=== PATIENT | female | born 1955 | race Hispanic/Latino ===

== ENCOUNTER 2023-01-11 15:47 | Emergency (ER) | payer OTHER ==
--- OUTSIDE RECORDS SUMMARY | 2023-01-11 16:01 | XMS REPORT | Continuity of Care Document ---
:1955 Author Organization [facility] t Address [address] [place] [address] Care Team Providers Name Role Phone Danae Bianchi Primary Care Physician Sammi Cartagena Attending Clinician Unavailable Miley Vincent Attending Clinician Unavailable Danae Bianchi Attending Clinician Unavailable HILDA SPRINGER Attending Clinician Unavailable Hilda Springer DPM Attending Clinician Pob, [facility] Main Attending Clinician Unavailable Only, [facility] Attending Clinician Unavailable Doctor Unassigned, [place] Attending Clinician Unavailable HILDA SPRINGER Admitting Clinician Unavailable Hilda Springer DPM Admitting Clinician Payers Payer Name Policy Type Policy Number Effective Date Expiration Date S zac AETNA MEDICARE [id number] 2020 ADV 00:00:00 AET[employer] MEDICARE 53 [id number] 2018 Common Spi rit 00:00:00 - [facility] Problems Condition Condition Condition Status Onset Resolution Last Treating Co mments Source Name Details Category Date Date Treatment Clinician Date [id number] Nonadheren Problem Co mmon ce with Spirit dietary - CHI restrictio [facility] [id number] Body mass Problem Com mon index Spirit [BMI] - [facility]I 50.0-59.9, [facility] Ulcer Ulcer Problem Common Spirit - [facility] [id number] Right Problem Common acute Spirit serous - [facility] ot[facility] Medica l not Center specified [id number] Diabetic Problem Comm on neuropathy Spirit , painful - [facility] [id number] 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 - [facility] diabetes associated St mellitus with type [facility] 2 diabetes Medica l mellitus Center Neuropathy Neuropathy Problem C ommon Spirit - [facility] [id number] Decreased Problem Com mon hearing of Spirit left ear - [facility] [id number] Anxiety Problem Common [facility] [id number] Change in Problem Com mon bowel Spirit habit - [facility] [id number] Essential Problem Comm on hypertensi Spirit on [facility] Vitamin D Vitamin D Problem Com mon deficiency deficiency tolu [facility] Chronic Chronic Problem Common fatigue fatigue Spirit syndrome - [facility] [id number] Constipati Problem Com mon on, Spirit unspecifie - CHI d constipati [facility] on [facility] [id number] Seasonal Problem Comm on allergies [facility] Allergies, Adverse Reactions, Alerts Allergy Allergy Status Severity Reaction(s) Onset Inactive Treating Comm ents Source Name Type Date Date Clinician NO KNOWN Drug [facility] Social History Social Habit Start Date Stop Date Quantity Comments Source Exposure to Not sure [facility] SARS-CoV-2 (event) Medica l Branch History of Tobacco Common Spirit - [facility] Use [facility] Sex Assigned At Common Sp tolu - [facility] Tobacco use and 2020-12-30 2020-12-30 Never used [facility] [place] exposure 00:00:00 00:00:00 Medical Branch Smoking Status Start Date Stop Date Source Former Smoker 2022-05-18 00:00:00 2022-05-18 00:00:00 Common S pirit - [facility] Never Smoker Common Spirit - [facility] Medications Ordered Filled Start Stop Current Ordering Indication Dosage Frequency Signature Comments Components Source Medication Medication Date Date Medication? Clinician (SIG) Name Name Hanna Ferreira 2021-07- No 1{table QD Ricoxiga 10mg 10mg 0-26 04-24 t} 10mg 00:00: 00:00 00 :00 Hanna Ferreira 2021-07- No 1{table QD Ricoxiga 10mg 10mg 0-26 04-24 t} 10mg 00:00: 00:00 00 :00 Neomycin-Po Neomycin-Po 2021-0 No 4{drops BID Neomycin-P lymyxin-HC lymyxin-HC 5-19 _into_a olymyxin-H 3.5-05463-4 3.5-67787-7 00:00: ffected C 00 _ear} 3.5-12085- 1 Neomycin-Po Neomycin-Po 2021-0 No 4{drops BID Neomycin-P lymyxin-HC lymyxin-HC 5-19 _into_a olymyxin-H 3.5-91166-9 3.5-54114-9 00:00: ffected C 00 _ear} 3.5-93549- 1 Neomycin-Po Neomycin-Po 2021-0 No 4{drops BID Neomycin-P lymyxin-HC lymyxin-HC 5-19 _into_a olymyxin-H 3.5-03053-0 3.5-80433-7 00:00: ffected C 00 _ear} 3.5-53833- 1 Neomycin-Po Neomycin-Po 2021-0 No 4{drops BID Neomycin-P lymyxin-HC lymyxin-HC 5-19 _into_a olymyxin-H 3.5-06619-2 3.5-80195-8 00:00: ffected C 00 _ear} 3.5-58437- 1 Neomycin-Po Neomycin-Po 2022-0 No 4{drops BID Neomycin-P lymyxin-HC lymyxin-HC 5-19 _into_a olymyxin-H 3.5-76262-1 3.5-84343-0 00:00: ffected C 00 _ear} 3.5-25133- 1 Neomycin-Po Neomycin-Po 2022-0 No 4{drops BID Neomycin-P lymyxin-HC lymyxin-HC 5-19 _into_a olymyxin-H 3.5-89024-3 3.5-80762-0 00:00: ffected C 00 _ear} 3.5-61811- 1 Neomycin-Po Neomycin-Po 2022-0 No 4{drops BID Neomycin-P lymyxin-HC lymyxin-HC 5-19 _into_a olymyxin-H 3.5-73870-9 3.5-39998-7 00:00: ffected C 00 _ear} 3.5-09857- 1 Neomycin-Po Neomycin-Po 2022-0 No 4{drops BID Neomycin-P lymyxin-HC lymyxin-HC 5-19 _into_a olymyxin-H 3.5-48036-4 3.5-75283-0 00:00: ffected C 00 _ear} 3.5-40292- 1 Neomycin-Po Neomycin-Po 2022-0 No 4{drops BID Neomycin-P lymyxin-HC lymyxin-HC 5-19 _into_a olymyxin-H 3.5-98735-9 3.5-39213-1 00:00: ffected C 00 _ear} 3.5-40770- 1 Neomycin-Po Neomycin-Po 2022-0 No 4{drops BID Neomycin-P lymyxin-HC lymyxin-HC 5-19 _into_a olymyxin-H 3.5-55364-1 3.5-72490-4 00:00: ffected C 00 _ear} 3.5-06683- 1 Neomycin-Po Neomycin-Po 2022-0 No 4{drops BID Neomycin-P lymyxin-HC lymyxin-HC 5-19 _into_a olymyxin-H 3.5-74654-8 3.5-93025-1 00:00: ffected C 00 _ear} 3.5-24280- 1 Neomycin-Po Neomycin-Po 2022-0 No 4{drops BID Neomycin-P lymyxin-HC lymyxin-HC 5-19 _into_a olymyxin-H 3.5-84631-5 3.5-29117-0 00:00: ffected C 00 _ear} 3.5-93225- 1 Fluconazole Fluconazole 2021- No 1{table Fluconazol 150 MG 150 MG 5-19 05-20 t} e 150 MG 00:00: 00:00 00 :00 Fluconazole Fluconazole 2021-0 2021- No 1{table Fluconazol 150 MG 150 MG 5-19 05-20 t} e 150 MG 00:00: 00:00 00 :00 metFORMIN 2021-0 Yes 500mg Take 500 Uni vers 500 mg 1-29 mg by ity of tablet 23:13: mouth 2 [place] 04 (two) Medical times [place] daily with meals. bacitracin- 0 Yes PRN, Univer s polymyxin B 08-26 Starting ity of (DOUBLE 15:58: on Sun [place] ANTIBIOTIC) 00 08/26/21 at Mn dical 500-10,000 0958, Branch unit/gram Until topical Discontinu ointment ed, Routine, Intra-op bacitracin- 2021-0 2021- No PRN, Unive rs polymyxin B 08-26 Starting ity of (DOUBLE 15:58: 19:14 on Sun [place] ANTIBIOTIC) 00 :02 08/26/21 at Mn dical 500-10,000 0958, Branch unit/gram Until Fri topical 08/26/21 at ointment 1314, Routine, Intra-op sodium 0 Yes PRN, Univers chloride 08-26 Starting ity of 0.9 % 15:15: on Fri [place] irrigation 00 08/26/[address] [facility] ical solution 0915, [place] Until Discontinu ed, Intra-op sodium 2021-0 2021- No PRN, Univers chloride 08-26 Starting ity of 0.9 % 15:15: 19:14 on Fri [place] irrigation 00 :02 08/26/21 at Med ical solution 0915, Branch Until 08/26/21 at 1314, Intra-op bupivacaine 2021-0 Yes PRN, Univer s (preserv 08-26 Starting ity of free) 0.5% 15:01: on Sun [place] (SENSORCAIN 00 08/26/21 at Mn dical E MPF) 0.5 0901, Branch % (5 mg/mL) Intra-op 5 mL, lidocaine 1% (PF) (XYLOCAINE) 5 mL bupivacaine 2021- No PRN, Unive rs (preserv 08-26 Starting ity of free) 0.5% 15:01: 19:14 [place] ([place]IN [place] :02 08/26/21 at [place] dicwv E [facility]) 0.5 0901, Branch % (5 mg/mL) Intra-op 5 mL, lidocaine 1% (PF) (XYLOCAINE) 5 mL lactated 2021- No 1000mL at [facility] IV 08-26- mL/hr, ity of infusion 13:45: 14:01 1,000 mL, Suleiman as 1,000 mL 00 :00 IV Medical Infusion, Branch ONCE, 1 dose, On Sun08/26/21 at 0745, Routine, DSU Pre-op lactated 0 2021- No 1000mL at 42 [facility] ringers IV 08-26-28 mL/hr, ity of infusion 13:45: 14:01 1,000 mL, Suleiman as 1,000 mL 00 :00 IV Medical Infusion, Branch ONCE, 1 dose, On Sun08/26/21 at 0745, Routine, DSU Pre-op losartan 2021-0 Yes 100mg Take 100 Univ ers 100 mg 1-28 mg by ity of tablet 11:14: mouth daily. Medical Branch atorvastati 2021-0 Yes 10mg Take 10 mg Univers n 10 mg 08-26 by mouth ity of tablet 11:14: at [place] 01 bedtime. Medical Branch glimepiride 2021-0 Yes 2mg Take 2 mg U nivers 2 mg tablet -28 by mouth 2 it y of 11:14: (two) [place] times Medical daily. Branch metFORMIN 2021-0 Yes 500mg Take 500 Uni vers 500 mg 1-28 mg by ity of tablet 11:14: mouth 2 [place] 01 (two) Medical times Branch daily with meals. losartan 2021-0 Yes 100mg Take 100 Univ ers 100 mg 1-28 mg by ity of tablet 11:14: mouth daily. Medical Branch atorvastati Yes 10mg Take 10 mg Univers n 10 mg 08-26 by mouth ity of tablet 11:14: at [place] [address] bedtime. Medical Branch glimepiride Yes 2mg Take 2 mg U nivers 2 mg tablet 08-26 by mouth 2 it y of 11:14: (two) [place] times Medical daily. Branch losartan Yes 100mg Take 100 Univ ers 100 mg 1-28 mg by ity of tablet 11:14: mouth [place] daily. Medical Branch atorvastati Yes 10mg Take 10 mg Univers n 10 mg 08-26 by mouth ity of tablet 11:14: at [place] [address] bedtime. Medical Branch glimepiride Yes 2mg Take 2 mg U nivers 2 mg tablet 08-26 by mouth 2 it y of 11:14: (two) [place] times Medical daily. Branch aspirin 325 2021- No [id number] 325mg Take 1 Univers mg tablet 08-26 tablet by ity of 00:00: 05:59 mouth 2 [place] 00 :00 (two) Medical times [place] daily with meals for 28 days. aspirin 325 2021- No [id number] 325mg Take 1 Univers mg tablet 08-26 tablet by ity of 00:00: 05:59 mouth 2 [place] 00 :00 (two) Medical times [place] daily with meals for 28 days. metFORMIN Yes 500mg Take 500 Uni vers 500 mg 1-26 mg by ity of tablet 15:30: mouth 2 [place] (two) Medical times [place] daily with meals. metFORMIN Yes 500mg Take 500 Uni vers 500 mg 1-26 mg by ity of tablet 15:30: mouth 2 [place] (two) Medical times [place] daily with meals. metFORMIN metFORMIN 2020-07 No BID metFORMIN HCl ER 500 HCl ER 500 0-19 HCl ER 500 MG MG 00:00: MG 00 metFORMIN metFORMIN 2020-07 No BID metFORMIN HCl ER 500 HCl ER 500 0-19 HCl ER 500 MG MG 00:00: MG 00 atorvastati Yes 10mg Take 10 mg Univers n 10 mg 6-04 by mouth ity of tablet 19:21: at [place] [address] bedtime. Medical Branch glimepiride Yes 2mg Take 2 mg U nivers 2 mg tablet 6-04 by mouth 2 it y of 19:21: (two) [place] 12 times Medical daily. Branch losartan 0 Yes 100mg Take 100 Univ ers 100 mg 6-04 mg by ity of tablet 19:21: mouth [place] 12 daily. Medical Branch atorvastati Yes 10mg Take 10 mg Univers n 10 mg 6-04 by mouth ity of tablet 19:21: at [place] 12 bedtime. Medical Branch glimepiride Yes 2mg Take 2 mg U nivers 2 mg tablet 6-04 by mouth 2 it y of 19:21: (two) [place] 12 times Medical daily. Branch losartan Yes 100mg Take 100 Univ ers 100 mg 6-04 mg by ity of tablet 19:21: mouth [place] 12 daily. Medical Branch FENTanyl PF Yes 25ug 25 mcg, Uni vers (SUBLIMAZE 6-04 Slow IV ity of (PF)) 18:21: Push, [place] injection 55 Q5MIN PRN, Medi dc 25 mcg 4 doses, Branch Starting 12/31/20 at 1321, Until Discontinu ed, Routine, Pain (scale 7-10), PACU ondansetron Yes 4mg 4 mg, Slow Univers (ZOFRAN 6-04 IV Push, ity of (PF)) 18:21: PRN, 1 [place] injection 4 55 dose, Medical mg Starting Branch 12/31/20 at 1321, Until Discontinu ed, Routine, Nausea and Vomiting (N/V), PACU FENTanyl PF Yes 25ug 25 mcg, Uni vers (SUBLIMAZE 6-04 Slow IV ity of (PF)) 18:21: Push, [place] injection 55 Q5MIN PRN, Medi dc 25 mcg 4 doses, Branch Starting 12/31/20 at 1321, Until Discontinu ed, Routine, Pain (scale 4-6), PACU FENTanyl PF 2020-0 202- No 25ug 25 mcg, Un cherise (SUBLIMAZE 6-04 06-04 Slow IV ity o f (PF)) 18:21: 21:26 Push, [place] injection 55 :16 Q5MIN PRN, Medi dc 25 mcg 4 doses, Branch Starting 12/31/20 at 1321, Until Sun12/31/20 at 1626, Routine, Pain (scale 7-10), PACU ondansetron 2020- No 4mg 4 mg, Slow Univers (ZOFRAN 12-31 IV Push, ity of (PF)) 18:21: 21:26 PRN, 1 [place] injection 4 55 :16 dose, Medical mg Starting Branch Sun12/31/20 at 1321, Until Sun12/31/20 at 1626, Routine, Nausea and Vomiting (N/V), PACU FENTanyl PF 2020- No 25ug 25 mcg, Un cherise (SUBLIMAZE 12-31 Slow IV ity o f (PF)) 18:21: 21:26 Push, [place] injection 55 :16 Q5MIN PRN, Medi dc 25 mcg 4 doses, Branch Starting Sun12/31/20 at 1321, Until Sun12/31/20 at 1626, Routine, Pain (scale 4-6), PACU bupivacaine Yes PRN, Univer s (preserv 6-04 Starting ity of free) 0.5% 17:45: Sun12/31/20 [place] (SENSORCAIN 00 at 1245, Medi dc E MPF) 0.5 Intra-op Branc h % (5 mg/mL) 5 mL, lidocaine 1% (PF) (XYLOCAINE) 5 mL bupivacaine 2020- No PRN, Unive rs (preserv 12-31 Starting ity of free) 0.5% 17:45: 21:26 Sun12/31/20 [place] (SENSORCAIN 00 :16 at 1245, Medi dc E MPF) 0.5 Intra-op Branc h % (5 mg/mL) 5 mL, lidocaine 1% (PF) (XYLOCAINE) 5 mL sodium Yes PRN, Univers chloride 6-04 Starting ity of 0.9 % 17:41: Sun12/31/20 [place] irrigation 00 at 1241, Medic al solution Until Branch Discontinu ed, Intra-op sodium 2020- No PRN, Univers chloride 12-31 Starting ity of 0.9 % 17:41: 21:26 12/31/20 [place] irrigation 00 :16 at 1241, Medic al solution Until Fri Branch 12/31/20 at 1626, Intra-op lactated 2020- No 1000mL at 42 Unive rs ringers IV 6-04 06-04 mL/hr, ity of infusion 15:15: 15:12 1,000 mL, Suleiman as 1,000 mL 00 :00 IV Medical Infusion, Branch ONCE, 1 dose, Sun12/31/20 at 1015, Routine, DSU Pre-op lactated 2020- No 1000mL at 42 Unive rs ringers IV 6-04 06-04 mL/hr, ity of infusion 15:15: 15:12 1,000 mL, Suleiman as 1,000 mL 00 :00 IV Medical Infusion, Branch ONCE, 1 dose, 12/31/20 at 1015, Routine, DSU Pre-op losartan Yes 100mg Take 100 Univ ers 100 mg 6-04 mg by ity of tablet 14:21: mouth [place] 12 daily. Medical Branch atorvastati Yes 10mg Take 10 mg Univers n 10 mg 6-04 by mouth ity of tablet 14:21: at [place] 12 bedtime. Medical Branch glimepiride Yes 2mg Take 2 mg U nivers 2 mg tablet 6-04 by mouth 2 it y of 14:21: (two) [place] 12 times Medical daily. Branch losartan Yes 100mg Take 100 Univ ers 100 mg 6-04 mg by ity of tablet 14:21: mouth [place] 12 daily. Medical Branch atorvastati Yes 10mg Take 10 mg Univers n 10 mg 6-04 by mouth ity of tablet 14:21: at [place] 12 bedtime. Medical Branch glimepiride Yes 2mg Take 2 mg U nivers 2 mg tablet 6-04 by mouth 2 it y of 14:21: (two) [place] 12 times Medical daily. Branch Neomycin-Po Neomycin-Po 0 No 4{drops BID Neomycin-P Common lymyxin-HC lymyxin-HC 4-05 _into_a olymyxin-H Spirit 3.-1 3. 00:00: ffected C - CHI 00 _ear} 3.5- [address] Neomycin-Po Neomycin-Po 2020-0 No 4{drops BID Neomycin-P lymyxin-HC lymyxin-HC 4-05 _into_a olymyxin-H 3.5-35890-4 3.5-89008-0 00:00: ffected C 00 _ear} 3.5-87742- 1 Neomycin-Po Neomycin-Po 2020-0 No 4{drops BID Neomycin-P lymyxin-HC lymyxin-HC 4-05 _into_a olymyxin-H 3.5-16244-6 3.5-49172-8 00:00: ffected C 00 _ear} 3.5-00011- 1 One Touch One Touch No QD One Touch Common Ultra Test Ultra Test 3-24 Ultra Test Spirit Strips 1 Strips 1 00:00: Strips 1 - CHI 00 [facility] One Touch One Touch No QD One Touch Common Delica Delica 3-24 Delica Spirit Lancets - Lancets - 00:00: Lancets - - CHI 00 [facility] One Touch One Touch No QD One Touch Delica Delica 3-24 Delica Lancets - Lancets - 00:00: Lancets - 00 One Touch One Touch 0 No QD One Touch Ultra Test Ultra Test 3-24 Ultra Test Strips 1 Strips 1 00:00: Strips 1 00 One Touch One Touch 0 No QD One Touch Delica Delica 3-24 Delica Lancets - Lancets - 00:00: Lancets - 00 One Touch One Touch 0 No QD One Touch Ultra Test Ultra Test 3-24 Ultra Test Strips 1 Strips 1 00:00: Strips 1 00 One Touch One Touch 0 No QD One Touch Delica Delica 3-24 Delica Lancets - Lancets - 00:00: Lancets - 00 One Touch One Touch 0 No QD One Touch Ultra Test Ultra Test 3-24 Ultra Test Strips 1 Strips 1 00:00: Strips 1 00 One Touch One Touch 0 No QD One Touch Ultra Test Ultra Test 3-24 Ultra Test Strips 1 Strips 1 00:00: Strips 1 00 One Touch One Touch 0 No QD One Touch Delica Delica 3-24 Delica Lancets - Lancets - 00:00: Lancets - 00 One Touch One Touch 2021-0 No QD One Touch Delica Delica 3-24 Delica Lancets - Lancets - 00:00: Lancets - 00 One Touch One Touch 2020-0 No QD One Touch Ultra Test Ultra Test 3-24 Ultra Test Strips 1 Strips 1 00:00: Strips 1 00 One Touch One Touch 2020-0 No QD Ultra Test Ultra Test 3-24 Strips 1 Strips 1 00:00: 00 One Touch One Touch 2020-0 No QD Delica Delica 3-24 Lancets - Lancets - 00:00: 00 One Touch One Touch 2020-0 No QD One Touch Ultra Test Ultra Test 3-24 Ultra Test Strips 1 Strips 1 00:00: Strips 1 00 One Touch One Touch 2020-0 No QD One Touch Delica Delica 3-24 [facility] Lancets - Lancets - 00:00: Lancets - 00 One Touch One Touch 0 No QD One Touch Ultra Test Ultra Test 3-24 Ultra Test Strips 1 Strips 1 00:00: Strips 1 00 One Touch One Touch 2020-0 No QD One Touch Delica Delica 3-24 [facility] Lancets - Lancets - 00:00: Lancets - 00 One Touch One Touch 0 No QD One Touch Ultra Test Ultra Test 3-24 Ultra Test Strips 1 Strips 1 00:00: Strips 1 00 One Touch One Touch 2020-0 No QD One Touch Delica Delica 3-24 [facility] Lancets - Lancets - 00:00: Lancets - 00 One Touch One Touch 0 No QD One Touch Ultra Test Ultra Test 3-24 Ultra Test Strips 1 Strips 1 00:00: Strips 1 00 One Touch One Touch 2020-0 No QD One Touch Delica Delica 3-24 [facility] Lancets - Lancets - 00:00: Lancets - 00 One Touch One Touch 2020-0 No QD One Touch Ultra Test Ultra Test 3-24 Ultra Test Strips 1 Strips 1 00:00: Strips 1 00 One Touch One Touch 2020-0 No QD One Touch Delica Delica 3-24 Delica Lancets - Lancets - 00:00: Lancets - 00 One Touch One Touch 2020-0 No QD One Touch Ultra Test Ultra Test 3-24 Ultra Test Strips 1 Strips 1 00:00: Strips 1 00 One Touch One Touch 2020-0 No QD One Touch Delica Delica 3-24 [facility] Lancets - Lancets - 00:00: Lancets - 00 One Touch One Touch 0 No QD One Touch Delica [facility] 3- [facility] Lancets - Lancets - 00:00: Lancets - 00 One Touch One Touch 0 No QD One Touch Ultra Test Ultra Test 10-20 Ultra Test Strips 1 Strips 1 00:00: Strips 1 00 One Touch One Touch 0 No QD One Touch Delica [facility] 3- [facility] Lancets - Lancets - 00:00: Lancets - 00 One Touch One Touch 0 No QD One Touch Ultra Test Ultra Test 10-20 Ultra Test Strips 1 Strips 1 00:00: Strips 1 00 One Touch One Touch 0 No QD One Touch Delica [facility] [address] [place] [address] Lancets - Lancets - 00:00: Lancets - 00 One Touch One Touch 0 No QD One Touch Delica [facility] [address] [place] [address] Lancets - Lancets - 00:00: Lancets - 00 One Touch One Touch 0 No QD One Touch Delica [facility] [address] [place] [address] Lancets - Lancets - 00:00: Lancets - 00 One Touch One Touch 0 No QD One Touch Delica [facility] 3-24 [facility] Lancets - Lancets - 00:00: Lancets - 00 One Touch One Touch 0 No QD One Touch Delica [facility] 3- [facility] Lancets - Lancets - 00:00: Lancets - 00 One Touch One Touch 0 No QD One Touch Delica [facility] 3- [facility] Lancets - Lancets - 00:00: Lancets - 00 One Touch One Touch 0 No QD One Touch Delica [facility] 3- [facility] Lancets - Lancets - 00:00: Lancets - 00 One Touch One Touch 0 No QD One Touch Delica [facility] 3- [facility] Lancets - Lancets - 00:00: Lancets - 00 One Touch One Touch 2021- No QD One Touch Ultra Test Ultra Test 10-20 Ultra Test Strips 1 Strips 1 00:00: 00:00 Strips 1 00 :00 One Touch One Touch 0 2021- No QD One Touch Ultra Test Ultra Test 10-20 Ultra Test Strips 1 Strips 1 00:00: 00:00 Strips 1 00 :00 One Touch One Touch 2021- No QD One Touch Ultra Test Ultra Test 10-20 Ultra Test Strips 1 Strips 1 00:00: 00:00 Strips 1 00 :00 [facility] Yes Na Bianchi 1 Common ne ne 8-26 applicatio Spirit Acetonide Acetonide 00:00: n to - C HI 00 affected [facility] No 1{appli BID Triamcinol Common ne ne 8-26 cation_ one Spirit Acetonide Acetonide 00:00: to_affe Acetonide - CHI 0.1 % 0.1 % 00 c[facility]ar 0.1 [facility]li BID Triamcinol ne ne 8-26 cation_ one Acetonide Acetonide 00:00: to_affe Acetonide 0.1 % 0.1 % 00 cted_ar 0.1 % ea} [facility] No 1{appli BID Triamcinol ne ne 8-26 cation_ one Acetonide Acetonide 00:00: to_affe Acetonide 0.1 % 0.1 % 00 cted_ar 0.1 % ea} Linzess Linzess 2020- No Na Bianchi one Com 01-27 capsule Spirit 00:00: 00:00 - CHI 00 :00 [facility] Farxiga Farga 2020- No Na Bianchi 1 Com 09-04 Spirit 00:00: 00:00 - CHI 00 :00 [facility] No known No Univers medications ity of [facility] No known No Univers medications ity of [facility] Losartan Losartan Yes Na Bianchi 1 tablet Common Potassium Potassium [facility] Gabapentin Gabapentin Yes Na Bianchi 1 capsule Common [facility] Vitamin D Vitamin D Yes Na Bianchi not Co mmon defined [facility] Atorvastati Atorvastati Yes Na Bianchi 1 tablet Common n Calcium n Calcium [facility] MetFORMIN MetFORMIN Yes Na Bianchi 1 tablet Common HCl ER HCl ER with Spirit evening - [facility] meal [facility] Flonase Flonase Yes Na Bianchi 2 sprays Co mmon in each Spirit nostril [facility] Valacyclovi Valacyclovi Yes Na Bianchi 1 tablet Common r HCl r HCl [facility] Glimepiride Glimepiride No BID Glimepirid Common 4 MG 4 MG e 4 MG [facility] Atorvastati Atorvastati No 1{table QD Atorvastat Common n Calcium n Calcium t} in Calcium Spirit 10 MG 10 MG 10 MG [facility] Farxiga Farxiga No QD Farxiga Common 10mg 10mg 10mg [facility] Atorvastati Atorvastati No 1{table QD Atorvastat Common n Calcium n Calcium t} in Calcium Spirit 10 MG 10 MG 10 MG [facility] Losartan Losartan No 1{table QD Losartan Common Potassium Potassium t} Potassium Spirit 100 MG 100 MG 100 MG [facility] Flonase 50 Flonase 50 No 2{spray QD Flonase 50 Common MCG/ACT MCG/ACT s_in_ea MCG/ACT Spi rit ch_nost - CHI ril} [facility] Linzess 145 Linzess 145 No Linzess Common mcg mcg 145 mcg [facility] valACYclovi valACYclovi No 2{table BID valACYclov Common r HCl 500 r HCl 500 ts} ir HCl 500 Spirit MG MG MG [facility] valACYclovi valACYclovi No 1{table TID valACYclov Common r HCl 1 GM r HCl 1 GM t} ir HCl 1 Spirit GM [facility] Vitamin D Vitamin D No Vitamin D Common [facility] Cetirizine Cetirizine No 1{table QD Cetirizine Common HCl 10 MG HCl 10 MG t} HCl 10 MG [facility] Gabapentin Gabapentin No 1{capsu TID Gabapentin Common 100 MG 100 MG le} 100 MG [facility] Atorvastati Atorvastati No 1{table QD Atorvastat n Calcium n Calcium t} in Calcium 10 MG 10 MG 10 MG Vitamin D Vitamin D No Vitamin D Farxiga Farxiga No QD Farxiga 10mg 10mg 10mg Glimepiride Glimepiride No BID Glimepirid 4 MG 4 MG e 4 MG Linzess 145 Linzess 145 No Linzess mcg mcg 145 mcg Losartan Losartan No 1{table QD Losartan Potassium Potassium t} Potassium 100 MG 100 MG 100 MG valACYclovi valACYclovi No 2{table BID valACYclov r HCl 500 r HCl 500 ts} ir HCl 500 MG MG MG Gabapentin Gabapentin No 1{capsu TID Gabapentin 100 MG 100 MG le} 100 MG Flonase 50 Flonase 50 No 2{spray QD Flonase 50 MCG/ACT MCG/ACT s_in_ea MCG/ACT ch_nost ril} Atorvastati Atorvastati No 1{table QD Atorvastat n Calcium n Calcium t} in Calcium 10 MG 10 MG 10 MG Cetirizine Cetirizine No 1{table QD Cetirizine HCl 10 MG HCl 10 MG t} HCl 10 MG valACYclovi valACYclovi No 1{table TID valACYclov r HCl 1 GM r HCl 1 GM t} ir HCl 1 GM Atorvastati Atorvastati No 1{table QD Atorvastat n Calcium n Calcium t} in Calcium 10 MG 10 MG 10 MG Flonase 50 Flonase 50 No 2{spray QD Flonase 50 MCG/ACT MCG/ACT s_in_ea MCG/ACT ch_nost ril} Linzess 145 Linzess 145 No Linzess mcg mcg 145 mcg Farxiga Farxiga No QD Farxiga 10mg 10mg 10mg Atorvastati Atorvastati No 1{table QD Atorvastat n Calcium n Calcium t} in Calcium 10 MG 10 MG 10 MG Gabapentin Gabapentin No 1{capsu TID Gabapentin 100 MG 100 MG le} 100 MG Losartan Losartan No 1{table QD Losartan Potassium Potassium t} Potassium 100 MG 100 MG 100 MG valACYclovi valACYclovi No 2{table BID valACYclov r HCl 500 r HCl 500 ts} ir HCl 500 MG MG MG Cetirizine Cetirizine No 1{table QD Cetirizine HCl 10 MG HCl 10 MG t} HCl 10 MG Glimepiride Glimepiride No BID Glimepirid 4 MG 4 MG e 4 MG valACYclovi valACYclovi No 1{table TID valACYclov r HCl 1 GM r HCl 1 GM t} ir HCl 1 GM Vitamin D Vitamin D No Vitamin D Glimepiride Glimepiride No BID Glimepirid 4 MG 4 MG e 4 MG Gabapentin Gabapentin No 1{capsu TID Gabapentin 100 MG 100 MG le} 100 MG Vitamin D Vitamin D No Vitamin D Losartan Losartan No 1{table QD Losartan Potassium Potassium t} Potassium 100 MG 100 MG 100 MG Atorvastati Atorvastati No 1{table QD Atorvastat n Calcium n Calcium t} in Calcium 10 MG 10 MG 10 MG Flonase 50 Flonase 50 No 2{spray QD Flonase 50 MCG/ACT MCG/ACT s_in_ea MCG/ACT ch_nost ril} Cetirizine Cetirizine No 1{table QD Cetirizine HCl 10 MG HCl 10 MG t} HCl 10 MG Linzess 145 Linzess 145 No Linzess mcg mcg 145 mcg Losartan Losartan No Losartan Potassium Potassium Potassium 100 MG 100 MG 100 MG Cetirizine Cetirizine No 1{table QD Cetirizine HCl 10 MG HCl 10 MG t} HCl 10 MG Linzess 145 Linzess 145 No Linzess mcg mcg 145 mcg Flonase 50 Flonase 50 No 2{spray QD Flonase 50 MCG/ACT MCG/ACT s_in_ea MCG/ACT ch_nost ril} Glimepiride Glimepiride No BID Glimepirid 4 MG 4 MG e 4 MG Atorvastati Atorvastati No 1{table QD Atorvastat n Calcium n Calcium t} in Calcium 10 MG 10 MG 10 MG Gabapentin Gabapentin No 1{capsu TID Gabapentin 100 MG 100 MG le} 100 MG Vitamin D Vitamin D No Vitamin D Glimepiride Glimepiride No BID Glimepirid 4 MG 4 MG e 4 MG Cetirizine Cetirizine No 1{table QD Cetirizine HCl 10 MG HCl 10 MG t} HCl 10 MG Linzess 145 Linzess 145 No Linzess mcg mcg 145 mcg Flonase 50 Flonase 50 No 2{spray QD Flonase 50 MCG/ACT MCG/ACT s_in_ea MCG/ACT ch_nost ril} Vitamin D Vitamin D No Vitamin D Gabapentin Gabapentin No 1{capsu TID Gabapentin 100 MG 100 MG le} 100 MG Losartan Losartan No Losartan Potassium Potassium Potassium 100 MG 100 MG 100 MG Atorvastati Atorvastati No Atorvastat n Calcium n Calcium in Calcium 10 MG 10 MG 10 MG metFORMIN metFORMIN No metFORMIN HCl ER 500 HCl ER 500 HCl ER 500 MG MG MG metFORMIN metFORMIN No HCl ER 500 HCl ER 500 MG MG Losartan Losartan No Potassium Potassium 100 MG 100 MG Gabapentin Gabapentin No 1{capsu TID 100 MG 100 MG le} Vitamin D Vitamin D No Flonase 50 Flonase 50 No 2{spray QD MCG/ACT MCG/ACT s_in_ea ch_nost ril} Glimepiride Glimepiride No BID 4 MG 4 MG Atorvastati Atorvastati No n Calcium n Calcium 10 MG 10 MG Linzess 145 Linzess 145 No mcg mcg Cetirizine Cetirizine No 1{table QD HCl 10 MG HCl 10 MG t} metFORMIN metFORMIN No metFORMIN HCl ER 500 HCl ER 500 HCl ER 500 MG MG MG Losartan Losartan No Losartan Potassium Potassium Potassium 100 MG 100 MG 100 MG Gabapentin Gabapentin No 1{capsu TID Gabapentin 100 MG 100 MG le} 100 MG Vitamin D Vitamin D No Vitamin D Flonase 50 Flonase 50 No 2{spray QD Flonase 50 MCG/ACT MCG/ACT s_in_ea MCG/ACT ch_nost ril} Glimepiride Glimepiride No BID Glimepirid 4 MG 4 MG e 4 MG Atorvastati Atorvastati No Atorvastat n Calcium n Calcium in Calcium 10 MG 10 MG 10 MG Linzess 145 Linzess 145 No Linzess mcg mcg 145 mcg Cetirizine Cetirizine No 1{table QD Cetirizine HCl 10 MG HCl 10 MG t} HCl 10 MG Flonase 50 Flonase 50 No 2{spray QD Flonase 50 MCG/ACT MCG/ACT s_in_ea MCG/ACT ch_nost ril} metFORMIN metFORMIN No TID metFORMIN HCl ER 500 HCl ER 500 HCl ER 500 MG MG MG Atorvastati Atorvastati No 1{table QD Atorvastat n Calcium n Calcium t} in Calcium 10 MG 10 MG 10 MG Glimepiride Glimepiride No BID Glimepirid 4 MG 4 MG e 4 MG Atorvastati Atorvastati No Atorvastat n Calcium n Calcium in Calcium 10 MG 10 MG 10 MG Cetirizine Cetirizine No 1{table QD Cetirizine HCl 10 MG HCl 10 MG t} HCl 10 MG metFORMIN metFORMIN No metFORMIN HCl ER 500 HCl ER 500 HCl ER 500 MG MG MG Vitamin D Vitamin D No Vitamin D Linzess 145 Linzess 145 No Linzess mcg mcg 145 mcg Losartan Losartan No Losartan Potassium Potassium Potassium 100 MG 100 MG 100 MG Losartan Losartan No 1{table QD Losartan Potassium Potassium t} Potassium 100 MG 100 MG 100 MG Gabapentin Gabapentin No 1{capsu TID Gabapentin 100 MG 100 MG le} 100 MG Atorvastati Atorvastati No 1{table QD Atorvastat n Calcium n Calcium t} in Calcium 10 MG 10 MG 10 MG Linzess 145 Linzess 145 No Linzess mcg mcg 145 mcg metFORMIN metFORMIN No TID metFORMIN HCl ER 500 HCl ER 500 HCl ER 500 MG MG MG Cetirizine Cetirizine No 1{table QD Cetirizine HCl 10 MG HCl 10 MG t} HCl 10 MG Flonase 50 Flonase 50 No 2{spray QD Flonase 50 MCG/ACT MCG/ACT s_in_ea MCG/ACT ch_nost ril} Atorvastati Atorvastati No Atorvastat n Calcium n Calcium in Calcium 10 MG 10 MG 10 MG Gabapentin Gabapentin No 1{capsu TID Gabapentin 100 MG 100 MG le} 100 MG Losartan Losartan No 1{table QD Losartan Potassium Potassium t} Potassium 100 MG 100 MG 100 MG Vitamin D Vitamin D No Vitamin D Glimepiride Glimepiride No BID Glimepirid 4 MG 4 MG e 4 MG metFORMIN metFORMIN No metFORMIN HCl ER 500 HCl ER 500 HCl ER 500 MG MG MG Losartan Losartan No Losartan Potassium Potassium Potassium 100 MG 100 MG 100 MG Glimepiride Glimepiride No BID Glimepirid 4 MG 4 MG e 4 MG Losartan Losartan No 1{table QD Losartan Potassium Potassium t} Potassium 100 MG 100 MG 100 MG metFORMIN metFORMIN No TID metFORMIN HCl ER 500 HCl ER 500 HCl ER 500 MG MG MG Flonase 50 Flonase 50 No 2{spray QD Flonase 50 MCG/ACT MCG/ACT s_in_ea MCG/ACT ch_nost ril} Vitamin D Vitamin D No Vitamin D Linzess 145 Linzess 145 No Linzess mcg mcg 145 mcg Atorvastati Atorvastati No 1{table QD Atorvastat n Calcium n Calcium t} in Calcium 10 MG 10 MG 10 MG OneTouch OneTouch No OneTouch Ultra - Ultra - Ultra - Cetirizine Cetirizine No 1{table QD Cetirizine HCl 10 MG HCl 10 MG t} HCl 10 MG Gabapentin Gabapentin No 1{capsu TID Gabapentin 100 MG 100 MG le} 100 MG metFORMIN metFORMIN No metFORMIN HCl ER 500 HCl ER 500 HCl ER 500 MG MG MG Atorvastati Atorvastati No Atorvastat n Calcium n Calcium in Calcium 10 MG 10 MG 10 MG Losartan Losartan No Losartan Potassium Potassium Potassium 100 MG 100 MG 100 MG Cetirizine Cetirizine No 1{table QD Cetirizine HCl 10 MG HCl 10 MG t} HCl 10 MG Losartan Losartan No Losartan Potassium Potassium Potassium 100 MG 100 MG 100 MG OneTouch OneTouch No OneTouch Ultra - Ultra - Ultra - Atorvastati Atorvastati No Atorvastat n Calcium n Calcium in Calcium 10 MG 10 MG 10 MG Losartan Losartan No 1{table QD Losartan Potassium Potassium t} Potassium 100 MG 100 MG 100 MG Linzess 145 Linzess 145 No Linzess mcg mcg 145 mcg Flonase 50 Flonase 50 No 2{spray QD Flonase 50 MCG/ACT MCG/ACT s_in_ea MCG/ACT ch_nost ril} Atorvastati Atorvastati No 1{table QD Atorvastat n Calcium n Calcium t} in Calcium 10 MG 10 MG 10 MG Vitamin D Vitamin D No Vitamin D Gabapentin Gabapentin No 1{capsu TID Gabapentin 100 MG 100 MG le} 100 MG metFORMIN metFORMIN No TID metFORMIN HCl ER 500 HCl ER 500 HCl ER 500 MG MG MG metFORMIN metFORMIN No metFORMIN HCl ER 500 HCl ER 500 HCl ER 500 MG MG MG Glimepiride Glimepiride No BID Glimepirid 4 MG 4 MG e 4 MG Cetirizine Cetirizine No 1{table QD Cetirizine HCl 10 MG HCl 10 MG t} HCl 10 MG Losartan Losartan No Losartan Potassium Potassium Potassium 100 MG 100 MG 100 MG OneTouch OneTouch No OneTouch Ultra - Ultra - Ultra - Atorvastati Atorvastati No Atorvastat n Calcium n Calcium in Calcium 10 MG 10 MG 10 MG Losartan Losartan No 1{table QD Losartan Potassium Potassium t} Potassium 100 MG 100 MG 100 MG Linzess 145 Linzess 145 No Linzess mcg mcg 145 mcg Flonase 50 Flonase 50 No 2{spray QD Flonase 50 MCG/ACT MCG/ACT s_in_ea MCG/ACT ch_nost ril} Atorvastati Atorvastati No 1{table QD Atorvastat n Calcium n Calcium t} in Calcium 10 MG 10 MG 10 MG Vitamin D Vitamin D No Vitamin D Gabapentin Gabapentin No 1{capsu TID Gabapentin 100 MG 100 MG le} 100 MG metFORMIN metFORMIN No TID metFORMIN HCl ER 500 HCl ER 500 HCl ER 500 MG MG MG metFORMIN metFORMIN No metFORMIN HCl ER 500 HCl ER 500 HCl ER 500 MG MG MG Glimepiride Glimepiride No BID Glimepirid 4 MG 4 MG e 4 MG predniSONE predniSONE No QD predniSONE 10 MG 10 MG 10 MG Atorvastati Atorvastati No Atorvastat n Calcium n Calcium in Calcium 10 MG 10 MG 10 MG Azithromyci Azithromyci No QD Azithromyc n 250 MG n 250 MG in 250 MG Atorvastati Atorvastati No 1{table QD Atorvastat n Calcium n Calcium t} in Calcium 10 MG 10 MG 10 MG Losartan Losartan No Losartan Potassium Potassium Potassium 100 MG 100 MG 100 MG Glimepiride Glimepiride No BID Glimepirid 4 MG 4 MG e 4 MG metFORMIN metFORMIN No TID metFORMIN HCl ER 500 HCl ER 500 HCl ER 500 MG MG MG Vitamin D Vitamin D No Vitamin D Losartan Losartan No 1{table QD Losartan Potassium Potassium t} Potassium 100 MG 100 MG 100 MG metFORMIN metFORMIN No metFORMIN HCl ER 500 HCl ER 500 HCl ER 500 MG MG MG Linzess 145 Linzess 145 No Linzess mcg mcg 145 mcg OneTouch OneTouch No OneTouch Ultra - Ultra - Ultra - Flonase 50 Flonase 50 No 2{spray QD Flonase 50 MCG/ACT MCG/ACT s_in_ea MCG/ACT ch_nost ril} Cetirizine Cetirizine No 1{table QD Cetirizine HCl 10 MG HCl 10 MG t} HCl 10 MG Gabapentin Gabapentin No 1{capsu TID Gabapentin 100 MG 100 MG le} 100 MG Benzonatate Benzonatate No 1{capsu TID Benzonatat 200 MG 200 MG le_as_n e 200 MG eeded} metFORMIN metFORMIN No metFORMIN HCl ER 500 HCl ER 500 HCl ER 500 MG MG MG Gabapentin Gabapentin No 1{capsu TID Gabapentin 100 MG 100 MG le} 100 MG Glimepiride Glimepiride No BID Glimepirid 4 MG 4 MG e 4 MG Losartan Losartan No Losartan Potassium Potassium Potassium 100 MG 100 MG 100 MG Atorvastati Atorvastati No Atorvastat n Calcium n Calcium in Calcium 10 MG 10 MG 10 MG OneTouch OneTouch No OneTouch Ultra - Ultra - Ultra - Flonase 50 Flonase 50 No 2{spray QD Flonase 50 MCG/ACT MCG/ACT s_in_ea MCG/ACT ch_nost ril} Linzess 145 Linzess 145 No Linzess mcg mcg 145 mcg Cetirizine Cetirizine No 1{table QD Cetirizine HCl 10 MG HCl 10 MG t} HCl 10 MG Vitamin D Vitamin D No Vitamin D Atorvastati Atorvastati No Atorvastat n Calcium n Calcium in Calcium 10 MG 10 MG 10 MG Vitamin D Vitamin D No Vitamin D Flonase 50 Flonase 50 No 2{spray QD Flonase 50 MCG/ACT MCG/ACT s_in_ea MCG/ACT ch_nost ril} Gabapentin Gabapentin No 1{capsu TID Gabapentin 100 MG 100 MG le} 100 MG Linzess 145 Linzess 145 No Linzess mcg mcg 145 mcg Losartan Losartan No Losartan Potassium Potassium Potassium 100 MG 100 MG 100 MG Glimepiride Glimepiride No BID Glimepirid 4 MG 4 MG e 4 MG OneTouch OneTouch No OneTouch Ultra - Ultra - Ultra - Cetirizine Cetirizine No 1{table QD Cetirizine HCl 10 MG HCl 10 MG t} HCl 10 MG metFORMIN metFORMIN No metFORMIN HCl ER 500 HCl ER 500 HCl ER 500 MG MG MG Atorvastati Atorvastati No Atorvastat n Calcium n Calcium in Calcium 10 MG 10 MG 10 MG Vitamin D Vitamin D No Vitamin D Flonase 50 Flonase 50 No 2{spray QD Flonase 50 MCG/ACT MCG/ACT s_in_ea MCG/ACT ch_nost ril} Gabapentin Gabapentin No 1{capsu TID Gabapentin 100 MG 100 MG le} 100 MG Linzess 145 Linzess 145 No Linzess mcg mcg 145 mcg Losartan Losartan No Losartan Potassium Potassium Potassium 100 MG 100 MG 100 MG Glimepiride Glimepiride No BID Glimepirid 4 MG 4 MG e 4 MG OneTouch OneTouch No OneTouch Ultra - Ultra - Ultra - Cetirizine Cetirizine No 1{table QD Cetirizine HCl 10 MG HCl 10 MG t} HCl 10 MG metFORMIN metFORMIN No metFORMIN HCl ER 500 HCl ER 500 HCl ER 500 MG MG MG Cetirizine Cetirizine No 1{table QD Cetirizine HCl 10 MG HCl 10 MG t} HCl 10 MG Vitamin D Vitamin D No Vitamin D metFORMIN metFORMIN No metFORMIN HCl ER 500 HCl ER 500 HCl ER 500 MG MG MG Losartan Losartan No 1{table QD Losartan Potassium Potassium t} Potassium 100 MG 100 MG 100 MG Glimepiride Glimepiride No BID Glimepirid 4 MG 4 MG e 4 MG Atorvastati Atorvastati No Atorvastat n Calcium n Calcium in Calcium 10 MG 10 MG 10 MG Flonase 50 Flonase 50 No 2{spray QD Flonase 50 MCG/ACT MCG/ACT s_in_ea MCG/ACT ch_nost ril} Gabapentin Gabapentin No 1{capsu TID Gabapentin 100 MG 100 MG le} 100 MG OneTouch OneTouch No OneTouch Ultra - Ultra - Ultra - Losartan Losartan No Losartan Potassium Potassium Potassium 100 MG 100 MG 100 MG metFORMIN metFORMIN No TID metFORMIN HCl ER 500 HCl ER 500 HCl ER 500 MG MG MG Atorvastati Atorvastati No 1{table QD Atorvastat n Calcium n Calcium t} in Calcium 10 MG 10 MG 10 MG Linzess 145 Linzess 145 No Linzess mcg mcg 145 mcg Cetirizine Cetirizine No 1{table QD Cetirizine HCl 10 MG HCl 10 MG t} HCl 10 MG Vitamin D Vitamin D No Vitamin D metFORMIN metFORMIN No metFORMIN HCl ER 500 HCl ER 500 HCl ER 500 MG MG MG Losartan Losartan No 1{table QD Losartan Potassium Potassium t} Potassium 100 MG 100 MG 100 MG Glimepiride Glimepiride No Glimepirid 4 MG 4 MG e 4 MG Atorvastati Atorvastati No Atorvastat n Calcium n Calcium in Calcium 10 MG 10 MG 10 MG Flonase 50 Flonase 50 No 2{spray QD Flonase 50 MCG/ACT MCG/ACT s_in_ea MCG/ACT ch_nost ril} Gabapentin Gabapentin No 1{capsu TID Gabapentin 100 MG 100 MG le} 100 MG OneTouch OneTouch No OneTouch Ultra - Ultra - Ultra - Losartan Losartan No Losartan Potassium Potassium Potassium 100 MG 100 MG 100 MG metFORMIN metFORMIN No TID metFORMIN HCl ER 500 HCl ER 500 HCl ER 500 MG MG MG Atorvastati Atorvastati No 1{table QD Atorvastat n Calcium n Calcium t} in Calcium 10 MG 10 MG 10 MG Linzess 145 Linzess 145 No Linzess mcg mcg 145 mcg Glimepiride Glimepiride No Glimepirid 4 MG 4 MG e 4 MG Linzess 145 Linzess 145 No Linzess mcg mcg 145 mcg Losartan Losartan No 1{table QD Losartan Potassium Potassium t} Potassium 100 MG 100 MG 100 MG Atorvastati Atorvastati No 1{table QD Atorvastat n Calcium n Calcium t} in Calcium 10 MG 10 MG 10 MG metFORMIN metFORMIN No TID metFORMIN HCl ER 500 HCl ER 500 HCl ER 500 MG MG MG Flonase 50 Flonase 50 No 2{spray QD Flonase 50 MCG/ACT MCG/ACT s_in_ea MCG/ACT ch_nost ril} metFORMIN metFORMIN No metFORMIN HCl ER 500 HCl ER 500 HCl ER 500 MG MG MG Vitamin D Vitamin D No Vitamin D Losartan Losartan No Losartan Potassium Potassium Potassium 100 MG 100 MG 100 MG Atorvastati Atorvastati No Atorvastat n Calcium n Calcium in Calcium 10 MG 10 MG 10 MG Gabapentin Gabapentin No 1{capsu TID Gabapentin 100 MG 100 MG le} 100 MG OneTouch OneTouch No OneTouch Ultra - Ultra - Ultra - Cetirizine Cetirizine No 1{table QD Cetirizine HCl 10 MG HCl 10 MG t} HCl 10 MG Glimepiride Glimepiride No Glimepirid 4 MG 4 MG e 4 MG Linzess 145 Linzess 145 No Linzess mcg mcg 145 mcg Losartan Losartan No 1{table QD Losartan Potassium Potassium t} Potassium 100 MG 100 MG 100 MG metFORMIN metFORMIN No TID metFORMIN HCl ER 500 HCl ER 500 HCl ER 500 MG MG MG OneTouch OneTouch No OneTouch Ultra - Ultra - Ultra - Gabapentin Gabapentin No 1{capsu TID Gabapentin 100 MG 100 MG le} 100 MG Flonase 50 Flonase 50 No 2{spray QD Flonase 50 MCG/ACT MCG/ACT s_in_ea MCG/ACT ch_nost ril} metFORMIN metFORMIN No metFORMIN HCl ER 500 HCl ER 500 HCl ER 500 MG MG MG Atorvastati Atorvastati No 1{table QD Atorvastat n Calcium n Calcium t} in Calcium 10 MG 10 MG 10 MG Losartan Losartan No Losartan Potassium Potassium Potassium 100 MG 100 MG 100 MG Atorvastati Atorvastati No Atorvastat n Calcium n Calcium in Calcium 10 MG 10 MG 10 MG Vitamin D Vitamin D No Vitamin D Cetirizine Cetirizine No 1{table QD Cetirizine HCl 10 MG HCl 10 MG t} HCl 10 MG Linzess 145 Linzess 145 No Linzess mcg mcg 145 mcg Flonase 50 Flonase 50 No 2{spray QD Flonase 50 MCG/ACT MCG/ACT s_in_ea MCG/ACT ch_nost ril} Glimepiride Glimepiride No Glimepirid 4 MG 4 MG e 4 MG OneTouch OneTouch No OneTouch Ultra - Ultra - Ultra - Atorvastati Atorvastati No 1{table QD Atorvastat n Calcium n Calcium t} in Calcium 10 MG 10 MG 10 MG Losartan Losartan No 1{table QD Losartan Potassium Potassium t} Potassium 100 MG 100 MG 100 MG metFORMIN metFORMIN No metFORMIN HCl ER 500 HCl ER 500 HCl ER 500 MG MG MG metFORMIN metFORMIN No TID metFORMIN HCl ER 500 HCl ER 500 HCl ER 500 MG MG MG Vitamin D Vitamin D No Vitamin D Atorvastati Atorvastati No Atorvastat n Calcium n Calcium in Calcium 10 MG 10 MG 10 MG Gabapentin Gabapentin No 1{capsu TID Gabapentin 100 MG 100 MG le} 100 MG Cetirizine Cetirizine No 1{table QD Cetirizine HCl 10 MG HCl 10 MG t} HCl 10 MG Losartan Losartan No Losartan Potassium Potassium Potassium 100 MG 100 MG 100 MG Linzess 145 Linzess 145 No Linzess mcg mcg 145 mcg Flonase 50 Flonase 50 No 2{spray QD Flonase 50 MCG/ACT MCG/ACT s_in_ea MCG/ACT ch_nost ril} Glimepiride Glimepiride No Glimepirid 4 MG 4 MG e 4 MG OneTouch OneTouch No OneTouch Ultra - Ultra - Ultra - Atorvastati Atorvastati No 1{table QD Atorvastat n Calcium n Calcium t} in Calcium 10 MG 10 MG 10 MG Losartan Losartan No 1{table QD Losartan Potassium Potassium t} Potassium 100 MG 100 MG 100 MG metFORMIN metFORMIN No metFORMIN HCl ER 500 HCl ER 500 HCl ER 500 MG MG MG metFORMIN metFORMIN No TID metFORMIN HCl ER 500 HCl ER 500 HCl ER 500 MG MG MG Vitamin D Vitamin D No Vitamin D Atorvastati Atorvastati No Atorvastat n Calcium n Calcium in Calcium 10 MG 10 MG 10 MG Gabapentin Gabapentin No 1{capsu TID Gabapentin 100 MG 100 MG le} 100 MG Cetirizine Cetirizine No 1{table QD Cetirizine HCl 10 MG HCl 10 MG t} HCl 10 MG Losartan Losartan No Losartan Potassium Potassium Potassium 100 MG 100 MG 100 MG Immunizations Ordered Filled Immunization Date Status Comments Sour e Immunization Name Name Pfizer COVID-19 Pfizer COVID-19 2020-10-28 [facility]pleted [facility] Vaccine 11:56:00 [facility] Pfizer COVID-19 Pfizer COVID-19 2020-10-28 Completed [facility] - Vaccine Vaccine 11:56:00 [facility] Pfizer COVID-19 Pfizer COVID-19 2020-10-28 Completed [facility] - Vaccine Vaccine 11:56:00 [facility] Pfizer COVID-19 Pfizer COVID-19 2020-10-28 Completed [facility] - Vaccine Vaccine 11:56:00 [facility] Pfizer COVID-19 Pfizer COVID-19 2020-10-28 Completed [facility] - Vaccine Vaccine 11:56:00 [facility] Pfizer COVID-19 Pfizer COVID-19 2020-10-28 Completed [facility] - Vaccine Vaccine 11:56:00 [facility] Pfizer COVID-19 Pfizer COVID-19 2020-10-28 Completed [facility] - Vaccine Vaccine 11:56:00 [facility] Pfizer COVID-19 Pfizer COVID-19 2020-10-28 Completed [facility] - Vaccine Vaccine 11:56:00 [facility] Pfizer COVID-19 Pfizer COVID-19 2020-10-28 Completed [facility] - Vaccine Vaccine 11:56:00 [facility] Pfizer COVID-19 Pfizer COVID-19 2020-10-28 Completed [facility] - Vaccine Vaccine 11:56:00 [facility] Pfizer COVID-19 Pfizer COVID-19 2020-10-28 Completed [facility] - Vaccine Vaccine 11:56:00 [facility] Pfizer COVID-19 Pfizer COVID-19 2020-10-28 Completed [facility] - Vaccine Vaccine 11:56:00 [facility] Pfizer COVID-19 Pfizer COVID-19 2020-10-28 Completed [facility] - Vaccine Vaccine 11:56:00 [facility] Pfizer COVID-19 Pfizer COVID-19 2020-10-28 Completed [facility] - Vaccine Vaccine 11:56:00 [facility] Pfizer COVID-19 Pfizer COVID-19 2020-10-28 Completed [facility] - Vaccine Vaccine 11:56:00 [facility] Pfizer COVID-19 Pfizer COVID-19 2020-10-28 Completed [facility] - Vaccine Vaccine 11:56:00 [facility] Pfizer COVID-19 Pfizer COVID-19 2020-10-28 Completed [facility] - Vaccine Vaccine 11:56:00 [facility] Pfizer COVID-19 Pfizer COVID-19 2020-10-28 Completed [facility] - Vaccine Vaccine 11:56:00 [facility] Pfizer COVID-19 Pfizer COVID-19 2020-10-28 Completed [facility] - Vaccine Vaccine 11:56:00 [facility] Pfizer COVID-19 Pfizer COVID-19 2020-10-28 Completed [facility] - Vaccine Vaccine 11:56:00 [facility] Pfizer COVID-19 Pfizer COVID-19 2020-10-28 Completed [facility] - Vaccine Vaccine 11:56:00 [facility] SARS-COV-2 COVID-19 2020-10-16 Completed [facility] PFIZER VACCINE 00:00:00 [facility] SARS-COV-2 COVID-19 2020-10-16 Completed [facility] PFIZER VACCINE 00:00:00 [facility] SARS-COV-2 COVID-19 2020-10-16 Completed [facility] PFIZER VACCINE 00:00:00 [facility] SARS-COV-2 COVID-19 2020-10-16 Completed [facility] PFIZER VACCINE 00:00:00 [facility] SARS-COV-2 COVID-19 2020-10-16 Completed [facility] PFIZER VACCINE 00:00:00 [facility] SARS-COV-2 COVID-19 2020-10-16 Completed [facility] PFIZER VACCINE 00:00:00 [facility] SARS-COV-2 COVID-19 2020-10-16 Completed [facility] PFIZER VACCINE 00:00:00 [facility] SARS-COV-2 COVID-19 2020-10-16 Completed [facility] PFIZER VACCINE 00:00:00 [facility] SARS-COV-2 COVID-19 2020-10-16 Completed [facility] PFIZER VACCINE 00:00:00 [facility] Pfizer COVID-19 Pfizer COVID-19 2020-09-27 Completed [facility] Vaccine Vaccine 11:56:00 [facility] Pfizer COVID-19 Pfizer COVID-19 2020-09-27 Completed [facility] - Vaccine Vaccine 11:56:00 [facility] Pfizer COVID-19 Pfizer COVID-19 2020-09-27 Completed [facility] - Vaccine Vaccine 11:56:00 [facility] Pfizer COVID-19 Pfizer COVID-19 2020-09-27 Completed [facility] - Vaccine Vaccine 11:56:00 [facility] Pfizer COVID-19 Pfizer COVID-19 2020-09-27 Completed [facility] - Vaccine Vaccine 11:56:00 [facility] Pfizer COVID-19 Pfizer COVID-19 2020-09-27 Completed [facility] - Vaccine Vaccine 11:56:00 [facility] Pfizer COVID-19 Pfizer COVID-19 2020-09-27 Completed [facility] - Vaccine Vaccine 11:56:00 [facility] Pfizer COVID-19 Pfizer COVID-19 2020-09-27 Completed [facility] - Vaccine Vaccine 11:56:00 [facility] Pfizer COVID-19 Pfizer COVID-19 2020-09-27 Completed [facility] - Vaccine Vaccine 11:56:00 [facility] Pfizer COVID-19 Pfizer COVID-19 2020-09-27 Completed [facility] - Vaccine Vaccine 11:56:00 [facility] Pfizer COVID-19 Pfizer COVID-19 2020-09-27 Completed [facility] - Vaccine Vaccine 11:56:00 [facility] Pfizer COVID-19 Pfizer COVID-19 2020-09-27 Completed [facility] - Vaccine Vaccine 11:56:00 [facility] Pfizer COVID-19 Pfizer COVID-19 2020-09-27 Completed [facility] - Vaccine Vaccine 11:56:00 [facility] Pfizer COVID-19 Pfizer COVID-19 2020-09-27 Completed [facility] - Vaccine Vaccine 11:56:00 [facility] Pfizer COVID-19 Pfizer COVID-19 2020-09-27 Completed [facility] - Vaccine Vaccine 11:56:00 [facility] Pfizer COVID-19 Pfizer COVID-19 2020-09-27 Completed [facility] - Vaccine Vaccine 11:56:00 [facility] Pfizer COVID-19 Pfizer COVID-19 2020-09-27 Completed [facility] - Vaccine Vaccine 11:56:00 [facility] Pfizer COVID-19 Pfizer COVID-19 2020-09-27 Completed [facility] - Vaccine Vaccine 11:56:00 [facility] Pfizer COVID-19 Pfizer COVID-19 2020-09-27 Completed [facility] - Vaccine Vaccine 11:56:00 [facility] Pfizer COVID-19 Pfizer COVID-19 2020-09-27 Completed [facility] - Vaccine Vaccine 11:56:00 [facility] Pfizer COVID-19 Pfizer COVID-19 2020-09-27 Completed [facility] - Vaccine Vaccine 11:56:00 [facility] SARS-COV-2 COVID-19 2020-09-25 Completed Unive rsity of PFIZER VACCINE 00:00:00 [facility] SARS-COV-2 COVID-19 2020-09-25 Completed Unive rsity of PFIZER VACCINE 00:00:00 [facility] SARS-COV-2 COVID-19 2020-09-25 Completed Unive rsity of PFIZER VACCINE 00:00:00 [facility] SARS-COV-2 COVID-19 2020-09-25 Completed Unive rsity of PFIZER VACCINE 00:00:00 [facility] SARS-COV-2 COVID-19 2020-09-25 Completed Unive rsity of PFIZER VACCINE 00:00:00 [facility] SARS-COV-2 COVID-19 2020-09-25 Completed Unive rsity of PFIZER VACCINE 00:00:00 [facility] SARS-COV-2 COVID-19 2020-09-25 Completed [facility]ive rs[facility] of PFIZER VACCINE 00:00:00 [facility] SARS-COV-2 COVID-19 2020-09-25 Completed Unive rs[facility] of PFIZER VACCINE 00:00:00 [facility] SARS-COV-2 COVID-19 2020-09-25 Completed Unive rsity of PFIZER VACCINE 00:00:00 [facility] Fluzone Fluzone 2020-05-20 [facility]:55:00 [facility] Fluzone Fluzone 2020-05-20 [facility]pleted [facility] - 11:55:00 [facility] Fluzone Fluzone 2020-05-20 [facility]pleted [facility] - 11:55:00 [facility] Fluzone Fluzone 2020-05-20 Completed [facility] - 11:55:00 [facility] Fluzone Fluzone 2020-05-20 Completed [facility] - 11:55:00 [facility] Fluzone Fluzone 2020-05-20 Completed [facility] - 11:55:00 [facility] Fluzone Fluzone 2020-05-20 Completed [facility] - 11:55:00 [facility] Fluzone Fluzone 2020-05-20 Completed [facility] - 11:55:00 [facility] Fluzone Fluzone 2020-05-20 Completed [facility] - 11:55:00 [facility] Fluzone Fluzone 2020-05-20 Completed [facility] - 11:55:00 [facility] Fluzone Fluzone 2020-05-20 Completed [facility] - 11:55:00 [facility] Fluzone Fluzone 2020-05-20 Completed [facility] - 11:55:00 [facility] Fluzone Fluzone 2020-05-20 Completed [facility] - 11:55:00 [facility] Fluzone Fluzone 2020-05-20 Completed [facility] - 11:55:00 [facility] Fluzone Fluzone 2020-05-20 Completed [facility] - 11:55:00 [facility] Fluzone Fluzone 2020-05-20 Completed [facility] - 11:55:00 [facility] Fluzone Fluzone 2020-05-20 Completed [facility] - 11:55:00 [facility] Fluzone Fluzone 2020-05-20 Completed [facility] - 11:55:00 [facility] Fluzone Fluzone 2020-05-20 Completed [facility] - 11:55:00 [facility] Fluzone Fluzone 2020-05-20 Completed [facility] - 11:55:00 [facility] Fluzone Fluzone 2020-05-20 Completed [facility] - 11:55:00 [facility] Pneumovax (PPSV23) Pneumovax (PPSV23) 2020-04-29 Completed [facility] - 11:55:00 [facility] Pneumovax (PPSV23) Pneumovax (PPSV23) 2020-04-29 Completed [facility] - 11:55:00 [facility] Pneumovax (PPSV23) Pneumovax (PPSV23) 2020-04-29 [facility]pleted [facility] - 11:55:00 [facility] Pneumovax (PPSV23) Pneumovax (PPSV23) 2020-04-29 [facility]pleted [facility] - 11:55:00 [facility] Pneumovax (PPSV23) Pneumovax (PPSV23) 2020-04-29 [facility]pleted [facility] - 11:55:00 [facility] Pneumovax (PPSV23) Pneumovax (PPSV23) 2020-04-29 [facility]pleted [facility] - 11:55:00 [facility] Pneumovax (PPSV23) Pneumovax (PPSV23) 2020-04-29 Completed [facility] - 11:55:00 [facility] Pneumovax (PPSV23) Pneumovax (PPSV23) 2020-04-29 Completed [facility] - 11:55:00 [facility] Pneumovax (PPSV23) Pneumovax (PPSV23) 2020-04-29 Completed [facility] - 11:55:00 [facility] Pneumovax (PPSV23) Pneumovax (PPSV23) 2020-04-29 Completed [facility] - 11:55:00 [facility] Pneumovax (PPSV23) Pneumovax (PPSV23) 2020-04-29 Completed [facility] - 11:55:00 [facility] Pneumovax (PPSV23) Pneumovax (PPSV23) 2020-04-29 Completed [facility] - 11:55:00 [facility] Pneumovax (PPSV23) Pneumovax (PPSV23) 2020-04-29 Completed [facility] - 11:55:00 [facility] Pneumovax (PPSV23) Pneumovax (PPSV23) 2020-04-29 Completed [facility] - 11:55:00 [facility] Pneumovax (PPSV23) Pneumovax (PPSV23) 2020-04-29 Completed [facility] 11:55:00 [facility] Pneumovax (PPSV23) Pneumovax (PPSV23) 2020-04-29 Completed [facility] - 11:55:00 [facility] Pneumovax (PPSV23) Pneumovax (PPSV23) 2020-04-29 Completed [facility] 11:55:00 [facility] Pneumovax (PPSV23) Pneumovax (PPSV23) 2020-04-29 Completed [facility] 11:55:00 [facility] Pneumovax (PPSV23) Pneumovax (PPSV23) 2020-04-29 Completed [facility] - 11:55:00 [facility] Pneumovax (PPSV23) Pneumovax (PPSV23) 2020-04-29 Completed [facility] - 11:55:00 [facility] Pneumovax (PPSV23) Pneumovax (PPSV23) 2020-04-29 Completed [facility] 11:55:00 [facility] Adacel (Tdap) Adacel (Tdap) 2020-04-29 Completed [facility] - 11:54:00 [facility] Adacel (Tdap) Adacel (Tdap) 2020-04-29 Completed [facility] - 11:54:00 [facility] Adacel (Tdap) Adacel (Tdap) 2020-04-29 Completed [facility] - 11:54:00 [facility] Adacel (Tdap) Adacel (Tdap) 2020-04-29 Completed [facility] - 11:54:00 [facility] Adacel (Tdap) Adacel (Tdap) 2020-04-29 Completed [facility] - 11:54:00 [facility] Adacel (Tdap) Adacel (Tdap) 2020-04-29 Completed [facility] - 11:54:00 [facility] Adacel (Tdap) Adacel (Tdap) 2020-04-29 Completed [facility] - 11:54:00 [facility] Adacel (Tdap) Adacel (Tdap) 2020-04-29 Completed [facility] - 11:54:00 [facility] Adacel (Tdap) Adacel (Tdap) 2020-04-29 Completed [facility] - 11:54:00 [facility] Adacel (Tdap) Adacel (Tdap) 2020-04-29 Completed [facility] - 11:54:00 [facility] Adacel (Tdap) Adacel (Tdap) 2020-04-29 Completed [facility] - 11:54:00 [facility] Adacel (Tdap) Adacel (Tdap) 2020-04-29 Completed [facility] - 11:54:00 [facility] Adacel (Tdap) Adacel (Tdap) 2020-04-29 Completed [facility] - 11:54:00 [facility] Adacel (Tdap) Adacel (Tdap) 2020-04-29 Completed [facility] - 11:54:00 [facility] Adacel (Tdap) Adacel (Tdap) 2020-04-29 Completed [facility] - 11:54:00 [facility] Adacel (Tdap) Adacel (Tdap) 2020-04-29 Completed [facility] - 11:54:00 [facility] Adacel (Tdap) Adacel (Tdap) 2020-04-29 Completed [facility] - 11:54:00 [facility] Adacel (Tdap) Adacel (Tdap) 2020-04-29 Completed [facility] - 11:54:00 [facility] Adacel (Tdap) Adacel (Tdap) 2020-04-29 Completed [facility] - 11:54:00 [facility] Adacel (Tdap) Adacel (Tdap) 2020-04-29 Completed [facility] - 11:54:00 [facility] Adacel (Tdap) Adacel (Tdap) 2020-04-29 Completed [facility] - 11:54:00 [facility] Vital Signs Vital Name Observation Time Observation Value Comments Source height 2022-05-18 13:00:00 60 [in_i] [facility] weight 2022-05-18 13:00:00 260 [lb_av] [facility] temperature 2022-05-18 13:00:00 98 [degF] [facility] bmi 2022-05-18 13:00:00 50.77 kg/m2 [facility] oximetry 2022-05-18 13:00:00 96 % [facility] respiratory rate 2022-05-18 13:00:00 18 /min [facility] blood pressure 2022-05-18 13:00:00 136 mm[Hg] Common [facility] - systolic [facility] blood pressure 2022-05-18 13:00:00 69 mm[Hg] [facility] - diastolic [facility] height 2022-05-18 13:00:00 60 [in_i] [facility] weight 2022-05-18 13:00:00 260 [lb_av] [facility] temperature 2022-05-18 13:00:00 98 [degF] [facility] bmi 2022-05-18 13:00:00 50.77 kg/m2 [facility] oximetry 2022-05-18 13:00:00 96 % [facility] respiratory rate 2022-05-18 13:00:00 18 /min [facility] blood pressure 2022-05-18 13:00:00 136 mm[Hg] Common [facility] - systolic [facility] blood pressure 2022-05-18 13:00:00 69 mm[Hg] Common [facility] - diastolic [facility] height 2022-02-14 13:40:00 60 [in_i] [facility] weight 2022-02-14 13:40:00 256.2 [lb_av] Common [facility] temperature 2022-02-14 13:40:00 97.7 [degF] [facility] bmi 2022-02-14 13:40:00 50.03 kg/m2 [facility] oximetry 2022-02-14 13:40:00 95 % [facility] respiratory rate 2022-02-14 13:40:00 16 /min [facility] blood pressure 2022-02-14 13:40:00 133 mm[Hg] Common [facility] - systolic [facility] blood pressure 2022-02-14 13:40:00 60 mm[Hg] Common [facility] diastolic [facility] Heart rate 2021-08-26 16:50:00 72 /min [facility] Respiratory rate 2021-08-26 16:50:00 14 /min [facility] Oxygen saturation in 2021-08-26 16:50:00 96 /min [facility] Pulse oximetry Branch Systolic blood 2021-08-26 16:48:00 115 mm[Hg] Univer sity of pressure [facility] Diastolic blood 2021-08-26 16:48:00 57 mm[Hg] Unive rsity of [facility] Body temperature 2021-08-26 16:14:00 36.22 Lizbeth [facility] Body height 2021-08-25 13:13:00 152.4 cm Universi ty of [facility] Body weight 2021-08-25 13:13:00 113.4 kg Universi [facility] of [facility] BMI 2021-08-25 13:13:00 48.83 kg/m2 Universi ty [facility] Heart rate 2021-08-26 16:41:00 73 /min Universi ty [facility] Respiratory rate 2021-08-26 16:41:00 10 /min [facility] Oxygen saturation in 2021-08-26 16:41:00 96 /min [facility] Pulse oximetry Branch Systolic blood 2021-08-26 16:39:00 115 mm[Hg] Univer sity of [facility] Diastolic blood 2021-08-26 16:39:00 57 mm[Hg] [facility] Body temperature 2021-08-26 16:14:00 36.22 Lizbeth [facility] Body height 2021-08-25 13:13:00 152.4 cm Universi ty of [facility] Body weight 2021-08-25 13:13:00 113.4 kg Universi ty of [facility] BMI 2021-08-25 13:13:00 48.83 kg/m2 Universi ty of [facility] height 2021-08-16 11:00:00 60 [in_i] [facility] weight 2021-08-16 11:00:00 258.4 [lb_av] [facility] temperature 2021-08-16 11:00:00 97.7 [degF] [facility] bmi 2021-08-16 11:00:00 50.46 kg/m2 [facility] - [facility] oximetry 2021-08-16 11:00:00 95 % [facility] - [facility] respiratory rate 2021-08-16 11:00:00 18 /min [facility] blood pressure 2021-08-16 11:00:00 138 mm[Hg] Common [facility] - systolic [facility] blood pressure 2021-08-16 11:00:00 72 mm[Hg] [facility] - diastolic [facility] height 2021-05-17 13:40:00 60 [in_i] [facility] weight 2021-05-17 13:40:00 259 [lb_av] [facility] temperature 2021-05-17 13:40:00 97.5 [degF] [facility] bmi 2021-05-17 13:40:00 50.58 kg/m2 [facility] oximetry 2021-05-17 13:40:00 95 % [facility] 2021-05-17 13:40:00 17 /min [facility] blood pressure 2021-05-17 13:40:00 130 mm[Hg] Common [facility] - systolic [facility] blood pressure 2021-05-17 13:40:00 68 mm[Hg] Common [facility] - diastolic [facility] height 2021-04-18 11:00:00 60 [in_i] [facility] weight 2021-04-18 11:00:00 259.2 [lb_av] Common [facility] temperature 2021-04-18 11:00:00 97.2 [degF] [facility] bmi 2021-04-18 11:00:00 50.62 kg/m2 [facility] oximetry 2021-04-18 11:00:00 96 % [facility] respiratory rate 2021-04-18 11:00:00 18 /min [facility] blood pressure 2021-04-18 11:00:00 120 mm[Hg] [facility] - systolic [facility] blood pressure 2021-04-18 11:00:00 70 mm[Hg] [facility] - diastolic [facility] Systolic blood 2020-12-31 18:50:00 106 mm[Hg] Univer sity of pressure [facility] Diastolic blood 2020-12-31 18:50:00 57 mm[Hg] Unive rsity of pressure [facility] Heart rate 2020-12-31 18:50:00 71 /min [facility] Respiratory rate 2020-12-31 18:50:00 24 /min Univ [facility] Oxygen saturation in 2020-12-31 18:50:00 94 /min [facility] [place] [employer] Pulse oximetry Branch Body height 2020-12-31 15:00:00 152.4 cm [facility] Body weight 2020-12-31 15:00:00 113.399 kg [facility] BMI 2020-12-31 15:00:00 48.82 kg/m2 [facility] Body temperature 2020-12-31 14:50:00 36.67 Lizbeth [facility] Systolic blood 2020-12-31 18:50:00 106 mm[Hg] Univer sity of pressure [facility] Diastolic blood 2020-12-31 18:50:00 57 mm[Hg] Unive rsity of pressure [facility] Heart rate 2020-12-31 18:50:00 71 /min [facility] Respiratory rate 2020-12-31 18:50:00 24 /min Univ [facility] Oxygen saturation in 2020-12-31 18:50:00 94 /min [facility] [place] [facility] [facility] Pulse oximetry Branch Body height 2020-12-31 15:00:00 152.4 cm [facility] Body weight 2020-12-31 15:00:00 113.399 kg [facility] BMI 2020-12-31 15:00:00 48.82 kg/m2 [facility] Body temperature 2020-12-31 14:50:00 36.67 Lizbeth [facility] Procedures Procedure Date / Time Performing Clinician Source Performed EXCISION BONE FOOT 2021-08-26 14:35:00 Hilda Springer [facility] HAMMERTOE CORRECTION 2021-08-26 14:35:00 Hilda Springer [facility] TOENAIL EXCISION 2021-08-26 14:35:00 Hilda Springer [facility] POCT GLUCOSE (AUTOMATED) 2021-08-26 13:53:00 Hilda Springer [facility] POCT GLUCOSE (AUTOMATED) 2021-08-26 13:53:00 Hilda Springer [facility] DAY SURGERY - ADC 2021-08-26 06:01:00 Doctor Luther, [facility] Name [facility] [place] CONSENT/REFUSAL FOR 2021-08-25 13:59:35 Doctor Unagarrison, [facility] DIAGNOSIS AND TREATMENT [facility] CONSENT/REFUSAL FOR 2021-08-25 13:59:35 Doctor Unassigned, [facility] DIAGNOSIS AND TREATMENT [facility] ASSIGNMENT OF BENEFITS 2021-08-25 13:58:44 Doctor Unassigned, [facility] Name [facility] [place] ASSIGNMENT OF BENEFITS 2021-08-25 13:58:44 Doctor Unassigned, [facility] EXTERNAL PROVIDER RECORDS 2021-08-24 06:01:00 Doctor Luther, [facility] Name [facility] EXTERNAL PROVIDER RECORDS 2021-08-24 06:01:00 Doctor Luther, [facility] Name [facility] POCT GLUCOSE(AGE >30DAYS) 2021-08-19 13:53:00 [facility]SE(AGE >30DAYS) 2021-08-19 13:53:00 Lee Faith Un [facility] PHYSICIAN ORDERS 2021-08-02 06:01:00 Doctor Unagarrison, [facility] HAMMERTOE CORRECTION 2020-12-31 17:00:00 Hilda Springer [facility] EXCISION BONE FOOT 2020-12-31 17:00:00 Hilda Springer [facility] POCT GLUCOSE(AGE >30DAYS) 2020-12-31 14:59:00 Addison Red [facility] POCT GLUCOSE(AGE >30DAYS) 2020-12-31 14:59:00 Addison Red [facility] POCT GLUCOSE (AUTOMATED) 2020-12-31 14:58:00 Hilda Springer [facility] POCT GLUCOSE (AUTOMATED) 2020-12-31 14:58:00 Hilda Springer [facility] DAY SURGERY - ADC 2020-12-31 05:01:00 Doctor Unassshanell, [facility] PATIENT QUESTIONNAIRE 2020-12-31 05:01:00 Doctor Unassigned, [facility] CONSENT/REFUSAL FOR 2020-12-30 20:00:02 Doctor Unagarrison, [facility] DIAGNOSIS AND TREATMENT [facility] CONSENT/REFUSAL FOR 2020-12-30 20:00:02 Doctor Unassigned, [facility] DIAGNOSIS AND TREATMENT [facility] ASSIGNMENT OF BENEFITS 2020-12-30 19:59:44 [facility], [facility] ASSIGNMENT OF BENEFITS 2020-12-30 19:59:44 Doctor Unassigned, [facility] NOTICE OF BILLING 2020-12-30 19:56:38 Doctor Unagarrison, [facility] FOR MEDICARE [place] [facility] PATIENTS NOTICE OF BILLING 2020-12-30 19:56:38 Doctor Unassigned, [facility] PRACTICES FOR MEDICARE [facility] [place] [facility] PATIENTS [facility] PATIENT FINANCIAL 2020-12-30 19:56:11 Doctor Unassigned, [facility] PATIENT FINANCIAL 2020-12-30 19:56:11 [facility], [facility] NO SHOW OR MISSED 2020-12-30 19:55:50 Doctor Luther, [facility] APPOINTMENT POLICY [facility] ACKNOWLEDGEMENT NO SHOW OR MISSED 2020-12-30 19:55:50 Doctor Unassigned, [facility] APPOINTMENT POLICY [facility] ACKNOWLEDGEMENT NOTICE OF PRIVACY 2020-12-30 19:55:23 Doctor Unassigned, [facility] PRACTICES [facility] NOTICE OF PRIVACY 2020-12-30 19:55:23 Doctor Unassigned, [facility] CONSENT/REFUSAL FOR 2020-12-30 19:55:05 Doctor Unassigned, [facility] DIAGNOSIS AND TREATMENT [facility] CONSENT/REFUSAL FOR 2020-12-30 19:55:05 Doctor Unassigned, [facility] DIAGNOSIS AND TREATMENT [facility] ASSIGNMENT OF BENEFITS 2020-12-30 19:54:46 Doctor Unassigned, Un [facility] ASSIGNMENT OF BENEFITS 2020-12-30 19:54:46 Doctor Unassigned, [facility] DSU PRE-OP 2020-12-30 05:01:00 Doctor Unassigned, [facility] DSU PRE-OP 2020-12-30 05:01:00 Doctor Unassigned, [facility] Encounters Start End Encounter Admission Attending Care Care Encounter Source Date/Time Date/Time Type Type Clinicians Facility Department ID 2023-01-03 Outpatient [place], STLMLC STLC [id number] Common 09:55:00 Sammi [id number] [facility] 2022-11-22 Outpatient [place], STLMLC STLC [id number] Common 14:35:00 Sammi [id number] [facility] 2022-09-15 Outpatient Melisa, STLMLC STLC [id number] Common 10:36:01 Miley [id number] [facility] 2022-05-16 Outpatient Bianchi, Na STLMLC STLMLC [id number] 2 Common 14:17:01 [facility] 2022-02-14 Outpatient Bianchi, Na STLMLC STLMLC [id number] Common 11:51:00 [facility] 2022-02-10 Outpatient Bianchi, Na STLMLC STLC [id number] Common 08:39:01 [facility] 2021-11-15 Outpatient Bianchi, Na STLMLC STLMLC [id number] Common 11:27:01 [facility] 2021-08-24 Outpatient Bianchi, Na STLMLC STLMLC [id number] 2 Common 14:34:42 [facility] 2021-08-24 Outpatient Bianchi, Na STLMLC STLMLC [id number] 2 Common 14:30:49 [facility] 2021-08-24 Outpatient Bianchi, Na STLMLC STLMLC [id number] 2 Common 14:01:51 [id number] [facility] 2021-08-24 Outpatient Bianchi, Na STLMLC STLMLC [id number] 2 Common 13:49:51 [id number] [facility] 2021-08-24 Outpatient Bianchi, Na STLMLC STLMLC [id number] 2 Common 13:48:19 [id number] [facility] 2021-08-24 Outpatient Bianchi, Na STLMLC STLMLC [id number] Common 13:47:24 [id number] [facility] 2021-08-24 Outpatient Bianchi, Na STLMLC STLMLC [id number] 2 Common 13:33:37 [id number] [facility] 2021-08-24 Outpatient Bianchi, Na STLMLC STLMLC [id number] 2 Common 12:58:52 [id number] [facility] 2021-08-24 Outpatient Bianchi, Na STLMLC STLMLC [id number] 2 Common 12:47:33 [id number] [facility] 2021-08-24 Outpatient Bianchi, Na STLMLC STLMLC [id number] 2 Common 12:27:17 [id number] [facility] 2021-08-24 Outpatient Bianchi, Na STLMLC STLMLC [id number] 2 Common 12:17:56 [id number] [facility] 2021-08-24 Outpatient Bianchi, Na STLMLC STLMLC [id number] 2 Common 12:17:29 [id number] [facility] 2021-08-24 Outpatient Bianchi, Na STLMLC STLMLC [id number] 2 Common 11:51:24 [id number] [facility] 2021-08-24 Outpatient Bianchi, Na STLMLC STLMLC [id number] 2 Common 11:49:01 [id number] [facility] 2021-08-24 Outpatient Bianchi, Na STLMLC STLMLC [id number] 2 Common 11:41:06 [id number] [facility] 2021-08-24 Outpatient Bianchi, Na STLMLC STLMLC [id number] Common 11:28:47 [id number] [facility] 2021-08-24 Outpatient Bianchi, Na STLMLC STLMLC [id number] Common 11:18:56 [id number] [facility] 2021-08-24 Outpatient Bianchi, Na STLMLC STLMLC [id number] Common 11:18:24 [id number] [facility] 2021-08-24 Outpatient Bianchi, Na STLMLC STLMLC [id number] Common 11:17:26 [id number] [facility] 2021-08-24 Outpatient Bianchi, Na STLMLC STLMLC [id number] Common 11:04:54 [id number] [facility] 2021-08-24 Outpatient Bianchi, Na STLMLC STLMLC [id number] Common 10:57:37 [id number] [facility] 2021-05-29 Outpatient R RACHEAL, [facility] SOR [id number] Univers 23:01:12 HILDA rollins [facility] 2022-05-24 2022-05-24 (TEL) STLMLC STLMLC [id number] Co mmon 00:00:00 00:00:00 [facility] 2022-05-23 2022-05-23 (TEL) STLMLC STLMLC [id number] Co mmon 00:00:00 00:00:00 [facility] 2022-05-18 2022-05-18 SUB ANNUAL STLMLC STLMLC [id number] Common 00:00:00 00:00:00 MCR Spirit WELLNESS - CHI VISIT [facility] 2022-05-18 2022-05-18 OFFICE STLMLC STLMLC [id number] Co mmon 00:00:00 00:00:00 VISIT EST Spir it PT LEVEL 3 - CHI [facility] 2022-05-01 2022-05-01 (TEL) STLMLC STLMLC [id number] Co mmon 00:00:00 00:00:00 Spirit [facility] 2022-02-14 2022-02-14 OFFICE STLMLC STLMLC [id number] Co mmon 00:00:00 00:00:00 VISIT Spirit ESTAB PT - CHI LEVEL 4 [facility] 2022-01-26 2022-01-26 (TEL) STLMLC STLMLC [id number] Co mmon 00:00:00 00:00:00 [facility] 2022-01-23 2022-01-23 (TEL) STLMLC STLMLC [id number] Co mmon 00:00:00 00:00:00 [facility] 2022-01-09 2022-01-09 (TEL) STLMLC STLMLC [id number] Co mmon 00:00:00 00:00:00 [facility] 2022-01-09 2022-01-09 OL DIG E/M STLMLC STLMLC [id number] Common 00:00:00 00:00:00 [facility] 06-[place] Spir it MIN - [facility]I [facility] 2021-12-15 2021-12-15 (TEL) STLMLC STLMLC [id number] Co mmon 00:00:00 00:00:00 [facility] 2021-12-15 2021-12-15 OL DIG E/M STLMLC STLMLC [id number] Common 00:00:00 00:00:00 [facility] 06-18 Spir it MIN - [facility]I [facility] 2021-12-05 2021-12-05 (TEL) STLMLC STLMLC [id number] Co mmon 00:00:00 00:00:00 Spirit - [facility] 2021-08-26 2021-08-26 [facility] [id number] Univers 07:33:00 11:13:00 HILDA rollins [facility] 2021-08-26 2021-08-26 Hospital [facility] [id number] Univers 07:33:00 11:13:00 Encounter Hilda PHILLIPS [id number] [id number] [id number] [facility] [address] 2021-08-26 2021-08-26 Surgery [facility] [id number] Univers 08:30:00 10:41:00 Hilda PHILLIPS [id number] i [id number] [id number] [facility] [address] 2021-08-25 2021-08-25 Lube Man Moi, Adc Lab Main [facility] 1.2.8 [id number] [id number] Univers 08:30:00 08:45:00 Visit Hilda Springer [id number] [id number] [id number] [address] 2021-08-25 2021-08-25 [facility] [id number] Univers 08:30:00 08:30:00 HILDA rollins [facility] 2021-08-25 2021-08-25 Laboratory Only, Adc Test [facility] 1.2.840. 114 [id number] Univers 08:15:00 08:30:00 Only Hilda Springer [id number] [id number] [id number] [address] 2021-08-16 2021-08-16 OFFICE STLMLC STLMLC [id number] Co mmon 00:00:00 00:00:00 VISIT Aroldo GIBBONS PT - CHI LEVEL 2 [facility] 2021-08-11 2021-08-11 (TEL) STLMLC STLMLC [id number] Co mmon 00:00:00 00:00:00 Spirit [facility] 2021-08-11 2021-08-11 OFFICE STLMLC STLMLC [id number] Co mmon 00:00:00 00:00:00 VISIT EST Spir it PT LEVEL 3 - CHI [facility] 2021-08-09 2021-08-09 (TEL) STLMLC STLMLC [id number] Co mmon 00:00:00 00:00:00 [facility] 2021-08-09 2021-08-09 (TEL) STLMLC STLMLC [id number] Co mmon 00:00:00 00:00:00 [facility] 2021-08-02 2021-08-02 Orders Doctor EVA 1.2.840.114 [id number] Univers 00:00:00 00:00:00 Only Unassigned, OTILIO [id number] [facility] [id number] [place] as [id number] [place] [address] [address] 2021-05-30 2021-05-30 (TEL) STLMLC STLMLC [id number] Co mmon 00:00:00 00:00:00 Spirit [facility] 2021-05-17 2021-05-17 OFFICE STLMLC STLMLC [id number] Co mmon 00:00:00 00:00:00 VISIT Spirit ESTAB PT - CHI LEVEL 4 [facility] 2021-04-18 2021-04-18 SUB ANNUAL STLMLC STLMLC [id number] Common 00:00:00 00:00:00 MCR Spirit WELLNESS - CHI VISIT [facility] 2021-04-11 2021-04-11 OL DIG E/M STLMLC STLMLC [id number] Common 00:00:00 00:00:00 [facility] 06-18 Spir it MIN - CHI [facility] 2021-03-02 2021-03-02 OL DIG E/M STLMLC STLMLC [id number] Common 00:00:00 00:00:00 [facility] 06-18 Spir it MIN - CHI [facility] 2021-02-09 2021-02-09 Outpatient STLMLC STLMLC [id number] Common 00:00:00 00:00:00 [facility] 2020-12-31 2020-12-31 Hospital [facility] [id number] Univers 09:35:00 14:17:00 Encounter Hilda Phillips [id number] [id number] [id number] [facility] [address] 2020-12-31 2020-12-31 Surgery [facility] [id number] Univers 12:04:00 13:50:00 Hilda Phillips [id number] [id number] [id number] [facility] [address] 2020-12-30 2020-12-30 [facility] [id number] Univers 15:15:00 15:15:00 HILDA rollins [facility] 2020-12-30 2020-12-30 Lube Man Moi, Adrienne Lab Main [facility] 1.2.8 40.114 [id number] Univers 14:58:40 15:13:40 Visit Hilda Springer [id number] [id number] [id number] [address] 2020-12-30 2020-12-30 Laboratory Only, Adc Test [facility] 1.2.840. 114 [id number] Univers 14:57:45 15:12:45 Only Hilda Springer [id number] [id number] [id number] [place] [address] [address] 2020-11-23 2020-11-23 Outpatient STLMLC STLMLC [id number] Common 00:00:00 00:00:00 [facility] 2020-11-22 2020-11-22 Outpatient STLMLC STLMLC [id number] Common 00:00:00 00:00:00 [facility] 2020-11-08 2020-11-08 Outpatient STLMLC STLMLC [id number] Common 00:00:00 00:00:00 [facility] 2020-11-01 2020-11-01 Outpatient STLMLC STLMLC [id number] Common 00:00:00 00:00:00 [facility] 2020-10-28 2020-10-28 Outpatient STLMLC STLMLC [id number] Common 00:00:00 00:00:00 [facility] 2020-10-20 2020-10-20 Outpatient STLMLC STLMLC [id number] Common 00:00:00 00:00:00 [facility] 2020-09-01 2020-09-01 Outpatient STLMLC STLMLC [id number] Common 00:00:00 00:00:00 [facility] 2020-08-09 2020-08-09 Outpatient STLMLC STLMLC [id number] Common 00:00:00 00:00:00 [facility] 2020-08-03 2020-08-03 Outpatient STLMLC STLMLC [id number] Common 00:00:00 00:00:00 [facility] 2020-07-27 2020-07-27 Outpatient STLMLC STLMLC [id number] Common 00:00:00 00:00:00 [facility] 2020-07-19 2020-07-19 Outpatient STLMLC STLMLC [id number] Common 00:00:00 00:00:00 [facility] 2020-05-25 2020-05-25 Outpatient STLMLC STLMLC [id number] Common 00:00:00 00:00:00 [facility] 2020-05-03 2020-05-03 Outpatient STLMLC STLMLC [id number] Common 00:00:00 00:00:00 [facility] 2020-03-24 2020-03-24 [facility] [id number] Common 11:40:00 11:40:00 August Spir it [facility] 2020-03-23 2020-03-23 Out[facility] [id number] Common 14:43:00 14:43:[address] [facility] 2020-01-28 2020-01-28 [facility] [id number] Common 11:00:00 11:00:[address] [facility] 2020-01-20 2020-01-20 Out[facility] [id number] Common 14:25:00 14:25:[address] [facility] 2019-11-19 2019-11-19 [facility] [id number] Common 10:15:00 10:15:00 [address] [facility] [address] Spir [address] Road [facility] 2019-11-19 2019-11-19 Out[facility] [id number] Common 09:08:00 09:08:00 t Specialty/U Sp tolu Specialty rology - CHI /Urology Clinic [facility] 2019-11-13 2019-11-13 Out[facility] [id number] Common 16:00:00 16:00:[address] [facility] 2019-11-13 2019-11-13 Out[facility] [id number] Common 11:48:00 11:48:[address] [facility] 2019-10-15 2019-10-15 Out[facility] [id number] Common 09:00:00 09:00:[address] [facility] 2019-09-04 2019-09-04 Out[facility] [id number] Common 13:40:00 13:40:[address] [facility] 2019-08-05 2019-08-05 Out[facility] [id number] Common 14:57:00 14:57:[address] [facility] 2019-08-01 2019-08-01 Out[facility] [id number] Common 15:54:00 15:54:[address] [facility] 2019-07-31 2019-07-31 Out[facility] [id number] Common 14:40:00 14:40:[address] [facility] 2019-06-24 2019-06-24 Out[facility] [id number] Common 10:51:00 10:51:[address] [facility] 2019-06-19 2019-06-19 Out[facility] [id number] Common 11:20:00 11:20:[address] [facility] 2019-06-02 2019-06-02 Out[facility] [id number] Common 15:21:00 15:21:[address] [facility] 2019-05-26 2019-05-26 Out[facility] [id number] Common 17:07:00 17:07:[address] [facility] 2019-03-18 2019-03-18 Out[facility] [id number] Common 09:50:00 09:50:[address] [facility] 2019-03-11 2019-03-11 Out[facility] [id number] Common 09:40:00 09:40:[address] [facility] 2019-02-19 2019-02-19 Out[facility] [id number] Common 15:41:00 15:41:[address] [facility] 2019-02-17 2019-02-17 Outpatient [facility] [id number] Common 16:51:00 16:51:[address] [facility] 2019-01-20 2019-01-20 Out[facility] [id number] Common 14:40:00 14:40:[address] [facility] Results Test Description Test Time Test Comments Results Result Comments Source POCT GLUCOSE (AUTOMATED) 2021-08-26 14:01:21 Test Item Value Reference Range Interpretation Comme nts POCT GLU (test code = 3509376816) 135 mg/dL 70-110 H Lab Interpretation (test code = 55891-7) Abnormal [facility] GLUCOSE (AUTOMATED)2021-08-26 14:01:21 Test Item Value Reference Range Interpretation Comments POCT GLU (test code = [id number]) 135 mg/dL 70-110 H Lab Interpretation (test code = Abnormal 04604-3) [facility] [id number] 13:53:00 Test Item Value Reference Range Interpretation Comments POCT Glu (age>30days) (test code = 135 mg/dL 70-110 A 3342) Lab Interpretation (test code = Abnormal 66906-0) [facility] [id number] 13:53:00 Test Item Value Reference Range Interpretation Comments POCT Glu (age>30days) (test code = 135 mg/dL 70-110 A 3342) Lab Interpretation (test code = Abnormal 89727-2) [facility] GLUCOSE (AUTOMATED)2020-12-31 15:02:03 Test Item Value Reference Range Interpretation Comments POCT GLU (test code = [id number]) 157 mg/dL 70-110 H Lab Interpretation (test code = Abnormal 74382-7) [facility] GLUCOSE (AUTOMATED)2020-12-31 15:02:03 Test Item Value Reference Range Interpretation Comments POCT GLU (test code = [id number]) 157 mg/dL 70-110 H Lab Interpretation (test code = Abnormal 88569-9) [facility] [id number] 14:59:00 Test Item Value Reference Range Interpretation Comments POCT Glu (age>30days) (test code = 157 mg/dL 70-110 A 3342) Lab Interpretation (test code = Abnormal 82742-7) [facility] [id number] 14:59:00 Test Item Value Reference Range Interpretation Comments POCT Glu (age>30days) (test code = 157 mg/dL 70-110 A 3342) Lab Interpretation (test code = Abnormal 33391-8) [facility], COVID 19 [facility] Flu by Cee
[2023-01-11] MEDS ORDERED: KETOROLAC 30 MG/ML INJ ONE (16:31)
[2023-01-11 16:53] LABS: Protime INR 1.16
[2023-01-11 16:54] LABS: Absolute Lymphocytes (CBC) 1.1 K/uL (0.7-4.9); Hematocrit 47.7 % (36.0-45.0); Lymphocytes % 11.9 % (15.3-44.8); MCV 79.2 fL (80-100); RBC Red Blood Cell Count 6.03 M/uL (3.86-4.86)
[2023-01-11 17:22] LABS: Albumin 2.8 g/dL (3.4-5.0); Bilirubin Direct 0.2 mg/dL (0-0.2); Bilirubin Indirect, Calculated 0.4 mg/dL (0.2-0.8); Bilirubin Total 0.6 mg/dL (0.2-1.0); Protein, Total 7.5 g/dL (6.4-8.2); Troponin High Sensitivity 4.6 pg/mL (<58.9)
[2023-01-11 17:27] LABS: Magnesium 2.4 mg/dL (1.6-2.4); Potassium 3.6 mEq/L (3.5-5.1)
--- NOTE | 2023-01-11 17:39 | RAD REPORT ---
EXAM DESCRIPTION: RAD - Chest Single View - 01/11/2023 5:17 pm CLINICAL HISTORY: electrolyte disturbance Chest pain. COMPARISON: Chest Pa And Lat (2 Views) dated 03/13/2019; Chest Pa And Lat (2 Views) dated 12/11/2018; CHEST PA AND LAT 2 VIEW dated 10/11/2015; CHEST PA AND LAT 2 VIEW dated 05/01/2013 FINDINGS: Portable technique limits examination quality. Mild interstitial pulmonary edema. The heart is moderately enlarged. No displaced fractures. IMPRESSION: Mild CHF.
[2023-01-11] MEDS ORDERED: DIPHENOX/ATROP SULF 1 TAB PO ONE (18:15)
--- NOTE | 2023-01-11 18:51 | ER ---
Nurse's Notes [facility] Name: Bee Herrera Age: 67 yrs Sex: Female : 1955 Arrival Date: 01/11/2023 Time: 15:47 Bed 16 Private MD: Diagnosis: Diarrhea, unspecified Presentation: 01/11 16:07 Chief complaint: Patient states: pt reports diarrhea onset Sunday. Pt reports that she cm10 has approximately 12 episodes of diarrhea today. Coronavirus screen: Vaccine status: Patient reports receiving the 2nd dose of the covid vaccine. Client denies travel out of the [place] in the last 14 days. At this time, the client does not indicate any symptoms associated with coronavirus-19. Ebola Screen: No symptoms or risks identified at this time. 16:07 Method Of Arrival: Ambulatory cm10 16:11 Initial Sepsis Screen: Does the patient meet any 2 criteria? No. Patient's initial cm10 sepsis screen is negative. Does the patient have a suspected source of infection? No. Patient's initial sepsis screen is negative. Risk Assessment: Do you want to hurt yourself or someone else? Patient reports no desire to harm self or others. Onset of symptoms was January 09, 2023. 16:11 Acuity: MARIBEL 3 cm10 Triage Assessment: 16:15 General: Appears in no apparent distress. comfortable, Behavior is calm, cooperative. cm10 Historical: - Allergies: 16:12 No Known Allergies; cm10 - Home Meds: 16:12 atorvastatin oral [Active]; losartan potassium (bulk) [Active]; Farxiga oral [Active]; cm10 Metformin Oral [Active]; - PMHx: 16:12 Diabetes mellitus; Hypertensive disorder; cm10 - Immunization history:: Adult Immunizations unknown. - Social history:: Smoking status: Patient denies any tobacco usage or history of. Screenin:49 [facility] ED Fall Risk Assessment (Adult) History of falling in the last 3 months, kc6 including since admission No falls in past 3 months (0 pts) Confusion or Disorientation No (0 pts) Intoxicated or Sedated No (0 pts) Impaired Gait No (0 pts) Mobility Assist Device Used No (0 pt) Altered Elimination No (0 pt) Score/Fall Risk Level 0 - 2 = Low Risk Oriented to surroundings, Maintained a safe environment, Educated pt \T\ family on fall prevention, incl call for assistance when getting out of bed, Assessed \T\ reinforced patient's understanding of fall precautions, Hourly rounding (assess needs \T\ fall precautionary measures) done. Abuse screen: Denies threats or abuse. Denies injuries from another. Nutritional screening: No deficits noted. Tuberculosis screening: No symptoms or risk factors identified. Assessment: 16:49 General: Appears in no apparent distress. comfortable, obese. Pain: Denies pain. Neuro: kc6 Ashley Agitation-Sedation Scale (RASS): 0 - Alert and Calm Level of Consciousness is awake, alert, obeys commands, Oriented to person, place, time, situation, Appropriate for age. Cardiovascular: Capillary refill < 3 seconds. Respiratory: Airway is patent Trachea midline Respiratory effort is even, unlabored, Respiratory pattern is regular, symmetrical. GI: Abdomen is round non-distended, Bowel sounds present X 4 quads. Abd is soft and non tender X 4 quads. Reports diarrhea, Patient currently denies abdominal pain, nausea, vomiting. : No signs and/or symptoms were reported regarding the genitourinary system. EENT: No signs and/or symptoms were reported regarding the EENT system. Derm: No signs and/or symptoms reported regarding the dermatologic system. Skin is intact, Skin is pink, warm \T\ dry. Musculoskeletal: No signs and/or symptoms reported regarding the musculoskeletal system. Circulation, motion, and sensation intact. Capillary refill < 3 seconds, Range of motion: intact in all extremities. 17:37 Reassessment: Patient appears in no apparent distress at this time. No changes from kc6 previously documented assessment. Patient and/or family updated on plan of care and expected duration. Pain level reassessed. Patient is alert, oriented x 3, equal unlabored respirations, skin warm/dry/pink. 18:31 Reassessment: Patient appears in no apparent distress at this time. No changes from kc6 previously documented assessment. Patient and/or family updated on plan of care and expected duration. Pain level reassessed. Patient is alert, oriented x 3, equal unlabored respirations, skin warm/dry/pink. 19:24 Reassessment: Patient appears in no apparent distress at this time. Patient and/or jb4 family updated on plan of care and expected duration. Pain level reassessed. Patient is alert, oriented x 3, equal unlabored respirations, skin warm/dry/pink. Vital Signs: 16:11 BP 137 / 62; Pulse 97; Resp 16; Temp 97.5; Pulse Ox 98% on R/A; Weight 106.59 kg (R); cm10 Height 5 ft. 0 in. (R); Pain 0/10; 16:50 BP 114 / 66; Pulse 87; Resp 19 S; Pulse Ox 96% on R/A; Pain 0/10; kc6 17:37 BP 103 / 62; Pulse 71; Resp 17 S; Pulse Ox 95% on R/A; kc6 18:33 Pulse 71; Resp 17 S; Pulse Ox 97% on R/A; kc6 19:24 BP 104 / 54; Pulse 67; Resp 16; Pulse Ox 96% on R/A; jb4 16:11 Body Mass Index 45.89 (106.59 kg, 152.4 cm) cm10 16:11 Pain Scale: Adult cm10 16:50 Pain Scale: Adult kc6 ED Course: 15:51 Patient arrived in ED. im 16:01 Ioana Garza FNP-C is PHCP. snw 16:01 Christopher Castellanos MD is Attending Physician. snw 16:12 Triage completed. cm10 16:15 Arm band placed on. Patient placed in an exam room, on a stretcher. EKG completed in cm10 triage. Results shown to MD. EKG completed in triage. Results shown to MD. 16:16 Yoon Reno, RN is Primary Nurse. kc6 16:49 Patient has correct armband on for positive identification. Placed in gown. Bed in low kc6 position. Call light in reach. Side rails up X 1. 16:49 Inserted saline lock: 20 gauge in right antecubital area, using aseptic technique. kc6 Blood collected. 17:18 XRAY Chest (1 view) In Process Unspecified. EDMS 19:24 No provider procedures requiring assistance completed. IV discontinued, intact, jb4 bleeding controlled, No redness/swelling at site. Pressure dressing applied. Administered Medications: 16:49 Drug: Ketorolac IVP 15 mg Route: IVP; Site: right antecubital; kc6 18:20 Follow up: Response: No adverse reaction; Pain is decreased kc6 18:20 Drug: Diphenoxylate-Atropine PO 2 tabs Route: PO; kc6 18:56 Drug: metroNIDAZOLE PO 500 mg Route: PO; kc6 Outcome: 18:50 Discharge ordered by . luis 19:24 Discharged to home ambulatory. jb4 19:24 Condition: stable 19:24 Discharge instructions given to patient, Instructed on discharge instructions, follow up and referral plans. medication usage, Demonstrated understanding of instructions, follow-up care, medications, Prescriptions given X 2. 19:25 Patient left the ED. jb4 Signatures: Dispatcher [employer] EDMS Ioana Garza, SKATING CARHOP-C SKATING CARHOP-Csnw Abelardo Sanchez, RN RN jb4 Yoon Reno RN RN kc6 Minna Hammonds Clarissa, RN RN cm10 Corrections: (The following items were deleted from the chart) 18:35 18:33 BP 100 / 45; Pulse 71bpm; Resp 17bpm; Spontaneous; Pulse Ox 97% RA; kc6 kc6
--- NOTE | 2023-01-11 18:51 | EDPHYS ---
Physician Documentation [facility] Name: Bee Herrera Age: 67 yrs Sex: Female : 1955 Arrival Date: 01/11/2023 Time: 15:47 Bed 16 Private MD: ED Physician Christopher Castellanos HPI: 01/11 16:27 This 67 yrs old Female presents to ER via Ambulatory with complaints of snw Diarrhea. 16:27 The patient presents to the emergency department with diarrhea, 15 times since last snw night. Onset: The symptoms/episode began/occurred suddenly, yesterday. The symptoms are aggravated by nothing. The symptoms are alleviated by nothing. Severity of symptoms: At their worst the symptoms were moderate. The patient has not experienced similar symptoms in the past. Historical: - Allergies: 16:12 No Known Allergies; cm10 - Home Meds: 16:12 atorvastatin oral [Active]; losartan potassium (bulk) [Active]; Farxiga oral [Active]; cm10 Metformin Oral [Active]; - PMHx: 16:12 Diabetes mellitus; Hypertensive disorder; cm10 - Immunization history:: Adult Immunizations unknown. - Social history:: Smoking status: Patient denies any tobacco usage or history of. ROS: 16:27 Constitutional: Negative for fever, chills, and weight loss, Eyes: Negative for injury, snw pain, redness, and discharge, ENT: Negative for injury, pain, and discharge, Neck: Negative for injury, pain, and swelling, Cardiovascular: Negative for chest pain, palpitations, and edema, Respiratory: Negative for shortness of breath, cough, wheezing, and pleuritic chest pain, Back: Negative for injury and pain, : Negative for injury, bleeding, discharge, and swelling, MS/Extremity: Negative for injury and deformity, Skin: Negative for injury, rash, and discoloration, Neuro: Negative for headache, weakness, numbness, tingling, and seizure, Psych: Negative for depression, anxiety, suicide ideation, homicidal ideation, and hallucinations. 16:27 Abdomen/GI: Positive for diarrhea. Exam: 16:26 Constitutional: This is a well developed, well nourished patient who is awake, alert, snw and in no acute distress. Head/Face: Normocephalic, atraumatic. Eyes: Pupils equal round and reactive to light, extra-ocular motions intact. Lids and lashes normal. Conjunctiva and sclera are non-icteric and not injected. Cornea within normal limits. Periorbital areas with no swelling, redness, or edema. ENT: Nares patent. No nasal discharge, no septal abnormalities noted. Tympanic membranes are normal and external auditory canals are clear. Oropharynx with no redness, swelling, or masses, exudates, or evidence of obstruction, uvula midline. Mucous membranes moist. Neck: Trachea midline, no thyromegaly or masses palpated, and no cervical lymphadenopathy. Supple, full range of motion without nuchal rigidity, or vertebral point tenderness. No Meningismus. Chest/axilla: Normal chest wall appearance and motion. Nontender with no deformity. No lesions are appreciated. Cardiovascular: Regular rate and rhythm with a normal S1 and S2. No gallops, murmurs, or rubs. Normal PMI, no JVD. No pulse deficits. Respiratory: Lungs have equal breath sounds bilaterally, clear to auscultation and percussion. No rales, rhonchi or wheezes noted. No increased work of breathing, no retractions or nasal flaring. Abdomen/GI: Soft, non-tender, with normal bowel sounds. No distension or tympany. No guarding or rebound. No evidence of tenderness throughout. Back: No spinal tenderness. No costovertebral tenderness. Full range of motion. Skin: Warm, dry with normal turgor. Normal color with no rashes, no lesions, and no evidence of cellulitis. MS/ Extremity: Pulses equal, no cyanosis. Neurovascular intact. Full, normal range of motion. Neuro: Awake and alert, GCS 15, oriented to person, place, time, and situation. Cranial nerves II-XII grossly intact. Motor strength 5/5 in all extremities. Sensory grossly intact. Cerebellar exam normal. Normal gait. Psych: Awake, alert, with orientation to person, place and time. Behavior, mood, and affect are within normal limits. Vital Signs: 16:11 BP 137 / 62; Pulse 97; Resp 16; Temp 97.5; Pulse Ox 98% on R/A; Weight 106.59 kg (R); cm10 Height 5 ft. 0 in. (R); Pain 0/10; 16:50 BP 114 / 66; Pulse 87; Resp 19 S; Pulse Ox 96% on R/A; Pain 0/10; kc6 17:37 BP 103 / 62; Pulse 71; Resp 17 S; Pulse Ox 95% on R/A; kc6 18:33 Pulse 71; Resp 17 S; Pulse Ox 97% on R/A; kc6 19:24 BP 104 / 54; Pulse 67; Resp 16; Pulse Ox 96% on R/A; jb4 16:11 Body Mass Index 45.89 (106.59 kg, 152.4 cm) cm10 16:11 Pain Scale: Adult cm10 16:50 Pain Scale: Adult kc6 MDM: 16:17 Patient medically screened. snw 16:26 Differential diagnosis: Nonspecific abd pain, gastritis, diverticulitis, viral snw gastroenteritis, gastroenteritis, medication reaction. Data reviewed: vital signs, nurses notes. ED course: PCP appt January [address] Arias no. 18:45 ED course: Pt had recent trip to [place]. 01/11 16:19 Order name: Basic Metabolic Panel; Complete Time: 17:31 01/11 16:19 Order name: CBC with Diff; Complete Time: 17:12 01/11 16:19 Order name: LFT's; Complete Time: 17:31 sn01/11 16:19 Order name: Magnesium; Complete Time: 17:31 01/11 16:19 Order name: NT PRO-BNP; Complete Time: 17:31 01/11 16:19 Order name: PT-INR; Complete Time: 16:55 01/11 16:19 Order name: Troponin HS; Complete Time: 17:31 01/11 16:19 Order name: Lipase; Complete Time: 17:31 01/11 16:19 Order name: XRAY Chest (1 view); Complete Time: 17:48 01/11 16:19 Order name: EKG; Complete Time: 16:19 01/11 16:19 Order name: Cardiac monitoring; Complete Time: 16:49 01/11 16:19 Order name: EKG - Nurse/Tech; Complete Time: 16:49 01/11 16:19 Order name: IV Saline Lock; Complete Time: 16:49 01/11 16:19 Order name: Labs collected and sent; Complete Time: 16:49 snw 01/11 16:19 Order name: O2 Per Protocol; Complete Time: 16:22 snw 01/11 16:19 Order name: O2 Sat Monitoring; Complete Time: 16:22 snw EC:30 Rate is 86 beats/min. Rhythm is regular. QT interval is normal. Clinical impression: snw Normal ECG. Administered Medications: 16:49 Drug: Ketorolac IVP 15 mg Route: IVP; Site: right antecubital; [facility] 18:20 Follow up: Response: No adverse reaction; Pain is decreased [facility] 18:20 Drug: Diphenoxylate-Atropine PO 2 tabs Route: PO; kc6 18:56 Drug: metroNIDAZOLE PO 500 mg Route: PO; 6 Disposition Summary: 01/11/23 18:50 Discharge Ordered Location: Home snw Condition: Stable snw Diagnosis - Diarrhea, unspecified snw Followup: snw - With: Emergency Department - When: As needed - Reason: Worsening of condition Followup: snw - With: Private Physician - When: 1 week - Reason: Recheck today's complaints, Continuance of care, Re-evaluation by your physician Discharge Instructions: - Discharge Summary Sheet snw - Food Choices to Help Relieve Diarrhea, Adult snw - Diarrhea, Adult snw Forms: - Medication Reconciliation Form snw - Thank You Letter snw - Antibiotic Education snw - Prescription Opioid Use snw Prescriptions: - Flagyl 500 mg Oral Tablet - take 1 tablet by ORAL route 3 times per day for 7 days; 21 tablet; Refills: 0, snw Product Selection Permitted - ondansetron 8 mg Oral tablet,disintegrating - take 1 tablet by ORAL route every 8 hours; 21 tablet; Refills: 0, Product snw Selection Permitted Signatures: Dispatcher [employer] Ioana Ruffin FNP-C CLAIMS ADJUSTER-Karenaw Yoon [place] RN RN kc6 Carlee Lucero RN RN cm10
[2023-01-11] MEDS ORDERED: metroNIDAZOLE 500 MG TABLET ONE (18:58)
[2023-01-11 19:51] VITALS: TEMP 97.5
[2023-01-11 19:56] VITALS: BP 104/54; O2SAT 96
--- NOTE | 2023-01-12 14:17 | EKG ---
Test Date: 2023-01-11 Test Time: 16:30:09 Email Developer: HARVEY MEASUREMENT RESULTS: Intervals: Rate: 86 AR: 160 QRSD: 94 QT: 386 QTc: 461 [place]: P: 59 AR: 160 QRS: 41 T: 43 INTERPRETIVE STATEMENTS: Normal sinus rhythm Normal ECG Compared to ECG 12/11/2018 14:34:24 No significant changes Electronically Signed On 01-12-23 14:16:03 CDT by Ramon Rice
== END 2023-01-11 19:25 | disposition home or self-care (01) ==
LOC: ER 15:47
DX: R19.7 Diarrhea, unspecified (principal); E11.9 Type 2 diabetes mellitus without complications; I10 Essential (primary) hypertension
CPT/HCPCS: 36415; 71045; 80048; 80076; 83690; 83735; 83880; 84484; 85025; 85610; 93005; 96374; 99284

== ENCOUNTER 2023-03-21 06:32 | Day surgery (SDC) | payer OTHER ==
[2023-03-21] MEDS ORDERED: NA CHLORIDE 0.9% 1,000 ML ONE (07:06)
[2023-03-21] MEDS ORDERED: propofoL 200 MG/20 ML VIAL IV ONE ×3 (08:04→08:05)
[2023-03-21] MEDS ORDERED: LIDOCAINE 1% MPF 5 ML VIAL ONE (08:04)
[2023-03-21 09:25] VITALS: TEMP 98.5; O2SAT 100
[2023-03-21 10:01] VITALS: BP 91/45
== END 2023-03-21 10:01 | disposition home or self-care (01) ==
LOC: PRE 06:32 → OR 10:01
PROVIDERS: ATTEND Internal Medicine Gastroenterology
PROC: 0DJD8ZZ Inspection of Lower Intestinal Tract, Via Natural or Artificial Opening Endoscopic (ICD-10-PCS; 2023-03-21)
PROC: 0DB28ZX Excision of Middle Esophagus, Via Natural or Artificial Opening Endoscopic, Diagnostic (ICD-10-PCS; principal; 2023-03-21 07:30)
PROC: 0DB68ZX Excision of Stomach, Via Natural or Artificial Opening Endoscopic, Diagnostic (ICD-10-PCS; 2023-03-21 07:30)
DX: K92.1 Melena (principal); Z86.010 Personal history of colon polyps; Z80.0 Family history of malignant neoplasm of digestive organs; K64.8 Other hemorrhoids; K57.30 Diverticulosis of large intestine without perforation or abscess without bleeding; K21.9 Gastro-esophageal reflux disease without esophagitis; R13.10 Dysphagia, unspecified; R10.13 Epigastric pain; K44.9 Diaphragmatic hernia without obstruction or gangrene; K29.70 Gastritis, unspecified, without bleeding
CPT/HCPCS: 88312; 82947; 88305; 43239; 45378; J2704 ×3; J2001; J7030

== ENCOUNTER 2023-06-28 10:38 | Observation (INO) | payer OTHER ==
--- OUTSIDE RECORDS SUMMARY | 2023-06-28 10:44 | XMS REPORT | Continuity of Care Document ---
:1955 Author Organization [facility] t Address [address] [place] [address] Care Team Providers Name Role Phone Danae Bianchi Primary Care Physician Sammi Cartagena Attending Clinician Unavailable Miley Vincent Attending Clinician Unavailable BianchiDanae L Attending Clinician Unavailable HILDA SPRINGER Attending Clinician Unavailable ADARSH_GCBZW_Kasonjaa_S Attending Clinician Unavailable Torsten James Attending Clinician Unavailable Hilda Springer DPM Attending Clinician Pob, [facility] Main Attending Clinician Unavailable Only, Adc Test Attending Clinician Unavailable Doctor Unassigned, [place] Attending Clinician Unavailable HILDA SPRINGER Admitting Clinician Unavailable ADARSH_GCBZW_Theodoraa_S Admitting Clinician Unavailable KNOW, DOES_NOT Admitting Clinician Unavailable Hilda Springer DPM Admitting Clinician Payers Payer Name Policy Type Policy Number Effective Date Expiration Date S zac AETNA MEDICARE [id number] 2020 ADV 00:00:00 AETNA (MEDICARE [id number] 2022 REPLACEMENT PPO) 00:00:00 [employer]ET[employer] MEDICARE 53 [id number] 2018 Common 00:00:00 [facility] Problems Condition Condition Condition Status Onset Resolution Last Treating Co mments Source Name Details Category Date Date Treatment Clinician Date [id number] Nonadheren Problem Co mmon ce with Spirit dietary - CHI restrictio [facility] [id number] Morbid Problem Common (severe) Spirit obesity - [facility]I due to 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 athy - CHI diabetes associated St mellitus with type [facility] 2 diabetes Medica l mellitus Center Neuropathy Neuropathy Problem C ommon [facility] [id number] Decreased Problem Com mon hearing of Spirit left ear - CHI [facility] [id number] Anxiety Problem Common Spirit - [facility] [id number] Change in Problem Com mon bowel Spirit habit - CHI [facility] [id number] Essential Problem Comm on hypertensi Spirit on - CHI [facility] Vitamin D Vitamin D Problem Com mon deficiency deficiency tolu [facility] Chronic Chronic Problem Common fatigue fatigue [facility] syndrome [facility] [id number] Constipati Problem Com mon on, Spirit unspecifie - CHI d constipati [facility] [id number] Seasonal Problem Comm on allergies [facility] Allergies, Adverse Reactions, Alerts Allergy Allergy Status Severity Reaction(s) Onset Inactive Treating Comm ents Source Name Type Date Date Clinician No Known DA Active U [facility] 8[facility]10 [place] nces 00:00: d 00 [facility] NO KNOWN Drug Active Univers ALLERGIE Class ity of [facility] [place] [facility] Social History Social Habit Start Date Stop Date Quantity Comments Source Exposure to Not sure [facility] SARS-CoV-2 (event) Medica Branch History of Tobacco Common Spirit - CHI Use [facility] Sex Assigned At Common Sp tolu - CHI [facility] Tobacco use and 2020-12-30 2020-12-30 Never used [facility] [place] exposure 00:00:00 00:00:00 Medical Branch Smoking Status Start Date Stop Date Source Former Smoker 2023-06-08 00:00:00 2023-06-08 00:00:00 [facility] S pirit [facility] Never Smoker [facility] Medications Ordered Filled Start Stop Current Ordering Indication Dosage Frequency Signature Comments Components Source Medication Medication Date Date Medication? Clinician (SIG) Name Name Carvedilol Carvedilol 2022-07 No 1{table BID Carvedilol 3.125 MG 3.125 MG 1-10 t_with_ 3.125 MG 00:00: food} 00 Carvedilol Carvedilol 2022-07 No 1{table BID Carvedilol 3.125 MG 3.125 MG 1-10 t_with_ 3.125 MG 00:00: food} 00 Carvedilol Carvedilol 2022-07 No 1{table BID Carvedilol 3.125 MG 3.125 MG 1-10 t_with_ 3.125 MG 00:00: food} 00 glipiZIDE glipiZIDE No QD glipiZIDE 10 MG 10 MG 8-11 10 MG 00:00: 00 Gabapentin Gabapentin 2022-0 No 1{capsu BID Gabapentin 100 MG 100 MG 8-11 le} 100 MG 00:00: 00 Farxiga 10 Farxiga 10 2021-07 No 1{table QD Farxiga 10 MG MG 0-26 t} MG 00:00: 00 Farxiga Farxiga 2021-07- No 1{table QD Farxiga 10mg 10mg 0-26 04-24 t} 10mg 00:00: 00:00 00 :00 Farxiga Farxiga 2021-07- No 1{table QD Farxiga 10mg 10mg 0-26 04-24 t} 10mg 00:00: 00:00 00 :00 Neomycin-Po Neomycin-Po 2021-0 No 4{drops BID Neomycin-P lymyxin-HC lymyxin-HC 5-19 _into_a olymyxin-H 3.5-29138-5 3.5-13521-1 00:00: ffected C 00 _ear} 3.5-59637- 1 Neomycin-Po Neomycin-Po 2021-0 No 4{drops BID Neomycin-P lymyxin-HC lymyxin-HC 5-19 _into_a olymyxin-H 3.5-44453-0 3.5-96302-7 00:00: ffected C 00 _ear} 3.5-69816- 1 Neomycin-Po Neomycin-Po 2021-0 No 4{drops BID Neomycin-P lymyxin-HC lymyxin-HC 5-19 _into_a olymyxin-H 3.5-72227-3 3.5-32477-4 00:00: ffected C 00 _ear} 3.5-64664- 1 Neomycin-Po Neomycin-Po 2-0 No 4{drops BID Neomycin-P lymyxin-HC lymyxin-HC 5-19 _into_a olymyxin-H 3.5-67130-8 3.5-84620-6 00:00: ffected C 00 _ear} 3.5-51614- 1 Neomycin-Po Neomycin-Po 2-0 No 4{drops BID Neomycin-P lymyxin-HC lymyxin-HC 5-19 _into_a olymyxin-H 3.5-45059-2 3.5-43331-9 00:00: ffected C 00 _ear} 3.5-25385- 1 Neomycin-Po Neomycin-Po 2022-0 No 4{drops BID Neomycin-P lymyxin-HC lymyxin-HC 5-19 _into_a olymyxin-H 3.5-81162-4 3.5-26077-9 00:00: ffected C 00 _ear} 3.5-84106- 1 Neomycin-Po Neomycin-Po 2022-0 No 4{drops BID Neomycin-P lymyxin-HC lymyxin-HC 5-19 _into_a olymyxin-H 3.5-87945-6 3.5-64116-8 00:00: ffected C 00 _ear} 3.5-73366- 1 Neomycin-Po Neomycin-Po 2022-0 No 4{drops BID Neomycin-P lymyxin-HC lymyxin-HC 5-19 _into_a olymyxin-H 3.5-29306-8 3.5-05229-3 00:00: ffected C 00 _ear} 3.5-62680- 1 Neomycin-Po Neomycin-Po 2022-0 No 4{drops BID Neomycin-P lymyxin-HC lymyxin-HC 5-19 _into_a olymyxin-H 3.5-42931-9 3.5-52065-4 00:00: ffected C 00 _ear} 3.5-24187- 1 Neomycin-Po Neomycin-Po 2022-0 No 4{drops BID Neomycin-P lymyxin-HC lymyxin-HC 5-19 _into_a olymyxin-H 3.5-22139-5 3.5-44194-1 00:00: ffected C 00 _ear} 3.5-34394- 1 Neomycin-Po Neomycin-Po 2022-0 No 4{drops BID Neomycin-P lymyxin-HC lymyxin-HC 5-19 _into_a olymyxin-H 3.5-23763-5 3.5-40303-8 00:00: ffected C 00 _ear} 3.5-91371- 1 Neomycin-Po Neomycin-Po 2022-0 No 4{drops BID Neomycin-P lymyxin-HC lymyxin-HC 5-19 _into_a olymyxin-H 3.5-92555-3 3.5-67565-0 00:00: ffected C 00 _ear} 3.5-81942- 1 Neomycin-Po Neomycin-Po 2022-0 No 4{drops BID Neomycin-P lymyxin-HC lymyxin-HC 5-19 _into_a olymyxin-H 3.5-17080-1 3.5-15310-0 00:00: ffected C 00 _ear} 3.5-62510- 1 Neomycin-Po Neomycin-Po 2021-0 No 4{drops BID Neomycin-P lymyxin-HC lymyxin-HC 5-19 _into_a olymyxin-H 3.5-24831-1 3.575086-7 00:00: ffected C 00 _ear} 3.524069- 1 Fluconazole Fluconazole 2021- No 1{table Fluconazol 150 MG 150 MG 5-19 05-20 t} e 150 MG 00:00: 00:00 00 :00 Fluconazole Fluconazole 2021- No 1{table Fluconazol 150 MG 150 MG 5-19 05-20 t} e 150 MG 00:00: 00:00 00 :00 metFORMIN 2021-0 Yes 500mg Take 500 Uni vers 500 mg 1-29 mg by ity of tablet 23:13: mouth 2 [place] [address] (two) Medical times [place] daily with meals. bacitracin- Yes PRN, Univer s polymyxin B 08-26 Starting ity of (DOUBLE 15:58: on Sun [place] ANTIBIOTIC) 08/26/21 at [place] dical 500-10,000 0958, Branch unit/gram Until topical Discontinu ointment ed, Routine, Intra-op bacitracin- 2021-0 2021- No PRN, Unive rs polymyxin B 08-26 Starting ity of (DOUBLE 15:58: 19:14 on Fri [place] ANTIBIOTIC) 00 :02 08/26/21 at [place] dical 500-10,000 0958, Branch unit/gram Until Fri topical 08/26/21 at ointment 1314, Routine, Intra-op sodium Yes PRN, Univers chloride 08-26 Starting ity of 0.9 % 15:15: on Fri [place] irrigation 00 08/26/21 at [facility] ical solution 0915, Branch Until Discontinu ed, Intra-op sodium 2021-0 2021- No PRN, Univers chloride 08-26 Starting ity of 0.9 % 15:15: 19:14 on Sun [place] irrigation 00 :02 08/26/21 at Med ical solution 0915, Branch Until Sun08/26/21 at 1314, Intra-op bupivacaine 2021-0 Yes PRN, Univer s (preserv 08-26 Starting ity of free) 0.5% 15:01: on Sun [place] (SENSORCAIN 00 08/26/21 at [facility]) 0.5 0901, Branch % (5 mg/mL) Intra-op 5 mL, lidocaine 1% (PF) (XYLOCAINE) 5 mL bupivacaine 2021-2021- No PRN, Unive rs (preserv 08-26 Starting ity of free) 0.5% 15:01: 19:14 [place] Sun [place] ([place]IN 00 :02 08/26/21 at [facility]) 0.5 0901, Branch % (5 mg/mL) Intra-op 5 mL, lidocaine 1% (PF) (XYLOCAINE) 5 mL lactated 0 2021- No 1000mL at 42 [place] [facility] rs ringers IV 08-26 01-28 mL/hr, ity of infusion 13:45: 14:01 1,000 mL, [place] as 1,000 mL 00 :00 IV Medical Infusion, Branch ONCE, 1 dose, On Sun08/26/21 at 0745, Routine, DSU Pre-op lactated 2021-0 2021- No 1000mL at 42 [place] [facility] rs ringers IV 08-26 01-28 mL/hr, ity of infusion 13:45: 14:01 1,000 mL, [place] as 1,000 mL 00 :00 IV Medical Infusion, Branch ONCE, 1 dose, On Sun08/26/21 at 0745, Routine, DSU Pre-op losartan 2021-0 Yes 100mg Take 100 Univ ers 100 mg - mg by ity of tablet 11:14: mouth daily. Medical Branch atorvastati Yes 10mg Take 10 mg Univers n 10 mg 08-26 by mouth ity of tablet 11:14: at [place] bedtime. Medical Branch glimepiride Yes 2mg Take 2 mg U nivers 2 mg tablet 08-26 by mouth 2 it y of 11:14: (two) times Medical daily. Branch metFORMIN Yes 500mg Take 500 Uni vers 500 mg 1-28 mg by ity of tablet 11:14: mouth 2 [place] (two) Medical times Branch daily with meals. losartan Yes 100mg Take 100 Univ ers 100 mg 1-28 mg by ity of tablet 11:14: mouth [place] daily. Medical Branch atorvastati Yes 10mg Take 10 mg Univers n 10 mg 28 by mouth ity of tablet 11:14: at [place] bedtime. Medical Branch glimepiride Yes 2mg Take 2 mg U nivers 2 mg tablet 08-26 by mouth 2 it y of 11:14: (two) [place] times Medical daily. Branch losartan Yes 100mg Take 100 Univ ers 100 mg 1-28 mg by ity of tablet 11:14: mouth daily. Medical Branch atorvastati Yes 10mg Take 10 mg Univers n 10 mg 08-26 by mouth ity of tablet 11:14: at [place] bedtime. Medical Branch glimepiride Yes 2mg Take 2 mg U nivers 2 mg tablet 08-26 by mouth 2 it y of 11:14: (two) [place] times Medical daily. Branch aspirin 325 2021- No [id number] 325mg Take 1 Univers mg tablet 08-26 tablet by ity of 00:00: 05:59 mouth 2 [place] 00 :00 (two) Medical times Branch daily with meals for 28 days. aspirin 325 0 2021- No [id number] 325mg Take 1 Univers mg tablet 08-26- tablet by ity of 00:00: 05:59 mouth 2 [place] 00 :00 (two) Medical times Branch daily with meals for 28 days. metFORMIN Yes 500mg Take 500 Uni vers 500 mg 1-26 mg by ity of tablet 15:30: mouth 2 [place] (two) Medical times Branch daily with meals. metFORMIN 0 Yes 500mg Take 500 Uni vers 500 mg 1-26 mg by ity of tablet 15:30: mouth 2 [place] (two) Medical times Branch daily with meals. metFORMIN metFORMIN 2020-07 No BID metFORMIN HCl ER 500 HCl ER 500 0-19 HCl ER 500 MG MG 00:00: MG 00 metFORMIN metFORMIN 2020-07 No BID metFORMIN HCl ER 500 HCl ER 500 0-19 HCl ER 500 MG MG 00:00: MG 00 losartan Yes 100mg Take 100 Univ ers [...] (two) [place] 12 times Medical daily. Branch FENTanyl PF Yes 25ug 25 mcg, Uni vers (SUBLIMAZE 6-04 Slow IV ity of (PF)) 18:21: Push, [place] injection 55 Q5MIN PRN, Medi dc 25 mcg 4 doses, Branch Starting Sun12/31/20 at 1321, Until Discontinu ed, Routine, Pain (scale 7-10), PACU ondansetron Yes 4mg 4 mg, Slow Univers (ZOFRAN 6-04 IV Push, ity of (PF)) 18:21: PRN, 1 [place] injection 4 55 dose, Medical mg Starting Branch Sun12/31/20 at 1321, Until Discontinu ed, Routine, Nausea and Vomiting (N/V), PACU FENTanyl PF Yes 25ug 25 mcg, Uni vers (SUBLIMAZE 6-04 Slow IV ity of (PF)) 18:21: Push, [place] injection 55 Q5MIN PRN, Medi dc 25 mcg 4 doses, Branch Starting Sun12/31/20 at 1321, Until Discontinu ed, Routine, Pain (scale 4-6), PACU FENTanyl PF 2020-2020- No 25ug 25 mcg, Un cherise (SUBLIMAZE 6- 06-04 Slow IV ity o f (PF)) 18:21: 21:26 Push, [place] injection 55 :16 Q5MIN PRN, Medi dc 25 mcg 4 doses, Branch Starting Sun12/31/20 at 1321, Until Sun12/31/20 at 1626, Routine, Pain (scale 7-10), PACU ondansetron 2020- No 4mg 4 mg, Slow Univers (ZOFRAN 12-31- IV Push, ity of (PF)) 18:21: 21: PRN, 1 [place] injection 4 55 :16 dose, Medical mg Starting Branch Sun12/31/20 at 1321, Until Sun12/31/20 at 1626, Routine, Nausea and Vomiting (N/V), PACU FENTanyl PF 2020- No 25ug 25 mcg, Un cherise (SUBLIMAZE 12-31- Slow IV ity o f (PF)) 18:21: 21: Push, [place] injection 55 :16 Q5MIN PRN, Medi dc 25 mcg 4 doses, Branch Starting Sun12/31/20 at 1321, Until Sun12/31/20 at 1626, Routine, Pain (scale 4-6), PACU bupivacaine 2020-0 Yes PRN, Univer s (preserv 6-04 Starting ity of free) 0.5% 17:45: Sun12/31/20 [place] (SENSORCAIN 00 at 1245, Medi dc E MPF) 0.5 Intra-op Branc h % (5 mg/mL) 5 mL, lidocaine 1% (PF) (XYLOCAINE) 5 mL bupivacaine 2020- No PRN, Unive rs (preserv 6- 06-04 Starting ity of free) 0.5% 17:45: 21:26 12/31/20 [place] (SENSORCAIN 00 :16 at 1245, Medi dc E MPF) 0.5 Intra-op Branc h % (5 mg/mL) 5 mL, lidocaine 1% (PF) (XYLOCAINE) 5 mL sodium 2020-0 Yes PRN, Univers chloride 6-04 Starting ity of 0.9 % 17:41: 12/31/20 [place] irrigation 00 at 1241, Medic al solution Until Branch Discontinu ed, Intra-op sodium 2020- No PRN, Univers chloride 6-04 06-04 Starting ity of 0.9 % 17:41: 21:26 [...] dose, Sun12/31/20 at 1015, Routine, DSU Pre-op losartan Yes 100mg Take 100 Univ ers 100 mg 6-04 mg by ity of tablet 14:21: mouth [place] 12 daily. Medical Branch atorvastati Yes 10mg Take 10 mg Univers n 10 mg 6-04 by mouth ity of tablet 14:21: at [place] 12 bedtime. Medical Branch glimepiride Yes 2mg [...] by mouth ity of tablet 14:21: at [place] 12 bedtime. Medical Branch glimepiride Yes 2mg Take 2 mg U nivers 2 mg tablet 6-04 by mouth 2 it y of 14:21: (two) [place] 12 times Medical daily. Branch Neomycin-Po Neomycin-Po 2020-0 No 4{drops BID Neomycin-P Common lymyxin-HC lymyxin-HC 4-05 _into_a olymyxin-H Spirit 3.5-63393-0 3.5-02085-2 00:00: ffected C - CHI 00 _ear} 3.5-58428- [facility] Neomycin-Po Neomycin-Po 2020-0 No 4{drops BID Neomycin-P lymyxin-HC lymyxin-HC 4-05 _into_a olymyxin-H 3.5-23859-4 3.5-95129-5 00:00: ffected C 00 _ear} 3.5-47846- 1 Neomycin-Po Neomycin-Po 2020-0 No 4{drops BID Neomycin-P lymyxin-HC lymyxin-HC 4-05 _into_a olymyxin-H 3.5-25526-7 3.5-46421-0 00:00: ffected C 00 _ear} 3.5-86194- 1 One Touch One Touch No QD One Touch Common Ultra Test Ultra Test 3-24 Ultra Test Spirit Strips 1 Strips 1 00:00: Strips 1 - CHI 00 [facility] One Touch One Touch 0 No QD One Touch Common Delica Delica 3-24 Delica Spirit Lancets - Lancets - 00:00: Lancets - - CHI 00 [facility] One Touch One Touch 0 No QD [...] No QD One Touch Delica Delica 3-24 [facility] Lancets - Lancets - 00:00: Lancets - 00 One Touch One Touch 2020-0 No QD One Touch Ultra Test Ultra Test 3-24 Ultra Test Strips 1 Strips 1 00:00: Strips 1 00 One Touch One Touch 2020-0 No QD One Touch Delica Delica 3-24 [facility] Lancets - Lancets - 00:00: Lancets - 00 One Touch One Touch 2020-0 No QD One Touch Ultra Test Ultra Test 3-24 Ultra Test Strips 1 Strips 1 00:00: Strips 1 00 One Touch One Touch 2020-0 No QD One Touch Delica Delica 3-24 [facility] Lancets - Lancets - 00:00: Lancets [...] No QD One Touch Delica Delica 3-24 [facility] Lancets - Lancets - 00:00: Lancets - 00 One Touch One Touch 0 No QD One Touch Ultra Test Ultra Test 3-24 Ultra Test Strips 1 Strips 1 00:00: Strips 1 00 One Touch One Touch 2020-0 No QD One Touch Delica Delica 3-24 [facility] Lancets - Lancets - 00:00: Lancets - 00 One Touch One Touch 0 No QD One Touch Delica Delica 3-24 [facility] Lancets - Lancets - 00:00: Lancets - 00 One Touch One Touch 0 No QD One Touch Ultra Test Ultra Test 3-24 Ultra Test Strips 1 Strips 1 00:00: Strips 1 00 One Touch One Touch 0 No QD One Touch Delica Delica 3-24 [facility] Lancets - Lancets - 00:00: Lancets - 00 One Touch One Touch 0 No QD One Touch Ultra Test Ultra Test 3-24 Ultra Test Strips 1 Strips 1 00:00: Strips 1 00 One Touch One Touch 0 No QD One Touch Delica Delica 3-24 [facility] Lancets - Lancets - 00:00: Lancets - 00 One Touch One Touch 0 No QD One Touch Delica Delica 3-24 [facility] Lancets - Lancets - 00:00: Lancets - 00 One Touch One Touch 0 No QD One Touch Delica Delica 3-24 [facility] Lancets - Lancets - 00:00: Lancets - 00 One Touch One Touch 2020-0 No QD One Touch Delica Delica 3-24 [facility] Lancets - Lancets - 00:00: Lancets - 00 One Touch One Touch 2020-0 No QD One Touch Delica Delica 3-24 [facility] Lancets - Lancets - 00:00: Lancets - 00 One Touch One Touch 2020-0 No QD One Touch Delica Delica 3-24 [facility] Lancets - Lancets - 00:00: Lancets - 00 One Touch One Touch 2020-0 No QD One Touch Delica Delica 3-24 [facility] Lancets - Lancets - 00:00: Lancets - 00 One Touch One Touch 2020-0 No QD One Touch Delica Delica 3-24 Delica Lancets - Lancets - 00:00: Lancets - 00 One Touch One Touch No QD One [...] 1 00:00: 00:00 Strips 1 00 :00 Triamcinolo Triamcinolo 2019-0 Yes Na Arias 1 Common ne ne 8-26 applicatio Spirit Acetonide Acetonide 00:00: n to - C HI [address] [facility] Triamcinolo 0 No 1{appli BID Triamcinol Common ne ne 8-26 cation_ one Spirit Acetonide Acetonide 00:00: to_affe Acetonide - CHI 0.1 % 0.1 % 00 [facility] Triamcinolo 0 No 1{appli BID Triamcinol ne ne 8-26 cation_ one Acetonide Acetonide 00:00: to_affe Acetonide 0.1 % 0.1 % 00 cted_ar 0.1 % ea} Triamcinolo Triamcinolo 2019-0 No 1{appli BID Triamcinol ne ne 8-26 cation_ one Acetonide Acetonide 00:00: to_affe Acetonide 0.1 % 0.1 % 00 cted_ar 0.1 % ea} Martell Delarosazess 0 2020- No Na Arias one Com mon 01-27 12-27 capsule Spirit 00:00: 00:00 - CHI 00 :00 [facility] 2020-0 2020- No Na Bianchi 1 Com 09-04 Spirit 00:00: 00:00 - CHI 00 :00 [facility] No known No Univers medications ity of [facility] No known No Univers medications [facility] Losartan Losartan Yes Na Biancih 1 tablet Common Potassium Potassium [facility] Gabapentin Gabapentin Yes Na Bianchi 1 capsule Common [facility] Vitamin D Vitamin D Yes Na Bianchi not Co mmon defined [facility] Atorvastati Atorvastati Yes Na Bianchi 1 tablet Common n Calcium n Calcium [facility] MetFORMIN MetFORMIN Yes Na Bianchi 1 tablet Common HCl ER HCl ER with [facility] meal [facility] Flonase Flonase Yes Na Bianchi 2 sprays Co mmon in each Spirit nostril [facility] Valacyclovi Valacyclovi Yes Na Bianchi 1 tablet Common r HCl r HCl [facility] Glimepiride Glimepiride No BID Glimepirid Common 4 MG 4 MG e 4 MG [facility] Atorvastati Atorvastati No 1{table QD Atorvastat Common n Calcium n Calcium t} in Calcium Spirit 10 MG [address] [facility] No QD [facility] Common 10mg 10mg 10mg [facility] Atorvastati Atorvastati No 1{table QD Atorvastat Common n Calcium n Calcium t} in Calcium Spirit 10 MG 10 MG 10 MG [facility] Losartan Losartan No 1{table QD Losartan Common Potassium Potassium t} Potassium Spirit 100 MG 100 MG 100 MG [facility] Flonase 50 Flonase 50 No 2{spray QD Flonase 50 Common MCG/ACT MCG/ACT s_in_ea MCG/ACT Spi rit [facility]} [facility] Linzess 145 Linzess 145 No Linzess Common mcg mcg 145 mcg [facility] valACYclovi valACYclovi No 2{table BID valACYclov Common r HCl 500 r HCl 500 ts} ir HCl 500 Spirit MG MG MG [facility] valACYclovi valACYclovi No 1{table TID valACYclov Common r HCl 1 GM r HCl 1 GM t} ir HCl 1 Spirit [facility] Vitamin D Vitamin D No Vitamin D Common [facility] Cetirizine Cetirizine No 1{table QD Cetirizine Common HCl 10 MG HCl 10 MG t} HCl 10 MG [facility] Gabapentin Gabapentin No 1{capsu TID Gabapentin Common 100 MG 100 MG le} 100 MG [facility] Atorvastati Atorvastati No 1{table QD Atorvastat n [...] 100 MG 100 MG metFORMIN metFORMIN No BID metFORMIN HCl ER 500 HCl [...] 500 MG MG MG OneTouch OneTouch No QD OneTouch Ultra - Ultra - Ultra - Losartan Losartan No 1{table QD Losartan Potassium Potassium t} Potassium 100 MG 100 MG 100 MG Atorvastati Atorvastati No Atorvastat n Calcium n Calcium in Calcium 10 MG 10 MG 10 MG Atorvastati Atorvastati No Atorvastat n Calcium n Calcium in Calcium 10 MG 10 MG 10 MG Vitamin D Vitamin D No Vitamin D Cetirizine Cetirizine No 1{table QD Cetirizine HCl 10 MG HCl 10 MG t} HCl 10 MG OneTouch OneTouch No QD OneTouch Ultra - Ultra - Ultra - Losartan Losartan No Losartan Potassium Potassium Potassium 100 MG 100 MG 100 MG Atorvastati Atorvastati No 1{table QD Atorvastat n Calcium n Calcium t} in Calcium 10 MG 10 MG 10 MG Flonase 50 Flonase 50 No 2{spray QD Flonase 50 MCG/ACT MCG/ACT s_in_ea MCG/ACT ch_nost ril} Losartan Losartan No 1{table QD Losartan Potassium Potassium t} Potassium 100 MG 100 MG 100 MG metFORMIN metFORMIN No metFORMIN HCl ER 500 HCl ER 500 HCl ER 500 MG MG MG Linzess 145 Linzess 145 No Linzess mcg mcg 145 mcg Farxiga 10 Farxiga 10 No 1{table QD Farxiga 10 MG MG t} MG Atorvastati Atorvastati No 1{table QD Atorvastat n Calcium n Calcium t} in Calcium 10 MG 10 MG 10 MG Gabapentin Gabapentin No 1{capsu BID Gabapentin 100 MG 100 MG le} 100 MG glipiZIDE glipiZIDE No BID glipiZIDE 10 MG 10 MG 10 MG Losartan [...] MG MG MG Gabapentin Gabapentin No 1{capsu BID Gabapentin 100 MG 100 MG le} 100 MG Atorvastati Atorvastati No 1{table QD Atorvastat n Calcium n Calcium t} in Calcium 10 MG 10 MG 10 MG glipiZIDE glipiZIDE No BID glipiZIDE 10 MG 10 MG 10 MG Atorvastati Atorvastati No 1{table QD Atorvastat n Calcium n Calcium t} in Calcium 10 MG 10 MG 10 MG metFORMIN metFORMIN No metFORMIN HCl ER 500 HCl ER 500 HCl ER 500 MG MG MG Gabapentin Gabapentin No 1{capsu BID Gabapentin 100 MG 100 MG le} 100 MG Losartan Losartan No 1{table QD Losartan Potassium Potassium t} Potassium 100 MG 100 MG 100 MG glipiZIDE glipiZIDE No BID glipiZIDE 10 MG 10 MG 10 MG Immunizations Ordered Filled Date Status Comments Source Immunization Name Immunization Name Pfizer COVID-19 Pfizer COVID-19 2020-10-28 Completed Comm on Spirit - Vaccine Vaccine 11:56:00 [facility] Pfizer COVID-19 Pfizer COVID-19 2020-10-28 Completed Comm [facility] - Vaccine Vaccine 11:56:00 [facility] Pfizer COVID-19 Pfizer COVID-19 2020-10-28 Completed [facility] Vaccine Vaccine 11:56:00 [facility] Pfizer COVID-19 Pfizer COVID-19 2020-10-28 Completed [facility] Vaccine Vaccine 11:56:00 [facility] Pfizer COVID-19 Pfizer COVID-19 2020-10-28 Completed [facility] Vaccine Vaccine 11:56:00 [facility] Pfizer COVID-19 Pfizer COVID-19 2020-10-28 Completed [facility] Vaccine Vaccine 11:56:00 [facility] Pfizer COVID-19 Pfizer COVID-19 2020-10-28 Completed [facility] Vaccine Vaccine 11:56:00 [facility] Pfizer COVID-19 Pfizer COVID-19 2020-10-28 Completed [facility] Vaccine Vaccine 11:56:00 [facility] Pfizer COVID-19 Pfizer COVID-19 2020-10-28 Completed [facility] Vaccine Vaccine 11:56:00 [facility] Pfizer COVID-19 Pfizer COVID-19 2020-10-28 Completed [facility] Vaccine Vaccine 11:56:00 [facility] Pfizer COVID-19 Pfizer COVID-19 2020-10-28 Completed [facility] Vaccine Vaccine 11:56:00 [facility] Pfizer COVID-19 Pfizer COVID-19 2020-10-28 Completed [facility] Vaccine Vaccine 11:56:00 [facility] Pfizer COVID-19 Pfizer COVID-19 2020-10-28 Completed [facility] Vaccine Vaccine 11:56:00 [facility] Pfizer COVID-19 Pfizer COVID-19 2020-10-28 Completed [facility] Vaccine Vaccine 11:56:00 [facility] Pfizer COVID-19 Pfizer COVID-19 2020-10-28 Completed [facility] Vaccine Vaccine 11:56:00 [facility] Pfizer COVID-19 Pfizer COVID-19 2020-10-28 Completed [facility] Vaccine Vaccine 11:56:00 [facility] Pfizer COVID-19 Pfizer COVID-19 2020-10-28 Completed [facility] Vaccine Vaccine 11:56:00 [facility] Pfizer COVID-19 Pfizer COVID-19 2020-10-28 Completed [facility] Vaccine Vaccine 11:56:00 [facility] Pfizer COVID-19 Pfizer COVID-19 2020-10-28 Completed [facility] Vaccine Vaccine 11:56:00 [facility] Pfizer COVID-19 Pfizer COVID-19 2020-10-28 Completed [facility] Vaccine Vaccine 11:56:00 [facility] Pfizer COVID-19 Pfizer COVID-19 2020-10-28 Completed [facility] Vaccine Vaccine 11:56:00 [facility] Pfizer COVID-19 Pfizer COVID-19 2020-10-28 Completed [facility] Vaccine Vaccine 11:56:00 [facility] SARS-COV-2 COVID-19 2020-10-16 Completed [facility] PFIZER VACCINE 00:00:00 [facility] SARS-COV-2 COVID-19 2020-10-16 Completed [facility] of PFIZER VACCINE 00:00:00 [facility] SARS-COV-2 COVID-19 2020-10-16 Completed [facility] of PFIZER VACCINE 00:00:00 [facility] SARS-COV-2 COVID-19 2020-10-16 Completed [facility] of PFIZER VACCINE 00:00:00 [facility] SARS-COV-2 COVID-19 2020-10-16 Completed [facility] of PFIZER VACCINE 00:00:00 [facility] SARS-COV-2 COVID-19 2020-10-16 Completed [facility] of PFIZER VACCINE 00:00:00 [facility] SARS-COV-2 COVID-19 2020-10-16 Completed [facility] of PFIZER VACCINE 00:00:00 [facility] SARS-COV-2 COVID-19 2020-10-16 Completed [facility] of PFIZER VACCINE 00:00:00 [facility] SARS-COV-2 COVID-19 2020-10-16 Completed [facility] PFIZER VACCINE 00:00:00 [facility] Pfizer COVID-19 Pfizer COVID-19 2020-09-27 Completed [facility] Vaccine 11:56:00 [facility] Pfizer COVID-19 Pfizer COVID-19 2020-09-27 Completed [facility] Vaccine Vaccine 11:56:00 [facility] Pfizer COVID-19 Pfizer COVID-19 2020-09-27 Completed [facility] Vaccine Vaccine 11:56:00 [facility] Pfizer COVID-19 Pfizer COVID-19 2020-09-27 Completed [facility] Vaccine Vaccine 11:56:00 [facility] Pfizer COVID-19 Pfizer COVID-19 2020-09-27 Completed [facility] Vaccine Vaccine 11:56:00 [facility] Pfizer COVID-19 Pfizer COVID-19 2020-09-27 Completed [facility] Vaccine Vaccine 11:56:00 [facility] Pfizer COVID-19 Pfizer COVID-19 2020-09-27 Completed [facility] Vaccine Vaccine 11:56:00 [facility] Pfizer COVID-19 Pfizer COVID-19 2020-09-27 Completed [facility] Vaccine Vaccine 11:56:00 [facility] Pfizer COVID-19 Pfizer COVID-19 2020-09-27 Completed [facility] Vaccine Vaccine 11:56:00 [facility] Pfizer COVID-19 Pfizer COVID-19 2020-09-27 Completed [facility] Vaccine Vaccine 11:56:00 [facility] Pfizer COVID-19 Pfizer COVID-19 2020-09-27 Completed [facility] Vaccine Vaccine 11:56:00 [facility] Pfizer COVID-19 Pfizer COVID-19 2020-09-27 Completed [facility] Vaccine Vaccine 11:56:00 [facility] Pfizer COVID-19 Pfizer COVID-19 2020-09-27 Completed [facility] Vaccine Vaccine 11:56:00 [facility] Pfizer COVID-19 Pfizer COVID-19 2020-09-27 Completed [facility] Vaccine Vaccine 11:56:00 [facility] Pfizer COVID-19 Pfizer COVID-19 2020-09-27 Completed [facility] Vaccine Vaccine 11:56:00 [facility] Pfizer COVID-19 Pfizer COVID-19 2020-09-27 Completed [facility] Vaccine Vaccine 11:56:00 [facility] Pfizer COVID-19 Pfizer COVID-19 2020-09-27 Completed [facility] Vaccine Vaccine 11:56:00 [facility] Pfizer COVID-19 Pfizer COVID-19 2020-09-27 Completed [facility] Vaccine Vaccine 11:56:00 [facility] Pfizer COVID-19 Pfizer COVID-19 2020-09-27 Completed [facility] Vaccine Vaccine 11:56:00 [facility] Pfizer COVID-19 Pfizer COVID-19 2020-09-27 Completed [facility] Vaccine Vaccine 11:56:00 [facility] Pfizer COVID-19 Pfizer COVID-19 2020-09-27 Completed [facility] Vaccine Vaccine 11:56:00 [facility] Pfizer COVID-19 Pfizer COVID-19 2020-09-27 Completed [facility] Vaccine Vaccine 11:56:00 [facility] SARS-COV-2 COVID-19 2020-09-25 Completed [facility] PFIZER VACCINE 00:00:00 [facility] SARS-COV-2 COVID-19 2020-09-25 Completed [facility] of PFIZER VACCINE 00:00:00 [facility] SARS-COV-2 COVID-19 2020-09-25 Completed [facility] PFIZER VACCINE 00:00:00 [facility] SARS-COV-2 COVID-19 2020-09-25 Completed [facility] PFIZER VACCINE 00:00:00 [facility] SARS-COV-2 COVID-19 2020-09-25 Completed [facility] PFIZER VACCINE 00:00:00 [facility] SARS-COV-2 COVID-19 2020-09-25 Completed [facility] PFIZER VACCINE 00:00:00 [facility] SARS-COV-2 COVID-19 2020-09-25 Completed [facility] PFIZER VACCINE 00:00:00 [facility] SARS-COV-2 COVID-19 2020-09-25 Completed [facility] PFIZER VACCINE 00:00:00 [facility] SARS-COV-2 COVID-19 2020-09-25 Completed [facility] PFIZER VACCINE 00:00:00 [facility] Fluzone Fluzone 2020-05-20 [facility]pleted [facility]00 [facility] Fluzone Fluzone 2020-05-20 Completed [facility] 11:[facility]:00 [facility] Fluzone Fluzone 2020-05-20 Completed [facility] 11:55:00 [facility] Fluzone Fluzone 2020-05-20 Completed [facility] 11:55:00 [facility] Fluzone Fluzone 2020-05-20 Completed [facility] 11:55:00 [facility] Fluzone Fluzone 2020-05-20 Completed [facility] 11:55:00 [facility] Fluzone Fluzone 2020-05-20 Completed [facility] 11:55:00 [facility] Fluzone Fluzone 2020-05-20 Completed [facility] 11:55:00 [facility] Fluzone Fluzone 2020-05-20 Completed [facility] 11:55:00 [facility] Fluzone Fluzone 2020-05-20 Completed [facility] 11:55:00 [facility] Fluzone Fluzone 2020-05-20 Completed [facility] 11:55:00 [facility] Fluzone Fluzone 2020-05-20 Completed [facility] 11:55:00 [facility] Fluzone Fluzone 2020-05-20 Completed [facility] 11:55:00 [facility] Fluzone Fluzone 2020-05-20 Completed [facility] 11:55:00 [facility] Fluzone Fluzone 2020-05-20 Completed [facility] 11:55:00 [facility] Fluzone Fluzone 2020-05-20 Completed [facility] 11:55:00 [facility] Fluzone Fluzone 2020-05-20 Completed [facility] 11:55:00 [facility] Fluzone Fluzone 2020-05-20 Completed [facility] 11:55:00 [facility] Fluzone Fluzone 2020-05-20 Completed [facility] 11:55:00 [facility] Fluzone Fluzone 2020-05-20 Completed [facility] 11:55:00 [facility] Fluzone Fluzone 2020-05-20 Completed [facility] 11:55:00 [facility] Fluzone Fluzone 2020-05-20 Completed [facility] 11:[facility]:00 [facility] Pneumovax (PPSV23) Pneumovax (PPSV23) 2020-04-29 Completed [facility] 11:[facility]:00 [facility] Pneumovax (PPSV23) Pneumovax (PPSV23) 2020-04-29 Completed [facility] 11:55:00 [facility] Pneumovax (PPSV23) Pneumovax (PPSV23) 2020-04-29 Completed [facility] 11:55:00 [facility] Pneumovax (PPSV23) Pneumovax (PPSV23) 2020-04-29 Completed [facility] 11:55:00 [facility] Pneumovax (PPSV23) Pneumovax (PPSV23) 2020-04-29 Completed [facility] 11:55:00 [facility] Pneumovax (PPSV23) Pneumovax (PPSV23) 2020-04-29 Completed [facility] 11:55:00 [facility] Pneumovax (PPSV23) Pneumovax (PPSV23) 2020-04-29 Completed [facility] 11:55:00 [facility] Pneumovax (PPSV23) Pneumovax (PPSV23) 2020-04-29 Completed [facility] 11:55:00 [facility] Pneumovax (PPSV23) Pneumovax (PPSV23) 2020-04-29 Completed [facility] 11:55:00 [facility] Pneumovax (PPSV23) Pneumovax (PPSV23) 2020-04-29 Completed [facility] 11:55:00 [facility] Pneumovax (PPSV23) Pneumovax (PPSV23) 2020-04-29 Completed [facility] 11:55:00 [facility] Pneumovax (PPSV23) Pneumovax (PPSV23) 2020-04-29 Completed [facility] 11:55:00 [facility] Pneumovax (PPSV23) Pneumovax (PPSV23) 2020-04-29 Completed [facility] 11:55:00 [facility] Pneumovax (PPSV23) Pneumovax (PPSV23) 2020-04-29 Completed [facility] 11:55:00 [facility] Pneumovax (PPSV23) Pneumovax (PPSV23) 2020-04-29 Completed [facility] 11:55:00 [facility] Pneumovax (PPSV23) Pneumovax (PPSV23) 2020-04-29 Completed [facility] 11:55:00 [facility] Pneumovax (PPSV23) Pneumovax (PPSV23) 2020-04-29 Completed [facility] 11:55:00 [facility] Pneumovax (PPSV23) Pneumovax (PPSV23) 2020-04-29 Completed [facility] 11:55:00 [facility] Pneumovax (PPSV23) Pneumovax (PPSV23) 2020-04-29 Completed [facility] 11:55:00 [facility] Pneumovax (PPSV23) Pneumovax (PPSV23) 2020-04-29 Completed [facility] 11:55:00 [facility] Pneumovax (PPSV23) Pneumovax (PPSV23) 2020-04-29 Completed [facility] 11:55:00 [facility] Pneumovax (PPSV23) Pneumovax (PPSV23) 2020-04-29 Completed [facility] 11:55:00 [facility] Adacel (Tdap) Adacel (Tdap) 2020-04-29 Completed [facility] - 11:54:00 [facility] Adacel (Tdap) Adacel (Tdap) 2020-04-29 Completed [facility] - 11:54:00 [facility] Adacel (Tdap) Adacel (Tdap) 2020-04-29 Completed [facility] - 11:54:00 [facility] Adacel (Tdap) Adacel (Tdap) 2020-04-29 Completed [facility] - 11:54:00 [facility] Adacel (Tdap) Adacel (Tdap) 2020-04-29 Completed [facility] - 11:54:00 [facility] Adacel (Tdap) Adacel (Tdap) 2020-04-29 Completed [facility] - 11:54:00 [facility] Adacel (Tdap) Adacel (Tdap) 2020-04-29 Completed [facility] - 11:54:00 [facility] Adacel (Tdap) Adacel (Tdap) 2020-04-29 Completed [facility] - 11:54:00 [facility] Adacel (Tdap) Adacel (Tdap) 2020-04-29 Completed [facility] - 11:54:00 [facility] Adacel (Tdap) Adacel (Tdap) 2020-04-29 Completed [facility] - 11:54:00 [facility] Adacel (Tdap) Adacel (Tdap) 2020-04-29 Completed [facility] - 11:54:00 [facility] Adacel (Tdap) Adacel (Tdap) 2020-04-29 Completed [facility] - 11:54:00 [facility] Adacel (Tdap) Adacel (Tdap) 2020-04-29 Completed [facility] - 11:54:00 [facility] Adacel (Tdap) Adacel (Tdap) 2020-04-29 Completed [facility] - 11:54:00 [facility] Adacel (Tdap) Adacel (Tdap) 2020-04-29 Completed [facility] - 11:54:00 [facility] Adacel (Tdap) Adacel (Tdap) 2020-04-29 Completed [facility] - 11:54:00 [facility] Adacel (Tdap) Adacel (Tdap) 2020-04-29 Completed [facility] - 11:54:00 [facility] Adacel (Tdap) Adacel (Tdap) 2020-04-29 Completed [facility] - 11:54:00 [facility] Adacel (Tdap) Adacel (Tdap) 2020-04-29 Completed [facility] - 11:54:00 [facility] Adacel (Tdap) Adacel (Tdap) 2020-04-29 Completed [facility] - 11:54:00 [facility] Adacel (Tdap) Adacel (Tdap) 2020-04-29 Completed [facility] - 11:54:00 [facility] Adacel (Tdap) Adacel (Tdap) 2020-04-29 Completed [facility] - 11:54:00 [facility] Pfizer COVID-19 Pfizer COVID-19 Unknown Completed [facility] Vaccine Vaccine [facility] Pfizer COVID-19 Pfizer COVID-19 Unknown Completed [facility] Vaccine Vaccine [facility] Fluzone Fluzone Unknown Completed [facility] Pneumovax (PPSV23) Pneumovax (PPSV23) Unknown Completed [facility] Adacel (Tdap) Adacel (Tdap) Unknown Completed [facility] - [facility] Pfizer COVID-19 Pfizer COVID-19 Unknown Completed [facility] Vaccine Vaccine [facility] Pfizer COVID-19 Pfizer COVID-19 Unknown Completed [facility] Vaccine Vaccine [facility] Fluzone Fluzone Unknown Completed [facility] Pneumovax (PPSV23) Pneumovax (PPSV23) Unknown Completed [facility] Adacel (Tdap) Adacel (Tdap) Unknown Completed [facility] Pfizer COVID-19 Pfizer COVID-19 Unknown Completed Comm on [facility] Vaccine Vaccine [facility] Pfizer COVID-19 Pfizer COVID-19 Unknown Completed Comm [facility] Vaccine Vaccine [facility] Fluzone Fluzone Unknown Completed [facility] Pneumovax (PPSV23) Pneumovax (PPSV23) Unknown Completed [facility] Adacel (Tdap) Adacel (Tdap) Unknown Completed [facility] Pfizer COVID-19 Pfizer COVID-19 Unknown Completed [facility] Vaccine Vaccine [facility] Pfizer COVID-19 Pfizer COVID-19 Unknown Completed Comm on [facility] Vaccine Vaccine [facility] Fluzone Fluzone Unknown Completed [facility] Pneumovax (PPSV23) Pneumovax (PPSV23) Unknown Completed [facility] Adacel (Tdap) Adacel (Tdap) Unknown Completed [facility] Vital Signs Vital Name Observation Time Observation Value Comments Source height 2022-05-18 13:00:00 60 [in_i] [facility] weight 2022-05-18 13:00:00 260 [lb_av] [facility] temperature 2022-05-18 13:00:00 98 [degF] [facility] bmi 2022-05-18 13:00:00 50.77 kg/m2 [facility] oximetry 2022-05-18 13:00:00 96 % [facility] respiratory rate 2022-05-18 13:00:00 18 /min [facility] blood pressure 2022-05-18 13:00:00 136 mm[Hg] [facility] systolic [facility] blood pressure 2022-05-18 13:00:00 69 mm[Hg] [facility] - diastolic [facility] height 2022-05-18 13:00:00 60 [in_i] [facility] weight 2022-05-18 13:00:00 260 [lb_av] [facility] temperature 2022-05-18 13:00:00 98 [degF] [facility] bmi 2022-05-18 13:00:00 50.77 kg/m2 [facility]18 13:00:00 96 % [facility] rate 2022-05-18 13:00:00 18 /min [facility] blood pressure 2022-05-18 13:00:00 136 mm[Hg] Common [facility] - systolic [facility] blood pressure 2022-05-18 13:00:00 69 mm[Hg] [facility] - diastolic [facility] height 2022-02-14 13:40:00 60 [in_i] Common [facility] weight 2022-02-14 13:40:00 256.2 [lb_av] [facility] temperature 2022-02-14 13:40:00 97.7 [degF] [facility] bmi 2022-02-14 13:40:00 50.03 kg/m2 [facility] oximetry 2022-02-14 13:40:00 95 % [facility] 2022-02-14 13:40:00 16 /min [facility] blood pressure 2022-02-14 13:40:00 133 mm[Hg] [facility] - systolic [facility] blood pressure 2022-02-14 13:40:00 60 mm[Hg] [facility] - diastolic [facility] height 2021-11-15 10:00:00 60 [in_i] [facility] weight 2021-11-15 10:00:00 256 [lb_av] [facility] temperature 2021-11-15 10:00:00 97.7 [degF] [facility] bmi 2021-11-15 10:00:00 49.99 kg/m2 [facility] oximetry 2021-11-15 10:00:00 95 % [facility] respiratory rate 2021-11-15 10:00:00 18 /min [facility] blood pressure 2021-11-15 10:00:00 128 mm[Hg] [facility] - systolic [facility] blood pressure 2021-11-15 10:00:00 72 mm[Hg] [facility] - diastolic [facility] Heart rate 2021-08-26 16:50:00 72 /[facility] Respiratory rate 2021-08-26 16:50:00 14 /min [facility] Oxygen saturation in 2021-08-26 16:50:00 96 /min [facility] blood by [facility] Pulse oximetry Branch Systolic blood 2021-08-26 16:48:00 115 mm[Hg] [facility] Diastolic blood 2021-08-26 16:48:00 57 mm[Hg] [facility] Body temperature 2021-08-26 16:14:00 36.22 Lizbeth [facility] height 2021-08-25 13:13:00 152.4 cm [facility] Body weight 2021-08-25 13:13:00 113.4 kg [facility] BMI 2021-08-25 13:13:00 48.83 kg/m2 [facility] Heart rate 2021-08-26 16:41:00 73 /min [facility] Respiratory rate 2021-08-26 16:41:00 10 /min [facility] saturation in 2021-08-26 16:41:00 96 /min [facility] Arterial blood by [facility] Pulse oximetry Branch Systolic blood 2021-08-26 16:39:00 115 mm[Hg] Univer sity of pressure [facility] Diastolic blood 2021-08-26 16:39:00 57 mm[Hg] Unive rsity of pressure [facility] Body temperature 2021-08-26 16:14:00 36.22 Lizbeth [facility] Body height 2021-08-25 13:13:00 152.4 cm [facility] Body weight 2021-08-25 13:13:[address] [facility] [facility] BMI 2021-08-25 13:13:00 48.83 kg/m2 [facility] height 2021-08-16 11:00:00 60 [in_i] [facility] weight 2021-08-16 11:00:00 258.4 [lb_av] [facility] temperature 2021-08-16 11:00:00 97.7 [degF] [facility] bmi 2021-08-16 11:00:00 50.46 kg/m2 [facility] oximetry 2021-08-16 11:00:00 95 % [facility] respiratory rate 2021-08-16 11:00:00 18 /min [facility] blood pressure 2021-08-16 11:00:00 138 mm[Hg] [facility] - systolic [facility] blood pressure 2021-08-16 11:00:00 72 mm[Hg] Common [facility] diastolic [facility] height 2021-05-17 13:40:00 60 [in_i] Common [facility] weight 2021-05-17 13:40:00 259 [lb_av] [facility] temperature 2021-05-17 13:40:00 97.5 [degF] [facility] bmi 2021-05-17 13:40:00 50.58 kg/m2 [facility] oximetry 2021-05-17 13:40:00 95 % [facility] respiratory rate 2021-05-17 13:40:00 17 /min [facility] blood pressure 2021-05-17 13:40:00 130 mm[Hg] [facility] - systolic [facility] blood pressure 2021-05-17 13:40:00 68 mm[Hg] [facility] - diastolic [facility] height 2021-04-18 11:00:00 60 [in_i] [facility] weight 2021-04-18 11:00:00 259.2 [lb_av] [facility] temperature 2021-04-18 11:00:00 97.2 [degF] [facility] bmi 2021-04-18 11:00:00 50.62 kg/m2 [facility] oximetry 2021-04-18 11:00:00 96 % Common [facility] respiratory rate 2021-04-18 11:00:00 18 /min [facility] blood pressure 2021-04-18 11:00:00 120 mm[Hg] [facility] - systolic [facility] blood pressure 2021-04-18 11:00:00 70 mm[Hg] Common [facility] diastolic [facility] Systolic blood 2020-12-31 18:50:00 106 mm[Hg] Univer sity of pressure [facility] Diastolic blood 2020-12-31 18:50:00 57 mm[Hg] Unive rsity of pressure [facility] Heart rate 2020-12-31 18:50:00 71 /min [facility] Respiratory rate 2020-12-31 18:50:00 24 /min Univ [facility] Oxygen saturation in 2020-12-31 18:50:00 94 /min [facility] Arterial blood by [facility] Pulse oximetry Branch Body height 2020-12-31 15:00:00 152.4 cm [facility] Body weight 2020-12-31 15:00:00 113.399 kg [facility] BMI 2020-12-31 15:00:00 48.82 kg/m2 [facility] Body temperature 2020-12-31 14:50:00 36.67 Lizbeth [facility] Systolic blood 2020-12-31 18:50:00 106 mm[Hg] Univer sity of pressure [facility] Diastolic blood 2020-12-31 18:50:00 57 mm[facility]Hg] [facility] 2020-12-31 18:50:00 71 /min [facility] Respiratory rate 2020-12-31 18:50:00 24 /min [facility] Oxygen saturation in 2020-12-31 18:50:00 94 /min [facility] Arterial blood by [facility] Pulse oximetry Branch Body height 2020-12-31 15:00:00 152.4 cm [facility] Body weight 2020-12-31 15:00:00 113.399 kg [facility] BMI 2020-12-31 15:00:00 48.82 kg/m2 [facility] Body temperature 2020-12-31 14:50:00 36.67 Lizbeth [facility] Procedures Procedure Date / Time Performing Clinician Source Performed EXCISION BONE FOOT 2021-08-26 14:35:00 Hilda Springer [facility] HAMMERTOE CORRECTION 2021-08-26 14:35:00 Hilda Springer [facility] TOENAIL EXCISION 2021-08-26 14:35:00 Hilda Springer [facility] POCT GLUCOSE (AUTOMATED) 2021-08-26 13:53:00 Hilda Springer [facility] POCT GLUCOSE (AUTOMATED) 2021-08-26 13:53:00 Hilda Springer [facility] DAY SURGERY - ADC 2021-08-26 06:01:00 Doctor Luther, [facility] [place] [facility] CONSENT/REFUSAL FOR 2021-08-25 13:59:35 Doctor Luther, [facility] DIAGNOSIS AND TREATMENT [facility] CONSENT/REFUSAL FOR 2021-08-25 13:59:35 Doctor Arcenio [facility] DIAGNOSIS AND TREATMENT [facility] ASSIGNMENT OF BENEFITS 2021-08-25 13:58:44 Doctor Unassigned, [facility] [facility] ASSIGNMENT OF BENEFITS 2021-08-25 13:58:44 Doctor Unassshanell, [facility] Name [facility] EXTERNAL PROVIDER RECORDS 2021-08-24 06:01:00 Doctor Manassshanell, [facility] EXTERNAL PROVIDER RECORDS 2021-08-24 06:01:00 Doctor Luther [facility] Name [facility] POCT GLUCOSE(AGE >30DAYS) 2021-08-19 13:53:00 Lee [facility] PO[facility] GLUCOSE(AGE >30DAYS) 2021-08-19 13:53:00 [facility] 2021-08-02 06:01:00 Doctor Luther [facility] Name [facility] HAMMERTOE CORRECTION 2020-12-31 17:00:00 Hilda Springer [facility] EXCISION BONE FOOT 2020-12-31 17:00:00 Hilda Springer [facility] POCT GLUCOSE(AGE >30DAYS) 2020-12-31 14:59:00 Addison Red [facility] POCT GLUCOSE(AGE >30DAYS) 2020-12-31 14:59:00 Addison Red [facility] POCT GLUCOSE (AUTOMATED) 2020-12-31 14:58:00 Hilda Springer [facility] PO[facility] GLUCOSE (AUTOMATED) 2020-12-31 14:58:00 Hilda Springer [facility] DAY SURGERY - ADC 2020-12-31 05:01:00 Doctor Sloan [facility] PATIENT QUESTIONNAIRE 2020-12-31 05:01:00 Lynn Oseguera [facility] Name [facility] CONSENT/REFUSAL FOR 2020-12-30 20:00:02 Arcenio Oseguera [facility] DIAGNOSIS AND TREATMENT [facility] CONSENT/REFUSAL FOR 2020-12-30 20:00:02 Doctor Unassigned, Unive rsity [facility] DIAGNOSIS AND TREATMENT [facility] ASSIGNMENT OF BENEFITS 2020-12-30 19:59:44 Doctor Unassigned, [facility] [place] [facility] [facility] ASSIGNMENT OF BENEFITS 2020-12-30 19:59:44 Doctor Unassigned, [facility] [place] [facility] NOTICE OF BILLING 2020-12-30 19:56:38 Doctor Unassigned, [facility] FOR MEDICARE [place] [facility] PATIENTS NOTICE OF BILLING 2020-12-30 19:56:38 Doctor Unassigned, [facility] FOR [facility]IC[facility] [place] [facility] PATIENTS [facility] PATIENT FINANCIAL 2020-12-30 19:56:11 Doctor [facility], [facility] [facility] PATIENT FINANCIAL 2020-12-30 19:56:11 Doctor [facility]assigned, [facility] NO SHOW OR MISSED 2020-12-30 19:55:50 Doctor Unassigned, [facility] APPOINTMENT POLICY [place] [facility] ACKNOWLEDGEMENT NO SHOW OR MISSED 2020-12-30 19:55:50 Doctor Unassigned, [facility] APPOINTMENT POLICY [facility] [facility] ACKNOWLEDGEMENT NOTICE OF PRIVACY 2020-12-30 19:55:23 Doctor Unassigned, [facility] NOTICE OF PRIVACY 2020-12-30 19:55:23 Doctor Unassigned, [facility] CONSENT/REFUSAL FOR 2020-12-30 19:55:05 Doctor [facility]igned[facility] [place] [facility]REAT[facility] CONSENT/REFUSAL FOR 2020-12-30 19:55:05 Doctor Unassigned, [facility] DIAGNOSIS AND TREATMENT [facility] ASSIGNMENT OF BENEFITS 2020-12-30 19:54:46 Doctor Unassigned, [facility] [place] [facility] ASSIGNMENT OF BENEFITS 2020-12-30 19:54:46 Doctor Unassigned, [facility] [place] [facility] DSU PRE-OP 2020-12-30 05:01:00 Doctor Unassigned, [facility] DSU PRE-OP 2020-12-30 05:01:00 Doctor Unassigned, [facility] Encounters Start End Encounter Admission Attending Care Care Encounter Source Date/Time Date/Time Type Type Clinicians Facility Department ID 2023-01-03 Outpatient [place], STLMLC STLMLC [id number] Common 09:55:00 Sammi [id number] [facility] 2022-11-22 Outpatient [place], STLMLC STLMLC [id number] Common 14:35:00 Sammi 20531 [facility] 2022-09-15 Outpatient Melisa, STLMLC STLMLC [id number] Common 10:36:01 Miley 49160 [facility] 2022-05-16 Outpatient Bianchi, Na STLMLC STLMLC [id number] 2 Common 14:17:01 [facility] 2022-02-14 Outpatient Bianchi, Na STLMLC STLMLC [id number] 2 Common 11:51:00 [facility] 2022-02-10 Outpatient Bianchi, Na STLMLC STLMLC [id number] 2 Common 08:39:01 [facility] 2021-11-15 Outpatient Bianchi, Na STLMLC STLMLC [id number] 2 Common 11:27:01 [facility] 2021-08-24 Outpatient Bianchi, Na STLMLC STLMLC [id number] 2 Common 14:34:42 [facility] 2021-08-24 Outpatient Bianchi, Na STLMLC STLMLC [id number] 2 Common 14:30:49 [facility] 2021-08-24 Outpatient Bianchi, Na STLMLC STLMLC [id number] 2 Common 14:01:51 [id number] [facility] 2021-08-24 Outpatient Bianchi, Na STLMLC STLMLC [id number] 2 Common 13:49:51 [id number] [facility] 2021-08-24 Outpatient Bianchi, Na STLMLC STLMLC [id number] 2 Common 13:48:19 [id number] [facility] 2021-08-24 Outpatient Bianchi, Na STLMLC STLMLC [id number] 2 Common 13:47:24 [id number] [facility] 2021-08-24 Outpatient Bianchi, Na STLMLC STLMLC [id number] 2 Common 13:33:37 71770 [facility] 2021-08-24 Outpatient Bianchi, Na STLMLC STLMLC [id number] 2 Common 12:58:52 72391 [facility] 2021-08-24 Outpatient Bianchi, Na STLMLC STLMLC [id number] 2 Common 12:47:33 [id number] [facility] 2021-08-24 Outpatient Bianchi, Na STLMLC STLMLC [id number] 2 Common 12:27:17 [id number] [facility] 2021-08-24 Outpatient Bianchi, Na STLMLC STLMLC [id number] 2 Common 12:17:56 [id number] [facility] 2021-08-24 Outpatient Bianchi, Na STLMLC STLMLC [id number] 2 Common 12:17:29 [id number] [facility] 2021-08-24 Outpatient Bianchi, Na STLMLC STLMLC [id number] 2 Common 11:51:24 [id number] [facility] 2021-08-24 Outpatient Bianchi, Na STLMLC STLMLC [id number] 2 Common 11:49:01 [id number] [facility] 2021-08-24 Outpatient Bianchi, Na STLMLC STLMLC [id number] 2 Common 11:41:06 [id number] [facility] 2021-08-24 Outpatient Bianchi, Na STLMLC STLMLC [id number] 2 Common 11:28:47 95864 [facility] 2021-08-24 Outpatient Bianchi, Na STLMLC STLMLC [id number] 2 Common 11:18:56 [id number] [facility] 2021-08-24 Outpatient Bianchi, Na STLMLC STLMLC [id number] 2 Common 11:18:24 [id number] [facility] 2021-08-24 Outpatient Danae Bianchi STLMLC STLMLC [id number] 2 Common 11:17:26 [id number] [facility] 2021-08-24 Outpatient Arias Na STLMLC STLMLC [id number] 2 Common 11:04:54 [id number] [facility] 2021-08-24 Outpatient Danae Bianchi STLMLC STLMLC [id number] 2 Common 10:57:37 [id number] [facility] 2021-05-29 Outpatient Julianne [facility] [id number] Univers 23:01:12 HILDA rollins [facility] 2023-06-12 2023-06-12 Outpatient GC_GCBZW_Ka PRIV PRIV [id number] [facility] 00:00:00 00:00:00 diyala_S [id number] Medic al 2023-06-08 2023-06-08 Outpatient GC_GCBZW_Ka PRIV PRIV [id number] [facility] 00:00:00 00:00:00 diyala_S [id number] Medic al 2023-05-22 2023-05-22 Outpatient GC_GCBZW_Ka PRIV PRIV [id number] [facility] 00:00:00 00:00:00 diyala_S [id number] Medic al 2023-05-10 2023-05-10 Outpatient Torsten Bartlett [facility] RADI LA0 [id number] [facility] 10:08:00 10:08:[address] [place] [address] 2023-04-05 2023-04-05 Outpatient GC_GCBZW_Ka PRIV PRIV [id number] [facility] 00:00:00 00:00:00 diyala_S [id number] Medic al 2023-04-05 2023-04-05 Outpatient GC_GCBZW_Ka PRIV PRIV [id number] [facility] 00:00:00 00:00:00 diyala_S [id number] Medic al 2023-03-23 2023-03-23 Outpatient GC_GCBZW_Ka PRIV PRIV [id number] [facility] 00:00:00 00:00:00 diyala_S [id number] Medic al 2023-02-27 2023-02-27 Outpatient GC_GCBZW_Ka PRIV PRIV [id number] [facility] 00:00:00 00:00:00 diyala_S [id number] Medic al 2023-02-23 2023-02-23 Outpatient GC_GCBZW_Ka PRIV PRIV [id number] [facility] 00:00:00 00:00:00 diyala_S [id number] Medic al 2023-01-11 2023-01-11 (TEL) STLMLC STLMLC [id number] Co mmon 00:00:00 00:00:00 [facility] 2023-01-03 2023-01-03 (TEL) STLMLC STLMLC [id number] Co mmon 00:00:00 00:00:00 [facility] 2022-11-22 2022-11-22 (TEL) STLMLC STLMLC [id number] Co mmon 00:00:00 00:00:00 [facility] 2022-09-11 2022-09-11 (TEL) STLMLC STLMLC [id number] Co mmon 00:00:00 00:00:00 [facility] 2022-05-24 2022-05-24 (TEL) STLMLC STLMLC [id number] Co mmon 00:00:00 00:00:00 [facility] 2022-05-23 2022-05-23 (TEL) STLMLC STLMLC [id number] Co mmon 00:00:00 00:00:00 [facility] 2022-05-18 2022-05-18 SUB ANNUAL STLMLC STLMLC [id number] Common 00:00:00 00:00:00 [facility] VISIT [facility] 2022-05-18 2022-05-18 OFFICE STLMLC STLMLC [id number] Co mmon 00:00:00 00:00:00 VISIT EST Spir it PT LEVEL 3 - [facility] 2022-05-01 2022-05-01 (TEL) STLMLC STLMLC [id number] Co mmon 00:00:00 00:00:00 [facility] 2022-02-14 2022-02-14 OFFICE STLMLC STLMLC [id number] Co mmon 00:00:00 00:00:00 VISIT [facility] PT - CHI LEVEL 4 [facility] 2022-01-26 2022-01-26 (TEL) STLMLC STLMLC [id number] Co mmon 00:00:00 00:00:00 [facility] 2022-01-23 2022-01-23 (TEL) STLMLC STLMLC [id number] Co mmon 00:00:00 00:00:00 [facility] 2022-01-09 2022-01-09 (TEL) STLMLC STLMLC [id number] Co mmon 00:00:00 00:00:00 [facility] 2022-01-09 2022-01-09 OL DIG E/M STLMLC STLMLC [id number] Common 00:00:00 00:00:00 [facility] 11-20 Spir it MIN CHI [facility] 2021-12-15 2021-12-15 (TEL) STLMLC STLMLC [id number] Co mmon 00:00:00 00:00:00 [facility] 2021-12-15 2021-12-15 OL DIG E/M STLMLC STLMLC [id number] Common 00:00:00 00:00:00 [facility] 11-20 Spir it MIN CHI [facility] 2021-12-05 2021-12-05 (TEL) STLMLC STLMLC [id number] Co mmon 00:00:00 00:00:00 [facility] 2021-11-15 2021-11-15 OFFICE STLMLC STLMLC [id number] Co mmon 00:00:00 00:00:00 VISIT [facility] PT - CHI LEVEL 4 [facility] 2021-08-26 2021-08-26 Outpatient Julianne SPRINGER [facility] SOR [id number] Univers 07:33:00 11:13:00 HILDA rollins [facility] 2021-08-26 2021-08-26 Hospital [facility] [id number] Univers 07:33:00 11:13:00 Encounter Hilda PHILLIPS [id number] it[place] of [facility] [id number] [id number] [facility] 071 Branch 2021-08-26 2021-08-26 Surgery [facility] [id number] Univers 08:30:00 10:41:00 Hilda PHILLIPS [id number] i ty of [facility] [id number] [id number] [facility] 020 Branch 2021-08-25 2021-08-25 [employer] Moi, Adc Lab Main [facility] 1.2.8 40.114 [id number] Univers 08:30:00 08:45:00 Visit Hilda Springer [id number] [place] of [facility] [id number] [id number] [place] dical [facility] 353 Branch [facility] 2021-08-25 2021-08-25 [facility]patient [facility] [id number] Univers 08:30:00 08:30:00 HILDA rollins [facility] 2021-08-25 2021-08-25 Laboratory Only, Adc Test [facility] 1.2.840. 114 [id number] Univers 08:15:00 08:30:00 Only Hilda Springer [id number] [place] of [facility] [id number] [id number] [facility] dc 353 Branch 2021-08-16 2021-08-16 OFFICE STLMLC STLMLC [id number] Co mmon 00:00:00 00:00:00 VISIT Spirit [facility]AB PT - CHI LEVEL 2 [facility] 2021-08-11 2021-08-11 (TEL) STLMLC STLMLC [id number] Co mmon 00:00:00 00:00:00 Spirit - CHI [facility] 2021-08-11 2021-08-11 OFFICE STLMLC STLMLC [id number] Co mmon 00:00:00 00:00:00 VISIT EST Spir it PT LEVEL 3 - CHI [facility] 2021-08-09 2021-08-09 (TEL) STLMLC STLMLC [id number] Co mmon 00:00:00 00:00:00 [facility] 2021-08-09 2021-08-09 (TEL) STLMLC STLMLC [id number] Co mmon 00:00:00 00:00:00 [facility] 2021-08-02 2021-08-02 Orders Doctor EVA 1.2.840.114 [id number] Univers 00:00:00 00:00:00 Only Unassigned, OTILIO [id number] ity of [facility] [id number] [place] as [id number] [place] [address] Branch 2021-05-30 2021-05-30 (TEL) STLMLC STLMLC [id number] Co mmon 00:00:00 00:00:00 [facility] 2021-05-17 2021-05-17 OFFICE STLMLC STLMLC [id number] Co mmon 00:00:00 00:00:00 VISIT Spirit ESTAB PT - CHI LEVEL 4 [facility] 2021-04-18 2021-04-18 SUB ANNUAL STLMLC STLMLC [id number] Common 00:00:00 00:00:00 MCR [facility] WELLNESS - CHI VISIT [facility] 2021-04-11 2021-04-11 OL DIG E/M STLMLC STLMLC [id number] Common 00:00:00 00:00:00 [facility] 06-18 Spir it MIN - CHI [facility] 2021-03-02 2021-03-02 OL DIG E/M STLMLC STLMLC [id number] Common 00:00:00 00:00:00 [facility] 06-18 Spir it MIN - CHI [facility] 2021-02-09 2021-02-09 Outpatient STLMLC STLMLC [id number] Common 00:00:00 00:00:00 [facility] 2020-12-31 2020-12-31 [facility] 1.2.840.114 [id number] Univers 09:35:00 14:17:00 Encounter Hilda Phillips [id number] [id number] [id number] [facility] 071 Branch 2020-12-31 2020-12-31 Surgery [facility] 1.2.840.114 [id number] Univers 12:04:00 13:50:00 Hilda Phillips [id number] [id number] [id number] [facility] 020 Branch 2020-12-30 2020-12-30 Outpatient [facility] [id number] Univers 15:15:00 15:15:00 HILDA rollins [facility] 2020-12-30 2020-12-30 [employer] Moi, Adc Lab Main [facility] 1.2.8 40.114 [id number] Univers 14:58:40 15:13:40 Visit Hilda Springer [id number] [id number] [id number] [facility] 353 [facility] 2020-12-30 2020-12-30 Laboratory Only, Adc Test [facility] 1.2.840. 114 [id number] Univers 14:57:45 15:12:45 Only Hilda Springer [id number] [id number] [id number] [facility] 353 Branch 2020-11-23 2020-11-23 Outpatient STLMLC STLMLC [id number] Common 00:00:00 00:00:00 [facility] 2020-11-22 2020-11-22 Outpatient STLMLC STLMLC [id number] Common 00:00:00 00:00:00 [facility] 2020-11-08 2020-11-08 Outpatient STLMLC STLMLC [id number] Common 00:00:00 00:00:00 [facility] 2020-11-01 2020-11-01 Outpatient STLMLC STLMLC [id number] Common 00:00:00 00:00:00 [facility] 2020-10-28 2020-10-28 Outpatient STLMLC STLMLC [id number] Common 00:00:00 00:00:00 [facility] 2020-10-20 2020-10-20 Outpatient STLMLC STLMLC [id number] Common 00:00:00 00:00:00 [facility] 2020-09-01 2020-09-01 Outpatient STLMLC STLMLC [id number] Common 00:00:00 00:00:00 [facility] 2020-08-09 2020-08-09 Outpatient STLMLC STLMLC [id number] Common 00:00:00 00:00:00 [facility] 2020-08-03 2020-08-03 Outpatient STLMLC STLMLC [id number] Common 00:00:00 00:00:00 [facility] 2020-07-27 2020-07-27 Outpatient STLMLC STLMLC [id number] Common 00:00:00 00:00:00 [facility] 2020-07-19 2020-07-19 Outpatient STLMLC STLMLC [id number] Common 00:00:00 00:00:00 [facility] 2020-05-25 2020-05-25 Outpatient STLMLC STLMLC [id number] Common 00:00:00 00:00:00 [facility] 2020-05-03 2020-05-03 Outpatient STLMLC STLMLC [id number] Common 00:00:00 00:00:00 [facility] 2020-03-24 2020-03-24 [facility] [id number] Common 11:40:00 11:40:[address] [facility] 2020-03-23 2020-03-23 [facility] [id number] Common 14:43:00 14:43:[address] Sp[address] [facility] 2020-01-28 2020-01-28 [facility] [id number] Common 11:00:00 11:00:00 [address] [facility] 2020-01-20 2020-01-20 [facility] [id number] Common 14:25:00 14:25:[address] [facility] 2019-11-19 2019-11-19 [facility] [id number] Common 10:15:00 10:15:[address] [facility] 2019-11-19 2019-11-19 [facility] [id number] Common 09:08:00 09:08:00 t Specialty/U Sp tolu Specialty rology - [facility] /Urology Clinic [facility] 2019-11-13 2019-11-13 [facility] [id number] Common 16:00:00 16:00:[address] [facility] 2019-11-13 2019-11-13 [facility] [id number] Common 11:48:00 11:48:[address] [facility] 2019-10-15 2019-10-15 [facility] [id number] Common 09:00:00 09:00:00 [address] [place] [address] [facility] 2019-09-04 2019-09-04 [facility] [id number] Common 13:40:00 13:40:[address] [place] [address] [facility] 2019-08-05 2019-08-05 [facility] [id number] Common 14:57:00 14:57:[address] [place] [address] [facility] 2019-08-01 2019-08-01 [facility] [id number] Common 15:54:00 15:54:[address] [place] [facility] 2019-07-31 2019-07-31 [facility] [id number] Common 14:40:00 14:40:[address] [place] [facility] 2019-06-24 2019-06-24 [facility] [id number] Common 10:51:00 10:51:[address] [facility] 2019-06-19 2019-06-19 [facility] [id number] Common 11:20:00 11:20:[address] [place] [address] [facility] 2019-06-02 2019-06-02 [facility] [id number] Common 15:21:00 15:21:[address] [place] [facility] 2019-05-26 2019-05-26 [facility] [id number] Common 17:07:00 17:07:00 [address] [place] [facility] 2019-03-18 2019-03-18 [facility] [id number] Common 09:50:00 09:50:[address] [place] [facility] 2019-03-11 2019-03-11 [facility] [id number] Common 09:40:00 09:40:[address] [place] [facility] 2019-02-19 2019-02-19 [facility] [id number] Common 15:41:00 15:41:[address] [place] [facility] 2019-02-17 2019-02-17 [facility] [id number] Common 16:51:00 16:51:[address] [facility] 2019-01-20 2019-01-20 [facility] [id number] Common 14:40:00 14:40:[address] [facility] Results Test Description Test Time Test Comments Results Result [facility] e Comments - RETROPERITONEAL 2023-05-10 [facility] 10:55:00 [facility]IR[facility]: PETER HERRERA : 1955 Sex: F * Name: PETER HERRERA [facility] : 1955 Age/S: 67 / F [id number] Unit #: [id number] Loc: [place] [address] Phys: Torsten James MD Acct: [id number] Dis Date: Status: REG CLI PHONE #: [phone] Exam Date: 05/10/2023 1047 FAX #: Reason: MICROSCOPIC HEMATURIA EXAMS: CPT: [id number] US RETROPERITONEAL COM [id number] LOCATION: [facility] EXAM: - US RETROPERITONEAL COM HISTORY: Microscopic hematuria. TECHNIQUE: Sonographic imaging of the bilateral kidney and urinary bladder in the transverse and sagittal planes utilizing ramirez scale and color imaging. COMPARISON: None FINDINGS: The kidneys are symmetric and within normal limits of size. The right kidney measures 10.5 cm in length, and the left measures 11.5 cm in length. The renal parenchymal echogenicity appears within normal limits. No contour deforming masses are identified on the submitted still images. There is no evidence of nephrolithiasis or hydronephrosis. Limited evaluation of the urinary bladder. The urinary bladder is subjectively underdistended limiting its assessment but appears unremarkable. IMPRESSION: Unremarkable sonographic appearance of the kidneys. at 1055 Reported and signed by: Stephanie Claire M.D. CC: Torsten James MD Technologist: Ana Paula Park Trnscb Date/Time: 05/10/2023 (0058) [id number] PAGE 1 Signed Report Name: PETER HERRERA [facility] : 1955 Age/S: 67 / F [id number] Unit #: [id number] Loc: [place] [address] Phys: Torsten James MD Acct: [id number] Dis Date: Status: REG CLI PHONE #: [phone] Exam Date: 05/10/2023 1047 FAX #: Reason: MICROSCOPIC HEMATURIA EXAMS: CPT: [id number] [facility] [id number] (Continued) Orig Print D/T: S: 05/10/2023 (1058) Probe: PAGE 2 Signed Report POCT GLUCOSE (AUTOMATED) 2021-08-26 14:01:21 Test Item Value Reference Range Interpretation Comme nts POCT GLU (test code = 0830477431) 135 mg/dL 70-110 H Lab Interpretation (test code = 93984-8) Abnormal [facility] GLUCOSE (AUTOMATED)2021-08-26 14:01:21 Test Item Value Reference Range Interpretation Comments POCT GLU (test code = 1875444213) 135 mg/dL 70-110 H Lab Interpretation (test code = Abnormal 36242-0) [facility] [id number] 13:53:00 Test Item Value Reference Range Interpretation Comments POCT Glu (age>30days) (test code = 135 mg/dL 70-110 A 3342) Lab Interpretation (test code = Abnormal 74135-4) [facility] [id number] 13:53:00 Test Item Value Reference Range Interpretation Comments POCT Glu (age>30days) (test code = 135 mg/dL 70-110 A 3342) Lab Interpretation (test code = Abnormal 35284-3) [facility] GLUCOSE (AUTOMATED)2020-12-31 15:02:03 Test Item Value Reference Range Interpretation Comments POCT GLU (test code = 8400380312) 157 mg/dL 70-110 H Lab Interpretation (test code = Abnormal 59259-3) [facility] GLUCOSE (AUTOMATED)2020-12-31 15:02:03 Test Item Value Reference Range Interpretation Comments POCT GLU (test code = 1303161439) 157 mg/dL 70-110 H Lab Interpretation (test code = Abnormal 04499-7) [facility] [id number] 14:59:00 Test Item Value Reference Range Interpretation Comments POCT Glu (age>30days) (test code = 157 mg/dL 70-110 A 3342) Lab Interpretation (test code = Abnormal 48151-7) [facility] [id number] 14:59:00 Test Item Value Reference Range Interpretation Comments POCT Glu (age>30days) (test code = 157 mg/dL 70-110 A 3342) Lab Interpretation (test code = Abnormal 53729-2) [facility], COVID 19 Antigen + Flu by [facility], COVID 19 Antigen + Flu by C[facility]
[2023-06-28] MEDS ORDERED: ASPIRIN 81 MG CHEWABLE TABLET ONE (11:12)
[2023-06-28 11:14] LABS: Absolute Lymphocytes (CBC) 2.1 K/uL (0.7-4.9); Hematocrit 44.1 % (36.0-45.0); Lymphocytes % 20.3 % (15.3-44.8); MCV 78.2 fL (80-100); Platelets 227 thou/uL (152-406); RBC Red Blood Cell Count 5.64 M/uL (3.86-4.86)
[2023-06-28 11:17] LABS: Specific Gravity 1.027 (1.005-1.030); Urine Bacteria <20 /HPF (<20); Urine Bilirubin NEGATIVE (Negative); Urine Blood Negative (Negative); Urine Clarity Extremely Turbid (Clear); Urine Color Yellow (Yellow); Urine Glucose NEGATIVE (Negative); Urine Mucus 2+ /HPF (None Seen); Urine Protein TRACE (Negative); Urine Urobilinogen Normal (Normal); Urine pH 5.5 (5.0-7.0)
[2023-06-28 11:35] LABS: Protime INR 1.06
[2023-06-28 11:51] LABS: Albumin 3.1 g/dL (3.4-5.0); Bilirubin Direct 0.3 mg/dL (0-0.2); Bilirubin Indirect, Calculated 0.6 mg/dL (0.2-0.8); Bilirubin Total 0.9 mg/dL (0.2-1.0); Potassium 3.9 mEq/L (3.5-5.1); Protein, Total 7.1 g/dL (6.4-8.2)
[2023-06-28 11:52] LABS: Magnesium 2.2 mg/dL (1.6-2.4); Troponin High Sensitivity 5.4 pg/mL (<58.9)
--- NOTE | 2023-06-28 11:52 | RAD REPORT ---
EXAM DESCRIPTION: BRIANChest Single View06/28/2023 11:39 am CLINICAL HISTORY: CHEST PAIN COMPARISON: Chest Single View dated 01/11/2023; Chest Pa And Lat (2 Views) dated 03/13/2019; Chest Pa And Lat (2 Views) dated 12/11/2018; CHEST PA AND LAT 2 VIEW dated 10/11/2015 TECHNIQUE: Portable AP view of the chest. FINDINGS: The lungs are clear. Decreased inspiratory effort somewhat limits evaluation. Background h yperlucency may relate to COPD. No pneumothorax or effusion. The cardiomediastinal contours are unre markable. IMPRESSION: No acute cardiopulmonary process.
--- NOTE | 2023-06-28 13:10 | P.HP ---
Certification for Inpatient Patient admitted to: Observation With expected LOS: <2 Midnights Patient will require the following post-hospital care: None Practitioner: I am a practitioner with admitting privileges, knowledge of patient current condition, hospital course, and medical plan of care. Services: Services provided to patient in accordance with Admission requirements found in Title 42 Section 412.3 of the Code of Federal Regulations Patient History Date of Service: 06/28/23 Reason for admission: Chest pain History of Present Illness: 67-year-old female with a past medical history obesity, hypertension, diabetes, hyperlipidemia, presents to the emergency room with substernal chest pain 8 out of 10. Reports his symptoms are constant, does not radiate. Described as chest pressure, reported associated dizziness with ambulation, no reported shortness of breath. Diaphoresis, edema, palpitations. No reported history of CA or cardiac intervention. She reported symptoms started at rest last night are constant currently rated at 3 out of 10 nonradiating. Vital signs 6 BP 147 / 76; Pulse 68; Resp 18; Temp 97.8; Pulse Ox 96% on R/A; Weight 108.86 kg; Height 5 ft. 0 in. EKG normal sinus rhythm 3 Rate is 68 beats/min. Rhythm is regular. QRS [place] is Normal. [place] interval is normal. QRS interval is normal. QT interval is normal. No Q waves. T waves are Normal. No ST changes noted. Clinical impression: NSR w/ Non-specific ST/T Changes and No evidence of ischemia. Dr. Rice consulted for chest pain Laboratory evaluation troponin normal at 5.4, BNP 49, CBC, CMP unremarkable UA leukoesterase 25, 5-10 red blood cells, chest x-ray no acute cardiopulmonary process. ARACELI Risk Score: 1 - patient's age is greater or equal to 65 years, 1 - Three or more CAD risk factors, 1- Known CAD, 1 - ASA use in past 7 days, 1 - Recent [<24hrs] Severe Angina, TOTAL SCORE = 5. Data reviewed: vital signs, nurses notes, lab test result(s), plan to admit for chest pain, angina unspecified, diabetes type 2 with hyperglycemia, essential hypertension, obesity. Allergies No Known Allergies Allergy (Verified 03/16/23 12:36) Home Medications: Atorvastatin Calcium [Lipitor] 10 mg PO DAILY 03/16/23 Dapagliflozin Propanediol [Farxiga] 10 mg PO DAILY 03/16/23 Losartan Potassium 100 mg PO DAILY 03/16/23 Magnesium/Zinc 1 cap PO DAILY 03/16/23 glipiZIDE [Glipizide ER] 10 mg PO DAILY 03/16/23 - Past Medical/Surgical History -: Hypertension -: Hyperlipidemia -: Obesity -: Ureteral stones -: Hernia -: Hysterectomy Psychosocial/ Personal History: , lives with spouse, no use of tobacco or EtOH - Social History Smoking Status: Never smoker Alcohol use: No CD- Drugs: No Caffeine use: Yes Place of Residence: Home Review of Systems ROS [facility] Physical Examination - Physical Exam General: Alert, In no apparent distress, Oriented x3, Obese HEENT: Atraumatic, Normocephalic Neck: Supple, 2+ carotid pulse no bruit Respiratory: Clear to auscultation bilaterally, Normal air movement Cardiovascular: No edema, Normal pulses, Regular rate/rhythm Capillary refill: <2 Seconds Gastrointestinal: Normal bowel sounds, Soft and benign Musculoskeletal: No clubbing, No swelling Neurological: Normal speech, Normal strength at 5/5 x4 extr - Studies Laboratory Data (last 24 hrs) 06/28/23 06/28/23 06/28/23 11:18 11:18 10:54 WBC 10.20 Hgb 14.5 Hct 44.1 Plt Count 227 PT 11.7 INR 1.06 Sodium 141 Potassium 3.9 BUN 11 Creatinine 0.56 Glucose 151 H Magnesium 2.2 Total Bilirubin 0.9 AST 12 L ALT 24 Alkaline Phosphatase 105 Lipase 38 Assessment and Plan - Plan Assessment and plan Angina unspecified Cardiac consult, telemetry, trend troponins As needed antiemetics, as needed analgesics, aspirin, antilipid, nitro as needed substernal chest pain 8 out of 10. Reports his symptoms are constant, does not radiate. Described as chest pressure, reported associated dizziness with ambulation, no reported shortness of breath. Diaphoresis, edema, palpitations, No reported history of CA or cardiac intervention. She reported symptoms started at rest last night are constant currently rated at 3 out of 10 nonradiating. EKG normal sinus rhythm 3 Rate is 68 beats/min. Rhythm is regular. QRS [place] is Normal. GA interval is normal. QRS interval is normal. QT interval is normal. No Q waves. T waves are Normal. No ST changes noted. Clinical impression: NSR w/ Non-specific ST/T Changes and No evidence of ischemia. Laboratory evaluation troponin normal at 5.4, BNP 49, HEART Score: History: Moderately Suspicious (1), ECG: Normal (0), Age: > or = 65 years (2), Risk Factors: > or = 3 Risk factors for atherosclerotic disease (2), [Hypercholesterolemia] [Hypertension] [DM] [+ Family HX] [Obesity] Troponin: < or = 1 x Normal Limit (0). The patient was given aspirin in the Emergency Department. ARACELI Risk Score: 1 - patient's age is greater or equal to 65 years, 1 - Three or more CAD risk factors, 1- Known CAD, 1 - ASA use in past 7 days, 1 - Recent [<24hrs] Severe Angina, TOTAL SCORE = 5. CBC, CMP unremarkable UA leukoesterase 25, 5-10 red blood cells, chest x-ray no acute cardiopulmonary process hypertension 147 / 76; Pulse 68; Resp 18; Temp 97.8; Pulse Ox 96% on R/A; Weight 108.86 kg; Height 5 ft. 0 in. ; Resume appropriate home medications Coreg, antilipid, Type II diabetes with hyperglycemia hyperlipidemia Full code Cardiac diet, N.p.o. after midnight DVT Lovenox Discharge Plan: Home Plan to discharge in: 24 Hours - Advance Directives Does patient have a Living Will: No Does patient have a Durable POA for Healthcare: No - Code Status/Comfort Care Code Status: Full Code Critical Care: No Time Spent Managing Pts Care (In Minutes): 55
--- NOTE | 2023-06-28 13:11 | EDPHYS ---
Physician Documentation [facility] Name: Bee Herrera Age: 67 yrs Sex: Female : 1955 Arrival Date: 06/28/2023 Time: 10:38 Bed 17 Private MD: ED Physician Bhupinder Cedeno HPI: 06/28 13:03 This 67 yrs old Female presents to ER via Ambulatory with complaints of Chest leandro Pressure, Dizziness. 13:03 The patient or guardian reports chest pain that is located primarily in the substernal leandro area, anterior chest wall, bilaterally. Onset: last night. The pain does not radiate. Associated signs and symptoms: The patient has no apparent associated signs or symptoms. The chest pain is described as a pressure. Duration: The patient or guardian reports multiple episodes, with no pattern. Modifying factors: The symptoms are alleviated by nothing. the symptoms are aggravated by nothing. Severity of pain: At its worst the pain was moderate in the emergency department the pain has improved mildly. The patient has not experienced similar symptoms in the past. Historical: - Allergies: 10:49 No Known Allergies; ko1 - PMHx: 10:49 diabetes mellitus; Hypertensive disorder; ko1 - Immunization history:: Adult Immunizations up to date. - Social history:: Smoking status: Patient denies any tobacco usage or history of. - Family history:: not pertinent. ROS: 13:03 Constitutional: Negative for fever, chills, and weight loss, Eyes: Negative for injury, leandro pain, redness, and discharge, ENT: Negative for injury, pain, and discharge, Neck: Negative for injury, pain, and swelling, Respiratory: Negative for shortness of breath, cough, wheezing, and pleuritic chest pain, Abdomen/GI: Negative for abdominal pain, nausea, vomiting, diarrhea, and constipation, Back: Negative for injury and pain, : Negative for injury, bleeding, discharge, and swelling, MS/Extremity: Negative for injury and deformity, Skin: Negative for injury, rash, and discoloration, Neuro: Negative for headache, weakness, numbness, tingling, and seizure, Psych: Negative for depression, anxiety, suicide ideation, homicidal ideation, and hallucinations, Allergy/Immunology: Negative for hives, rash, and allergies, Endocrine: Negative for neck swelling, polydipsia, polyuria, polyphagia, and marked weight changes, 13:03 Cardiovascular: Positive for chest pain, Exam: 13:03 Constitutional: This is a well developed, well nourished patient who is awake, alert, leandro and in no acute distress. Head/Face: Normocephalic, atraumatic. Eyes: Pupils equal round and reactive to light, extra-ocular motions intact. Lids and lashes normal. Conjunctiva and sclera are non-icteric and not injected. Cornea within normal limits. Periorbital areas with no swelling, redness, or edema. ENT: Nares patent. No nasal discharge, no septal abnormalities noted. Tympanic membranes are normal and external auditory canals are clear. Oropharynx with no redness, swelling, or masses, exudates, or evidence of obstruction, uvula midline. Mucous membranes moist. Neck: Trachea midline, no thyromegaly or masses palpated, and no cervical lymphadenopathy. Supple, full range of motion without nuchal rigidity, or vertebral point tenderness. No Meningismus. Chest/axilla: Normal chest wall appearance and motion. Nontender with no deformity. No lesions are appreciated. Cardiovascular: Regular rate and rhythm with a normal S1 and S2. No gallops, murmurs, or rubs. Normal PMI, no JVD. No pulse deficits. Respiratory: Lungs have equal breath sounds bilaterally, clear to auscultation and percussion. No rales, rhonchi or wheezes noted. No increased work of breathing, no retractions or nasal flaring. Back: No spinal tenderness. No costovertebral tenderness. Full range of motion. Female : Normal external genitalia. Skin: Warm, dry with normal turgor. Normal color with no rashes, no lesions, and no evidence of cellulitis. MS/ Extremity: Pulses equal, no cyanosis. Neurovascular intact. Full, normal range of motion. Neuro: Awake and alert, GCS 15, oriented to person, place, time, and situation. Cranial nerves II-XII grossly intact. Motor strength 5/5 in all extremities. Sensory grossly intact. Cerebellar exam normal. Normal gait. Psych: Awake, alert, with orientation to person, place and time. Behavior, mood, and affect are within normal limits. 13:03 ECG was reviewed by the Attending Physician. 13:03 Abdomen/GI: Inspection: distension, Bowel sounds: active, Palpation: nontender, Liver: no appreciated palpable abnormalities, Hernia: not appreciated, 13:03 Musculoskeletal/extremity: DVT Exam: No signs of deep vein thrombosis. no pain, no swelling, no tenderness, negative Homans' sign noted on exam, no appreciated bluish discoloration, no erythema, no increased warmth, 13:28 ECG was reviewed by the Attending Physician. [facility] Vital Signs: 10:46 BP 147 / 76; Pulse 68; Resp 18; Temp 97.8; Pulse Ox 96% on R/A; Weight 108.86 kg; ko1 Height 5 ft. 0 in. ; 15:43 BP 110 / 53; Pulse 59; Resp 18; Pulse Ox 97% on R/A; tm6 21:15 BP 155 / 64; Pulse 77; Resp 16; Pulse Ox 98% ; rv1 10:46 Body Mass Index 46.87 (108.86 kg, 152.4 cm) ko1 MDM: 10:40 Patient medically screened. leandro 13:06 Differential diagnosis: abnormal EKG, acute myocardial infarction, acute pericarditis, leandro anxiety, coronary artery disease chest wall pain, costochondritis, esophagitis, gastroesophageal reflux disease (GERD), hiatal hernia, peptic ulcer disease, pulmonary embolus, unstable angina. HEART Score: History: Moderately Suspicious (1), ECG: Normal (0), Age: > or = 65 years (2), Risk Factors: > or = 3 Risk factors for atherosclerotic disease (2), [Hypercholesterolemia] [Hypertension] [DM] [+ Family HX] [Obesity] Troponin: < or = 1 x Normal Limit (0). The patient was given aspirin in the Emergency Department. ARACELI Risk Score: 1 - patient's age is greater or equal to 65 years, 1 - Three or more CAD risk factors, 1- Known CAD, 1 - ASA use in past 7 days, 1 - Recent [<24hrs] Severe Angina, TOTAL SCORE = 5. Data reviewed: vital signs, nurses notes, lab test result(s), EKG, radiologic studies, plain films. Consideration of Admission/Observation Patient was admitted/placed on observation. Escalation of care including admission/observation considered. I considered the following discharge prescriptions or medication management in the emergency department Medications were administered in the Emergency Department. See MAR. Independent interpretation of the following test(s) in the Emergency Department EKG: See my EKG interpretation above. Test considered but Not performed: CT: no ct chest ro pe. Historians other than the Patient: pt well informed. Care significantly affected by the following chronic conditions: Diabetes, Hypertension, Obesity. Counseling: I had a detailed discussion with the patient and/or guardian regarding the historical points, exam findings, and any diagnostic results supporting the discharge/admit diagnosis, the presence of at least one elevated blood pressure reading (>120/80) during this emergency department visit, lab results, radiology results, the need for further work-up and treatment in the hospital. 06/28 10:41 Order name: Basic Metabolic Panel; Complete Time: 12:44 [facility] 06/28 10:41 Order name: CBC with Diff; Complete Time: 12:44 [facility] 06/28 10:41 Order name: LFT's; Complete Time: 12:44 [facility] 06/28 10:41 Order name: Magnesium; Complete Time: 12:44 [facility] 06/28 10:41 Order name: NT PRO-BNP; Complete Time: 12:44 [facility] 06/28 10:41 Order name: PT-INR; Complete Time: 12:44 [facility] 06/28 10:41 Order name: Troponin HS; Complete Time: 12:44 [facility] 06/28 10:41 Order name: Lipase; Complete Time: 12:44 [facility] 06/28 10:41 Order name: Urinalysis w/ reflexes; Complete Time: 12:44 [facility] 06/28 12:45 Order name: Troponin HS; Complete Time: 16:55 06/28 17:33 Order name: Glucose, Ancillary Testing ED[facility] 06/28 10:41 Order name: XRAY Chest (1 view); Complete Time: 12:44 leandro 06/28 10:41 Order name: EKG; Complete Time: 10:41 [facility] 06/28 12:45 Order name: EKG; Complete Time: 12:46 [facility] 06/28 10:41 Order name: Cardiac monitoring; Complete Time: 14:41 [facility] 06/28 10:41 Order name: EKG - Nurse/Tech; Complete Time: 10:51 [facility] 06/28 10:41 Order name: IV Saline Lock; Complete Time: 10:51 leandro 06/28 10:41 Order name: Labs collected and sent; Complete Time: 10:51 06/28 10:41 Order name: O2 Per Protocol; Complete Time: 14:27 [facility] 06/28 10:41 Order name: O2 Sat Monitoring; Complete Time: 14:27 leandro 06/28 11:05 Order name: Labs - recollect needed: recollect green and blue top please; Complete em1 Time: 11:17 06/28 12:45 Order name: EKG - Nurse/Tech: 1 pm please; Complete Time: 13:16 leandro EC:03 Rate is 68 beats/min. Rhythm is regular. QRS [place] is Normal. [place] interval is normal. QRS leandro interval is normal. QT interval is normal. No Q waves. T waves are Normal. No ST changes noted. Clinical impression: NSR w/ Non-specific ST/T Changes and No evidence of ischemia. Interpreted by me. Reviewed by me. 13:28 Rate is 69 beats/min. Rhythm is regular. QRS [place] is Normal. [place] interval is normal. QRS leandro interval is normal. QT interval is normal. No Q waves. T waves are Normal. No ST changes noted. Clinical impression: Normal ECG and No evidence of ischemia. Interpreted by me. Reviewed by me. Administered Medications: 11:16 Drug: Aspirin PO Chewable Tablet 162 mg PO once Route: PO; ko1 14:41 Drug: Enoxaparin Sub-Q 100 mg Sub-Q once Route: Sub-Q; Site: abdomen; tm6 14:41 Drug: Famotidine IVP 20 mg IVP once; dilute with 10 mL 0.9% NaCl; give over 2 minutes tm6 Route: IVP; Site: right antecubital; Disposition Summary: 06/28/23 13:10 Hospitalization Ordered Notes: Hospitalization Status: Observation leandro Provider: Chery Ny leandro Condition: Stable leandro Problem: new leandro Symptoms: have improved leandro Bed/Room Type: Standard leandro Location: Telemetry/MedSurg (observation)(06/28/23 19:37) Room Assignment: 228(06/28/23 19:37) Diagnosis - Chest pain, unspecified leandro - Angina pectoris, unspecified leandro - Type 2 diabetes mellitus with hyperglycemia leandro - Essential (primary) hypertension leandro - Obesity, unspecified leandro Forms: - Medication Reconciliation Form leandro - SBAR form leandro - Leadership Thank You Letter leandro Signatures: Dispatcher [employer] Nicol Suh RN RN kl Anderson, Corey, MD MD cha Martinez, Eric em1 Ghada Singer RN RN ko1 Irma Le RN RN tm6 Corrections: (The following items were deleted from the chart) 13:13 13:10 Telemetry/MedSurg (observation) leandro em1 13:13 13:10 [facility] em1 19:37 13:13 [facility] ER HOLD em1 kl 19:37 13:13 ERHOLD- em1 kl
--- NOTE | 2023-06-28 13:11 | ER ---
Nurse's Notes [facility] Name: Bee Herrera Age: 67 yrs Sex: Female : 1955 Arrival Date: 06/28/2023 Time: 10:38 Bed 17 Private MD: Diagnosis: Chest pain, unspecified;Angina pectoris, unspecified;Type 2 diabetes mellitus with hyperglycemia;Essential (primary) hypertension;Obesity, unspecified Presentation: 06/28 10:46 Chief complaint: Patient states: chest pressure off and on x 1 week after they changed ko1 her diabetes medication, "it was changed to glypizide and it says that the side effects are chest pressure" the med was changed 3 weeks ago. Coronavirus screen: At this time, the client does not indicate any symptoms associated with coronavirus-19. Ebola Screen: No symptoms or risks identified at this time. Initial Sepsis Screen: Does the patient meet any 2 criteria? No. Patient's initial sepsis screen is negative. Does the patient have a suspected source of infection? No. Patient's initial sepsis screen is negative. Risk Assessment: Do you want to hurt yourself or someone else? Patient reports no desire to harm self or others. Onset of symptoms is unknown. 10:46 Method Of Arrival: Ambulatory ko1 10:46 Acuity: MARIBEL 3 ko1 Triage Assessment: 10:49 General: Appears in no apparent distress. Behavior is calm, cooperative, appropriate ko1 for age. Pain: Complains of pain in chest and right side. Cardiovascular: Chest pain radiates to right side is alleviated by rest. Historical: - Allergies: 10:49 No Known Allergies; ko1 - PMHx: 10:49 diabetes mellitus; Hypertensive disorder; ko1 - Immunization history:: Adult Immunizations up to date. - Social history:: Smoking status: Patient denies any tobacco usage or history of. - Family history:: not pertinent. Vital Signs: 10:46 BP 147 / 76; Pulse 68; Resp 18; Temp 97.8; Pulse Ox 96% on R/A; Weight 108.86 kg; ko1 Height 5 ft. 0 in. ; 15:43 BP 110 / 53; Pulse 59; Resp 18; Pulse Ox 97% on R/A; tm6 21:15 BP 155 / 64; Pulse 77; Resp 16; Pulse Ox 98% ; rv1 10:46 Body Mass Index 46.87 (108.86 kg, 152.4 cm) ko1 ED Course: 10:40 Patient arrived in ED. im 10:40 Bhupinder Cedeno MD is Attending Physician. leandro 10:49 Triage completed. ko1 10:49 Arm band placed on right wrist. Patient placed Patient notified of wait time. ko1 10:51 Lipase Sent. ko1 10:51 Basic Metabolic Panel Sent. ko1 10:51 CBC with Diff Sent. ko1 10:51 LFT's Sent. ko1 10:51 Magnesium Sent. ko1 10:51 NT PRO-BNP Sent. ko1 10:51 PT-INR Sent. ko1 10:51 Troponin HS Sent. ko1 10:55 Ghada Singer, RN is Primary Nurse. ko1 11:10 Urinalysis w/ reflexes Sent. bc6 11:16 Urinalysis w/ reflexes Sent. ko1 11:36 XRAY Chest (1 view) In Process Unspecified. EDMS 13:10 Chery Ny MD is Hospitalizing Provider. leandro 21:17 Patient admitted, IV remains in place. kl Administered Medications: 11:16 Drug: Aspirin PO Chewable Tablet 162 mg PO once Route: PO; ko1 14:41 Drug: Enoxaparin Sub-Q 100 mg Sub-Q once Route: Sub-Q; Site: abdomen; tm6 14:41 Drug: Famotidine IVP 20 mg IVP once; dilute with 10 mL 0.9% NaCl; give over 2 minutes tm6 Route: IVP; Site: right antecubital; Outcome: 13:10 Decision to Hospitalize by Provider. leandro 21:16 Admitted to Med/surg accompanied by [facility], via wheelchair, room 228, 21:16 Admitted to Med/surg Report called to bharat soria 21:16 Condition: stable 22:27 Patient left the ED. Signatures: Dispatcher [employer] EDMS Nicol Todd, RN Bhupinder Denson MD MD cha Oliver, Kathy, RN RN ko1 Mariia Abel rv1 Fatou Winters bc6 Minna Hammonds Tawney, RN RN tm6
[2023-06-28] MEDS ORDERED: ENOXAPARIN 100 MG/ML SYR SQ ONE (14:42)
[2023-06-28] MEDS ORDERED: FAMOTIDINE 20 MG/2 ML VIAL IV ONE (14:42)
--- NOTE | 2023-06-28 15:10 | EKG ---
Test Date: 2023-06-28 Test Time: 10:46:22 Control Specialist: GISELL MEASUREMENT RESULTS: Intervals: Rate: 68 [place]: 172 QRSD: 84 QT: 410 QTc: 435 [place]: P: 63 [place]: 172 QRS: 49 T: 52 INTERPRETIVE STATEMENTS: Normal sinus rhythm Normal ECG Compared to ECG 01/11/2023 16:30:09 No significant changes Electronically Signed On 06-28-23 15:09:50 PUBLIC ADMINISTRATION TEACHER by Ramon Rice
[2023-06-28 15:50] VITALS: BMI 46.8
[2023-06-28] MEDS ORDERED: MORPHINE 2 MG/ML SYR IV PRN (16:23)
[2023-06-28] MEDS ORDERED: ONDANSETRON 4 MG/2 ML VIAL IV PRN (16:23)
[2023-06-28] MEDS ORDERED: ACETAMINOPHEN 500 MG TAB PO PRN (16:23)
[2023-06-28] MEDS ORDERED: NITROGLYCERIN 0.4 MG/TAB SL PRN (16:23)
[2023-06-28] MEDS: INSULIN REGULAR (HUMAN) 100 UNIT/ML SQ SCH ×2 (16:30→21:00)
[2023-06-28] MEDS: carvediloL 3.125 MG TAB PO SCH (21:00)
[2023-06-28] MEDS ORDERED: ATORVASTATIN 10 MG TAB PO SCH (21:00)
[2023-06-28] MEDS ORDERED: carvediloL 6.25 MG TAB ONE (21:10)
[2023-06-28 22:50] VITALS: O2SAT 98
[2023-06-28 23:32] LABS: Troponin High Sensitivity 6.7 pg/mL (<58.9)
[2023-06-29] MEDS: carvediloL 3.125 MG TAB PO SCH (06:00)
[2023-06-29 06:18] LABS: Absolute Lymphocytes (CBC) 1.8 K/uL (0.7-4.9); Hematocrit 40.8 % (36.0-45.0); Lymphocytes % 22.8 % (15.3-44.8); MCV 79.1 fL (80-100); MPV 8.6 fL (7.6-11.3); Platelets 215 thou/uL (152-406); RBC Red Blood Cell Count 5.15 M/uL (3.86-4.86)
[2023-06-29 06:53] LABS: Magnesium 2.4 mg/dL (1.6-2.4); Potassium 3.8 mEq/L (3.5-5.1)
[2023-06-29] MEDS: INSULIN REGULAR (HUMAN) 100 UNIT/ML SQ SCH ×2 (07:30→11:30)
[2023-06-29] MEDS ORDERED: REGADENOSON 0.4 MG/5 ML SYR IV ONE (08:16)
[2023-06-29] MEDS ORDERED: ASPIRIN 325 MG TAB PO SCH (09:00)
[2023-06-29] MEDS ORDERED: LOSARTAN POTASSIUM 50 MG TABLET PO SCH (09:00)
[2023-06-29] MEDS ORDERED: POTASSIUM CL SA 10 MEQ TAB PO ONE (09:45)
[2023-06-29 12:25] VITALS: BP 134/70; TEMP 97
--- NOTE | 2023-06-29 14:14 | RAD REPORT ---
EXAM DESCRIPTION: NM - Rest Stress Cardiac Imaging - 06/29/2023 10:15 am CLINICAL HISTORY: CP COMPARISON: No comparisons TECHNIQUE: The patient was administered approximately 10.6 mCi of Tc 99m Sestamibi prior to resting SPECT imaging of the heart. The patient was then administered approximately 30.8 mCi of Tc 99m Sestam ibi following exercise or pharmacologic stress. Multiplanar SPECT images were reviewed. FINDINGS: No stress induced ischemic defect is seen to suggest stress induced ischemia. No fixed def ect is seen to suggest hibernating myocardium or scarred myocardium. Multiple fixed defects on the re st images involving the the anteroseptal wall and lateral wall, with no correlate on the stress image s, likely artifactual in nature. The end diastolic volume is 75 ml, the end systolic volume is 20 ml, and the ejection fraction is 74 %. IMPRESSION: No evidence of stress induced ischemia. No evidence of an infarct. Reduced end systolic volume, may be related to long-standing hypertension, please correlate clinicall y. Normal left ventricular ejection fraction, 74%.
--- NOTE | 2023-06-29 14:29 | P.DS ---
Admission Date: 06/28/23 Discharge Date: 06/29/23 Disposition: ROUTINE DISCHARGE Reason for Admission: Chest pain Brief History of Present Illness: 67-year-old female with a past medical history obesity, hypertension, diabetes, hyperlipidemia, presents to the emergency room with substernal chest pain 8 out of 10. Reports his symptoms are constant, does not radiate. Described as chest pressure, reported associated dizziness with ambulation, no reported shortness of breath. Diaphoresis, edema, palpitations. No reported history of PA or cardiac intervention. She reported symptoms started at rest last night are constant currently rated at 3 out of 10 nonradiating. Vital signs 6 BP 147 / 76; Pulse 68; Resp 18; Temp 97.8; Pulse Ox 96% on R/A; Weight 108.86 kg; Height 5 ft. 0 in. EKG normal sinus rhythm 3 Rate is 68 beats/min. Rhythm is regular. QRS [place] is Normal. [place] interval is normal. QRS interval is normal. QT interval is normal. No Q waves. T waves are Normal. No ST changes noted. Clinical impression: NSR w/ Non-specific ST/T Changes and No evidence of ischemia. Dr. Rice consulted for chest pain Laboratory evaluation troponin normal at 5.4, BNP 49, CBC, CMP unremarkable UA leukoesterase 25, 5-10 red blood cells, chest x-ray no acute cardiopulmonary process. ARACELI Risk Score: 1 - patient's age is greater or equal to 65 years, 1 - Three or more CAD risk factors, 1- Known CAD, 1 - ASA use in past 7 days, 1 - Recent [<24hrs] Severe Angina, TOTAL SCORE = 5. Data reviewed: vital signs, nurses notes, lab test result(s), plan to admit for chest pain, angina unspecified, diabetes type 2 with hyperglycemia, essential hypertension, obesity. - Physical Exam General: Alert, In no apparent distress, Oriented x3, Obese HEENT: Atraumatic, Normocephalic Neck: Supple, 2+ carotid pulse no bruit Respiratory: Clear to auscultation bilaterally, Normal air movement Cardiovascular: No edema, Normal pulses, Regular rate/rhythm Capillary refill: <2 Seconds Gastrointestinal: Normal bowel sounds, Soft and benign Musculoskeletal: No clubbing, No swelling Neurological: Normal speech, Normal strength at 5/5 x4 extr Hospital Course: Assessment and plan Angina unspecified Cardiac consult, telemetry, trend troponins As needed antiemetics, as needed analgesics, aspirin, antilipid, nitro as needed cardiac stress, no acute ischemia substernal chest pain 8 out of 10. Reports his symptoms are constant, does not radiate. Described as chest pressure, reported associated dizziness with ambulation, no reported shortness of breath. Diaphoresis, edema, palpitations, No reported history of PA or cardiac intervention. She reported symptoms started at rest last night are constant currently rated at 3 out of 10 nonradiating. EKG normal sinus rhythm 3 Rate is 68 beats/min. Rhythm is regular. QRS [place] is Normal. [place] interval is normal. QRS interval is normal. QT interval is normal. No Q waves. T waves are Normal. No ST changes noted. Clinical impression: NSR w/ Non-specific ST/T Changes and No evidence of ischemia. Laboratory evaluation troponin normal at 5.4, BNP 49, HEART Score: History: Moderately Suspicious (1), ECG: Normal (0), Age: > or = 65 years (2), Risk Factors: > or = 3 Risk factors for atherosclerotic disease (2), [Hypercholesterolemia] [Hypertension] [DM] [+ Family HX] [Obesity] Troponin: < or = 1 x Normal Limit (0). The patient was given aspirin in the Emergency Department. ARACELI Risk Score: 1 - patient's age is greater or equal to 65 years, 1 - Three or more CAD risk factors, 1- Known CAD, 1 - ASA use in past 7 days, 1 - Recent [<24hrs] Severe Angina, TOTAL SCORE = 5. CBC, CMP unremarkable UA leukoesterase 25, 5-10 red blood cells, chest x-ray no acute cardiopulmonary process hypertension 147 / 76; Pulse 68; Resp 18; Temp 97.8; Pulse Ox 96% on R/A; Weight 108.86 kg; Height 5 ft. 0 in. ; Resume appropriate home medications Coreg, antilipid, Type II diabetes with hyperglycemia hyperlipidemia Vital Signs/Physical Exam: Temp Pulse Resp BP Pulse Ox 97.0 F 73 16 134/70 96 06/29/23 12:00 06/29/23 12:00 06/29/23 12:00 06/29/23 12:00 06/29/23 12:00 Laboratory Data at Discharge: WBC 7.80 thou/uL (4.3-10.9) 06/29/23 05:27 Hgb 13.5 g/dL (12.0-15.0) 06/29/23 05:27 Hct 40.8 % (36.0-45.0) 06/29/23 05:27 Plt Count 215 thou/uL (152-406) 06/29/23 05:27 PT 11.7 SECONDS (9.5-12.5) 06/28/23 11:18 INR 1.06 06/28/23 11:18 Sodium 142 mEq/L (136-145) 06/29/23 05:27 Potassium 3.8 mEq/L (3.5-5.1) 06/29/23 05:27 BUN 12 mg/dL (7-18) 06/29/23 05:27 Creatinine 0.52 mg/dL (0.55-1.02) L 06/29/23 05:27 Glucose 143 mg/dL (74-106) H 06/29/23 05:27 Magnesium 2.4 mg/dL (1.6-2.4) 06/29/23 05:27 Total Bilirubin 0.9 mg/dL (0.2-1.0) 06/28/23 11:18 AST 12 U/L (15-37) L 06/28/23 11:18 ALT 24 U/L (13-56) 06/28/23 11:18 Alkaline Phosphatase 105 U/L (45-117) 06/28/23 11:18 Triglycerides 120 mg/dL (<150) 06/29/23 05:27 Cholesterol 105 mg/dL (<200) 06/29/23 05:27 HDL Cholesterol 43 mg/dL (40-60) 06/29/23 05:27 Cholesterol/HDL Ratio 2.44 06/29/23 05:27 Lipase 38 U/L (13-75) 06/28/23 11:18 Home Medications: Atorvastatin Calcium [Lipitor] 10 mg PO DAILY 03/16/23 Dapagliflozin Propanediol [Farxiga] 10 mg PO DAILY 03/16/23 Losartan Potassium 100 mg PO DAILY 03/16/23 Magnesium/Zinc 1 cap PO DAILY 03/16/23 glipiZIDE [Glipizide ER] 10 mg PO DAILY 03/16/23 Followup: Sammi Cartagena MD [Primary Care Provider] -
--- NOTE | 2023-06-29 14:50 | EKG ---
Test Date: 2023-06-28 Test Time: 13:24:47 Director Of Social Work: OLU MEASUREMENT RESULTS: Intervals: Rate: 69 ME: 178 QRSD: 92 QT: 426 QTc: 456 [place]: P: 70 ME: 178 QRS: 64 T: 51 INTERPRETIVE STATEMENTS: Normal sinus rhythm Normal ECG Compared to ECG 06/28/2023 10:46:22 No significant changes Electronically Signed On 06-29-23 14:45:59 YOUTH COUNSELOR by Ramon Rice
--- NOTE | 2023-07-02 06:56 | ECHO ---
HEIGHT: 5 ft 0 in WEIGHT: 240 lb 0 oz DATE OF STUDY: 06/29/[address]: Chery Ny MD 2-DIMENSIONAL: YES M.MODE: YES DOPPLER: YES COLOR FLOW: YES TDS: YES PORTABLE: YES DEFINITY: BUBBLE STUDY: DIAGNOSIS: CHEST PAIN, RULE OUT ACUTE CORONARY SYNDROME CARDIAC HISTORY: CATHERIZATION: NO SURGERY: NO PROSTHETIC VALVE: NO PACEMAKER: NO MEASUREMENTS (cm) DIASTOLIC (NORMALS) SYSTOLIC (NORMALS) IVSd 1.3 (0.6-1.2) LA Diam 3.3 (1.9-4.0) LVEF 69% LVIDd 4.5 (3.5-5.7) LVIDs 2.7 (2.0-3.5) %FS 38% LVPWd 1.3 (0.6-1.2) Ao Diam 2.7 (2.0-3.7) 2 DIMENSIONAL ASSESSMENT: RIGHT ATRIUM: NORMAL LEFT ATRIUM: NORMAL RIGHT VENTRICLE: NORMAL LEFT VENTRICLE: NORMAL TRICUSPID VALVE: MILD TRICUSPID REGURGITATION MITRAL VALVE: MITRAL ANNULAR CALCIFICATION PULMONIC VALVE: NORMAL AORTIC VALVE: NORMAL PERICARDIAL EFFUSION: NONE AORTIC ROOT: NORMAL LEFT VENTRICULAR WALL MOTION: NORMAL DOPPLER/COLOR FLOW: SEE BELOW COMMENTS: 1. NORMAL LEFT VENTRICULAR EJECTION FRACTION 60-65% 2. NORMAL WALL MOTION 3. GRADE I DIASTOLIC DYSFUNCTION 4. POOR WINDOWS TECHNOLOGIST: RUT STEINBERG
--- NOTE | 2023-07-02 07:48 | TREADPHA ---
DX: CHEST PAIN Date of Study: 06/29/2023 Ht: 5' 0 " Wt: 240 lb 0 oz Consulting Physician: JOVANA MEDICATIONS: TYLENOL, ROXANN ASPIRIN, LIPITOR, COREG, NOVOLIN-R, COAZZR, MORPHINE, NITROSTAT, ZOFRAN HISTORY: 67 YEAR OLD FEMALE WITH COMPLAINTS OF CHEST PAIN. HISTORY OF HYPERTENSION, HYPERLIPIDEMIA, DIABETES MELLITUS, NON SMOKER, NON DRINKER. PHYSICIAL EXAMINATION: RESTING B.P.: 141/67 RESTING H.R.: 76 RESTING EKG: NORMAL SINUS RHYTHM PROTOCOL: PHARMACOLOGIC EXERCISE TIME: 3:30 B.P. AT PEAK STRESS: 150/74 IMPRESSION: LEXISCAN INJECTED FOLLOWED BY CARDIOLITE PER PROTOCOL. SEE NUCLEAR MEDICINE REPORT. NO SUPRAVENTRICULAR TACHYCARDIA, VENTRICULAR TACHYCARDIA, PREMATURE ATRIAL COMPLEXES, PREMATURE VENTRICULAR COMPLEXES. PATIENT REPORTS NO CHEST PAIN. NO CHANGES WITH LEXISCAN ON ELECTROCARDIOGRAM.
== END 2023-06-29 15:53 | disposition home or self-care (01) ==
LOC: ER 10:38 → ERHOLD 15:32 → 2ND 19:51
PROVIDERS: ADMIT Hospitalist; ATTEND Hospitalist
DX: I20.9 Angina pectoris, unspecified (principal); E11.65 Type 2 diabetes mellitus with hyperglycemia; E78.5 Hyperlipidemia, unspecified; I10 Essential (primary) hypertension; E66.9 Obesity, unspecified; Z68.42 Body mass index [BMI] 45.0-49.9, adult
CPT/HCPCS: 93005 ×2; 93017; 93306; 85025 ×2; 81001; 80048 ×2; 36415; 83735 ×2; 82550; 85610; 80061; 82947 ×3; 80076; 84484 ×3; 83690; 83880; 71045; 78452; 96372; 96374; 99285; J1650; J2785; A9500; G0378 ×4

== ENCOUNTER 2023-11-22 09:22 | Observation (INO) | payer OTHER ==
[2023-11-19 16:22] LABS: Specific Gravity > 1.030 (1.005-1.030); Sqamous Epithelial <5 /HPF (None Seen); Urine Bacteria <20 /HPF (<20); Urine Bilirubin NEGATIVE (Negative); Urine Blood Trace (Negative); Urine Clarity Clear (Clear); Urine Color Light-Yellow (Yellow); Urine Culture Reflex Order NOT NEEDED; Urine Glucose 4+ (Over) (Negative); Urine Ketones NEGATIVE (Negative); Urine Microscopic Reflex YN ORDER UMIC; Urine Mucus Slight /HPF (None Seen); Urine Nitrite NEGATIVE (Negative); Urine Protein NEGATIVE (Negative); Urine Urobilinogen Normal (Normal); Urine WBC <5 /HPF (<5)
[2023-11-19 16:36] LABS: Anion Gap 7.9 mEq/L (5.0-15.0); PT Prothrombin Time 11.5 SECONDS (9.5-12.5); PTT, Activated Partial Thromb 37.5 SECONDS (24.3-36.9); Potassium 3.9 mEq/L (3.5-5.1); Protime INR 1.05
[2023-11-19 16:40] LABS: Absolute Basophils 0.1 K/uL (0-0.5); Absolute Eosinophils 0.1 K/uL (0-0.5); Absolute Monocytes 0.5 K/uL (0.1-1.3); Absolute Neutrophil 8.8 K/uL (1.8-8.0); Basophils % 1.3 % (0-1.3); Eosinophils % 1.1 % (0-4.4); Hematocrit 44.7 % (36.0-45.0); Lymphocytes % 17.7 % (15.3-44.8); MCH 24.9 pg (27.0-35.0); MCHC 31.4 g/dL (32.0-36.0); MCV 79.3 fL (80-100); MPV 8.3 fL (7.6-11.3); Neutrophils % 75.9 % (41.7-73.7); Platelets 266 thou/uL (152-406); RBC Red Blood Cell Count 5.64 M/uL (3.86-4.86)
[2023-11-22] MEDS: CEFAZOLIN SODIUM 1 GM/VIAL ONE ×2 (09:40→10:30)
[2023-11-22] MEDS: NA CHLORIDE 0.9% 1,000 ML ONE ×2 (09:50→15:50)
[2023-11-22] MEDS: SCOPOLAMINE HYDROBROMIDE PATCH TD ONE (09:52)
[2023-11-22] MEDS: LIDOCAINE HCL/EPINEPHRINE 20 ML MDV ONE (10:31)
[2023-11-22] MEDS: NA CHLORIDE 0.9% 100 ML ONE (10:31)
[2023-11-22] MEDS ORDERED: FENTANYL CITR 100 MCG/2 ML ONE (10:56)
[2023-11-22] MEDS ORDERED: LIDOCAINE 2% MPF 5 ML VIAL ONE (10:56)
[2023-11-22] MEDS ORDERED: ONDANSETRON 4 MG/2 ML VIAL ONE (10:56)
[2023-11-22] MEDS ORDERED: ROCURONIUM 50 MG/5 ML VIAL IV ONE (10:56)
[2023-11-22] MEDS ORDERED: propofoL 200 MG/20 ML VIAL IV ONE (10:56)
[2023-11-22] MEDS: CEFAZOLIN SODIUM 2 GM/VIAL ONE (11:18)
[2023-11-22] MEDS: VASOPRESSIN 20 UNIT/ML VIAL ONE (11:19)
[2023-11-22] MEDS ORDERED: EPHEDRINE SULF 50 MG/ML VIAL ONE (11:59)
[2023-11-22] MEDS ORDERED: dexAMETHasone 10 MG/ML VIAL ONE (11:59)
[2023-11-22] MEDS ORDERED: GLYCOPYRROLATE 0.2 MG/ML SYR ONE (14:17)
[2023-11-22] MEDS ORDERED: NEOSTIGMINE 1 MG/ML -10 ML VIAL ONE (14:17)
[2023-11-22] MEDS ORDERED: MORPHINE 2 MG/ML SYR IV PRN (14:28)
[2023-11-22] MEDS ORDERED: PROMETHAZINE INJ 25 MG/ML AMP IV PRN (14:28)
[2023-11-22] MEDS ORDERED: ACETAMINOPHEN 500 MG TAB PO PRN (14:28)
[2023-11-22] MEDS ORDERED: PROMETHAZINE 25 MG TABLET PO PRN (14:28)
[2023-11-22] MEDS ORDERED: GLUCAGON 1 MG/VIAL IM PRN (14:31)
[2023-11-22] MEDS ORDERED: D10W 250 ML BAG IV PRN (14:31)
--- NOTE | 2023-11-22 14:38 | P.BOP ---
Preoperative diagnosis: stage 2 post wall defect,outlet defecatory dysfunction,vault prolapse Postoperative diagnosis: same posterior enterocele, perineocele Primary procedure: Biologic graft aug post wall defect repair,manuel SSLF colpopexy Secondary procedure: post enterocele and perineocele repairs, cystoscopy Elevator Runner: Julianna Cramer Estimated blood loss: 100 Specimen: none Findings: -3/-3/-6/7.5/thin/8/0/0/na, wide GH, prox and distal defect Anesthesia: General Complications: None Drain(s): Urinary catheter Implants: coloplast 8x6 graft Transferred to: Recovery Room Condition: Good
[2023-11-22] MEDS: Ringers Lactate 1,000 ML IV SCH (15:00)
--- OUTSIDE RECORDS SUMMARY | 2023-11-22 15:03 | XMS REPORT | Continuity of Care Document ---
Author Name Unknown Address [address] [place] [address] [facility] Address [address] [place] [address] Care Team Providers Care Manager Animation Name Role Phone Danae Bianchi Primary Care Physician [phone] Sammi Cartagena Attending Clinician Unavailable Miley Vincent Attending Clinician Unavailable Danae Bianchi Attending Clinician Unavailable HILDA SPRINGER Attending Clinician Unavailable ADARSH_GCBZW_Pancho_S Attending Clinician Unavaila Amber Garvin Cardiology Attending Clinician Unavailable Torsten James Attending Clinician Unavailable Hilda Springer DPM Attending Clinician [phone] Pob, [facility] Main Attending Clinician Unavailabl e Only, Adc Test Attending Clinician Unavailable Doctor Unassigned, [place] Attending Clinician U navailable HILDA SPRINGER Admitting Clinician Unavailable ADARSH_GCBZW_Pancho_S Admitting Clinician UnavailTorsten Soto Admitting Clinician Unavailable KNOW, DOES_NOT Admitting Clinician Unavailable Hilda Springer DPM Admitting Clinician [phone] Payers Payer Name Policy Type Policy Number Effective Date Expirati on Date Source [employer] MEDICARE ADV [id number] 2020 00:00:00 [employer] (MEDICARE REPLACEMENT PPO) [id number] 2022 00:00:00 [employer] MEDICARE 53 [id number] 2018 00:00:00 [facility] Problems Condition Name Condition Details Condition Category Status Onset Date Resolution Date Last Treatment Date Treating Clinician Comments Source Incontinen ce of feces Incontinen ce of Feces Problem Active 3-07 00:00: 00 [facility] Type 2 diabetes mellitus Type 2 Diabetes Mellitus Problem Active 2-21 00:00: 00 [facility] Female stress incontinen ce Female Stress Incontinen ce Problem Active 2022-07 0-24 00:00: 00 [facility] Constipati on Constipati on Problem Active 8- 00:00: 00 [facility] Hematochez ia Hematochez ia Problem Active 8- 00:00: 00 [facility] Posterior vaginal wall prolapse Posterior Vaginal Wall Prolapse Problem Active 8- 00:00: 00 [facility] Atrophy of vagina Atrophy of Vagina Problem Active 8- 00:00: 00 [facility] Urge incontinen ce of urine Urge Incontinen ce of Urine Problem Active 8- 00:00: 00 [facility] Diabetes mellitus Diabetes Mellitus Problem Active 7- 00:00: 00 [facility] Hyperchole sterolemia Hyperchole sterolemia Problem Active 7- 00:00: 00 [facility] Hypertensi ve disorder Hypertensi ve Disorder Problem Active 7- 00:00: 00 [facility] Atrophic vaginitis Atrophic Vaginitis Problem Active 3-13 00:00: 00 [facility] Overactive bladder Overactive Bladder Problem Active 8- 00:00: 00 [facility] Type 2 diabetes mellitus without complicati on Type 2 Diabetes Mellitus without Complicati on Problem Active 7- 00:00: 00 [facility] 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 [id number] Nonadheren ce with dietary restrictio n Problem [facility] Mononeurop athy associated with type II diabetes mellitus Controlled type 2 diabetes mellitus with diabetic mononeurop athy, without long-term current use of insulin Problem [facility] Ulcer Ulcer Problem [facility] [id number] Right acute serous otitis media, recurrence not specified Problem [facility] [id number] Diabetic neuropathy , painful Problem [facility] Obstructiv e sleep apnea Obstructiv e sleep apnea (adult) (pediatric ) Problem [facility] [id number] Mixed hyperlipid emia Problem [facility] Diabetes mellitus without complicati on Diabetes DMII without complicati ons Problem [facility] [id number] Obesity, morbid, BMI 40.0-49.9 Problem [facility] [id number] Atheroscle rosis of artery of extremity with intermitte nt claudicati on Problem [facility] Gastroesop hageal reflux disease GERD without esophagiti s Problem [facility] [id number] Urinary incontinen ce in female Problem [facility] Polyneurop athy due to type 2 diabetes mellitus Diabetic polyneurop athy associated with type 2 diabetes mellitus Problem [facility] Neuropathy Neuropathy Problem [facility] [id number] Decreased hearing of left ear Problem [facility] [id number] Anxiety Problem [facility] [id number] Change in bowel habit Problem [facility] [id number] Essential hypertensi on Problem [facility] Vitamin D deficiency Vitamin D deficiency Problem [facility] Chronic fatigue syndrome Chronic fatigue Problem [facility] [id number] Seasonal allergies Problem [facility] Allergies, Adverse Reactions, Alerts Allergy Name Allergy Type Status Severity Reaction(s) Onset Date Inactive Date Treating Clinician Comments Source No Known Intolera nces DA Active U 03-08 00:00: 00 [facility] NO KNOWN ALLERGIE S Drug Class Active [facility] Social History Social Habit Start Date Stop Date Quantity Comments Source History of Tobacco Use [facility] Sex Assigned At [facility] Exposure to SARS-CoV-2 (event) Not sure [facility] Tobacco use and exposure 2020-12-30 00:00:00 2020-12-30 00:00:00 Never used [facility] Smoking Status Start Date Stop Date Source Never Smoker [facility] Former Smoker 2023-09-12 00:00:00 2023-09-12 00:00:00 [facility] Medications Ordered Medication Name Filled Medication Name Start Date Stop Date Current Medication? Ordering Clinician Indication Dosage Frequency Signature (SIG) Comments Components Source Farxiga 10 MG Farxiga 10 MG 08-01 00:00: 00 No 1{table t} QD Farxiga 10 MG Farxiga 10 MG Farxiga 10 MG 08-01 00:00: 00 No 1{table t} QD Farxiga 10 MG Carvedilol 3.125 MG Carvedilol 3.125 MG 2022-07 00:00: 00 No 1{table t_with_ food} BID Carvedilol 3.125 MG Carvedilol 3.125 MG Carvedilol 3.125 MG 2022-07 00:00: 00 No 1{table t_with_ food} BID Carvedilol 3.125 MG Carvedilol 3.125 MG Carvedilol 3.125 MG 2022-07 00:00: 00 No 1{table t_with_ food} BID Carvedilol 3.125 MG Carvedilol 3.125 MG Carvedilol 3.125 MG 2022-07 00:00: 00 No 1{table t_with_ food} BID Carvedilol 3.125 MG Carvedilol 3.125 MG Carvedilol 3.125 MG 2022-07 00:00: 00 No 1{table t_with_ food} BID Carvedilol 3.125 MG glipiZIDE 10 MG glipiZIDE 10 MG 8- 00:00: 00 No QD glipiZIDE 10 MG Gabapentin 100 MG Gabapentin 100 MG 8- 00:00: 00 No 1{capsu le} BID Gabapentin 100 MG Farxiga 10 MG Farxiga 10 MG 2021-07 0- 00:00: 00 No 1{table t} QD Farxiga 10 MG Farxiga 10mg Farxiga 10mg 2021-07 0- 00:00: 00 11-20 00:00 :00 No 1{table t} QD Farxiga 10mg Farxiga 10mg Farxiga 10mg 2021-07 0- 00:00: 00 11-20 00:00 :00 No 1{table t} QD Farxiga 10mg Neomycin-Po lymyxin-HC 3.5-49513-0 Neomycin-Po lymyxin-HC 3.5-64304-7 12-15 00:00: 00 No 4{drops _into_a ffected _ear} BID Neomycin-P olymyxin-H C 3.5-00299- 1 Neomycin-Po lymyxin-HC 3.5-45346-6 Neomycin-Po lymyxin-HC 3.5-63640-6 - 00:00: 00 No 4{drops _into_a ffected _ear} BID Neomycin-P olymyxin-H C 3.5-66989- 1 Neomycin-Po lymyxin-HC 3.5-75731-7 Neomycin-Po lymyxin-HC 3.5-22559-9 19 00:00: 00 No 4{drops _into_a ffected _ear} BID Neomycin-P olymyxin-H C 3.5-93230- 1 Neomycin-Po lymyxin-HC 3.5-21338-3 Neomycin-Po lymyxin-HC 3.5-31727-6 19 00:00: 00 No 4{drops _into_a ffected _ear} BID Neomycin-P olymyxin-H C 3.5-26286- 1 Neomycin-Po lymyxin-HC 3.5-40315-9 Neomycin-Po lymyxin-HC 3.5-62512-7 12-15 00:00: 00 No 4{drops _into_a ffected _ear} BID Neomycin-P olymyxin-H C 3.5-74352- 1 Neomycin-Po lymyxin-HC 3.5-16553-3 Neomycin-Po lymyxin-HC 3.5-25219-7 12-15 00:00: 00 No 4{drops _into_a ffected _ear} BID Neomycin-P olymyxin-H C 3.5-78159- 1 Neomycin-Po lymyxin-HC 3.5-08208-9 Neomycin-Po lymyxin-HC 3.5-93078-8 12-15 00:00: 00 No 4{drops _into_a ffected _ear} BID Neomycin-P olymyxin-H C 3.5-73083- 1 Neomycin-Po lymyxin-HC 3.5-68008-0 Neomycin-Po lymyxin-HC 3.5-38947-8 12-15 00:00: 00 No 4{drops _into_a ffected _ear} BID Neomycin-P olymyxin-H C 3.5-09268- 1 Neomycin-Po lymyxin-HC 3.5-33703-9 Neomycin-Po lymyxin-HC 3.5-45597-3 12-15 00:00: 00 No 4{drops _into_a ffected _ear} BID Neomycin-P olymyxin-H C 3.5-48933- 1 Fluconazole 150 MG Fluconazole 150 MG 12-15 00:00: 00 12-16 00:00 :00 No 1{table t} Fluconazol e 150 MG metFORMIN 500 mg tablet 08-27 23:13: 04 Yes 500mg Take 500 mg by mouth 2 (two) times daily with meals. [facility] bacitracin- polymyxin B (DOUBLE ANTIBIOTIC) 500-10,000 unit/gram topical ointment 08-26 15:58: 00 08-26 19:14 :02 No PRN, Starting on Sun08/26/21 at 0958, Until Sun08/26/21 at 1314, Routine, Intra-op [facility] sodium chloride 0.9 % irrigation solution 08-26 15:15: 00 08-26 19:14 :02 No PRN, Starting on Sun08/26/21 at 0915, Until Sun08/26/21 at 1314, Intra-op [facility] bupivacaine (preserv free) 0.5% (SENSORCAIN E MPF) 0.5 % (5 mg/mL) 5 mL, lidocaine 1% (PF) (XYLOCAINE) 5 mL 08-26 15:01: 00 08-26 19:14 :02 No PRN, Starting on Sun08/26/21 at 0901, Intra-op [facility] lactated ringers IV infusion 1,000 mL 08-26 13:45: 00 08-26 14:01 :00 No 1000mL at 42 mL/hr, 1,000 mL, IV Infusion, ONCE, 1 dose, On Sun08/26/21 at 0745, Routine, DSU Pre-op [facility] glimepiride 2 mg tablet 08-26 11:14: 01 Yes 2mg Take 2 mg by mouth 2 (two) times daily. [facility] metFORMIN 500 mg tablet 08-26 11:14: 01 Yes 500mg Take 500 mg by mouth 2 (two) times daily with meals. [facility] aspirin 325 mg tablet 08-26 00:00: 00 09-24 05:59 :00 No [id number] 325mg Take 1 tablet by mouth 2 (two) times daily with meals for 28 days. [facility] metFORMIN 500 mg tablet 08-24 15:30: 09 Yes 500mg Take 500 mg by mouth 2 (two) times daily with meals. [facility] metFORMIN HCl ER 500 MG metFORMIN HCl ER 500 MG 2020-07 0 00:00: 00 No BID metFORMIN HCl ER 500 MG glimepiride 2 mg tablet 6-04 19:21: 12 Yes 2mg Take 2 mg by mouth 2 (two) times daily. [facility] FENTanyl PF (SUBLIMAZE (PF)) injection 25 mcg 12-31 18:21: 55 12-31 21:26 :16 No 25ug 25 mcg, Slow IV Push, Q5MIN PRN, 4 doses, Starting Sun12/31/20 at 1321, Until Sun12/31/20 at 1626, Routine, Pain (scale 7-10), PACU [facility] ondansetron (ZOFRAN (PF)) injection 4 mg 12-31 18:21: 55 12-31 21:26 :16 No 4mg 4 mg, Slow IV Push, PRN, 1 dose, Starting Sun12/31/20 at 1321, Until Sun12/31/20 at 1626, Routine, Nausea and Vomiting (N/V), PACU [facility] bupivacaine (preserv free) 0.5% (SENSORCAIN E MPF) 0.5 % (5 mg/mL) 5 mL, lidocaine 1% (PF) (XYLOCAINE) 5 mL 12-31 17:45: 00 12-31 21:26 :16 No PRN, Starting Sun12/31/20 at 1245, Intra-op [facility] sodium chloride 0.9 % irrigation solution 12-31 17:41: 00 12-31 21:26 :16 No PRN, Starting Sun12/31/20 at 1241, Until Sun12/31/20 at 1626, Intra-op [facility] lactated ringers IV infusion 1,000 mL 12-31 15:15: 00 12-31 15:12 :00 No 1000mL at 42 mL/hr, 1,000 mL, IV Infusion, ONCE, 1 dose, Sun12/31/20 at 1015, Routine, DSU Pre-op [facility] glimepiride 2 mg tablet 12-31 14:21: 12 Yes 2mg Take 2 mg by mouth 2 (two) times daily. [facility] Neomycin-Po lymyxin-HC 3.5-60395-3 Neomycin-Po lymyxin-HC 3.5-16639-6 4-05 00:00: 00 No 4{drops _into_a ffected _ear} BID Neomycin-P olymyxin-H C 3.5-56841- 1 [facility] One Touch Ultra Test Strips 1 One Touch Ultra Test Strips 1 3-24 00:00: 00 No QD One Touch Ultra Test Strips 1 [facility] One Touch Delica Lancets - One Touch Delica Lancets - 0 324 00:00: 00 No QD One Touch Delica Lancets - One Touch Ultra Test Strips 1 One Touch Ultra Test Strips 1 324 00:00: 00 No QD One Touch Ultra Test Strips 1 One Touch Delica Lancets - One Touch Delica Lancets - 2020-0 324 00:00: 00 No QD One Touch Delica Lancets - One Touch Delica Lancets - One Touch Delica Lancets - 2020-0 324 00:00: 00 No QD One Touch Delica Lancets - One Touch Delica Lancets - One Touch Delica Lancets - 2020-0 324 00:00: 00 No QD One Touch Delica Lancets - One Touch Delica Lancets - One Touch Delica Lancets - 2020-0 24 00:00: 00 No QD One Touch Delica Lancets - One Touch Delica Lancets - One Touch Delica Lancets - 2020-0 324 00:00: 00 No QD One Touch Delica Lancets - One Touch Delica Lancets - One Touch Delica Lancets - 2020-0 24 00:00: 00 No QD One Touch Delica Lancets - One Touch Delica Lancets - One Touch Delica Lancets - 2020-0 24 00:00: 00 No QD One Touch Delica Lancets - One Touch Delica Lancets - One Touch Delica Lancets - 2020-0 24 00:00: 00 No QD One Touch Delica Lancets - Triamcinolo ne Acetonide Triamcinolo ne Acetonide 03-24 00:00: 00 Yes Na Bianchi 1 applicatio n to affected area [facility] Triamcinolo ne Acetonide 0.1 % Triamcinolo ne Acetonide 0.1 % 03-24 00:00: 00 No 1{appli cation_ to_affe cted_ar ea} BID Triamcinol one Acetonide 0.1 % [facility] Martell Moura 01-27 00:00: 00 07-25 00:00 :00 No Na Bianchi one capsule [facility] Farxiga Farxiga 2 00:00: 00 03-02 00:00 :00 No Na Bianchi 1 [facility] Atorvastati n Calcium 10 MG Atorvastati n Calcium 10 MG No 1{table t} QD Atorvastat in Calcium 10 MG Myrbetriq 50 MG Myrbetriq 50 MG No 1{table t} QD Myrbetriq 50 MG Omeprazole 20 MG Omeprazole 20 MG No Omeprazole 20 MG Losartan Potassium 100 MG Losartan Potassium 100 MG No 1{table t} QD Losartan Potassium 100 MG metFORMIN HCl ER 500 MG metFORMIN HCl ER 500 MG No 2{table t} BID metFORMIN HCl ER 500 MG glipiZIDE 10 MG glipiZIDE 10 MG No BID glipiZIDE 10 MG Aspirin 81 MG Aspirin 81 MG No 1{table t} QD Aspirin 81 MG Carvedilol 3.125 MG Carvedilol 3.125 MG No 1{table t_with_ food} BID Carvedilol 3.125 MG Atorvastati n Calcium 10 MG Atorvastati n Calcium 10 MG No 1{table t} QD Atorvastat in Calcium 10 MG Myrbetriq 50 MG Myrbetriq 50 MG No 1{table t} QD Myrbetriq 50 MG Aspirin 81 MG Aspirin 81 MG No 1{table t} QD Aspirin 81 MG glipiZIDE 10 MG glipiZIDE 10 MG No BID glipiZIDE 10 MG Omeprazole 20 MG Omeprazole 20 MG No Omeprazole 20 MG Carvedilol 3.125 MG Carvedilol 3.125 MG No 1{table t_with_ food} BID Carvedilol 3.125 MG Farxiga 10 MG Farxiga 10 MG No 1{table t} QD Farxiga 10 MG Atorvastati n Calcium 10 MG Atorvastati n Calcium 10 MG No 1{table t} QD Atorvastat in Calcium 10 MG Losartan Potassium 100 MG Losartan Potassium 100 MG No 1{table t} QD Losartan Potassium 100 MG Myrbetriq 50 MG Myrbetriq 50 MG No 1{table t} QD Myrbetriq 50 MG metFORMIN HCl ER 500 MG metFORMIN HCl ER 500 MG No 2{table t} BID metFORMIN HCl ER 500 MG Aspirin 81 MG Aspirin 81 MG No 1{table t} QD Aspirin 81 MG glipiZIDE 10 MG glipiZIDE 10 MG No BID glipiZIDE 10 MG Omeprazole 20 MG Omeprazole 20 MG No Omeprazole 20 MG Carvedilol 3.125 MG Carvedilol 3.125 MG No 1{table t_with_ food} BID Carvedilol 3.125 MG Farxiga 10 MG Farxiga 10 MG No 1{table t} QD Farxiga 10 MG Atorvastati n Calcium 10 MG Atorvastati n Calcium 10 MG No 1{table t} QD Atorvastat in Calcium 10 MG Losartan Potassium 100 MG Losartan Potassium 100 MG No 1{table t} QD Losartan Potassium 100 MG Myrbetriq 50 MG Myrbetriq 50 MG No 1{table t} QD Myrbetriq 50 MG metFORMIN HCl ER 500 MG metFORMIN HCl ER 500 MG No 2{table t} BID metFORMIN HCl ER 500 MG Aspirin 81 MG Aspirin 81 MG No 1{table t} QD Aspirin 81 MG glipiZIDE 10 MG glipiZIDE 10 MG No BID glipiZIDE 10 MG Omeprazole 20 MG Omeprazole 20 MG No Omeprazole 20 MG Carvedilol 3.125 MG Carvedilol 3.125 MG No 1{table t_with_ food} BID Carvedilol 3.125 MG Farxiga 10 MG Farxiga 10 MG No 1{table t} QD Farxiga 10 MG Atorvastati n Calcium 10 MG Atorvastati n Calcium 10 MG No 1{table t} QD Atorvastat in Calcium 10 MG Losartan Potassium 100 MG Losartan Potassium 100 MG No 1{table t} QD Losartan Potassium 100 MG Myrbetriq 50 MG Myrbetriq 50 MG No 1{table t} QD Myrbetriq 50 MG metFORMIN HCl ER 500 MG metFORMIN HCl ER 500 MG No 2{table t} BID metFORMIN HCl ER 500 MG atorvastati n 20 mg tablet TAKE 1 TABLET BY MOUTH EVERY DAY FOR 90 DAYS atorvastati n 20 mg tablet TAKE 1 TABLET BY MOUTH EVERY DAY FOR 90 DAYS No atorvastat in 20 mg tablet TAKE 1 TABLET BY MOUTH EVERY DAY FOR 90 DAYS [facility] carvedilol 3.125 mg tablet TAKE 1 TABLET BY MOUTH TWICE A DAY WITH FOOD FOR 90 DAYS carvedilol 3.125 mg tablet TAKE 1 TABLET BY MOUTH TWICE A DAY WITH FOOD FOR 90 DAYS No carvedilol 3.125 mg tablet TAKE 1 TABLET BY MOUTH TWICE A DAY WITH FOOD FOR 90 DAYS [facility] famotidine 20 mg tablet TAKE 1 TABLET BY MOUTH EVERYDAY AT BEDTIME famotidine 20 mg tablet TAKE 1 TABLET BY MOUTH EVERYDAY AT BEDTIME No famotidine 20 mg tablet TAKE 1 TABLET BY MOUTH EVERYDAY AT BEDTIME [facility] Farxiga 10 mg tablet TAKE 1 TABLET BY MOUTH EVERY DAY FOR 90 DAYS Farxiga 10 mg tablet TAKE 1 TABLET BY MOUTH EVERY DAY FOR 90 DAYS No Farxiga 10 mg tablet TAKE 1 TABLET BY MOUTH EVERY DAY FOR 90 DAYS [facility] glipizide 10 mg tablet 1 TABLET 30 MINUTES BEFORE BREAKFAST ORALLY TWICE A DAY 90 DAYS glipizide 10 mg tablet 1 TABLET 30 MINUTES BEFORE BREAKFAST ORALLY TWICE A DAY 90 DAYS No glipizide 10 mg tablet 1 TABLET 30 MINUTES BEFORE BREAKFAST ORALLY TWICE A DAY 90 DAYS [facility] losartan 100 mg tablet TAKE 1 TABLET BY MOUTH EVERY DAY losartan 100 mg tablet TAKE 1 TABLET BY MOUTH EVERY DAY No losartan 100 mg tablet TAKE 1 TABLET BY MOUTH EVERY DAY [facility] Metamucil 30.9 % oral powder Take by oral route. Metamucil 30.9 % oral powder Take by oral route. No Metamucil 30.9 % oral powder Take by oral route. [facility] metformin ER 500 mg tablet,exte nded release 24 hr metformin ER 500 mg tablet,exte nded release 24 hr No metformin ER 500 mg tablet,ext ended release 24 hr [facility] Myrbetriq 50 mg tablet,exte nded release Take 1 tablet every day by oral route for 30 days. Myrbetriq 50 mg tablet,exte nded release Take 1 tablet every day by oral route for 30 days. No 1 Q1D Myrbetriq 50 mg tablet,ext ended release Take 1 tablet every day by oral route for 30 days. [facility] OneTouch Delica Plus Lancet 33 gauge USE TO CHECK GLUCOSE ONE DAILY OneTouch Delica Plus Lancet 33 gauge USE TO CHECK GLUCOSE ONE DAILY No OneTouch Delica Plus Lancet 33 gauge USE TO CHECK GLUCOSE ONE DAILY [facility] OneTouch Ultra Test strips TEST BLOOD SUGAR ONCE DAILY OneTouch Ultra Test strips TEST BLOOD SUGAR ONCE DAILY No OneTouch Ultra Test strips TEST BLOOD SUGAR ONCE DAILY [facility] aspirin aspirin No aspirin [facility] No known medications No [facility] No known medications No Un cherise ity [facility] Losartan Potassium Losartan Potassium Yes Na Bianchi [facility] Gabapentin Gabapentin Yes Na Bianchi 1 capsule [facility] Vitamin D Vitamin D Yes Na Bianchi not defined [facility] Atorvastati n Calcium Atorvastati n Calcium Yes Na Bianchi 1 tablet Comm n [facility] MetFORMIN HCl ER MetFORMIN HCl ER Yes Na Bianchi 1 tablet with evening meal [facility] Flonase Flonase Yes Na Bianchi 2 sprays in each nostril [facility] Valacyclovi r HCl Valacyclovi r HCl Yes Na Bianchi 1 tablet [facility] Aspirin 81 MG Aspirin 81 MG No 1{table t} QD Aspirin 81 MG glipiZIDE 10 MG glipiZIDE 10 MG No BID glipiZIDE 10 MG Omeprazole 20 MG Omeprazole 20 MG No Omeprazole 20 MG Carvedilol 3.125 MG Carvedilol 3.125 MG No 1{table t_with_ food} BID Carvedilol 3.125 MG Farxiga 10 MG Farxiga 10 MG No 1{table t} QD Farxiga 10 MG Atorvastati n Calcium 10 MG Atorvastati n Calcium 10 MG No 1{table t} QD Atorvastat in Calcium 10 MG Losartan Potassium 100 MG Losartan Potassium 100 MG No 1{table t} QD Losartan Potassium 100 MG Myrbetriq 50 MG Myrbetriq 50 MG No 1{table t} QD Myrbetriq 50 MG metFORMIN HCl ER 500 MG metFORMIN HCl ER 500 MG No 2{table t} BID metFORMIN HCl ER 500 MG Aspirin 81 MG Aspirin 81 MG No 1{table t} QD Aspirin 81 MG glipiZIDE 10 MG glipiZIDE 10 MG No BID glipiZIDE 10 MG Omeprazole 20 MG Omeprazole 20 MG No Omeprazole 20 MG Carvedilol 3.125 MG Carvedilol 3.125 MG No 1{table t_with_ food} BID Carvedilol 3.125 MG Farxiga 10 MG Farxiga 10 MG No 1{table t} QD Farxiga 10 MG Atorvastati n Calcium 10 MG Atorvastati n Calcium 10 MG No 1{table t} QD Atorvastat in Calcium 10 MG Losartan Potassium 100 MG Losartan Potassium 100 MG No 1{table t} QD Losartan Potassium 100 MG Myrbetriq 50 MG Myrbetriq 50 MG No 1{table t} QD Myrbetriq 50 MG metFORMIN HCl ER 500 MG metFORMIN HCl ER 500 MG No 2{table t} BID metFORMIN HCl ER 500 MG Glimepiride 4 MG Glimepiride 4 MG No BID Glimepirid e 4 MG [facility] Atorvastati n Calcium 10 MG Atorvastati n Calcium 10 MG No 1{table t} QD Atorvastat in Calcium 10 MG [facility] Aspirin 81 MG Aspirin 81 MG No 1{table t} QD Aspirin 81 MG glipiZIDE 10 MG glipiZIDE 10 MG No BID glipiZIDE 10 MG Omeprazole 20 MG Omeprazole 20 MG No Omeprazole 20 MG Carvedilol 3.125 MG Carvedilol 3.125 MG No 1{table t_with_ food} BID Carvedilol 3.125 MG Farxiga 10 MG Farxiga 10 MG No 1{table t} QD Farxiga 10 MG Atorvastati n Calcium 10 MG Atorvastati n Calcium 10 MG No 1{table t} QD Atorvastat in Calcium 10 MG Farxiga 10mg Farxiga 10mg No QD Farxiga 10mg [facility] Losartan Potassium 100 MG Losartan Potassium 100 MG No 1{table t} QD Losartan Potassium 100 MG Myrbetriq 50 MG Myrbetriq 50 MG No 1{table t} QD Myrbetriq 50 MG metFORMIN HCl ER 500 MG metFORMIN HCl ER 500 MG No 2{table t} BID metFORMIN HCl ER 500 MG Aspirin 81 MG Aspirin 81 MG No 1{table t} QD Aspirin 81 MG glipiZIDE 10 MG glipiZIDE 10 MG No BID glipiZIDE 10 MG Omeprazole 20 MG Omeprazole 20 MG No Omeprazole 20 MG Carvedilol 3.125 MG Carvedilol 3.125 MG No 1{table t_with_ food} BID Carvedilol 3.125 MG Farxiga 10 MG Farxiga 10 MG No 1{table t} QD Farxiga 10 MG Atorvastati n Calcium 10 MG Atorvastati n Calcium 10 MG No 1{table t} QD Atorvastat in Calcium 10 MG Losartan Potassium 100 MG Losartan Potassium 100 MG No 1{table t} QD Losartan Potassium 100 MG Losartan Potassium 100 MG Losartan Potassium 100 MG No 1{table t} QD Losartan Potassium 100 MG [facility] Myrbetriq 50 MG Myrbetriq 50 MG No 1{table t} QD Myrbetriq 50 MG metFORMIN HCl ER 500 MG metFORMIN HCl ER 500 MG No 2{table t} BID metFORMIN HCl ER 500 MG Losartan Potassium 100 MG Losartan Potassium 100 MG No Losartan Potassium 100 MG metFORMIN HCl ER 500 MG metFORMIN HCl ER 500 MG No 2{table t} BID metFORMIN HCl ER 500 MG Aspirin 81 MG Aspirin 81 MG No 1{table t} QD Aspirin 81 MG Myrbetriq 50 MG Myrbetriq 50 MG No 1{table t} QD Myrbetriq 50 MG Farxiga 10 MG Farxiga 10 MG No 1{table t} QD Farxiga 10 MG Carvedilol 3.125 MG Carvedilol 3.125 MG No 1{table t_with_ food} BID Carvedilol 3.125 MG Atorvastati n Calcium 10 MG Atorvastati n Calcium 10 MG No Atorvastat in Calcium 10 MG Omeprazole 20 MG Omeprazole 20 MG No Omeprazole 20 MG glipiZIDE 10 MG glipiZIDE 10 MG No glipiZIDE 10 MG Flonase 50 MCG/ACT Flonase 50 MCG/ACT No 2{spray s_in_ea ch_nost ril} QD Flonase 50 MCG/ACT [facility] Linzess 145 mcg Linzess 145 mcg No Linzess 145 mcg [facility] Losartan Potassium 100 MG Losartan Potassium 100 MG No Losartan Potassium 100 MG metFORMIN HCl ER 500 MG metFORMIN HCl ER 500 MG No 2{table t} BID metFORMIN HCl ER 500 MG valACYclovi r HCl 500 MG valACYclovi r HCl 500 MG No 2{table ts} BID valACYclov ir HCl 500 MG [facility] Aspirin 81 MG Aspirin 81 MG No 1{table t} QD Aspirin 81 MG Myrbetriq 50 MG Myrbetriq 50 MG No 1{table t} QD Myrbetriq 50 MG Farxiga 10 MG Farxiga 10 MG No 1{table t} QD Farxiga 10 MG Carvedilol 3.125 MG Carvedilol 3.125 MG No 1{table t_with_ food} BID Carvedilol 3.125 MG Atorvastati n Calcium 10 MG Atorvastati n Calcium 10 MG No Atorvastat in Calcium 10 MG Omeprazole 20 MG Omeprazole 20 MG No Omeprazole 20 MG glipiZIDE 10 MG glipiZIDE 10 MG No glipiZIDE 10 MG valACYclovi r HCl 1 GM valACYclovi r HCl 1 GM No 1{table t} TID valACYclov ir HCl 1 GM [facility] Cetirizine HCl 10 MG Cetirizine HCl 10 MG No 1{table t} QD Cetirizine HCl 10 MG [facility] Gabapentin 100 MG Gabapentin 100 MG No 1{capsu le} TID Gabapentin 100 MG [facility] Glimepiride 4 MG Glimepiride 4 MG No BID Glimepirid e 4 MG Cetirizine HCl 10 MG Cetirizine HCl 10 MG No 1{table t} QD Cetirizine HCl 10 MG Linzess 145 mcg Linzess 145 mcg No Linzess 145 mcg Flonase 50 MCG/ACT Flonase 50 MCG/ACT No 2{spray s_in_ea ch_nost ril} QD Flonase 50 MCG/ACT Gabapentin 100 MG Gabapentin 100 MG No 1{capsu le} TID Gabapentin 100 MG Losartan Potassium 100 MG Losartan Potassium 100 MG No Losartan Potassium 100 MG Atorvastati n Calcium 10 MG Atorvastati n Calcium 10 MG No Atorvastat in Calcium 10 MG metFORMIN HCl ER 500 MG metFORMIN HCl ER 500 MG No metFORMIN HCl ER 500 MG Glimepiride 4 MG Glimepiride 4 MG No BID Glimepirid e 4 MG Losartan Potassium 100 MG Losartan Potassium 100 MG No 1{table t} QD Losartan Potassium 100 MG metFORMIN HCl ER 500 MG metFORMIN HCl ER 500 MG No TID metFORMIN HCl ER 500 MG Flonase 50 MCG/ACT Flonase 50 MCG/ACT No 2{spray s_in_ea ch_nost ril} QD Flonase 50 MCG/ACT Linzess 145 mcg Linzess 145 mcg No Linzess 145 mcg Atorvastati n Calcium 10 MG Atorvastati n Calcium 10 MG No 1{table t} QD Atorvastat in Calcium 10 MG OneTouch Ultra - OneTouch Ultra - No OneTouch Ultra - Cetirizine HCl 10 MG Cetirizine HCl 10 MG No 1{table t} QD Cetirizine HCl 10 MG Gabapentin 100 MG Gabapentin 100 MG No 1{capsu le} TID Gabapentin 100 MG predniSONE 10 MG predniSONE 10 MG No QD predniSONE 10 MG Azithromyci n 250 MG Azithromyci n 250 MG No QD Azithromyc in 250 MG Cetirizine HCl 10 MG Cetirizine HCl 10 MG No 1{table t} QD Cetirizine HCl 10 MG Benzonatate 200 MG Benzonatate 200 MG No 1{capsu le_as_n eeded} TID Benzonatat e 200 MG Atorvastati n Calcium 10 MG Atorvastati n Calcium 10 MG No Atorvastat in Calcium 10 MG Flonase 50 MCG/ACT Flonase 50 MCG/ACT No 2{spray s_in_ea ch_nost ril} QD Flonase 50 MCG/ACT Gabapentin 100 MG Gabapentin 100 MG No 1{capsu le} TID Gabapentin 100 MG Linzess 145 mcg Linzess 145 mcg No Linzess 145 mcg Losartan Potassium 100 MG Losartan Potassium 100 MG No Losartan Potassium 100 MG Glimepiride 4 MG Glimepiride 4 MG No BID Glimepirid e 4 MG OneTouch Ultra - OneTouch Ultra - No OneTouch Ultra - Cetirizine HCl 10 MG Cetirizine HCl 10 MG No 1{table t} QD Cetirizine HCl 10 MG metFORMIN HCl ER 500 MG metFORMIN HCl ER 500 MG No metFORMIN HCl ER 500 MG Cetirizine HCl 10 MG Cetirizine HCl 10 MG No 1{table t} QD Cetirizine HCl 10 MG Cetirizine HCl 10 MG Cetirizine HCl 10 MG No 1{table t} QD Cetirizine HCl 10 MG metFORMIN HCl ER 500 MG metFORMIN HCl ER 500 MG No metFORMIN HCl ER 500 MG Losartan Potassium 100 MG Losartan Potassium 100 MG No 1{table t} QD Losartan Potassium 100 MG Glimepiride 4 MG Glimepiride 4 MG No Glimepirid e 4 MG Atorvastati n Calcium 10 MG Atorvastati n Calcium 10 MG No Atorvastat in Calcium 10 MG Flonase 50 MCG/ACT Flonase 50 MCG/ACT No 2{spray s_in_ea ch_nost ril} QD Flonase 50 MCG/ACT Gabapentin 100 MG Gabapentin 100 MG No 1{capsu le} TID Gabapentin 100 MG OneTouch Ultra - OneTouch Ultra - No OneTouch Ultra - Linzess 145 mcg Linzess 145 mcg No Linzess 145 mcg Glimepiride 4 MG Glimepiride 4 MG No Glimepirid e 4 MG Linzess 145 mcg Linzess 145 mcg No Linzess 145 mcg Losartan Potassium 100 MG Losartan Potassium 100 MG No 1{table t} QD Losartan Potassium 100 MG Atorvastati n Calcium 10 MG Atorvastati n Calcium 10 MG No 1{table t} QD Atorvastat in Calcium 10 MG metFORMIN HCl ER 500 MG metFORMIN HCl ER 500 MG No TID metFORMIN HCl ER 500 MG Flonase 50 MCG/ACT Flonase 50 MCG/ACT No 2{spray s_in_ea ch_nost ril} QD Flonase 50 MCG/ACT Gabapentin 100 MG Gabapentin 100 MG No 1{capsu le} TID Gabapentin 100 MG OneTouch Ultra - OneTouch Ultra - No OneTouch Ultra - Cetirizine HCl 10 MG Cetirizine HCl 10 MG No 1{table t} QD Cetirizine HCl 10 MG Glimepiride 4 MG Glimepiride 4 MG No Glimepirid e 4 MG Linzess 145 mcg Linzess 145 mcg No Linzess 145 mcg Losartan Potassium 100 MG Losartan Potassium 100 MG No 1{table t} QD Losartan Potassium 100 MG metFORMIN HCl ER 500 MG metFORMIN HCl ER 500 MG No TID metFORMIN HCl ER 500 MG OneTouch Ultra - OneTouch Ultra - No OneTouch Ultra - Gabapentin 100 MG Gabapentin 100 MG No 1{capsu le} TID Gabapentin 100 MG Flonase 50 MCG/ACT Flonase 50 MCG/ACT No 2{spray s_in_ea ch_nost ril} QD Flonase 50 MCG/ACT Atorvastati n Calcium 10 MG Atorvastati n Calcium 10 MG No 1{table t} QD Atorvastat in Calcium 10 MG Cetirizine HCl 10 MG Cetirizine HCl 10 MG No 1{table t} QD Cetirizine HCl 10 MG Linzess 145 mcg Linzess 145 mcg No Linzess 145 mcg Flonase 50 MCG/ACT Flonase 50 MCG/ACT No 2{spray s_in_ea ch_nost ril} QD Flonase 50 MCG/ACT Glimepiride 4 MG Glimepiride 4 MG No Glimepirid e 4 MG OneTouch Ultra - OneTouch Ultra - No OneTouch Ultra - Atorvastati n Calcium 10 MG Atorvastati n Calcium 10 MG No 1{table t} QD Atorvastat in Calcium 10 MG Losartan Potassium 100 MG Losartan Potassium 100 MG No 1{table t} QD Losartan Potassium 100 MG metFORMIN HCl ER 500 MG metFORMIN HCl ER 500 MG No metFORMIN HCl ER 500 MG Atorvastati n Calcium 10 MG Atorvastati n Calcium 10 MG No Atorvastat in Calcium 10 MG Gabapentin 100 MG Gabapentin 100 MG No 1{capsu le} TID Gabapentin 100 MG Cetirizine HCl 10 MG Cetirizine HCl 10 MG No 1{table t} QD Cetirizine HCl 10 MG Losartan Potassium 100 MG Losartan Potassium 100 MG No Losartan Potassium 100 MG Linzess 145 mcg Linzess 145 mcg No Linzess 145 mcg Flonase 50 MCG/ACT Flonase 50 MCG/ACT No 2{spray s_in_ea ch_nost ril} QD Flonase 50 MCG/ACT Glimepiride 4 MG Glimepiride 4 MG No Glimepirid e 4 MG OneTouch Ultra - OneTouch Ultra - No OneTouch Ultra - Atorvastati n Calcium 10 MG Atorvastati n Calcium 10 MG No 1{table t} QD Atorvastat in Calcium 10 MG Losartan Potassium 100 MG Losartan Potassium 100 MG No 1{table t} QD Losartan Potassium 100 MG metFORMIN HCl ER 500 MG metFORMIN HCl ER 500 MG No metFORMIN HCl ER 500 MG Gabapentin 100 MG Gabapentin 100 MG No 1{capsu le} TID Gabapentin 100 MG Cetirizine HCl 10 MG Cetirizine HCl 10 MG No 1{table t} QD Cetirizine HCl 10 MG metFORMIN HCl ER 500 MG metFORMIN HCl ER 500 MG No BID metFORMIN HCl ER 500 MG Atorvastati n Calcium 10 MG Atorvastati n Calcium 10 MG No 1{table t} QD Atorvastat in Calcium 10 MG Flonase 50 MCG/ACT Flonase 50 MCG/ACT No 2{spray s_in_ea ch_nost ril} QD Flonase 50 MCG/ACT Linzess 145 mcg Linzess 145 mcg No Linzess 145 mcg Losartan Potassium 100 MG Losartan Potassium 100 MG No Losartan Potassium 100 MG Cetirizine HCl 10 MG Cetirizine HCl 10 MG No 1{table t} QD Cetirizine HCl 10 MG OneTouch Ultra - OneTouch Ultra - No QD OneTouch Ultra - Atorvastati n Calcium 10 MG Atorvastati n Calcium 10 MG No Atorvastat in Calcium 10 MG Cetirizine HCl 10 MG Cetirizine HCl 10 MG No 1{table t} QD Cetirizine HCl 10 MG OneTouch Ultra - OneTouch Ultra - No QD OneTouch Ultra - Losartan Potassium 100 MG Losartan Potassium 100 MG No Losartan Potassium 100 MG Flonase 50 MCG/ACT Flonase 50 MCG/ACT No 2{spray s_in_ea ch_nost ril} QD Flonase 50 MCG/ACT metFORMIN HCl ER 500 MG metFORMIN HCl ER 500 MG No metFORMIN HCl ER 500 MG Linzess 145 mcg Linzess 145 mcg No Linzess 145 mcg Farxiga 10 MG Farxiga 10 MG No 1{table t} QD Farxiga 10 MG Atorvastati n Calcium 10 MG Atorvastati n Calcium 10 MG No 1{table t} QD Atorvastat in Calcium 10 MG Gabapentin 100 MG Gabapentin 100 MG No 1{capsu le} BID Gabapentin 100 MG glipiZIDE 10 MG glipiZIDE 10 MG No BID glipiZIDE 10 MG Losartan Potassium 100 MG Losartan Potassium 100 MG No 1{table t} QD Losartan Potassium 100 MG metFORMIN HCl ER 500 MG metFORMIN HCl ER 500 MG No metFORMIN HCl ER 500 MG Losartan Potassium 100 MG Losartan Potassium 100 MG No 1{table t} QD Losartan Potassium 100 MG metFORMIN HCl ER 500 MG metFORMIN HCl ER 500 MG No metFORMIN HCl ER 500 MG Gabapentin 100 MG Gabapentin 100 MG No 1{capsu le} BID Gabapentin 100 MG Atorvastati n Calcium 10 MG Atorvastati n Calcium 10 MG No 1{table t} QD Atorvastat in Calcium 10 MG glipiZIDE 10 MG glipiZIDE 10 MG No BID glipiZIDE 10 MG Atorvastati n Calcium 10 MG Atorvastati n Calcium 10 MG No 1{table t} QD Atorvastat in Calcium 10 MG metFORMIN HCl ER 500 MG metFORMIN HCl ER 500 MG No metFORMIN HCl ER 500 MG Gabapentin 100 MG Gabapentin 100 MG No 1{capsu le} BID Gabapentin 100 MG Losartan Potassium 100 MG Losartan Potassium 100 MG No 1{table t} QD Losartan Potassium 100 MG glipiZIDE 10 MG glipiZIDE 10 MG No BID glipiZIDE 10 MG Atorvastati n Calcium 10 MG Atorvastati n Calcium 10 MG No 1{table t} QD Atorvastat in Calcium 10 MG metFORMIN HCl ER 500 MG metFORMIN HCl ER 500 MG No metFORMIN HCl ER 500 MG Gabapentin 100 MG Gabapentin 100 MG No 1{capsu le} BID Gabapentin 100 MG Losartan Potassium 100 MG Losartan Potassium 100 MG No 1{table t} QD Losartan Potassium 100 MG glipiZIDE 10 MG glipiZIDE 10 MG No BID glipiZIDE 10 MG Atorvastati n Calcium 10 MG Atorvastati n Calcium 10 MG No 1{table t} QD Atorvastat in Calcium 10 MG metFORMIN HCl ER 500 MG metFORMIN HCl ER 500 MG No metFORMIN HCl ER 500 MG Gabapentin 100 MG Gabapentin 100 MG No 1{capsu le} BID Gabapentin 100 MG Losartan Potassium 100 MG Losartan Potassium 100 MG No 1{table t} QD Losartan Potassium 100 MG glipiZIDE 10 MG glipiZIDE 10 MG No BID glipiZIDE 10 MG Atorvastati n Calcium 10 MG Atorvastati n Calcium 10 MG No 1{table t} QD Atorvastat in Calcium 10 MG Losartan Potassium 100 MG Losartan Potassium 100 MG No 1{table t} QD Losartan Potassium 100 MG metFORMIN HCl ER 500 MG metFORMIN HCl ER 500 MG No 2{table t} BID metFORMIN HCl ER 500 MG Carvedilol 3.125 MG Carvedilol 3.125 MG No 1{table t_with_ food} BID Carvedilol 3.125 MG Atorvastati n Calcium 10 MG Atorvastati n Calcium 10 MG No 1{table t} QD Atorvastat in Calcium 10 MG Losartan Potassium 100 MG Losartan Potassium 100 MG No 1{table t} QD Losartan Potassium 100 MG metFORMIN HCl ER 500 MG metFORMIN HCl ER 500 MG No 2{table t} BID metFORMIN HCl ER 500 MG Carvedilol 3.125 MG Carvedilol 3.125 MG No 1{table t_with_ food} BID Carvedilol 3.125 MG Atorvastati n Calcium 10 MG Atorvastati n Calcium 10 MG No 1{table t} QD Atorvastat in Calcium 10 MG Losartan Potassium 100 MG Losartan Potassium 100 MG No 1{table t} QD Losartan Potassium 100 MG metFORMIN HCl ER 500 MG metFORMIN HCl ER 500 MG No 2{table t} BID metFORMIN HCl ER 500 MG Carvedilol 3.125 MG Carvedilol 3.125 MG No 1{table t_with_ food} BID Carvedilol 3.125 MG Omeprazole 20 MG Omeprazole 20 MG No Omeprazole 20 MG Losartan Potassium 100 MG Losartan Potassium 100 MG No 1{table t} QD Losartan Potassium 100 MG metFORMIN HCl ER 500 MG metFORMIN HCl ER 500 MG No 2{table t} BID metFORMIN HCl ER 500 MG glipiZIDE 10 MG glipiZIDE 10 MG No BID glipiZIDE 10 MG Aspirin 81 MG Aspirin 81 MG No 1{table t} QD Aspirin 81 MG Carvedilol 3.125 MG Carvedilol 3.125 MG No 1{table t_with_ food} BID Carvedilol 3.125 MG Immunizations Ordered Immunization Name Filled Immunization Name Date Status Comments Source Pfizer COVID-19 Vaccine Pfizer COVID-19 Vaccine 2020-10-28 11:56:00 Completed [facility] Pfizer COVID-19 Vaccine Pfizer COVID-19 Vaccine 2020-10-28 11:56:00 Completed [facility] Pfizer COVID-19 Vaccine Pfizer COVID-19 Vaccine 2020-10-28 11:56:00 Completed [facility] Pfizer COVID-19 Vaccine Pfizer COVID-19 Vaccine 2020-10-28 11:56:00 Completed [facility] Pfizer COVID-19 Vaccine Pfizer COVID-19 Vaccine 2020-10-28 11:56:00 Completed [facility] Pfizer COVID-19 Vaccine Pfizer COVID-19 Vaccine 2020-10-28 11:56:00 Completed [facility] Pfizer COVID-19 Vaccine Pfizer COVID-19 Vaccine 2020-10-28 11:56:00 Completed [facility] Pfizer COVID-19 Vaccine Pfizer COVID-19 Vaccine 2020-10-28 11:56:00 Completed [facility] Pfizer COVID-19 Vaccine Pfizer COVID-19 Vaccine 2020-10-28 11:56:00 Completed [facility] Pfizer COVID-19 Vaccine Pfizer COVID-19 Vaccine 2020-10-28 11:56:00 Completed [facility] Pfizer COVID-19 Vaccine Pfizer COVID-19 Vaccine 2020-10-28 11:56:00 Completed [facility] Pfizer COVID-19 Vaccine Pfizer COVID-19 Vaccine 2020-10-28 11:56:00 Completed [facility] Pfizer COVID-19 Vaccine Pfizer COVID-19 Vaccine 2020-10-28 11:56:00 Completed [facility] Pfizer COVID-19 Vaccine Pfizer COVID-19 Vaccine 2020-10-28 11:56:00 Completed [facility] Pfizer COVID-19 Vaccine Pfizer COVID-19 Vaccine 2020-10-28 11:56:00 Completed [facility] Pfizer COVID-19 Vaccine Pfizer COVID-19 Vaccine 2020-10-28 11:56:00 Completed [facility] Pfizer COVID-19 Vaccine Pfizer COVID-19 Vaccine 2020-10-28 11:56:00 Completed [facility] Pfizer COVID-19 Vaccine Pfizer COVID-19 Vaccine 2020-10-28 11:56:00 Completed [facility] Pfizer COVID-19 Vaccine Pfizer COVID-19 Vaccine 2020-10-28 11:56:00 Completed [facility] Pfizer COVID-19 Vaccine Pfizer COVID-19 Vaccine 2020-10-28 11:56:00 Completed [facility] Pfizer COVID-19 Vaccine Pfizer COVID-19 Vaccine 2020-10-28 11:56:00 Completed [facility] Pfizer COVID-19 Vaccine Pfizer COVID-19 Vaccine 2020-10-28 11:56:00 Completed [facility] SARS-COV-2 COVID-19 PFIZER VACCINE 2020-10-16 00:00:00 Completed [facility] SARS-COV-2 COVID-19 PFIZER VACCINE 2020-10-16 00:00:00 Completed [facility] SARS-COV-2 COVID-19 PFIZER VACCINE 2020-10-16 00:00:00 Completed [facility] SARS-COV-2 COVID-19 PFIZER VACCINE 2020-10-16 00:00:00 Completed [facility] SARS-COV-2 COVID-19 PFIZER VACCINE 2020-10-16 00:00:00 Completed [facility] SARS-COV-2 COVID-19 PFIZER VACCINE 2020-10-16 00:00:00 Completed [facility] SARS-COV-2 COVID-19 PFIZER VACCINE 2020-10-16 00:00:00 Completed [facility] SARS-COV-2 COVID-19 PFIZER VACCINE 2020-10-16 00:00:00 Completed [facility] SARS-COV-2 COVID-19 PFIZER VACCINE 2020-10-16 00:00:00 Completed [facility] Pfizer COVID-19 Vaccine Pfizer COVID-19 Vaccine 2020-09-27 11:56:00 Completed [facility] Pfizer COVID-19 Vaccine Pfizer COVID-19 Vaccine 2020-09-27 11:56:00 Completed [facility] Pfizer COVID-19 Vaccine Pfizer COVID-19 Vaccine 2020-09-27 11:56:00 Completed [facility] Pfizer COVID-19 Vaccine Pfizer COVID-19 Vaccine 2020-09-27 11:56:00 Completed [facility] Pfizer COVID-19 Vaccine Pfizer COVID-19 Vaccine 2020-09-27 11:56:00 Completed [facility] Pfizer COVID-19 Vaccine Pfizer COVID-19 Vaccine 2020-09-27 11:56:00 Completed [facility] Pfizer COVID-19 Vaccine Pfizer COVID-19 Vaccine 2020-09-27 11:56:00 Completed [facility] Pfizer COVID-19 Vaccine Pfizer COVID-19 Vaccine 2020-09-27 11:56:00 Completed [facility] Pfizer COVID-19 Vaccine Pfizer COVID-19 Vaccine 2020-09-27 11:56:00 Completed [facility] Pfizer COVID-19 Vaccine Pfizer COVID-19 Vaccine 2020-09-27 11:56:00 Completed [facility] Pfizer COVID-19 Vaccine Pfizer COVID-19 Vaccine 2020-09-27 11:56:00 Completed [facility] Pfizer COVID-19 Vaccine Pfizer COVID-19 Vaccine 2020-09-27 11:56:00 Completed [facility] Pfizer COVID-19 Vaccine Pfizer COVID-19 Vaccine 2020-09-27 11:56:00 Completed [facility] Pfizer COVID-19 Vaccine Pfizer COVID-19 Vaccine 2020-09-27 11:56:00 Completed [facility] Pfizer COVID-19 Vaccine Pfizer COVID-19 Vaccine 2020-09-27 11:56:00 Completed [facility] Pfizer COVID-19 Vaccine Pfizer COVID-19 Vaccine 2020-09-27 11:56:00 Completed [facility] Pfizer COVID-19 Vaccine Pfizer COVID-19 Vaccine 2020-09-27 11:56:00 Completed [facility] Pfizer COVID-19 Vaccine Pfizer COVID-19 Vaccine 2020-09-27 11:56:00 Completed [facility] Pfizer COVID-19 Vaccine Pfizer COVID-19 Vaccine 2020-09-27 11:56:00 Completed [facility] Pfizer COVID-19 Vaccine Pfizer COVID-19 Vaccine 2020-09-27 11:56:00 Completed [facility] Pfizer COVID-19 Vaccine Pfizer COVID-19 Vaccine 2020-09-27 11:56:00 Completed [facility] Pfizer COVID-19 Vaccine Pfizer COVID-19 Vaccine 2020-09-27 11:56:00 Completed [facility] SARS-COV-2 COVID-19 PFIZER VACCINE 2020-09-25 00:00:00 Completed [facility] SARS-COV-2 COVID-19 PFIZER VACCINE 2020-09-25 00:00:00 Completed [facility] SARS-COV-2 COVID-19 PFIZER VACCINE 2020-09-25 00:00:00 Completed [facility] SARS-COV-2 COVID-19 PFIZER VACCINE 2020-09-25 00:00:00 Completed [facility] SARS-COV-2 COVID-19 PFIZER VACCINE 2020-09-25 00:00:00 Completed [facility] SARS-COV-2 COVID-19 PFIZER VACCINE 2020-09-25 00:00:00 Completed [facility] SARS-COV-2 COVID-19 PFIZER VACCINE 2020-09-25 00:00:00 Completed [facility] SARS-COV-2 COVID-19 PFIZER VACCINE 2020-09-25 00:00:00 Completed [facility] SARS-COV-2 COVID-19 PFIZER VACCINE 2020-09-25 00:00:00 Completed [facility] Fluzone Fluzone 2020-05-20 11:55:00 Completed [facility] Fluzone Fluzone 2020-05-20 11:55:00 Completed [facility] Fluzone Fluzone 2020-05-20 11:55:00 Completed [facility] Fluzone Fluzone 2020-05-20 11:55:00 Completed [facility] Fluzone Fluzone 2020-05-20 11:55:00 Completed [facility] Fluzone Fluzone 2020-05-20 11:55:00 Completed [facility] Fluzone Fluzone 2020-05-20 11:55:00 Completed [facility] Fluzone Fluzone 2020-05-20 11:55:00 Completed [facility] Fluzone Fluzone 2020-05-20 11:55:00 Completed [facility] Fluzone Fluzone 2020-05-20 11:55:00 Completed [facility] Fluzone Fluzone 2020-05-20 11:55:00 Completed [facility] Fluzone Fluzone 2020-05-20 11:55:00 Completed [facility] Fluzone Fluzone 2020-05-20 11:55:00 Completed [facility] Fluzone Fluzone 2020-05-20 11:55:00 Completed [facility] Fluzone Fluzone 2020-05-20 11:55:00 Completed [facility] Fluzone Fluzone 2020-05-20 11:55:00 Completed [facility] Fluzone Fluzone 2020-05-20 11:55:00 Completed [facility] Fluzone Fluzone 2020-05-20 11:55:00 Completed [facility] Fluzone Fluzone 2020-05-20 11:55:00 Completed [facility] Fluzone Fluzone 2020-05-20 11:55:00 Completed [facility] Fluzone Fluzone 2020-05-20 11:55:00 Completed [facility] Fluzone Fluzone 2020-05-20 11:55:00 Completed [facility] Pneumovax (PPSV23) Pneumovax (PPSV23) 2020-04-29 11:55:00 Completed [facility] Pneumovax (PPSV23) Pneumovax (PPSV23) 2020-04-29 11:55:00 Completed [facility] Pneumovax (PPSV23) Pneumovax (PPSV23) 2020-04-29 11:55:00 Completed [facility] Pneumovax (PPSV23) Pneumovax (PPSV23) 2020-04-29 11:55:00 Completed [facility] Pneumovax (PPSV23) Pneumovax (PPSV23) 2020-04-29 11:55:00 Completed [facility] Pneumovax (PPSV23) Pneumovax (PPSV23) 2020-04-29 11:55:00 Completed [facility] Pneumovax (PPSV23) Pneumovax (PPSV23) 2020-04-29 11:55:00 Completed [facility] Pneumovax (PPSV23) Pneumovax (PPSV23) 2020-04-29 11:55:00 Completed [facility] Pneumovax (PPSV23) Pneumovax (PPSV23) 2020-04-29 11:55:00 Completed [facility] Pneumovax (PPSV23) Pneumovax (PPSV23) 2020-04-29 11:55:00 Completed [facility] Pneumovax (PPSV23) Pneumovax (PPSV23) 2020-04-29 11:55:00 Completed [facility] Pneumovax (PPSV23) Pneumovax (PPSV23) 2020-04-29 11:55:00 Completed [facility] Pneumovax (PPSV23) Pneumovax (PPSV23) 2020-04-29 11:55:00 Completed [facility] Pneumovax (PPSV23) Pneumovax (PPSV23) 2020-04-29 11:55:00 Completed [facility] Pneumovax (PPSV23) Pneumovax (PPSV23) 2020-04-29 11:55:00 Completed [facility] Pneumovax (PPSV23) Pneumovax (PPSV23) 2020-04-29 11:55:00 Completed [facility] Pneumovax (PPSV23) Pneumovax (PPSV23) 2020-04-29 11:55:00 Completed [facility] Pneumovax (PPSV23) Pneumovax (PPSV23) 2020-04-29 11:55:00 Completed [facility] Pneumovax (PPSV23) Pneumovax (PPSV23) 2020-04-29 11:55:00 Completed [facility] Pneumovax (PPSV23) Pneumovax (PPSV23) 2020-04-29 11:55:00 [facility]pleted [facility] Pneumovax (PPSV23) Pneumovax (PPSV23) 2020-04-29 11:55:00 [facility]pleted [facility] Pneumovax (PPSV23) Pneumovax (PPSV23) 2020-04-29 11:55:00 Completed [facility] Adacel (Tdap) Adacel (Tdap) 2020-04-29 11:54:00 Completed [facility] Adacel (Tdap) Adacel (Tdap) 2020-04-29 11:54:00 Completed [facility] Adacel (Tdap) Adacel (Tdap) 2020-04-29 11:54:[address] [facility] Adacel (Tdap) Adacel (Tdap) 2020-04-29 11:54:00 [facility]pleted [facility] Adacel (Tdap) Adacel (Tdap) 2020-04-29 11:54:00 [facility]pleted [facility] Adacel (Tdap) Adacel (Tdap) 2020-04-29 11:54:00 [facility]pleted [facility] Adacel (Tdap) Adacel (Tdap) 2020-04-29 11:54:00 [facility] Adacel (Tdap) Adacel (Tdap) 2020-04-29 11:54:00 [facility] Adacel (Tdap) Adacel (Tdap) 2020-04-29 11:54:00 [facility]pleted [facility] Adacel (Tdap) Adacel (Tdap) 2020-04-29 11:54:00 [facility] Adacel (Tdap) Adacel (Tdap) 2020-04-29 11:54:00 Completed [facility] Adacel (Tdap) Adacel (Tdap) 2020-04-29 11:54:00 Completed [facility] Adacel (Tdap) Adacel (Tdap) 2020-04-29 11:54:00 Completed [facility] Adacel (Tdap) Adacel (Tdap) 2020-04-29 11:54:00 Completed [facility] Adacel (Tdap) Adacel (Tdap) 2020-04-29 11:54:00 Completed [facility] Adacel (Tdap) Adacel (Tdap) 2020-04-29 11:54:00 Completed [facility] Adacel (Tdap) Adacel (Tdap) 2020-04-29 11:54:00 Completed [facility] Adacel (Tdap) Adacel (Tdap) 2020-04-29 11:54:00 Completed [facility] Adacel (Tdap) Adacel (Tdap) 2020-04-29 11:54:00 Completed [facility] Adacel (Tdap) Adacel (Tdap) 2020-04-29 11:54:00 Completed [facility] Adacel (Tdap) Adacel (Tdap) 2020-04-29 11:54:00 Completed [facility] Adacel (Tdap) Adacel (Tdap) 2020-04-29 11:54:00 Completed [facility] Pfizer COVID-19 Vaccine Pfizer COVID-19 Vaccine Unknown Completed [facility] Pfizer COVID-19 Vaccine Pfizer COVID-19 Vaccine Unknown Completed [facility] Fluzone Fluzone Unknown Completed [facility] Pneumovax (PPSV23) Pneumovax (PPSV23) Unknown Completed [facility] Adacel (Tdap) Adacel (Tdap) Unknown Completed [facility] Pfizer COVID-19 Vaccine Pfizer COVID-19 Vaccine Unknown Completed [facility] Pfizer COVID-19 Vaccine Pfizer COVID-19 Vaccine Unknown Completed [facility] Fluzone Fluzone Unknown Completed [facility] Pneumovax (PPSV23) Pneumovax (PPSV23) Unknown Completed [facility] Adacel (Tdap) Adacel (Tdap) Unknown Completed [facility] Pfizer COVID-19 Vaccine Pfizer COVID-19 Vaccine Unknown Completed [facility] Pfizer COVID-19 Vaccine Pfizer COVID-19 Vaccine Unknown Completed [facility] Fluzone Fluzone Unknown Completed [facility] Pneumovax (PPSV23) Pneumovax (PPSV23) Unknown Completed [facility] Adacel (Tdap) Adacel (Tdap) Unknown Completed [facility] Pfizer COVID-19 Vaccine Pfizer COVID-19 Vaccine Unknown Completed [facility] Pfizer COVID-19 Vaccine Pfizer COVID-19 Vaccine Unknown Completed [facility] Fluzone Fluzone Unknown Completed [facility] Pneumovax (PPSV23) Pneumovax (PPSV23) Unknown Completed [facility] Adacel (Tdap) Adacel (Tdap) Unknown Completed [facility] Pfizer COVID-19 Vaccine Pfizer COVID-19 Vaccine Unknown Completed [facility] Pfizer COVID-19 Vaccine Pfizer COVID-19 Vaccine Unknown Completed [facility] Fluzone Fluzone Unknown Completed [facility] Pneumovax (PPSV23) Pneumovax (PPSV23) Unknown Completed [facility] Adacel (Tdap) Adacel (Tdap) Unknown Completed [facility] Pfizer COVID-19 Vaccine Pfizer COVID-19 Vaccine Unknown Completed [facility] Pfizer COVID-19 Vaccine Pfizer COVID-19 Vaccine Unknown Completed [facility] Fluzone Fluzone Unknown Completed [facility] Pneumovax (PPSV23) Pneumovax (PPSV23) Unknown Completed [facility] Adacel (Tdap) Adacel (Tdap) Unknown Completed [facility] Pfizer COVID-19 Vaccine Pfizer COVID-19 Vaccine Unknown Completed [facility] Pfizer COVID-19 Vaccine Pfizer COVID-19 Vaccine Unknown Completed [facility] Fluzone Fluzone Unknown Completed [facility] Pneumovax (PPSV23) Pneumovax (PPSV23) Unknown Completed [facility] Adacel (Tdap) Adacel (Tdap) Unknown Completed [facility] Pfizer COVID-19 Vaccine Pfizer COVID-19 Vaccine Unknown Completed [facility] Pfizer COVID-19 Vaccine Pfizer COVID-19 Vaccine Unknown Completed [facility] Fluzone Fluzone Unknown Completed [facility] Pneumovax (PPSV23) Pneumovax (PPSV23) Unknown Completed [facility] Adacel (Tdap) Adacel (Tdap) Unknown Completed [facility] Pfizer COVID-19 Vaccine Pfizer COVID-19 Vaccine Unknown Completed [facility] Pfizer COVID-19 Vaccine Pfizer COVID-19 Vaccine Unknown Completed [facility] Fluzone Fluzone Unknown Completed [facility] Pneumovax (PPSV23) Pneumovax (PPSV23) Unknown Completed [facility] Adacel (Tdap) Adacel (Tdap) Unknown Completed [facility] Pfizer COVID-19 Vaccine Pfizer COVID-19 Vaccine Unknown Completed [facility] Pfizer COVID-19 Vaccine Pfizer COVID-19 Vaccine Unknown Completed [facility] Fluzone Fluzone Unknown Completed [facility] Pneumovax (PPSV23) Pneumovax (PPSV23) Unknown Completed [facility] Adacel (Tdap) Adacel (Tdap) Unknown Completed [facility] Pfizer COVID-19 Vaccine Pfizer COVID-19 Vaccine Unknown Completed [facility] Pfizer COVID-19 Vaccine Pfizer COVID-19 Vaccine Unknown Completed [facility] Fluzone Fluzone Unknown Completed [facility] Pneumovax (PPSV23) Pneumovax (PPSV23) Unknown Completed [facility] Adacel (Tdap) Adacel (Tdap) Unknown Completed [facility] Pfizer COVID-19 Vaccine Pfizer COVID-19 Vaccine Unknown Completed [facility] Pfizer COVID-19 Vaccine Pfizer COVID-19 Vaccine Unknown Completed [facility] Fluzone Fluzone Unknown Completed [facility] Pneumovax (PPSV23) Pneumovax (PPSV23) Unknown Completed [facility] Adacel (Tdap) Adacel (Tdap) Unknown Completed [facility] Pfizer COVID-19 Vaccine Pfizer COVID-19 Vaccine Unknown Completed [facility] Pfizer COVID-19 Vaccine Pfizer COVID-19 Vaccine Unknown Completed [facility] Fluzone Fluzone Unknown Completed [facility] Pneumovax (PPSV23) Pneumovax (PPSV23) Unknown Completed [facility] Adacel (Tdap) Adacel (Tdap) Unknown Completed [facility] Pfizer COVID-19 Vaccine Pfizer COVID-19 Vaccine Unknown Completed [facility] Pfizer COVID-19 Vaccine Pfizer COVID-19 Vaccine Unknown Completed [facility] Fluzone Fluzone Unknown Completed [facility] Pneumovax (PPSV23) Pneumovax (PPSV23) Unknown Completed [facility] Adacel (Tdap) Adacel (Tdap) Unknown Completed [facility] Pfizer COVID-19 Vaccine Pfizer COVID-19 Vaccine Unknown Completed [facility] Pfizer COVID-19 Vaccine Pfizer COVID-19 Vaccine Unknown Completed [facility] Fluzone Fluzone Unknown Completed [facility] Pneumovax (PPSV23) Pneumovax (PPSV23) Unknown Completed [facility] Adacel (Tdap) Adacel (Tdap) Unknown Completed [facility] Pfizer COVID-19 Vaccine Pfizer COVID-19 Vaccine Unknown Completed [facility] Pfizer COVID-19 Vaccine Pfizer COVID-19 Vaccine Unknown Completed [facility] Fluzone Fluzone Unknown Completed [facility] Pneumovax (PPSV23) Pneumovax (PPSV23) Unknown Completed [facility] Adacel (Tdap) Adacel (Tdap) Unknown Completed [facility] Pfizer COVID-19 Vaccine Pfizer COVID-19 Vaccine Unknown Completed [facility] Pfizer COVID-19 Vaccine Pfizer COVID-19 Vaccine Unknown Completed [facility] Fluzone Fluzone Unknown Completed [facility] Pneumovax (PPSV23) Pneumovax (PPSV23) Unknown Completed [facility] Adacel (Tdap) Adacel (Tdap) Unknown Completed [facility] Pfizer COVID-19 Vaccine Pfizer COVID-19 Vaccine Unknown Completed [facility] Pfizer COVID-19 Vaccine Pfizer COVID-19 Vaccine Unknown Completed [facility] Fluzone Fluzone Unknown Completed [facility] Pneumovax (PPSV23) Pneumovax (PPSV23) Unknown Completed [facility] Adacel (Tdap) Adacel (Tdap) Unknown Completed [facility] Pfizer COVID-19 Vaccine Pfizer COVID-19 Vaccine Unknown Completed [facility] Pfizer COVID-19 Vaccine Pfizer COVID-19 Vaccine Unknown Completed [facility] Fluzone Fluzone Unknown Completed [facility] Pneumovax (PPSV23) Pneumovax (PPSV23) Unknown Completed [facility] Adacel (Tdap) Adacel (Tdap) Unknown Completed [facility] Pfizer COVID-19 Vaccine Pfizer COVID-19 Vaccine Unknown Completed [facility] Pfizer COVID-19 Vaccine Pfizer COVID-19 Vaccine Unknown Completed [facility] Fluzone Fluzone Unknown Completed [facility] Pneumovax (PPSV23) Pneumovax (PPSV23) Unknown Completed [facility] Adacel (Tdap) Adacel (Tdap) Unknown Completed [facility] Vital Signs Vital Name Observation Time Observation Value Comments S ource Height 2023-11-13 00:00:00 60 [in_i] [facility] BP Systolic 2023-11-13 00:00:00 129 mm[Hg] [facility] BMI (Body Mass Index) 2023-11-13 00:00:00 46.8 kg/m2 [facility] Body Weight 2023-11-13 00:00:00 239.8 [lb_av] [facility] BP Diastolic 2023-11-13 00:00:00 59 mm[Hg] [facility] BMI (Body Mass Index) 2023-09-19 00:00:00 46.1 kg/m2 [facility] BP Diastolic 2023-09-19 00:00:00 56 mm[Hg] [facility] BP Systolic 2023-09-19 00:00:00 118 mm[Hg] [facility] Body Weight 2023-09-19 00:00:00 236 [lb_av] [facility] Height 2023-09-19 00:00:00 60 [in_i] [facility] height 2023-09-12 13:40:00 60 [in_i] [facility]mo n [facility] weight 2023-09-12 13:40:00 237.8 [lb_av] Co [facility] temperature 2023-09-12 13:40:00 97.3 [degF] Com mon [facility] bmi 2023-09-12 13:40:00 46.44 kg/m2 Comm on [facility] oximetry 2023-09-12 13:40:00 97 % [facility] respiratory rate 2023-09-12 13:40:00 16 /min Common [facility] blood pressure systolic 2023-09-12 13:40:00 136 mm[Hg] [facility] blood pressure diastolic 2023-09-12 13:40:00 74 mm[Hg] [facility] height 2023-09-12 13:40:00 60 [in_i] Commo n [facility] weight 2023-09-12 13:40:00 237.8 [lb_av] Co mmon [facility] temperature 2023-09-12 13:40:00 97.3 [degF] Com mon [facility] bmi 2023-09-12 13:40:00 46.44 kg/m2 Comm on [facility] oximetry 2023-09-12 13:40:00 97 % [facility] respiratory rate 2023-09-12 13:40:00 16 /min [facility] blood pressure systolic 2023-09-12 13:40:00 136 mm[Hg] [facility] blood pressure diastolic 2023-09-12 13:40:00 74 mm[Hg] [facility] height 2023-08-14 13:00:00 60 [in_i] Commo n [facility] weight 2023-08-14 13:00:00 238 [lb_av] Comm on [facility] bmi 2023-08-14 13:00:00 46.48 kg/m2 Comm on [facility] height 2023-08-01 13:20:00 60 [in_i] Commo n [facility] weight 2023-08-01 13:20:00 238 [lb_av] Comm on [facility] temperature 2023-08-01 13:20:00 97.3 [degF] Com [facility] bmi 2023-08-01 13:20:00 46.48 kg/m2 Comm on [facility] oximetry 2023-08-01 13:20:00 97 % [facility] respiratory rate 2023-08-01 13:20:00 16 /min [facility] blood pressure systolic 2023-08-01 13:20:00 136 mm[Hg] [facility] blood pressure diastolic 2023-08-01 13:20:00 82 mm[Hg] Common [facility] height 2023-07-09 14:00:00 60 [in_i] Commo n [facility] weight 2023-07-09 14:00:00 234 [lb_av] Comm on [facility] temperature 2023-07-09 14:00:00 97.3 [degF] Com [facility] bmi 2023-07-09 14:00:00 45.7 kg/m2 [facility] oximetry 2023-07-09 14:00:00 97 % [facility] respiratory rate 2023-07-09 14:00:00 16 /min [facility] blood pressure systolic 2023-07-09 14:00:00 134 mm[Hg] [facility] blood pressure diastolic 2023-07-09 14:00:00 80 mm[Hg] Common [facility] height 2023-06-08 14:20:00 60 [in_i] Commo [facility] weight 2023-06-08 14:20:00 237.6 [lb_av] Co [facility] temperature 2023-06-08 14:20:00 97.0 [degF] Com [facility] bmi 2023-06-08 14:20:00 46.4 kg/m2 [facility] oximetry 2023-06-08 14:20:00 97 % [facility] respiratory rate 2023-06-08 14:20:00 16 /min [facility] blood pressure systolic 2023-06-08 14:20:00 140 mm[Hg] [facility] blood pressure diastolic 2023-06-08 14:20:00 68 mm[Hg] [facility] height 2023-03-09 14:00:00 60 [in_i] Commo n [facility] weight 2023-03-09 14:00:00 233 [lb_av] Comm on [facility] temperature 2023-03-09 14:00:00 97.2 [degF] Com [facility] bmi 2023-03-09 14:00:00 45.5 kg/m2 [facility] oximetry 2023-03-09 14:00:00 96 % [facility] respiratory rate 2023-03-09 14:00:00 17 /min [facility] blood pressure systolic 2023-03-09 14:00:00 132 mm[Hg] [facility] blood pressure diastolic 2023-03-09 14:00:00 78 mm[Hg] [facility] height 2023-01-31 16:00:00 60 [in_i] Commo n [facility] weight 2023-01-31 16:00:00 238.4 [lb_av] Co [facility] temperature 2023-01-31 16:00:00 97.5 [degF] Com [facility] bmi 2023-01-31 16:00:00 46.55 kg/m2 Comm on [facility] oximetry 2023-01-31 16:00:00 95 % [facility] respiratory rate 2023-01-31 16:00:00 16 /min [facility] blood pressure systolic 2023-01-31 16:00:00 134 mm[Hg] [facility] blood pressure diastolic 2023-01-31 16:00:00 68 mm[Hg] [facility] height 2023-01-31 15:00:00 60 [in_i] Commo n [facility] weight 2023-01-31 15:00:00 238.4 [lb_av] Co [facility] temperature 2023-01-31 15:00:00 97.5 [degF] Com mon [facility] bmi 2023-01-31 15:00:00 46.55 kg/m2 Comm on [facility] oximetry 2023-01-31 15:00:00 95 % Commo [facility] respiratory rate 2023-01-31 15:00:00 16 /min [facility] blood pressure systolic 2023-01-31 15:00:00 134 mm[Hg] [facility] blood pressure diastolic 2023-01-31 15:00:00 68 mm[Hg] [facility] height 2022-05-18 13:00:00 60 [in_i] Commo n [facility] weight 2022-05-18 13:00:00 260 [lb_av] Comm on [facility] temperature 2022-05-18 13:00:00 98 [degF] Comm on [facility] bmi 2022-05-18 13:00:00 50.77 kg/m2 Comm on [facility] oximetry 2022-05-18 13:00:00 96 % Commo [facility] respiratory rate 2022-05-18 13:00:00 18 /min [facility] blood pressure systolic 2022-05-18 13:00:00 136 mm[Hg] Common [facility] blood pressure diastolic 2022-05-18 13:00:00 69 mm[Hg] [facility] height 2022-05-18 13:00:00 60 [in_i] Commo n [facility] weight 2022-05-18 13:00:00 260 [lb_av] Comm on [facility] temperature 2022-05-18 13:00:00 98 [degF] Comm on [facility] bmi 2022-05-18 13:00:00 50.77 kg/m2 Comm on [facility] oximetry 2022-05-18 13:00:00 96 % Com[facility] respiratory rate 2022-05-18 13:00:00 18 /min [facility] blood pressure systolic 2022-05-18 13:00:00 136 mm[Hg] [facility] blood pressure diastolic 2022-05-18 13:00:00 69 mm[Hg] Common [facility] height 2022-02-14 13:40:00 60 [in_i] Commo n [facility] weight 2022-02-14 13:40:00 256.2 [lb_av] Co [facility] temperature 2022-02-14 13:40:00 97.7 [degF] Com mon [facility] bmi 2022-02-14 13:40:00 50.03 kg/m2 Comm on [facility] oximetry 2022-02-14 13:40:00 95 % Commo [facility] respiratory rate 2022-02-14 13:40:00 16 /min [facility] blood pressure systolic 2022-02-14 13:40:00 133 mm[Hg] [facility] blood pressure diastolic 2022-02-14 13:40:00 60 mm[Hg] [facility] height 2021-11-15 10:00:00 60 [in_i] Commo n [facility] weight 2021-11-15 10:00:00 256 [lb_av] Comm on [facility] temperature 2021-11-15 10:00:00 97.7 [degF] Com mon [facility] bmi 2021-11-15 10:00:00 49.99 kg/m2 Comm on [facility] oximetry 2021-11-15 10:00:00 95 % Commo n [facility] respiratory rate 2021-11-15 10:00:00 18 /min [facility] blood pressure systolic 2021-11-15 10:00:00 128 mm[Hg] [facility] blood pressure diastolic 2021-11-15 10:00:00 72 mm[Hg] [facility] Heart rate 2021-08-26 16:50:00 72 /min [facility] Respiratory rate 2021-08-26 16:50:00 14 /min [facility] Oxygen saturation in Arterial blood by Pulse oximetry 2021-08-26 16:50:00 96 /min [facility] Systolic blood pressure 2021-08-26 16:48:00 115 mm[Hg] [facility] Diastolic blood pressure 2021-08-26 16:48:00 57 mm[Hg] [facility] Body temperature 2021-08-26 16:14:00 36.22 Lizbeth [facility] Body height 2021-08-25 13:13:00 152.4 cm [facility] Body weight 2021-08-25 13:13:00 113.4 kg [facility] BMI 2021-08-25 13:13:00 48.83 kg/m2 [facility] Heart rate 2021-08-26 16:41:00 73 /min [facility] Respiratory rate 2021-08-26 16:41:00 10 /min [facility] Oxygen saturation in Arterial blood by Pulse oximetry 2021-08-26 16:41:00 96 /min [facility] Systolic blood pressure 2021-08-26 16:39:00 115 mm[Hg] [facility] Diastolic blood pressure 2021-08-26 16:39:00 57 mm[Hg] [facility] Body temperature 2021-08-26 16:14:00 36.22 Lizbeth [facility] Body height 2021-08-25 13:13:00 152.4 cm [facility] Body weight 2021-08-25 13:13:00 113.4 kg [facility] BMI 2021-08-25 13:13:00 48.83 kg/m2 [facility] height 2021-08-16 11:00:00 60 [in_i] Commo n [facility] weight 2021-08-16 11:00:00 258.4 [lb_av] Co mmon [facility] temperature 2021-08-16 11:00:00 97.7 [degF] Com mon [facility] bmi 2021-08-16 11:00:00 50.46 kg/m2 Comm on [facility] oximetry 2021-08-16 11:00:00 95 % Commo n [facility] respiratory rate 2021-08-16 11:00:00 18 /min [facility] blood pressure systolic 2021-08-16 11:00:00 138 mm[Hg] Common [facility] blood pressure diastolic 2021-08-16 11:00:00 72 mm[Hg] Common [facility] height 2021-05-17 13:40:00 60 [in_i] Commo n [facility] weight 2021-05-17 13:40:00 259 [lb_av] Comm on [facility] temperature 2021-05-17 13:40:00 97.5 [degF] Com [facility] bmi 2021-05-17 13:40:00 50.58 kg/m2 Comm on [facility] oximetry 2021-05-17 13:40:00 95 % Commo n [facility] respiratory rate 2021-05-17 13:40:00 17 /min [facility] blood pressure systolic 2021-05-17 13:40:00 130 mm[Hg] Common [facility] blood pressure diastolic 2021-05-17 13:40:00 68 mm[Hg] Common [facility] height 2021-04-18 11:00:00 60 [in_i] Commo n [facility] weight 2021-04-18 11:00:00 259.2 [lb_av] Co [facility] temperature 2021-04-18 11:00:00 97.2 [degF] Com mon [facility] bmi 2021-04-18 11:00:00 50.62 kg/m2 Comm on [facility] oximetry 2021-04-18 11:00:00 96 % Commo n [facility] respiratory rate 2021-04-18 11:00:00 18 /min [facility] blood pressure systolic 2021-04-18 11:00:00 120 mm[Hg] [facility] blood pressure diastolic 2021-04-18 11:00:00 70 mm[Hg] [facility] Systolic blood pressure 2020-12-31 18:50:00 106 mm[Hg] [facility] Diastolic blood pressure 2020-12-31 18:50:00 57 mm[Hg] [facility] Heart rate 2020-12-31 18:50:00 71 /min [facility] Respiratory rate 2020-12-31 18:50:00 24 /min [facility] Oxygen saturation in Arterial blood by Pulse oximetry 2020-12-31 18:50:00 94 /min [facility] Body height 2020-12-31 15:00:00 152.4 cm [facility] Body weight 2020-12-31 15:00:00 113.399 kg [facility] BMI 2020-12-31 15:00:00 48.82 kg/m2 [facility] Body temperature 2020-12-31 14:50:00 36.67 Lizbeth [facility] Systolic blood pressure 2020-12-31 18:50:00 106 mm[Hg] [facility] Diastolic blood pressure 2020-12-31 18:50:00 57 mm[Hg] [facility] Heart rate 2020-12-31 18:50:00 71 /min [facility] Respiratory rate 2020-12-31 18:50:00 24 /min [facility] Oxygen saturation in Arterial blood by Pulse oximetry 2020-12-31 18:50:00 94 /min [facility] Body height 2020-12-31 15:00:00 152.4 cm [facility] Body weight 2020-12-31 15:00:00 113.399 kg [facility] BMI 2020-12-31 15:00:00 48.82 kg/m2 [facility] Body temperature 2020-12-31 14:50:00 36.67 Lizbeth [facility] Procedures Procedure Date / Time Performed Performing Clinician Source Removal of Toenail 2022-01-11 00:00:00 [facility] EXCISION BONE FOOT 2021-08-26 14:35:00 Hilda Springer [facility] HAMMERTOE CORRECTION 2021-08-26 14:35:00 Hilda Springer [facility] TOENAIL EXCISION 2021-08-26 14:35:00 Hilda Springer [facility] POCT GLUCOSE (AUTOMATED) 2021-08-26 13:53:00 Yulissa Springer [facility] POCT GLUCOSE (AUTOMATED) 2021-08-26 13:53:00 Yulissa Springer [facility] DAY SURGERY - ADC 2021-08-26 06:01:00 Doctor Mana ssigned, [place] [facility] CONSENT/REFUSAL FOR DIAGNOSIS AND TREATMENT 2021-08-25 13:59:35 Doctor Unassigned, [place] [facility] CONSENT/REFUSAL FOR DIAGNOSIS AND TREATMENT 2021-08-25 13:59:35 Doctor Unassigned, [place] [facility] ASSIGNMENT OF BENEFITS 2021-08-25 13:58:44 Docto r Unassigned, [place] [facility] ASSIGNMENT OF BENEFITS 2021-08-25 13:58:44 Docto r Unassigned, [place] [facility] EXTERNAL PROVIDER RECORDS 2021-08-24 06:01:00 Do ctor Unassigned, [place] [facility] EXTERNAL PROVIDER RECORDS 2021-08-24 06:01:00 Do ctor Unassigned, [place] [facility] POCT GLUCOSE(AGE >30DAYS) 2021-08-19 13:53:00 Cristel Faith [facility] POCT GLUCOSE(AGE >30DAYS) 2021-08-19 13:53:00 Cristel Faith [facility] PHYSICIAN ORDERS 2021-08-02 06:01:00 Doctor Unas signed, [place] [facility] HAMMERTOE CORRECTION 2020-12-31 17:00:00 Hilda Springer [facility] EXCISION BONE FOOT 2020-12-31 17:00:00 Hilda Springer [facility] POCT GLUCOSE(AGE >30DAYS) 2020-12-31 14:59:00 Addison Dove [facility] POCT GLUCOSE(AGE >30DAYS) 2020-12-31 14:59:00 Addison Dove [facility] POCT GLUCOSE (AUTOMATED) 2020-12-31 14:58:00 Yulissa Springer [facility] POCT GLUCOSE (AUTOMATED) 2020-12-31 14:58:00 Yulissa Springer [facility] DAY SURGERY - ADC 2020-12-31 05:01:00 Doctor Mana ssigned, [place] [facility] PATIENT QUESTIONNAIRE 2020-12-31 05:01:00 Doctor Unassigned, [place] [facility] CONSENT/REFUSAL FOR DIAGNOSIS AND TREATMENT 2020-12-30 20:00:02 Doctor Unassigned, [place] [facility] CONSENT/REFUSAL FOR DIAGNOSIS AND TREATMENT 2020-12-30 20:00:02 Doctor Unassigned, [place] [facility] ASSIGNMENT OF BENEFITS 2020-12-30 19:59:44 Docto r Unassigned, [place] [facility] ASSIGNMENT OF BENEFITS 2020-12-30 19:59:44 Docto r Unassigned, [place] [facility] NOTICE OF BILLING PRACTICES FOR MEDICARE PATIENTS 2020-12-30 19:56:38 Doctor Unassigned, [place] [facility] NOTICE OF BILLING PRACTICES FOR MEDICARE PATIENTS 2020-12-30 19:56:38 Doctor Unassigned, [place] [facility] PATIENT FINANCIAL POLICY 2020-12-30 19:56:11 Doctor Unassigned, [place] [facility] PATIENT FINANCIAL POLICY 2020-12-30 19:56:11 Doctor Unassigned, [place] [facility] NO SHOW OR MISSED APPOINTMENT POLICY ACKNOWLEDGEMENT 2020-12-30 19:55:50 Doctor Unassigned, [place] [facility] NO SHOW OR MISSED APPOINTMENT POLICY ACKNOWLEDGEMENT 2020-12-30 19:55:50 Doctor Unassigned, [place] [facility] NOTICE OF PRIVACY PRACTICES 2020-12-30 19:55:23 Doctor Unassigned, [place] [facility] NOTICE OF PRIVACY PRACTICES 2020-12-30 19:55:23 Doctor Unassigned, [place] [facility] CONSENT/REFUSAL FOR DIAGNOSIS AND TREATMENT 2020-12-30 19:55:05 Doctor Unassigned, [place] [facility] CONSENT/REFUSAL FOR DIAGNOSIS AND TREATMENT 2020-12-30 19:55:05 Doctor Unassigned, [place] [facility] ASSIGNMENT OF BENEFITS 2020-12-30 19:54:46 Docto r Unassigned, [place] [facility] ASSIGNMENT OF BENEFITS 2020-12-30 19:54:46 Docto r Unassigned, [place] [facility] DSU PRE-OP 2020-12-30 05:01:00 Doctor Unass igned, [place] [facility] DSU PRE-OP 2020-12-30 05:01:00 Doctor Unass igned, [place] [facility] Total Hysterectomy 2013-07-30 00:00:00 Pr ivia Medical Inguinal Hernia 2011-07-30 00:00:00 Privi a Medical Plan of Care Planned Activity Planned Date Details Comments Source Future Appointment 2024-01-04 11:15:00 Sara mann, [address]; [address], [address] Medical Future Appointment 2023-11-29 10:30:00 Diana watts, [address]; [address], [address] Medical Future Appointment 2023-11-26 10:30:00 Gcbzw Gcb zw Ma Schedule, [address]; [place] [address], [place] [id number] [facility] Medical Encounters Start Date/Time End Date/Time Encounter Type Admission Type Attending Clinicians Care Facility Care Department Encounter ID Source 2023-01-03 09:55:00 Outpatient Sammi Cartagena STLMLC STLMLC [id number] [facility] 2022-11-22 14:35:00 Outpatient Sammi Cartagena STLMLC STLMLC [id number] [facility] 2022-09-15 10:36:01 Outpatient Miley Vincent STLMLC STLMLC [id number] [facility] 2022-05-16 14:17:01 Outpatient Arias Na STLMLC STLMLC [id number] [facility] 2022-02-14 11:51:00 Outpatient Danae Bianchi STLMLC STLMLC [id number] [facility] 2022-02-10 08:39:01 Outpatient Arias Na STLMLC STLMLC [id number] [facility] 2021-11-15 11:27:01 Outpatient Arias Na STLMLC STLMLC [id number] [facility] 2021-08-24 14:34:42 Outpatient Arias Na STLMLC STLMLC [id number] [facility] 2021-08-24 14:30:49 Outpatient Bianchi, Na STLMLC STLMLC [id number] [facility] 2021-08-24 14:01:51 Outpatient Danae Bianchi STLMLC STLMLC [id number] [facility] 2021-08-24 13:49:51 Outpatient Danae Bianchi STLMLC STLMLC [id number] [facility] 2021-08-24 13:48:19 Outpatient BianchiDanae dunn STLMLC STLMLC [id number] [facility] 2021-08-24 13:47:24 Outpatient Danae Bianchi STLMLC STLMLC [id number] [facility] 2021-08-24 13:33:37 Outpatient Danae Biacnhi STLMLC STLMLC [id number] [facility] 2021-08-24 12:58:52 Outpatient Danae Bianchi STLMLC STLMLC [id number] [facility] 2021-08-24 12:47:33 Outpatient Danae Bianchi STLMLC STLMLC [id number] [facility] 2021-08-24 12:27:17 Outpatient Danae Bianchi STLMLC STLMLC [id number] [facility] 2021-08-24 12:17:56 Outpatient Bianchi, Danae STLMLC STLMLC [id number] [facility] 2021-08-24 12:17:29 Outpatient Arias Na STLMLC STLMLC [id number] [facility] 2021-08-24 11:51:24 Outpatient Arias Na STLMLC STLMLC [id number] [facility] 2021-08-24 11:49:01 Outpatient Bianchi, Na STLMLC STLMLC [id number] [facility] 2021-08-24 11:41:06 Outpatient Bianchi, Na STLMLC STLMLC [id number] [facility] 2021-08-24 11:28:47 Outpatient Bianchi, Na STLMLC STLMLC [id number] [facility] 2021-08-24 11:18:56 Outpatient Bianchi, Na STLMLC STLMLC [id number] [facility] 2021-08-24 11:18:24 Outpatient Bianchi, Na STLMLC STLMLC [id number] [facility] 2021-08-24 11:17:26 Outpatient Bianchi, Na STLMLC STLMLC [id number] [facility] 2021-08-24 11:04:54 Outpatient Bianchi, Na STLMLC STLMLC [id number] [facility] 2021-08-24 10:57:37 Outpatient Bianchi, Na STLMLC STLMLC [id number] [facility] 2021-05-29 23:01:12 Outpatient [facility] [id number] [facility] 2023-11-19 00:00:00 2023-11-19 00:00:00 STANLEY Bello: [address], [address], [place] [address] , Ph. [facility] GC_GCBZW_Mo socorro [place]* [id number] [facility] 2023-11-15 00:00:00 2023-11-15 00:00:00 STANLEY Bello: [address], [address], [place] [address] , Ph. [facility] - GC_GCBZW_Mo socorro [place]* [id number] [facility] 2023-11-13 00:00:00 2023-11-13 00:00:00 AMISHA Burton: [address], [address], [place] [address] , Ph. [facility] - GC_GCBZW_[facility]* [id number] [facility] 2023-11-05 00:00:00 2023-11-05 00:00:00 Outpatient GC_GCBZW_Ka diyala_S PRIV PRIV [id number] [facility] 2023-11-02 00:00:00 2023-11-02 00:00:00 Outpatient GC_GCBZW_Ka diyala_S PRIV PRIV [id number] [facility] 2023-11-01 00:00:00 2023-11-01 00:00:00 GERARDO PerdomoP: [address], [address], [place] [id number] , Ph. GC_GCBZW_Ka diyala_S [facility] - GC_GCBZW_[facility]* [id number] [facility] 2023-10-25 00:00:00 2023-10-25 00:00:00 Outpatient GC_GCBZW_Ka diyala_S PRIV PRIV [id number] [facility] 2023-10-19 00:00:00 2023-10-19 00:00:00 Outpatient GC_GCBZW_Ka diyala_S PRIV PRIV [id number] [facility] 2023-10-18 00:00:00 2023-10-18 00:00:00 STANLEY Bello: [address], [address], [place] [address] , Ph. GC_GCBZW_Ka diyala_S [facility] - GC_GCBZW_[facility]* [id number] [facility] 2023-10-18 00:00:00 2023-10-18 00:00:00 STANLEY Bello: [address], [address], [place] [address] , Ph. [facility] - GC_GCBZW_Rita quintanilla Yang* [id number] [facility] 2023-10-04 00:00:00 2023-10-04 00:00:00 STANLEY Bello: [address], [address], [place] [address] , Ph. GC_GCBZW_Ka diyala_S [facility] - GC_GCBZW_Rita quintanilla Yang* [id number] [facility] 2023-10-04 00:00:00 2023-10-04 00:00:00 STANLEY Bello: [address], [place] [address] , Ph. [facility] - GC_GCBZW_Rita socorro Yang* [id number] [facility] 2023-09-27 00:00:00 2023-09-27 00:00:00 Outpatient GC_GCBZW_Ka diyala_S [facility] [id number] [facility] 2023-09-27 00:00:00 2023-09-27 00:00:00 STANLEY Bello: [address], [place] [address] , Ph. [facility] - GC_GCBZW_Rita quintanilla Yang* [id number] [facility] 2023-09-24 00:00:00 2023-09-24 00:00:00 Outpatient GC_GCBZW_Ka diyala_S [facility] [id number] [facility] 2023-09-19 00:00:00 2023-09-19 00:00:00 Outpatient GC_GCBZW_Ka diyala_S [facility] PRIV [id number] [facility] 2023-09-19 00:00:00 2023-09-19 00:00:00 Sara Deleon MD: [address], [address], [place] [phone] , Ph. [facility] - GC_GCBZW_Rita [place]* [id number] [facility] 2023-09-16 00:00:00 2023-09-16 00:00:00 Outpatient GC_GCBZW_Ka diyala_S PRIV PRIV [id number] [facility] 2023-09-13 00:00:00 2023-09-13 00:00:00 Outpatient GC_GCBZW_Ka diyala_S PRIV PRIV [id number] [facility] 2023-09-12 00:00:00 2023-09-12 00:00:00 SUB ANNUAL [facility] WELLNESS VISIT [facility] [id number] [facility] 2023-09-12 00:00:00 2023-09-12 00:00:00 OFFICE VISIT ESTAB PT LEVEL 4 [facility] [id number] [facility] 2023-09-06 00:00:00 2023-09-06 00:00:00 Outpatient GC_GCBZW_Ka diyala_S PRIV PRIV [id number] [facility] 2023-09-06 00:00:00 2023-09-06 00:00:00 STANLEY Bello: [address], [address], [place] [address] , Ph. [facility] - GC_GCBZW_Rita Soria* [id number] [facility] 2023-08-30 00:00:00 2023-08-30 00:00:00 Outpatient GC_GCBZW_Ka diyala_S PRIV PRIV [id number] [facility] 2023-08-30 00:00:00 2023-08-30 00:00:00 Sara Deleon MD: [address], [address], [place] [address] , Ph. [facility] - GC_GCBZW_Rita socorro [place]* [id number] [facility] 2023-08-24 12:40:00 2023-08-24 12:40:00 Outpatient Amber Esqueda [facility] [id number] [facility] 2023-08-23 00:00:00 2023-08-23 00:00:00 Outpatient GC_GCBZW_Ka diyala_S PRIV PRIV [id number] [facility] 2023-08-23 00:00:00 2023-08-23 00:00:00 Sara Deleon MD: [address] [place] [address] S, [address], [place] [address] , Ph. [facility] - GC_GCBZW_[facility]* [id number] [facility] 2023-08-16 00:00:00 2023-08-16 00:00:00 Outpatient GC_GCBZW_Ka diyala_S PRIV PRIV [id number] [facility] 2023-08-14 00:00:00 2023-08-14 00:00:00 OFFICE VISIT ESTAB PT LEVEL 3 [facility] [id number] [facility] 2023-08-14 00:00:00 2023-08-14 00:00:00 (TEL) [facility] [id number] [facility] 2023-08-10 00:00:00 2023-08-10 00:00:00 Outpatient GC_GCBZW_Ka diyala_S PRIV PRIV [id number] [facility] 2023-08-09 00:00:00 2023-08-09 00:00:00 Outpatient GC_GCBZW_Ka diyala_S PRIV PRIV [id number] [facility] 2023-08-07 00:00:00 2023-08-07 00:00:00 Outpatient GC_GCBZW_Ka diyala_S PRIV PRIV [id number] [facility] 2023-08-06 00:00:00 2023-08-06 00:00:00 Outpatient GC_GCBZW_Ka diyala_S PRIV PRIV [id number] [facility] 2023-08-02 00:00:00 2023-08-02 00:00:00 Outpatient GC_GCBZW_Ka diyala_S PRIV PRIV [id number] [facility] 2023-08-01 00:00:00 2023-08-01 00:00:00 OFFICE VISIT ESTAB PT LEVEL 4 ST[facility] STLC [id number] [facility] 2023-07-25 00:00:00 2023-07-25 00:00:00 Outpatient GC_GCBZW_Ka diyala_S PRIV PRIV [id number] [facility] 2023-07-09 00:00:00 2023-07-09 00:00:00 (HOSP F/U) Hospital Follow Up STLC STLC [id number] [facility] 2023-07-02 00:00:00 2023-07-02 00:00:00 (TEL) STLMLC STLC [id number] [facility] 2023-06-28 00:00:00 2023-06-28 00:00:00 (TEL) STLMLC STLC [id number] [facility] 2023-06-27 00:00:00 2023-06-27 00:00:00 Outpatient GC_GCBZW_Ka diyala_S PRIV PRIV [id number] [facility] 2023-06-25 00:00:00 2023-06-25 00:00:00 (TEL) STLC STLC [id number] [facility] 2023-06-12 00:00:00 2023-06-12 00:00:00 Outpatient GC_GCBZW_Ka diyala_S PRIV PRIV [id number] [facility] 2023-06-08 00:00:00 2023-06-08 00:00:00 Outpatient GC_GCBZW_Ka diyala_S PRIV PRIV [id number] [facility] 2023-06-08 00:00:00 2023-06-08 00:00:00 OFFICE VISIT ESTAB PT LEVEL 4 [facility] [id number] [facility] 2023-06-08 00:00:00 2023-06-08 00:00:00 (TEL) [facility] [id number] [facility] 2023-05-22 00:00:00 2023-05-22 00:00:00 Outpatient GC_GCBZW_Ka diyala_S PRIV PRIV [id number] [facility] 2023-05-10 10:08:00 2023-05-10 10:08:00 Outpatient Torsten Bartlett [facility] RADI [id number] [facility] 2023-04-06 00:00:00 2023-04-06 00:00:00 (TEL) [facility] [id number] [facility] 2023-04-05 00:00:00 2023-04-05 00:00:00 Outpatient GC_GCBZW_Ka diyala_S PRIV PRIV [id number] [facility] 2023-04-05 00:00:00 2023-04-05 00:00:00 Outpatient GC_GCBZW_Ka diyala_S PRIV PRIV [id number] [facility] 2023-03-26 00:00:00 2023-03-26 00:00:00 (TEL) [facility] [id number] [facility] 2023-03-23 00:00:00 2023-03-23 00:00:00 Outpatient GC_GCBZW_Ka diyala_S PRIV PRIV [id number] [facility] 2023-03-09 00:00:00 2023-03-09 00:00:00 OFFICE VISIT ESTAB PT LEVEL 4 [facility] [id number] [facility] 2023-02-27 00:00:00 2023-02-27 00:00:00 Outpatient GC_GCBZW_Ka diyala_S PRIV PRIV [id number] [facility] 2023-02-23 00:00:00 2023-02-23 00:00:00 Outpatient GC_GCBZW_Ka diyala_S [facility] [id number] [facility] 2023-01-31 00:00:00 2023-01-31 00:00:00 SUB ANNUAL MCR WELLNESS VISIT STLMLC ST[facility]MLC [id number] [facility] 2023-01-31 00:00:00 2023-01-31 00:00:00 OFFICE VISIT ESTAB PT LEVEL 4 [facility] [id number] [facility] 2023-01-11 00:00:00 2023-01-11 00:00:00 (TEL) ST[facility]MLC ST[facility]C [id number] [facility] 2023-01-03 00:00:00 2023-01-03 00:00:00 (TEL) [facility]MLC [facility] [id number] [facility] 2022-11-22 00:00:00 2022-11-22 00:00:00 (TEL) [facility]MLC [facility] [id number] [facility] 2022-09-11 00:00:00 2022-09-11 00:00:00 (TEL) ST[facility]MLC [facility]C [id number] [facility] 2022-05-24 00:00:00 2022-05-24 00:00:00 (TEL) STLMLC ST[facility]C [id number] [facility] 2022-05-23 00:00:00 2022-05-23 00:00:00 (TEL) STLMLC ST[facility]C [id number] [facility] 2022-05-18 00:00:00 2022-05-18 00:00:00 SUB ANNUAL MCR WELLNESS VISIT STLMLC STLMLC [id number] [facility] 2022-05-18 00:00:00 2022-05-18 00:00:00 OFFICE VISIT EST PT LEVEL 3 [facility] [id number] [facility] 2022-05-01 00:00:00 2022-05-01 00:00:00 (TEL) ST[facility]MLC ST[facility] [id number] [facility] 2022-02-14 00:00:00 2022-02-14 00:00:00 OFFICE VISIT ESTAB PT LEVEL 4 [facility] [id number] [facility] 2022-01-26 00:00:00 2022-01-26 00:00:00 (TEL) STLMLC ST[facility] [id number] [facility] 2022-01-23 00:00:00 2022-01-23 00:00:00 (TEL) ST[facility]MLC [facility] [id number] [facility] 2022-01-09 00:00:00 2022-01-09 00:00:00 (TEL) ST[facility]MLC [facility] [id number] [facility] 2022-01-09 00:00:00 2022-01-09 00:00:00 OL DIG E/M SVC 11-20 MIN STLMLC ST[facility]C [id number] [facility] 2021-12-15 00:00:00 2021-12-15 00:00:00 (TEL) STLMLC ST[facility]C [id number] [facility] 2021-12-15 00:00:00 2021-12-15 00:00:00 OL DIG E/M SVC 11-20 MIN STLMLC STLMLC [id number] [facility] 2021-12-05 00:00:00 2021-12-05 00:00:00 (TEL) STLMLC ST[facility]C [id number] [facility] 2021-11-15 00:00:00 2021-11-15 00:00:00 OFFICE VISIT ESTAB PT LEVEL 4 [facility] [id number] [facility] 2021-08-26 07:33:00 2021-08-26 11:13:00 Outpatient HILDA WARNER [facility] SOR [id number] [facility] 2021-08-26 07:33:00 2021-08-26 11:13:00 Hospital En[facility] 1.2.840.114 350.1.13.10 4.2.7.2.686 [id number] [facility] 2021-08-26 08:30:00 2021-08-26 10:41:00 Surgery JulietHilda genao A [facility] 1.2.840.114 350.1.13.10 4.2.7.2.686 [id number] [facility] 2021-08-25 08:30:00 2021-08-25 08:45:00 Manager Merchandise Visit Pob, Adc Lab Main Hilda Springer [facility] 1.2.840.114 350.1.13.10 4.2.7.2.686 [id number] [facility] 2021-08-25 08:30:00 2021-08-25 08:30:00 Outpatient R HILDA SPRINGER [facility] [id number] [facility] 2021-08-25 08:15:00 2021-08-25 08:30:00 Laboratory Only Only, Adc Test Julietbirgit Hilda Childress [facility] 1.2.840.114 350.1.13.10 4.2.7.2.686 [id number] [facility] 2021-08-16 00:00:00 2021-08-16 00:00:00 OFFICE VISIT ESTAB PT LEVEL 2 [facility] [id number] [facility] 2021-08-11 00:00:00 2021-08-11 00:00:00 (TEL) STLMLC STLMLC [id number] [facility] 2021-08-11 00:00:00 2021-08-11 00:00:00 OFFICE VISIT EST PT LEVEL 3 [facility]MLC [facility]C [id number] [facility] 2021-08-09 00:00:00 2021-08-09 00:00:00 (TEL) STLMLC STLMLC [id number] [facility] 2021-08-09 00:00:00 2021-08-09 00:00:00 (TEL) STLMLC STLMLC [id number] [facility] 2021-08-02 00:00:00 2021-08-02 00:00:00 Orders Only Doctor Unassigned, [place] [facility] 1..840.114 350.1.13.10 4.2.7.2.686 [id number] [facility] 2021-05-30 00:00:00 2021-05-30 00:00:00 (TEL) STLMLC STLMLC [id number] [facility] 2021-05-17 00:00:00 2021-05-17 00:00:00 OFFICE VISIT ESTAB PT LEVEL 4 [facility]C ST[facility] [id number] [facility] 2021-04-18 00:00:00 2021-04-18 00:00:00 SUB ANNUAL [facility] WELLNESS VISIT STLMLC ST[facility]MLC [id number] [facility] 2021-04-11 00:00:00 2021-04-11 00:00:00 OL DIG E/M SVC 11-20 MIN STLMLC STLMLC [id number] [facility] 2021-03-02 00:00:00 2021-03-02 00:00:00 OL DIG E/M SVC 11-20 MIN STLMLC STLMLC [id number] [facility] 2021-02-09 00:00:00 2021-02-09 00:00:00 Outpatient STLMLC ST[facility] [id number] [facility] 2020-12-31 09:35:00 2020-12-31 14:17:00 Hospital Encounter Hilda Springer [facility] 1..840.114 350.1.13.10 4.2.7.2.686 [id number] [facility] 2020-12-31 12:04:00 2020-12-31 13:50:00 Surgery Hilda Springer [facility] 1.2.840.114 350.1.13.10 4.2.7.2.686 [id number] [facility] 2020-12-30 15:15:00 2020-12-30 15:15:00 Outpatient R RACHEAL HILDA [facility] [id number] [facility] 2020-12-30 14:58:40 2020-12-30 15:13:40 Manager Merchandise Visit Pob, Adc Lab Main Hilda Springer [facility] 1.2.840.114 350.1.13.10 4.2.7.2.686 [id number] [facility] 2020-12-30 14:57:45 2020-12-30 15:12:45 Laboratory Only Only, Adc Test Hilda Springer [facility] 1.2.840.114 350.1.13.10 4.2.7.2.686 [id number] [facility] 2020-11-23 00:00:00 2020-11-23 00:00:00 Outpatient STLMLC [facility] [id number] [facility] 2020-11-22 00:00:00 2020-11-22 00:00:00 Outpatient STLMLC STLMLC [id number] [facility] 2020-11-08 00:00:00 2020-11-08 00:00:00 Outpatient STLMLC ST[facility]MLC [id number] [facility] 2020-11-01 00:00:00 2020-11-01 00:00:00 Outpatient STLMLC STLMLC [id number] [facility] 2020-10-28 00:00:00 2020-10-28 00:00:00 Outpatient STLMLC STLMLC [id number] [facility] 2020-10-20 00:00:00 2020-10-20 00:00:00 Outpatient STLMLC ST[facility]MLC [id number] [facility] 2020-09-01 00:00:00 2020-09-01 00:00:00 Outpatient STLMLC STLMLC [id number] [facility] 2020-08-09 00:00:00 2020-08-09 00:00:00 Outpatient STLMLC STLMLC [id number] [facility] 2020-08-03 00:00:00 2020-08-03 00:00:00 Outpatient STLMLC STLMLC [id number] [facility] 2020-07-27 00:00:00 2020-07-27 00:00:00 Outpatient STLMLC STLMLC [id number] [facility] 2020-07-19 00:00:00 2020-07-19 00:00:00 Outpatient STLMLC STLMLC [id number] [facility] 2020-05-25 00:00:00 2020-05-25 00:00:00 Outpatient STLMLC STLMLC [id number] [facility] 2020-05-03 00:00:00 2020-05-03 00:00:00 Outpatient STLMLC STLMLC [id number] [facility] 2020-03-24 11:40:00 2020-03-24 11:40:[address] [facility] [id number] [facility] 2020-03-23 14:43:00 2020-03-23 14:43:[address] [facility] [address] [facility] [id number] [facility] 2020-01-28 11:00:00 2020-01-28 11:00:00 [facility] [address] [facility] [id number] [facility] 2020-01-20 14:25:00 2020-01-20 14:25:[address] [facility] [address] [facility] [id number] [facility] 2019-11-19 10:15:00 2019-11-19 10:15:[address] [facility] [address] [facility] [id number] [facility] 2019-11-19 09:08:00 2019-11-19 09:08:00 [facility] [id number] [facility] 2019-11-13 16:00:00 2019-11-13 16:00:00 [facility] [address] [facility] [facility] [id number] [facility] 2019-11-13 11:48:00 2019-11-13 11:48:[address] [facility] [address] [facility] [id number] [facility] 2019-10-15 09:00:00 2019-10-15 09:00:00 [facility] [address] [facility] [id number] [facility] 2019-09-04 13:40:00 2019-09-04 13:40:[address] [facility] [address] [facility] [facility] [id number] [facility] 2019-08-05 14:57:00 2019-08-05 14:57:[address] [facility] [address] [facility] [id number] [facility] 2019-08-01 15:54:00 2019-08-01 15:54:[address] [facility] [address] [facility] [address] [facility] [id number] [facility] 2019-07-31 14:40:00 2019-07-31 14:40:00 [facility] [address] [facility] [address] [facility] [id number] [facility] 2019-06-24 10:51:00 2019-06-24 10:51:00 [facility] [address] [facility] [id number] [facility] 2019-06-19 11:20:00 2019-06-19 11:20:[address] [facility] [address] [facility] [address] [facility] [id number] [facility] 2019-06-02 15:21:00 2019-06-02 15:21:[address] [facility] [address] [facility] [id number] [facility] 2019-05-26 17:07:00 2019-05-26 17:07:[address] [facility] [facility] [address] [facility] [facility] [place] [facility] [id number] [facility] 2019-03-18 09:50:00 2019-03-18 09:50:00 [facility] [address] [facility] [place] [facility] [id number] [facility] 2019-03-11 09:40:00 2019-03-11 09:40:00 [facility] [address] [facility] [id number] [facility] 2019-02-19 15:41:00 2019-02-19 15:41:00 [facility] [address] [facility] [id number] [facility] 2019-02-17 16:51:00 2019-02-17 16:51:00 [facility] [address] [facility] [id number] [facility] 2019-01-20 14:40:00 2019-01-20 14:40:00 [facility] [place] [facility] [id number] [facility] Results Test Description Test Time Test Comments Results Result Co mments Source CBC W/AUTO [id number] 00:00:00* Test Item Value Reference Range Interpretation Comme nts NUCLEATED RBCS (test code = 62148-1) 0.0 /100 WBC'S See_Comment [Automated [employer]] The system which generated this result transmitted reference range: 0.0 /100 WBC'S. The reference range was not used to interpret this result as normal/abnormal. ABSOLUTE EOSINOPHILS (test code = 10614-2) 0.11 K/UL See_Comment [Automated [employer]] The system which generated this result transmitted reference range: 0.00-0.50 K/UL. The reference range was not used to interpret this result as normal/abnormal. ABSOLUTE LYMPHOCYTES (test code = 64753-4) 2.01 K/UL See_Comment [Automated messa ge] The system which generated this result transmitted reference range: 1.00-4.00 K/UL. The reference range was not used to interpret this result as normal/abnormal. ABSOLUTE MONOCYTES (test code = 76014-6) 0.36 K/UL See_Comment [Automated messa ge] The system which generated this result transmitted reference range: 0.20-1.00 K/UL. The reference range was not used to interpret this result as normal/abnormal. ABSOLUTE NEUTROPHILS (test code = 49964-3) 5.67 K/UL See_Comment [Automated messa ge] The system which generated this result transmitted reference range: 1.50-7.50 K/UL. The reference range was not used to interpret this result as normal/abnormal. BASOPHILS (test code = 67975-3) 0.6 % EOSINOPHILS (test code = 27758-7) 1.3 % HEMATOCRIT (test code = 38419-8) 44.6 % See_Comment [Automated messa ge] The system which generated this result transmitted reference range: 34.0-45.0 %. The reference range was not used to interpret this result as normal/abnormal. HEMOGLOBIN (test code = 718-7) 14.0 G/DL See_Comment [Automated messa ge] The system which generated this result transmitted reference range: 11.5-15.5 G/DL. The reference range was not used to interpret this result as normal/abnormal. LYMPHOCYTES (test code = 68965-8) 24.5 % MCH (test code = 02741-5) 24.9 PG See_Comment L [Automated messa ge] The system which generated this result transmitted reference range: 25.0-33.0 PG. The reference range was not used to interpret this result as normal/abnormal. MCHC (test code = 58432-4) 31.4 G/DL See_Comment [Automated messa ge] The system which generated this result transmitted reference range: 31.0-36.0 G/DL. The reference range was not used to interpret this result as normal/abnormal. MCV (test code = 08953-3) 79.2 fL See_Comment L [Automated messa ge] The system which generated this result transmitted reference range: 80.0-99.0 fL. The reference range was not used to interpret this result as normal/abnormal. MONOCYTES (test code = 64485-4) 4.4 % NEUTROPHILS (test code = 31683-0) 69.1 % PLATELET COUNT (test code = 04546-4) 277 K/UL See_Comment [Automated messa ge] The system which generated this result transmitted reference range: 130-400 K/UL. The reference range was not used to interpret this result as normal/abnormal. RBC (test code = 24812-1) 5.63 M/UL See_Comment H [Automated messa ge] The system which generated this result transmitted reference range: 3.80-5.40 M/UL. The reference range was not used to interpret this result as normal/abnormal. RDW (test code = 63302-2) 14.3 % See_Comment [Automated messa ge] The system which generated this result transmitted reference range: 11.5-15.0 %. The reference range was not used to interpret this result as normal/abnormal. WBC (test code = 69097-8) 8.2 K/UL See_Comment [Automated messa ge] The system which generated this result transmitted reference range: 3.5-11.0 K/UL. The reference range was not used to interpret this result as normal/abnormal. HEMOGLOBIN [id number] 00:00:00* Test Item Value Reference Range Interpretation Comme nts HEMOGLOBIN A1c (test code = 4548-4) 8.5 % See_Comment H [Automated messa ge] The system which generated this result transmitted reference range: 4.2-5.6 %. The reference range was not used to interpret this result as normal/abnormal. LIPID PANEL WITH REFLEX DIRECT [id number] 00:00:00* Test Item Value Reference Range Interpretation Comme nts CALC LDL CHOL (test code = 06941-3) 66 MG/DL See_Comment [Automated messa ge] The system which generated this result transmitted reference range: <100 MG/DL. The reference range was not used to interpret this result as normal/abnormal. CHOLESTEROL (test code = 2093-3) 136 MG/DL See_Comment [Automated messa ge] The system which generated this result transmitted reference range: <200 MG/DL. The reference range was not used to interpret this result as normal/abnormal. HDL CHOLESTEROL (test code = 2085-9) 53 MG/DL See_Comment [Automated [employer]] The system which generated this result transmitted reference range: >39 MG/DL. The reference range was not used to interpret this result as normal/abnormal. RISK RATIO LDL/HDL (test code = 30847-4) 1.25 RATIO See_Comment [Automated message] The system which generated this result transmitted reference range: <3.22 RATIO. The reference range was not used to interpret this result as normal/abnormal. TRIGLYCERIDES (test code = 2571-8) 89 MG/DL See_Comment [Automated [employer]] The system which generated this result transmitted reference range: <150 MG/DL. The reference range was not used to interpret this result as normal/abnormal. ALBUMIN/CREATININE RATIO, RANDOM [id number] 00:00:00* Test Item Value Reference Range Interpretation Comme nts ALBUMIN, URINE, RANDOM (test code = 06856-5) 0.5 MG/DL NOT ESTAB MG/DL CALC ALBUMIN/CREAT, RND (test code = 40270-3) 5 MG/G See_Comment [Automated [employer]] The system which generated this result transmitted reference range: <30 MG/G. The reference range was not used to interpret this result as normal/abnormal. CREATININE, URINE, CONC. (test code = 2161-8) 103.9 MG/DL NOT ESTAB MG/DL COMPREHENSIVE METABOLIC [id number] 00:00:00* Test Item Value Reference Range Interpretation Comme nts ALBUMIN (test code = 1751-7) 3.8 G/DL See_Comment [Automated [employer]] The system which generated this result transmitted reference range: 3.5-5.2 G/DL. The reference range was not used to interpret this result as normal/abnormal. ALKALINE PHOSPHATASE (test code = 6768-6) 122 U/L See_Comment [Automated message] The system which generated this result transmitted reference range: 40-142 U/L. The reference range was not used to interpret this result as normal/abnormal. BILIRUBIN, TOTAL (test code = 1975-2) 0.6 MG/DL See_Comment [Automated message] The system which generated this result transmitted reference range: <=1.2 MG/DL. The reference range was not used to interpret this result as normal/abnormal. BUN (test code = 3094-0) 14 MG/DL See_Comment [Automated messa ge] The system which generated this result transmitted reference range: 8-23 MG/DL. The reference range was not used to interpret this result as normal/abnormal. CALCIUM (test code = 16505-1) 9.6 MG/DL See_Comment [Automated messa ge] The system which generated this result transmitted reference range: 8.5-10.5 MG/DL. The reference range was not used to interpret this result as normal/abnormal. CALC A/G RATIO (test code = 1759-0) 1.4 RATIO See_Comment [Automated messa ge] The system which generated this result transmitted reference range: 1.0-2.6 RATIO. The reference range was not used to interpret this result as normal/abnormal. CALC BUN/CREAT (test code = 3097-3) 27 RATIO See_Comment [Automated messa ge] The system which generated this result transmitted reference range: 6-28 RATIO. The reference range was not used to interpret this result as normal/abnormal. CALC GLOBULIN (test code = 54091-4) 2.7 G/DL See_Comment [Automated messa ge] The system which generated this result transmitted reference range: 1.9-3.7 G/DL. The reference range was not used to interpret this result as normal/abnormal. CARBON DIOXIDE (test code = 1963-8) 28 MEQ/L See_Comment [Automated messa ge] The system which generated this result transmitted reference range: 19-31 MEQ/L. The reference range was not used to interpret this result as normal/abnormal. CHLORIDE (test code = 2075-0) 102 MEQ/L See_Comment [Automated messa ge] The system which generated this result transmitted reference range: 95-107 MEQ/L. The reference range was not used to interpret this result as normal/abnormal. CREATININE (test code = 2160-0) 0.51 MG/DL See_Comment L [Automated messa ge] The system which generated this result transmitted reference range: 0.60-1.30 MG/DL. The reference range was not used to interpret this result as normal/abnormal. eGFR (2020 CKD-EPI) (test code = 95420-2) 101 ML/MIN/1.73 See_Comment [Automated message] The system which generated this result transmitted reference range: >60 ML/MIN/1.73. The reference range was not used to interpret this result as normal/abnormal. GLUCOSE (test code = 1558-6) 172 MG/DL See_Comment H [Automated messa ge] The system which generated this result transmitted reference range: 70-99 MG/DL. The reference range was not used to interpret this result as normal/abnormal. POTASSIUM (test code = 2823-3) 4.4 MEQ/L See_Comment [Automated messa ge] The system which generated this result transmitted reference range: 3.5-5.4 MEQ/L. The reference range was not used to interpret this result as normal/abnormal. PROTEIN, TOTAL (test code = 2885-2) 6.5 G/DL See_Comment [Automated messa ge] The system which generated this result transmitted reference range: 6.1-8.3 G/DL. The reference range was not used to interpret this result as normal/abnormal. AST (test code = 1920-8) 12 U/L See_Comment [Automated messa ge] The system which generated this result transmitted reference range: 9-40 U/L. The reference range was not used to interpret this result as normal/abnormal. ALT (test code = 1742-6) 17 U/L See_Comment [Automated messa ge] The system which generated this result transmitted reference range: 5-40 U/L. The reference range was not used to interpret this result as normal/abnormal. SODIUM (test code = 2951-2) 141 MEQ/L See_Comment [Automated messa ge] The system which generated this result transmitted reference range: 133-146 MEQ/L. The reference range was not used to interpret this result as normal/abnormal. - RETROPERITONEAL [id number] 10:55:00 [facility] 1955 Sex: F Name: PETER HERRERA [place] : 1955 Age/S: 67 / F [address] Unit #: [id number] Loc: [place] [address] Phys: Torsten James MD Acct: [id number] Dis Date: Status: REG CLI PHONE #: [phone] Exam Date: 05/10/20231046 FAX #: Reason: MICROSCOPIC HEMATURIA EXAMS: CPT: [id number] US RETROPERITONEAL COM 95081 LOCATION: [facility] EXAM: - US RETROPERITONEAL COM HISTORY: Microscopic hematuria. TECHNIQUE: Sonographic imaging of the bilateral kidney and urinary bladder in the transverse andsagittal planes utilizing ramirez scale and color imaging. [...] Torsten James MD Technologist: [place] TrnscbDate/Time: 05/10/2023 (9947) [email or web address] PAGE 1 Signed Report Name: PETER HERRERA [place] : 1955 Age/S: 67 / F [address] Unit #: [id number] Loc: [place] [address] Phys: Torsten James MD Acct: [id number] Dis Date: Status: REG CLI PHONE #: [phone] Exam Date: 05/10/2023 104 FAX #: Reason: MICROSCOPIC HEMATURIA EXAMS: CPT: [id number] [facility] [id number] (Continued) Orig Print D/T: S: 05/10/2023 (1058) Probe: PAGE 2 [facility] W/AUTO [id number] 00:00:00* Test Item Value Reference Range Interpretation Comme nts NUCLEATED RBCS (test code = 73990-2) 0.0 /100 WBC'S See_Comment [Automated messa ge] The system which generated this result transmitted reference range: 0.0 /100 WBC'S. The reference range was not used to interpret this result as normal/abnormal. ABSOLUTE EOSINOPHILS (test code = 56568-6) 0.16 K/UL See_Comment [Automated messa ge] The system which generated this result transmitted reference range: 0.00-0.50 K/UL. The reference range was not used to interpret this result as normal/abnormal. ABSOLUTE LYMPHOCYTES (test code = 64121-7) 1.87 K/UL See_Comment [Automated messa ge] The system which generated this result transmitted reference range: 1.00-4.00 K/UL. The reference range was not used to interpret this result as normal/abnormal. ABSOLUTE MONOCYTES (test code = 66307-1) 0.42 K/UL See_Comment [Automated messa ge] The system which generated this result transmitted reference range: 0.20-1.00 K/UL. The reference range was not used to interpret this result as normal/abnormal. ABSOLUTE NEUTROPHILS (test code = 04976-1) 5.86 K/UL See_Comment [Automated messa ge] The system which generated this result transmitted reference range: 1.50-7.50 K/UL. The reference range was not used to interpret this result as normal/abnormal. BASOPHILS (test code = 85464-0) 0.7 % EOSINOPHILS (test code = 53570-3) 1.9 % HEMATOCRIT (test code = 74522-9) 45.0 % See_Comment [Automated messa ge] The system which generated this result transmitted reference range: 34.0-45.0 %. The reference range was not used to interpret this result as normal/abnormal. HEMOGLOBIN (test code = 718-7) 14.3 G/DL See_Comment [Automated messa ge] The system which generated this result transmitted reference range: 11.5-15.5 G/DL. The reference range was not used to interpret this result as normal/abnormal. LYMPHOCYTES (test code = 87821-2) 22.3 % MCH (test code = 21179-0) 25.4 PG See_Comment [Automated messa ge] The system which generated this result transmitted reference range: 25.0-33.0 PG. The reference range was not used to interpret this result as normal/abnormal. MCHC (test code = 79060-0) 31.8 G/DL See_Comment [Automated messa ge] The system which generated this result transmitted reference range: 31.0-36.0 G/DL. The reference range was not used to interpret this result as normal/abnormal. MCV (test code = 54225-7) 79.8 fL See_Comment L [Automated messa ge] The system which generated this result transmitted reference range: 80.0-99.0 fL. The reference range was not used to interpret this result as normal/abnormal. MONOCYTES (test code = 36371-5) 5.0 % NEUTROPHILS (test code = 30321-6) 69.9 % PLATELET COUNT (test code = 20175-2) 272 K/UL See_Comment [Automated messa ge] The system which generated this result transmitted reference range: 130-400 K/UL. The reference range was not used to interpret this result as normal/abnormal. RBC (test code = 04117-8) 5.64 M/UL See_Comment H [Automated messa ge] The system which generated this result transmitted reference range: 3.80-5.40 M/UL. The reference range was not used to interpret this result as normal/abnormal. RDW (test code = 28453-4) 16.5 % See_Comment H [Automated messa ge] The system which generated this result transmitted reference range: 11.5-15.0 %. The reference range was not used to interpret this result as normal/abnormal. WBC (test code = 50936-2) 8.4 K/UL See_Comment [Automated messa ge] The system which generated this result transmitted reference range: 3.5-11.0 K/UL. The reference range was not used to interpret this result as normal/abnormal. HEMOGLOBIN [id number] 00:00:00* Test Item Value Reference Range Interpretation Comme [facility] HEMOGLOBIN A1c (test code = 4548-4) 8.1 % See_Comment H [Automated [employer]] The system which generated this result transmitted reference range: 4.2-5.6 %. The reference range was not used to interpret this result as normal/abnormal. LIPID PANEL WITH REFLEX DIRECT [id number] 00:00:00* Test Item Value Reference Range Interpretation Comme [facility] CALC LDL CHOL (test code = 80750-4) 64 MG/DL See_Comment [Automated [employer]] The system which generated this result transmitted reference range: <100 MG/DL. The reference range was not used to interpret this result as normal/abnormal. CHOLESTEROL (test code = 2093-3) 132 MG/DL See_Comment [Automated [employer]] The system which generated this result transmitted reference range: <200 MG/DL. The reference range was not used to interpret this result as normal/abnormal. HDL CHOLESTEROL (test code = 2085-9) 49 MG/DL See_Comment [Automated [employer]] The system which generated this result transmitted reference range: >39 MG/DL. The reference range was not used to interpret this result as normal/abnormal. RISK RATIO LDL/HDL (test code = 32051-9) 1.31 RATIO See_Comment [Automated message] The system which generated this result transmitted reference range: <3.22 RATIO. The reference range was not used to interpret this result as normal/abnormal. TRIGLYCERIDES (test code = 2571-8) 102 MG/DL See_Comment [Automated [employer]] The system which generated this result transmitted reference range: <150 MG/DL. The reference range was not used to interpret this result as normal/abnormal. VITAMIN B 12 AND FOLIC [id number] 00:00:00* Test Item Value Reference Range Interpretation Comme [facility] FOLIC ACID (test code = 2284-8) 13.1 UG/L SEE BELOW UG/L VITAMIN B-12 (test code = 2132-9) 570 PG/ML See_Comment [Automated [employer]] The system which generated this result transmitted reference range: 200-950 PG/ML. The reference range was not used to interpret this result as normal/abnormal. ALBUMIN/CREATININE RATIO, RANDOM [id number] 00:00:00* Test Item Value Reference Range Interpretation Comme nts ALBUMIN, URINE, RANDOM (test code = 80926-9) 1.0 MG/DL NOT ESTAB MG/DL CALC ALBUMIN/CREAT, RND (test code = 25093-3) 13 MG/G See_Comment [Automated messa ge] The system which generated this result transmitted reference range: <30 MG/G. The reference range was not used to interpret this result as normal/abnormal. CREATININE, URINE, CONC. (test code = 2161-8) 79.9 MG/DL NOT ESTAB MG/DL COMPREHENSIVE METABOLIC [id number] 00:00:00* Test Item Value Reference Range Interpretation Comme nts ALBUMIN (test code = 1751-7) 4.1 G/DL See_Comment [Automated messa ge] The system which generated this result transmitted reference range: 3.5-5.2 G/DL. The reference range was not used to interpret this result as normal/abnormal. ALKALINE PHOSPHATASE (test code = 6768-6) 111 U/L See_Comment [Automated message] The system which generated this result transmitted reference range: 40-142 U/L. The reference range was not used to interpret this result as normal/abnormal. BILIRUBIN, TOTAL (test code = 1975-2) 0.9 MG/DL See_Comment [Automated message] The system which generated this result transmitted reference range: <=1.2 MG/DL. The reference range was not used to interpret this result as normal/abnormal. BUN (test code = 3094-0) 13 MG/DL See_Comment [Automated messa ge] The system which generated this result transmitted reference range: 8-23 MG/DL. The reference range was not used to interpret this result as normal/abnormal. CALCIUM (test code = 11843-4) 9.5 MG/DL See_Comment [Automated messa ge] The system which generated this result transmitted reference range: 8.5-10.5 MG/DL. The reference range was not used to interpret this result as normal/abnormal. CALC A/G RATIO (test code = 1759-0) 1.7 RATIO See_Comment [Automated messa ge] The system which generated this result transmitted reference range: 1.0-2.6 RATIO. The reference range was not used to interpret this result as normal/abnormal. CALC BUN/CREAT (test code = 3097-3) 24 RATIO See_Comment [Automated messa ge] The system which generated this result transmitted reference range: 6-28 RATIO. The reference range was not used to interpret this result as normal/abnormal. CALC GLOBULIN (test code = 21041-4) 2.4 G/DL See_Comment [Automated messa ge] The system which generated this result transmitted reference range: 1.9-3.7 G/DL. The reference range was not used to interpret this result as normal/abnormal. CARBON DIOXIDE (test code = 1963-8) 25 MEQ/L See_Comment [Automated messa ge] The system which generated this result transmitted reference range: 19-31 MEQ/L. The reference range was not used to interpret this result as normal/abnormal. CHLORIDE (test code = 2075-0) 110 MEQ/L See_Comment H [Automated messa ge] The system which generated this result transmitted reference range: 95-107 MEQ/L. The reference range was not used to interpret this result as normal/abnormal. CREATININE (test code = 2160-0) 0.54 MG/DL See_Comment L [Automated messa ge] The system which generated this result transmitted reference range: 0.60-1.30 MG/DL. The reference range was not used to interpret this result as normal/abnormal. eGFR (2020 CKD-EPI) (test code = 14968-6) 100 ML/MIN/1.73 See_Comment [Automated message] The system which generated this result transmitted reference range: >60 ML/MIN/1.73. The reference range was not used to interpret this result as normal/abnormal. GLUCOSE (test code = 1558-6) 160 MG/DL See_Comment H [Automated messa ge] The system which generated this result transmitted reference range: 70-99 MG/DL. The reference range was not used to interpret this result as normal/abnormal. POTASSIUM (test code = 2823-3) 4.2 MEQ/L See_Comment [Automated messa ge] The system which generated this result transmitted reference range: 3.5-5.4 MEQ/L. The reference range was not used to interpret this result as normal/abnormal. PROTEIN, TOTAL (test code = 2885-2) 6.5 G/DL See_Comment [Automated messa ge] The system which generated this result transmitted reference range: 6.1-8.3 G/DL. The reference range was not used to interpret this result as normal/abnormal. AST (test code = 1920-8) 19 U/L See_Comment [Automated messa ge] The system which generated this result transmitted reference range: 9-40 U/L. The reference range was not used to interpret this result as normal/abnormal. ALT (test code = 1742-6) 27 U/L See_Comment [Automated messa ge] The system which generated this result transmitted reference range: 5-40 U/L. The reference range was not used to interpret this result as normal/abnormal. SODIUM (test code = 2951-2) 148 MEQ/L See_Comment H [Automated messa ge] The system which generated this result transmitted reference range: 133-146 MEQ/L. The reference range was not used to interpret this result as normal/abnormal. HEMOGLOBIN [id number] 00:00:00* Test Item Value Reference Range Interpretation Comme nts A1C (test code = 4548-4) 8.8 POCT GLUCOSE (AUTOMATED)2021-08-26 14:01:21* Test Item Value Reference Range Interpretation Comme nts POCT GLU (test code = 9332841088) 135 mg/dL 70-110 H Lab Interpretation (test cod e = 07998-9) Abnormal [facility] GLUCOSE (AUTOMATED)2021-08-26 14:01:21* Test Item Value Reference Range Interpretation Comme nts POCT GLU (test code = 5689495848) 135 mg/dL 70-110 H Lab Interpretation (test cod e = 44614-4) Abnormal [facility] [id number] 13:53:00* Test Item Value Reference Range Interpretation Comme nts POCT Glu (age>30days) (test code = 3342) 135 mg/dL 70-110 A Lab Interpretation (test cod e = 92575-7) Abnormal [facility] [id number] 13:53:00* Test Item Value Reference Range Interpretation Comme nts POCT Glu (age>30days) (test code = 3342) 135 mg/dL 70-110 A Lab Interpretation (test cod e = 18934-9) Abnormal [facility] GLUCOSE (AUTOMATED)2020-12-31 15:02:03* Test Item Value Reference Range Interpretation Comme nts POCT GLU (test code = 3038533153) 157 mg/dL 70-110 H Lab Interpretation (test cod e = 40813-9) Abnormal [facility] GLUCOSE (AUTOMATED)2020-12-31 15:02:03* Test Item Value Reference Range Interpretation Comme nts POCT GLU (test code = 9238342591) 157 mg/dL 70-110 H Lab Interpretation (test cod e = 10412-6) Abnormal [facility] [id number] 14:59:00* Test Item Value Reference Range Interpretation Comme nts POCT Glu (age>30days) (test code = 3342) 157 mg/dL 70-110 A Lab Interpretation (test cod e = 04382-0) Abnormal [facility] [id number] 14:59:00* Test Item Value Reference Range Interpretation Comme nts POCT Glu (age>30days) (test code = 3342) 157 mg/dL 70-110 A Lab Interpretation (test cod e = 98992-9) Abnormal [facility], COVID 19 Antigen + [facility] + Flu by Cee
[2023-11-22] MEDS ORDERED: IBUPROFEN 600 MG TAB PO PRN (15:14)
[2023-11-22] MEDS: INSULIN REGULAR (HUMAN) 100 UNIT/ML SQ SCH (16:30)
[2023-11-22] MEDS: carvediloL 3.125 MG TAB PO SCH (17:56)
[2023-11-22] MEDS: HEPARIN 5000 UNIT/ML 1 ML VIAL SQ SCH (17:56)
[2023-11-22] MEDS: METFORMIN ER 500 MG TAB PO SCH (17:56)
[2023-11-22] MEDS: NA CHLORIDE 0.9% 1,000 ML IV SCH (22:20)
[2023-11-22] MEDS: ATORVASTATIN 20 MG TAB PO SCH (22:21)
[2023-11-22] MEDS: FAMOTIDINE 20 MG TAB PO SCH (22:21)
[2023-11-23 07:15] LABS: Absolute Basophils 0.1 K/uL (0-0.5); Absolute Lymphocytes (CBC) 1.4 K/uL (0.7-4.9); Absolute Monocytes 0.8 K/uL (0.1-1.3); Absolute Neutrophil 12.5 K/uL (1.8-8.0); Basophils % 0.9 % (0-1.3); Eosinophils % 0.1 % (0-4.4); Hematocrit 40.2 % (36.0-45.0); Hemoglobin 12.5 g/dL (12.0-15.0); Lymphocytes % 9.2 % (15.3-44.8); MCH 24.7 pg (27.0-35.0); MCHC 31.1 g/dL (32.0-36.0); MCV 79.6 fL (80-100); MPV 7.8 fL (7.6-11.3); Monocytes % 5.3 % (3.3-12.3); Neutrophils % 84.5 % (41.7-73.7); Platelets 234 thou/uL (152-406); RBC Red Blood Cell Count 5.06 M/uL (3.86-4.86); Red Cell Distribution Width 15.2 % (12.1-15.2)
[2023-11-23] MEDS: OCUVITE (VIT A,C & E/LUTEIN/MINERAL) TABLET PO SCH (08:57)
[2023-11-23] MEDS: GLIPIZIDE S.A. 5 MG TAB PO SCH (08:57)
[2023-11-23] MEDS: LOSARTAN POTASSIUM 50 MG TABLET PO SCH (08:57)
[2023-11-23] MEDS: HOME MED (Dapagliflozin Propanediol [Farxiga] 10 MG Tablet) PO SCH (08:58)
[2023-11-23] MEDS ORDERED: HOME MED 1 EA UNK (Vit C/E/Zn/Coppr/Lutein/Zeaxan [Preservision Areds 2 Softgel] Capsule) PO SCH (09:00)
[2023-11-23] MEDS ORDERED: HOME MED 1 EA UNK (Glipizide [Glipizide Er] 10 MG Tab.Er.24) PO SCH (09:00)
[2023-11-23] MEDS: MIRABEGRON 50 MG PO SCH (09:00)
[2023-11-23] MEDS: CA POLYCARBOPHIL (FIBERCON) 625 MG TAB PO SCH (09:00)
[2023-11-23 10:51] VITALS: BP 141/78; TEMP 98; O2SAT 94
[2023-11-25] MEDS ORDERED: ASPIRIN 325 MG TAB PO SCH (21:00)
== END 2023-11-23 12:30 | disposition home health service (06) ==
LOC: OR 09:22 → 4TH 14:28
PROVIDERS: ADMIT Obstetrics & Gynecology; ATTEND Obstetrics & Gynecology
PROC: 0JQC0ZZ Repair Pelvic Region Subcutaneous Tissue and Fascia, Open Approach (ICD-10-PCS; 2023-11-22)
PROC: 0JUC0JZ Supplement of Pelvic Region Subcutaneous Tissue and Fascia with Synthetic Substitute, Open Approach (ICD-10-PCS; principal; 2023-11-22 11:00)
DX: N81.6 Rectocele (principal); N39.41 Urge incontinence; K59.00 Constipation, unspecified; E11.9 Type 2 diabetes mellitus without complications
CPT/HCPCS: 85025 ×2; 81001; 80048; 36415 ×2; 86900; 86850; 85610; 86901; 82947 ×6; 85730; 94010; 57250; 57267; 57282; G0379; J1815 ×2; J1644 ×3; J2704; J2710; J2001; J3010; J1100; J2405; G0378 ×3; J7120; J7030 ×4; J0690 ×2

== ENCOUNTER 2024-05-06 10:36 | Emergency (ER) | payer OTHER ==
--- OUTSIDE RECORDS SUMMARY | 2024-05-06 10:41 | XMS REPORT | Continuity of Care Document ---
Author Name Unknown Address [address] [facility] [address] [place] [address] [facility] Address [address] [facility] [address] [place] [address] Care Team Providers Care Table Hand Name Role Phone Javier Bianchi Primary Care Physician [phone] Sammi Cartagena Attending Clinician Unavailable Miley Vincent Attending Clinician Unavailable Javier Bianchi Attending Clinician Unavailable HILDA SPRINGER Attending Clinician Unavailable ADARSH_GCBZW_Pancho_S Attending Clinician Unavaila Amber Garvin Cardiology Attending Clinician Unavailable Torsten James Attending Clinician Unavailable Hilda Springer DPM Attending Clinician [phone] Pob, [facility] Main Attending Clinician Unavailabl e Only, Adc Test Attending Clinician Unavailable Doctor Unassigned, Winger Attending Clinician U navailable HILDA SPRINGER Admitting Clinician Unavailable ADARSH_GCBZW_Pancho_S Admitting Clinician UnavailTorsten Soto Admitting Clinician Unavailable KNOW, DOES_NOT Admitting Clinician Unavailable Hilda Springer DPM Admitting Clinician [phone] Payers Payer Name Policy Type Policy Number Effective Date Expirati on Date Source [employer] MEDICARE ADV [id number] 2020 00:00:00 [employer] (MEDICARE REPLACEMENT PPO) [id number] 2022 00:00:00 [employer]ETJAVIER MEDICARE 53 [id number] 2018 00:00:00 [facility] Problems Condition Name Condition Details Condition Category Status Onset Date Resolution Date Last Treatment Date Treating Clinician Comments Source Morbid obesity Morbid Obesity Problem Active 8- 00:00: 00 [facility] 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 of Vaginal Vault after Hysterecto my Problem Active 8 00:00: 00 [facility] Hyperglyce king due to type 2 diabetes mellitus Hyperglyce king Due to Type 2 Diabetes Mellitus Problem Active 8 00:00: 00 [facility] White blood cell count outside reference range White Blood Cell Count outside Reference Range Problem Active 4-23 00:00: 00 [facility] Incontinen ce of feces Incontinen ce of [...] Medical Diabetes mellitus Diabetes Mellitus Problem Active 02-26 00:00: 00 [facility] Hyperchole sterolemia Hyperchole sterolemia Problem Active 02-26 00:00: 00 [facility] Hypertensi ve disorder Hypertensi ve Disorder Problem Active 2023-0 7-31 00:00: 00 [facility] Atrophic vaginitis Atrophic Vaginitis Problem Active 3-13 00:00: 00 [facility] Overactive urinary bladder Overactive Urinary Bladder Problem Active 8-05 00:00: 00 [facility] Type 2 diabetes mellitus without complicati on Type 2 Diabetes Mellitus without Complicati on Problem Active 02-21 00:00: 00 [facility] Disorder due to type 2 diabetes mellitus Disorder Due to Type 2 Diabetes Mellitus Problem Active 02-21 00:00: 00 [facility] Body mass index 40+ - severely obese Body Mass Index 40+ - Severely Obese Problem Active 02-21 00:00: 00 [facility] [id number] Urinary incontinen ce in female Problem [facility] Polyneurop athy due to type 2 diabetes mellitus Diabetic polyneurop athy associated with type 2 diabetes mellitus Problem [facility] Neuropathy Neuropathy Problem Co [facility] [id number] Decreased hearing of left ear Problem [facility] [id number] Anxiety Problem [facility] [id number] Change in bowel habit Problem [facility] [id number] Essential hypertensi on Problem [facility] Vitamin D deficiency Vitamin D deficiency Problem [facility] Chronic fatigue syndrome Chronic fatigue Problem [facility] [id number] Seasonal allergies Problem [facility] [id number] Nonadheren ce with dietary restrictio n Problem [facility] Mononeurop athy associated with type II diabetes mellitus Controlled type 2 diabetes mellitus with diabetic mononeurop athy, without long-term current use of insulin Problem [facility] Ulcer Ulcer Problem [facility] [id number] Right acute serous otitis media, recurrence not specified Problem [facility] [id number] Diabetic neuropathy , painful Problem [facility] Obstructiv e sleep apnea Obstructiv e sleep apnea (adult) (pediatric ) Problem [facility] [id number] Mixed hyperlipid emia Problem [facility] Diabetes mellitus without complicati on Diabetes DMII without complicati ons Problem [facility] [id number] Atheroscle rosis of artery of extremity with intermitte nt claudicati on Problem [facility] Gastroesop hageal reflux disease GERD without esophagiti s Problem [facility] Allergies, Adverse Reactions, Alerts Allergy Name Allergy Type Status Severity Reaction(s) Onset Date Inactive Date Treating Clinician Comments Source No Known Intolera nces DA Active U 03-08 00:00: 00 [facility] NO KNOWN ALLERGIE S Drug Class Active [facility] Social History Social Habit Start Date Stop Date Quantity Comments Source History of Tobacco Use [facility] Sex Assigned At [facility] Exposure to SARS-CoV-2 (event) Not sure [facility] Tobacco use and exposure 2020-12-30 00:00:00 2020-12-30 00:00:00 Never used [facility] Smoking Status Start Date Stop Date Source Never Smoker [facility] Former Smoker 2024-04-16 00:00:00 2024-04-16 00:00:00 [facility] Medications Ordered Medication Name Filled Medication Name Start Date Stop Date Current Medication? Ordering Clinician Indication Dosage Frequency Signature (SIG) Comments Components Source Gabapentin 300 MG Gabapentin 300 MG 12-16 00:00: 00 No 1{capsu le} BID Gabapentin 300 MG metFORMIN 500 mg tablet 08-27 23:13: 04 Yes 500mg Take 500 mg by mouth 2 (two) times daily with meals. [facility] bacitracin- polymyxin B (DOUBLE ANTIBIOTIC) 500-10,000 unit/gram topical ointment 08-26 15:58: 00 Yes PRN, Starting on Sun08/26/21 at 0958, Until Discontinu ed, Routine, Intra-op [facility] sodium chloride 0.9 % irrigation solution 08-26 15:15: 00 Yes PRN, Starting on Sun08/26/21 at 0915, Until Discontinu ed, Intra-op [facility] bupivacaine (preserv free) 0.5% (SENSORCAIN E MPF) 0.5 % (5 mg/mL) 5 mL, lidocaine 1% (PF) (XYLOCAINE) 5 mL 08-26 15:01: 00 Yes PRN, Starting on Sun08/26/21 at 0901, Intra-op [facility] lactated ringers IV infusion 1,000 mL 08-26 13:45: 00 08-26 14:01 :00 No 1000mL at 42 mL/hr, 1,000 mL, IV Infusion, ONCE, 1 dose, On Sun08/26/21 at 0745, Routine, DSU Pre-op [facility] atorvastati n 10 mg tablet 08-26 11:14: 01 Yes 10mg Take 10 mg by mouth at bedtime. [facility] glimepiride 2 mg tablet 08-26 11:14: 01 Yes 2mg Take 2 mg by mouth 2 (two) times daily. [facility] metFORMIN 500 mg tablet 08-26 11:14: 01 Yes 500mg Take 500 mg by mouth 2 (two) times daily with meals. [facility] aspirin 325 mg tablet 08-26 00:00: 00 09-24 05:59 :00 No [id number] 325mg Take 1 tablet by mouth 2 (two) times daily with meals for 28 days. [facility] metFORMIN 500 mg tablet 08-24 15:30: 09 Yes 500mg Take 500 mg by mouth 2 (two) times daily with meals. [facility] atorvastati n 10 mg tablet 12-31 19:21: 12 Yes 10mg Take 10 mg by mouth at bedtime. [facility] glimepiride 2 mg tablet 12-31 19:21: 12 Yes 2mg Take 2 mg by mouth 2 (two) times daily. [facility] ondansetron (ZOFRAN (PF)) injection 4 mg 12-31 18:21: 55 Yes 4mg 4 mg, Slow IV Push, PRN, 1 dose, Starting Sun12/31/20 at 1321, Until Discontinu ed, Routine, Nausea and Vomiting (N/V), PACU [facility] FENTanyl PF (SUBLIMAZE (PF)) injection 25 mcg 12-31 18:21: 55 12-31 21:26 :16 No 25ug 25 mcg, Slow IV Push, Q5MIN PRN, 4 doses, Starting Sun12/31/20 at 1321, Until Sun12/31/20 at 1626, Routine, Pain (scale 7-10), PACU [facility] bupivacaine (preserv free) 0.5% (SENSORCAIN E MPF) 0.5 % (5 mg/mL) 5 mL, lidocaine 1% (PF) (XYLOCAINE) 5 mL 12-31 17:45: 00 Yes PRN, Starting Sun12/31/20 at 1245, Intra-op [facility] sodium chloride 0.9 % irrigation solution 12-31 17:41: 00 Yes PRN, Starting Sun12/31/20 at 1241, Until Discontinu ed, Intra-op [facility] lactated ringers IV infusion 1,000 mL 12-31 15:15: 00 12-31 15:12 :00 No 1000mL at 42 mL/hr, 1,000 mL, IV Infusion, ONCE, 1 dose, Sun12/31/20 at 1015, Routine, DSU Pre-op [facility] atorvastati n 10 mg tablet 12-31 14:21: 12 Yes 10mg Take 10 mg by mouth at bedtime. [facility] glimepiride 2 mg tablet 12-31 14:21: 12 Yes 2mg Take 2 mg by mouth 2 (two) times daily. [facility] atorvastati n 20 mg tablet TAKE 1 TABLET BY MOUTH EVERY DAY FOR 90 DAYS atorvastati n 20 mg tablet TAKE 1 TABLET BY MOUTH EVERY DAY FOR 90 DAYS No atorvastat in 20 mg tablet TAKE 1 TABLET BY MOUTH EVERY DAY FOR 90 DAYS [facility] carvedilol 3.125 mg tablet TAKE 1 TABLET BY MOUTH TWICE A DAY WITH FOOD FOR 90 DAYS carvedilol 3.125 mg tablet TAKE 1 TABLET BY MOUTH TWICE A DAY WITH FOOD FOR 90 DAYS No carvedilol 3.125 mg tablet TAKE 1 TABLET BY MOUTH TWICE A DAY WITH FOOD FOR 90 DAYS [facility] famotidine 20 mg tablet TAKE 1 TABLET BY MOUTH EVERYDAY AT BEDTIME famotidine 20 mg tablet TAKE 1 TABLET BY MOUTH EVERYDAY AT BEDTIME No famotidine 20 mg tablet TAKE 1 TABLET BY MOUTH EVERYDAY AT BEDTIME [facility] Farxiga 10 mg tablet TAKE 1 TABLET BY MOUTH EVERY DAY FOR 90 DAYS Farxiga 10 mg tablet TAKE 1 TABLET BY MOUTH EVERY DAY FOR 90 DAYS No Farxiga 10 mg tablet TAKE 1 TABLET BY MOUTH EVERY DAY FOR 90 DAYS [facility] glipizide 10 mg tablet TAKE 1 TABLET BY MOUTH EVERY DAY 30 MINUTES BEFORE BREAKFAST glipizide 10 mg tablet TAKE 1 TABLET BY MOUTH EVERY DAY 30 MINUTES BEFORE BREAKFAST No glipizide 10 mg tablet TAKE 1 TABLET BY MOUTH EVERY DAY 30 MINUTES BEFORE BREAKFAST [facility] losartan 100 mg tablet TAKE 1 TABLET BY MOUTH EVERY DAY losartan 100 mg tablet TAKE 1 TABLET BY MOUTH EVERY DAY No losartan 100 mg tablet TAKE 1 TABLET BY MOUTH EVERY DAY [facility] Metamucil 30.9 % oral powder Take by oral route. Metamucil 30.9 % oral powder Take by oral route. No Metamucil 30.9 % oral powder Take by oral route. [facility] metformin ER 500 mg tablet,exte nded release 24 hr metformin ER 500 mg tablet,exte nded release 24 hr No metformin ER 500 mg tablet,ext ended release 24 hr [facility] Myrbetriq 50 mg tablet,exte nded release Take 1 tablet every day by oral route for 30 days. Myrbetriq 50 mg tablet,exte nded release Take 1 tablet every day by oral route for 30 days. No 1 Q1D Myrbetriq 50 mg tablet,ext ended release Take 1 tablet every day by oral route for 30 days. [facility] aspirin aspirin No aspirin P [facility] estradiol 0.01% (0.1 mg/gram) vaginal cream INSERT 0.5 G EVERY DAY BY VAGINAL ROUTE AT BEDTIME FOR 90 DAYS. estradiol 0.01% (0.1 mg/gram) vaginal cream INSERT 0.5 G EVERY DAY BY VAGINAL ROUTE AT BEDTIME FOR 90 DAYS. No .5g Q1D estradiol 0.01% (0.1 mg/gram) vaginal cream INSERT 0.5 G EVERY DAY BY VAGINAL ROUTE AT BEDTIME FOR 90 DAYS. [facility] clobetasol 0.05 % topical ointment clobetasol 0.05 % topical ointment No clobetasol 0.05 % topical ointment [facility] gabapentin 300 mg capsule gabapentin 300 mg capsule No gabapentin 300 mg capsule [facility] Mounjaro 2.5 mg/0.5 mL subcutaneou s pen injector Mounjaro 2.5 mg/0.5 mL subcutaneou s pen injector No Mounjaro 2.5 mg/0.5 mL subcutaneo us pen injector [facility] omeprazole 20 mg capsule,del ayed release TAKE 1 CAPSULE BY MOUTH IN THE MORNING omeprazole 20 mg capsule,del ayed release TAKE 1 CAPSULE BY MOUTH IN THE MORNING No omeprazole 20 mg capsule,de layed release TAKE 1 CAPSULE BY MOUTH IN THE MORNING [facility] OneTouch Ultra Test strips TEST BLOOD SUGAR ONCE DAILY OneTouch Ultra Test strips TEST BLOOD SUGAR ONCE DAILY No OneTouch Ultra Test strips TEST BLOOD SUGAR ONCE DAILY [facility] triamcinolo ne acetonide 0.1 % topical cream APPLY SPARINGLY TO AFFECTED AREA TWICE A DAY triamcinolo ne acetonide 0.1 % topical cream APPLY SPARINGLY TO AFFECTED AREA TWICE A DAY No triamcinol one acetonide 0.1 % topical cream APPLY SPARINGLY TO AFFECTED AREA TWICE A DAY [facility] No known medications No [facility] No known medications No [facility] Aspirin 81 MG Aspirin 81 MG No 1{table t} QD Aspirin 81 MG Omeprazole 20 MG Omeprazole 20 MG [...] t} BID metFORMIN HCl ER 500 MG Mounjaro 5 MG/0.5ML Mounjaro 5 MG/0.5ML No Mounjaro 5 MG/0.5ML Immunizations Ordered Immunization Name Filled Immunization Name Date Status Comments Source Pfizer COVID-19 Vaccine Pfizer COVID-19 Vaccine 2020-10-28 11:56:00 Completed [facility] Pfizer COVID-19 Vaccine Pfizer COVID-19 Vaccine 2020-10-28 11:56:00 Completed [facility] Pfizer COVID-19 Vaccine Pfizer COVID-19 Vaccine 2020-10-28 11:56:00 Completed [facility] Pfizer COVID-19 Vaccine Pfizer COVID-19 Vaccine 2020-10-28 11:56:00 Completed [facility] Pfizer COVID-19 Vaccine Pfizer COVID-19 Vaccine 2020-10-28 11:56:00 Completed [facility] Pfizer COVID-19 Vaccine Pfizer COVID-19 Vaccine 2020-10-28 11:56:00 Completed [facility] Pfizer COVID-19 Vaccine Pfizer COVID-19 Vaccine 2020-10-28 11:56:00 Completed [facility] Pfizer COVID-19 Vaccine Pfizer COVID-19 Vaccine 2020-10-28 11:56:00 Completed [facility] Pfizer COVID-19 Vaccine Pfizer COVID-19 Vaccine 2020-10-28 11:56:00 Completed [facility] Pfizer COVID-19 Vaccine Pfizer COVID-19 Vaccine 2020-10-28 11:56:00 Completed [facility] SARS-COV-2 COVID-19 PFIZER VACCINE 2020-10-16 00:00:00 Completed [facility] SARS-COV-2 COVID-19 PFIZER VACCINE 2020-10-16 00:00:00 Completed [facility] SARS-COV-2 COVID-19 PFIZER VACCINE 2020-10-16 00:00:00 Completed [facility] SARS-COV-2 COVID-19 PFIZER VACCINE 2020-10-16 00:00:00 Completed [facility] SARS-COV-2 COVID-19 PFIZER VACCINE 2020-10-16 00:00:00 Completed [facility] SARS-COV-2 COVID-19 PFIZER VACCINE 2020-10-16 00:00:00 Completed [facility] SARS-COV-2 COVID-19 PFIZER VACCINE 2020-10-16 00:00:00 Completed [facility] SARS-COV-2 COVID-19 PFIZER VACCINE 2020-10-16 00:00:00 Completed [facility] SARS-COV-2 COVID-19 PFIZER VACCINE 2020-10-16 00:00:00 Completed [facility] Pfizer COVID-19 Vaccine Pfizer COVID-19 Vaccine 2020-09-27 11:56:00 Completed [facility] Pfizer COVID-19 Vaccine Pfizer COVID-19 Vaccine 2020-09-27 11:56:00 Completed [facility] Pfizer COVID-19 Vaccine Pfizer COVID-19 Vaccine 2020-09-27 11:56:00 Completed [facility] Pfizer COVID-19 Vaccine Pfizer COVID-19 Vaccine 2020-09-27 11:56:00 Completed [facility] Pfizer COVID-19 Vaccine Pfizer COVID-19 Vaccine 2020-09-27 11:56:00 Completed [facility] Pfizer COVID-19 Vaccine Pfizer COVID-19 Vaccine 2020-09-27 11:56:00 Completed [facility] Pfizer COVID-19 Vaccine Pfizer COVID-19 Vaccine 2020-09-27 11:56:00 Completed [facility] Pfizer COVID-19 Vaccine Pfizer COVID-19 Vaccine 2020-09-27 11:56:00 Completed [facility] Pfizer COVID-19 Vaccine Pfizer COVID-19 Vaccine 2020-09-27 11:56:00 Completed [facility] Pfizer COVID-19 Vaccine Pfizer COVID-19 Vaccine 2020-09-27 11:56:00 Completed [facility] SARS-COV-2 COVID-19 PFIZER VACCINE 2020-09-25 00:00:00 Completed [facility] SARS-COV-2 COVID-19 PFIZER VACCINE 2020-09-25 00:00:00 Completed [facility] SARS-COV-2 COVID-19 PFIZER VACCINE 2020-09-25 00:00:00 Completed [facility] SARS-COV-2 COVID-19 PFIZER VACCINE 2020-09-25 00:00:00 Completed [facility] SARS-COV-2 COVID-19 PFIZER VACCINE 2020-09-25 00:00:00 Completed [facility] SARS-COV-2 COVID-19 PFIZER VACCINE 2020-09-25 00:00:00 Completed [facility] SARS-COV-2 COVID-19 PFIZER VACCINE 2020-09-25 00:00:00 Completed [facility] SARS-COV-2 COVID-19 PFIZER VACCINE 2020-09-25 00:00:00 Completed [facility] SARS-COV-2 COVID-19 PFIZER VACCINE 2020-09-25 00:00:00 Completed [facility] Fluzone Fluzone 2020-05-20 11:55:00 Completed [facility] Fluzone Fluzone 2020-05-20 11:55:00 Completed [facility] Fluzone Fluzone 2020-05-20 11:55:00 Completed [facility] Fluzone Fluzone 2020-05-20 11:55:00 Completed [facility] Fluzone Fluzone 2020-05-20 11:55:00 Completed [facility] Fluzone Fluzone 2020-05-20 11:55:00 Completed [facility] Fluzone Fluzone 2020-05-20 11:55:00 Completed [facility] Fluzone Fluzone 2020-05-20 11:55:00 Completed [facility] Fluzone Fluzone 2020-05-20 11:55:00 Completed [facility] Fluzone Fluzone 2020-05-20 11:55:00 Completed [facility] Pneumovax (PPSV23) Pneumovax (PPSV23) 2020-04-29 11:55:00 Completed [facility] Pneumovax (PPSV23) Pneumovax (PPSV23) 2020-04-29 11:55:00 Completed [facility] Pneumovax (PPSV23) Pneumovax (PPSV23) 2020-04-29 11:55:00 Completed [facility] Pneumovax (PPSV23) Pneumovax (PPSV23) 2020-04-29 11:55:00 Completed [facility] Pneumovax (PPSV23) Pneumovax (PPSV23) 2020-04-29 11:55:00 Completed [facility] Pneumovax (PPSV23) Pneumovax (PPSV23) 2020-04-29 11:55:00 Completed [facility] Pneumovax (PPSV23) Pneumovax (PPSV23) 2020-04-29 11:55:00 Completed [facility] Pneumovax (PPSV23) Pneumovax (PPSV23) 2020-04-29 11:55:00 Completed [facility] Pneumovax (PPSV23) Pneumovax (PPSV23) 2020-04-29 11:55:00 Completed [facility] Pneumovax (PPSV23) Pneumovax (PPSV23) 2020-04-29 11:55:00 Completed [facility] Adacel (Tdap) Adacel (Tdap) 2020-04-29 11:54:00 Completed [facility] Adacel (Tdap) Adacel (Tdap) 2020-04-29 11:54:00 Completed [facility] Adacel (Tdap) Adacel (Tdap) 2020-04-29 11:54:00 Completed [facility] Adacel (Tdap) Adacel (Tdap) 2020-04-29 11:54:00 Completed [facility] Adacel (Tdap) Adacel (Tdap) 2020-04-29 11:54:00 Completed [facility] Adacel (Tdap) Adacel (Tdap) 2020-04-29 11:54:00 Completed [facility] Adacel (Tdap) Adacel (Tdap) 2020-04-29 11:54:00 Completed [facility] Adacel (Tdap) Adacel (Tdap) 2020-04-29 11:54:00 Completed [facility] Adacel (Tdap) Adacel (Tdap) 2020-04-29 11:54:00 Completed [facility] Adacel (Tdap) Adacel (Tdap) 2020-04-29 11:54:00 Completed [facility] Pfizer COVID-19 Vaccine Pfizer COVID-19 Vaccine Unknown Completed [facility] Fluzone Fluzone Unknown Completed [facility] Pneumovax (PPSV23) Pneumovax (PPSV23) Unknown Completed [facility] Adacel (Tdap) Adacel (Tdap) Unknown Completed [facility] Pfizer COVID-19 Vaccine Pfizer COVID-19 Vaccine Unknown Completed [facility] Fluzone Fluzone Unknown Completed [facility] Pneumovax (PPSV23) Pneumovax (PPSV23) Unknown Completed [facility] Adacel (Tdap) Adacel (Tdap) Unknown Completed [facility] Pfizer COVID-19 Vaccine Pfizer COVID-19 Vaccine Unknown Completed [facility] Fluzone Fluzone Unknown Completed [facility] Pneumovax (PPSV23) Pneumovax (PPSV23) Unknown Completed [facility] Adacel (Tdap) Adacel (Tdap) Unknown Completed [facility] Pfizer COVID-19 Vaccine Pfizer COVID-19 Vaccine Unknown Completed [facility] Fluzone Fluzone Unknown Completed [facility] Pneumovax (PPSV23) Pneumovax (PPSV23) Unknown Completed [facility] Adacel (Tdap) Adacel (Tdap) Unknown Completed [facility] Pfizer COVID-19 Vaccine Pfizer COVID-19 Vaccine Unknown Completed [facility] Fluzone Fluzone Unknown Completed [facility] Pneumovax (PPSV23) Pneumovax (PPSV23) Unknown Completed [facility] Adacel (Tdap) Adacel (Tdap) Unknown Completed [facility] Pfizer COVID-19 Vaccine Pfizer COVID-19 Vaccine Unknown Completed [facility] Fluzone Fluzone Unknown Completed [facility] Pneumovax (PPSV23) Pneumovax (PPSV23) Unknown Completed [facility] Adacel (Tdap) Adacel (Tdap) Unknown Completed [facility] Pfizer COVID-19 Vaccine Pfizer COVID-19 Vaccine Unknown Completed [facility] Fluzone Fluzone Unknown Completed [facility] Pneumovax (PPSV23) Pneumovax (PPSV23) Unknown Completed [facility] Adacel (Tdap) Adacel (Tdap) Unknown Completed [facility] Pfizer COVID-19 Vaccine Pfizer COVID-19 Vaccine Unknown Completed [facility] Fluzone Fluzone Unknown Completed [facility] Pneumovax (PPSV23) Pneumovax (PPSV23) Unknown Completed [facility] Adacel (Tdap) Adacel (Tdap) Unknown Completed [facility] Pfizer COVID-19 Vaccine Pfizer COVID-19 Vaccine Unknown Completed [facility] Fluzone Fluzone Unknown Completed [facility] Pneumovax (PPSV23) Pneumovax (PPSV23) Unknown Completed [facility] Adacel (Tdap) Adacel (Tdap) Unknown Completed [facility] Pfizer COVID-19 Vaccine Pfizer COVID-19 Vaccine Unknown Completed [facility] Fluzone Fluzone Unknown Completed [facility] Pneumovax (PPSV23) Pneumovax (PPSV23) Unknown Completed [facility] Adacel (Tdap) Adacel (Tdap) Unknown Completed [facility] Pfizer COVID-19 Vaccine Pfizer COVID-19 Vaccine Unknown Completed [facility] Pfizer COVID-19 Vaccine Pfizer COVID-19 Vaccine Unknown Completed [facility] Fluzone Fluzone Unknown Completed [facility] Pneumovax (PPSV23) Pneumovax (PPSV23) Unknown Completed [facility] Adacel (Tdap) Adacel (Tdap) Unknown Completed [facility] Pfizer COVID-19 Vaccine Pfizer COVID-19 Vaccine Unknown Completed [facility] Fluzone Fluzone Unknown Completed [facility] Pneumovax (PPSV23) Pneumovax (PPSV23) Unknown Completed [facility] Adacel (Tdap) Adacel (Tdap) Unknown Completed [facility] Pfizer COVID-19 Vaccine Pfizer COVID-19 Vaccine Unknown Completed [facility] Fluzone Fluzone Unknown Completed [facility] Pneumovax (PPSV23) Pneumovax (PPSV23) Unknown Completed [facility] Adacel (Tdap) Adacel (Tdap) Unknown Completed [facility] Pfizer COVID-19 Vaccine Pfizer COVID-19 Vaccine Unknown Completed [facility] Fluzone Fluzone Unknown Completed [facility] Pneumovax (PPSV23) Pneumovax (PPSV23) Unknown Completed [facility] Adacel (Tdap) Adacel (Tdap) Unknown Completed [facility] Pfizer COVID-19 Vaccine Pfizer COVID-19 Vaccine Unknown Completed [facility] Fluzone Fluzone Unknown Completed [facility] Pneumovax (PPSV23) Pneumovax (PPSV23) Unknown Completed [facility] Adacel (Tdap) Adacel (Tdap) Unknown Completed [facility] Pfizer COVID-19 Vaccine Pfizer COVID-19 Vaccine Unknown Completed [facility] [facility] Fl[facility] Fluzone Unknown Completed [facility] Pneumovax (PPSV23) Pneumovax (PPSV23) Unknown Completed [facility] Adacel (Tdap) Adacel (Tdap) Unknown Completed [facility] Pfizer COVID-19 Vaccine Pfizer COVID-19 Vaccine Unknown Completed [facility] Fluzone Fluzone Unknown Completed [facility] Pneumovax (PPSV23) Pneumovax (PPSV23) Unknown Completed [facility] Adacel (Tdap) Adacel (Tdap) Unknown Completed [facility] Pfizer COVID-19 Vaccine Pfizer COVID-19 Vaccine Unknown Completed [facility] Fluzone Fluzone Unknown Completed [facility] Pneumovax (PPSV23) Pneumovax (PPSV23) Unknown Completed [facility] Adacel (Tdap) Adacel (Tdap) Unknown Completed [facility] Pfizer COVID-19 Vaccine Pfizer COVID-19 Vaccine Unknown Completed [facility] Fluzone Fluzone Unknown Completed [facility] Pneumovax (PPSV23) Pneumovax (PPSV23) Unknown Completed [facility] Adacel (Tdap) Adacel (Tdap) Unknown Completed [facility] Pfizer COVID-19 Vaccine Pfizer COVID-19 Vaccine Unknown Completed [facility] Fluzone Fluzone Unknown Completed [facility] Pneumovax (PPSV23) Pneumovax (PPSV23) Unknown Completed [facility] Adacel (Tdap) Adacel (Tdap) Unknown Completed [facility] Pfizer COVID-19 Vaccine Pfizer COVID-19 Vaccine Unknown Completed [facility] Fluzone Fluzone Unknown Completed [facility] Pneumovax (PPSV23) Pneumovax (PPSV23) Unknown Completed [facility] Adacel (Tdap) Adacel (Tdap) Unknown Completed [facility] Pfizer COVID-19 Vaccine Pfizer COVID-19 Vaccine Unknown Completed [facility] Fluzone Fluzone Unknown Completed [facility] Pneumovax (PPSV23) Pneumovax (PPSV23) Unknown Completed [facility] Adacel (Tdap) Adacel (Tdap) Unknown Completed [facility] Pfizer COVID-19 Vaccine Pfizer COVID-19 Vaccine Unknown Completed [facility] Fluzone Fluzone Unknown Completed [facility] Pneumovax (PPSV23) Pneumovax (PPSV23) Unknown Completed [facility] Adacel (Tdap) Adacel (Tdap) Unknown Completed [facility] Vital Signs Vital Name Observation Time Observation Value Comments S ource height 2024-04-16 09:40:00 60 [in_i] Commo n [facility] weight 2024-04-16 09:40:00 245 [lb_av] Comm on [facility] temperature 2024-04-16 09:40:00 97.2 [degF] Com mon [facility] bmi 2024-04-16 09:40:00 47.84 kg/m2 Comm on [facility] oximetry 2024-04-16 09:40:00 96 % Commo [facility] respiratory rate 2024-04-16 09:40:00 16 /min [facility] blood pressure systolic 2024-04-16 09:40:00 130 mm[Hg] [facility] blood pressure diastolic 2024-04-16 09:40:00 72 mm[Hg] [facility] BMI (Body Mass Index) 2024-03-19 00:00:00 46.7 kg/m2 [facility] Height 2024-03-19 00:00:00 60 [in_i] [facility] BP Diastolic 2024-03-19 00:00:00 72 mm[Hg] [facility] Weight 2024-03-19 00:00:00 239 [lb_av] [facility] BP Systolic 2024-03-19 00:00:00 153 mm[Hg] [facility] height 2024-03-18 11:00:00 60 [in_i] Commo n [facility] weight 2024-03-18 11:00:00 243.6 [lb_av] Co mmon [facility] temperature 2024-03-18 11:00:00 97.4 [degF] Com mon [facility] bmi 2024-03-18 11:00:00 47.57 kg/m2 Comm on [facility] oximetry 2024-03-18 11:00:00 96 % Commo [facility] respiratory rate 2024-03-18 11:00:00 16 /min [facility] blood pressure systolic 2024-03-18 11:00:00 122 mm[Hg] [facility] blood pressure diastolic 2024-03-18 11:00:00 68 mm[Hg] [facility] BP Systolic 2024-01-04 00:00:00 147 mm[Hg] [facility] BP Diastolic 2024-01-04 00:00:00 75 mm[Hg] [facility] BMI (Body Mass Index) 2024-01-04 00:00:00 46.7 kg/m2 [facility] Height 2024-01-04 00:00:00 60 [in_i] [facility] Weight 2024-01-04 00:00:00 239 [lb_av] [facility] height 2023-12-17 14:00:00 60 [in_i] Commo n [facility] weight 2023-12-17 14:00:00 237 [lb_av] Comm on [facility] temperature 2023-12-17 14:00:00 97.2 [degF] Com mon [facility] bmi 2023-12-17 14:00:00 46.28 kg/m2 Comm on [facility] oximetry 2023-12-17 14:00:00 96 % Commo [facility] respiratory rate 2023-12-17 14:00:00 16 /min [facility] blood pressure systolic 2023-12-17 14:00:00 136 mm[Hg] [facility] blood pressure diastolic 2023-12-17 14:00:00 78 mm[Hg] [facility] BP Diastolic 2023-11-29 00:00:00 80 mm[Hg] [facility] Height 2023-11-29 00:00:00 60 [in_i] [facility] BMI (Body Mass Index) 2023-11-29 00:00:00 46.7 kg/m2 [facility] Weight 2023-11-29 00:00:00 239 [lb_av] [facility] BP Systolic 2023-11-29 00:00:00 161 mm[Hg] [facility] Height 2023-11-13 00:00:00 60 [in_i] [facility] BP Systolic 2023-11-13 00:00:00 129 mm[Hg] [facility] BMI (Body Mass Index) 2023-11-13 00:00:00 46.8 kg/m2 [facility] Weight 2023-11-13 00:00:00 239.8 [lb_av] [facility] BP Diastolic 2023-11-13 00:00:00 59 mm[Hg] [facility] BMI (Body Mass Index) 2023-09-19 00:00:00 46.1 kg/m2 [facility] BP Diastolic 2023-09-19 00:00:00 56 mm[Hg] [facility] BP Systolic 2023-09-19 00:00:00 118 mm[Hg] [facility] Weight 2023-09-19 00:00:00 236 [lb_av] [facility] Height 2023-09-19 00:00:00 60 [in_i] [facility] height 2023-09-12 13:40:00 60 [in_i] Commo n [facility] weight 2023-09-12 13:40:00 237.8 [lb_av] Co mmon [facility] temperature 2023-09-12 13:40:00 97.3 [degF] Com [facility] bmi 2023-09-12 13:40:00 46.44 kg/m2 Comm on [facility] oximetry 2023-09-12 13:40:00 97 % Commo [facility] respiratory rate 2023-09-12 13:40:00 16 /min [facility] blood pressure systolic 2023-09-12 13:40:00 136 mm[Hg] [facility] blood pressure diastolic 2023-09-12 13:40:00 74 mm[Hg] [facility] height 2023-09-12 13:40:00 60 [in_i] Commo n [facility] weight 2023-09-12 13:40:00 237.8 [lb_av] Co mmon [facility] temperature 2023-09-12 13:40:00 97.3 [degF] Com [facility] bmi 2023-09-12 13:40:00 46.44 kg/m2 Comm on [facility] oximetry 2023-09-12 13:40:00 97 % Commo [facility] respiratory rate 2023-09-12 13:40:00 16 /min [facility] blood pressure systolic 2023-09-12 13:40:00 136 mm[Hg] [facility] blood pressure diastolic 2023-09-12 13:40:00 74 mm[Hg] [facility] height 2023-08-14 13:00:00 60 [in_i] Commo n [facility] weight 2023-08-14 13:00:00 238 [lb_av] Comm on [facility] bmi 2023-08-14 13:00:00 46.48 kg/m2 Comm on [facility] height 2023-08-01 13:20:00 60 [in_i] Commo n [facility] weight 2023-08-01 13:20:00 238 [lb_av] Comm on [facility] temperature 2023-08-01 13:20:00 97.3 [degF] Com [facility] bmi 2023-08-01 13:20:00 46.48 kg/m2 Comm on [facility] oximetry 2023-08-01 13:20:00 97 % Commo [facility] respiratory rate 2023-08-01 13:20:00 16 /min [facility] blood pressure systolic 2023-08-01 13:20:00 136 mm[Hg] Common [facility] blood pressure diastolic 2023-08-01 13:20:00 82 mm[Hg] [facility] height 2023-07-09 14:00:00 60 [in_i] Commo n [facility] weight 2023-07-09 14:00:00 234 [lb_av] Comm on [facility] temperature 2023-07-09 14:00:00 97.3 [degF] Com [facility] bmi 2023-07-09 14:00:00 45.7 kg/m2 Commo [facility] oximetry 2023-07-09 14:00:00 97 % Commo [facility] respiratory rate 2023-07-09 14:00:00 16 /min [facility] blood pressure systolic 2023-07-09 14:00:00 134 mm[Hg] [facility] blood pressure diastolic 2023-07-09 14:00:00 80 mm[Hg] [facility] height 2023-06-08 14:20:00 60 [in_i] Commo n [facility] weight 2023-06-08 14:20:00 237.6 [lb_av] Co mmon [facility] temperature 2023-06-08 14:20:00 97.0 [degF] Com mon [facility] bmi 2023-06-08 14:20:00 46.4 kg/m2 Commo [facility] oximetry 2023-06-08 14:20:00 97 % Commo [facility] respiratory rate 2023-06-08 14:20:00 16 /min [facility] blood pressure systolic 2023-06-08 14:20:00 140 mm[Hg] [facility] blood pressure diastolic 2023-06-08 14:20:00 68 mm[Hg] [facility] height 2023-03-09 14:00:00 60 [in_i] Commo n [facility] weight 2023-03-09 14:00:00 233 [lb_av] Comm on [facility] temperature 2023-03-09 14:00:00 97.2 [degF] Com mon [facility] bmi 2023-03-09 14:00:00 45.5 kg/m2 Commo [facility] oximetry 2023-03-09 14:00:00 96 % Commo [facility] respiratory rate 2023-03-09 14:00:00 17 /min [facility] blood pressure systolic 2023-03-09 14:00:00 132 mm[Hg] [facility] blood pressure diastolic 2023-03-09 14:00:00 78 mm[Hg] [facility] height 2023-01-31 16:00:00 60 [in_i] Commo n [facility] weight 2023-01-31 16:00:00 238.4 [lb_av] Co [facility] temperature 2023-01-31 16:00:00 97.5 [degF] Com [facility] bmi 2023-01-31 16:00:00 46.55 kg/m2 Comm on [facility] oximetry 2023-01-31 16:00:00 95 % Commo n [facility] respiratory rate 2023-01-31 16:00:00 16 /min [facility] blood pressure systolic 2023-01-31 16:00:00 134 mm[Hg] [facility] blood pressure diastolic 2023-01-31 16:00:00 68 mm[Hg] [facility] height 2023-01-31 15:00:00 60 [in_i] Commo n [facility] weight 2023-01-31 15:00:00 238.4 [lb_av] Co [facility] temperature 2023-01-31 15:00:00 97.5 [degF] Com [facility] bmi 2023-01-31 15:00:00 46.55 kg/m2 Comm on [facility] oximetry 2023-01-31 15:00:00 95 % Commo n [facility] respiratory rate 2023-01-31 15:00:00 16 /min [facility] blood pressure systolic 2023-01-31 15:00:00 134 mm[Hg] [facility] blood pressure diastolic 2023-01-31 15:00:00 68 mm[Hg] [facility] height 2022-05-18 13:00:00 60 [in_i] Commo n [facility] weight 2022-05-18 13:00:00 260 [lb_av] Comm on [facility] temperature 2022-05-18 13:00:00 98 [degF] Comm on [facility] bmi 2022-05-18 13:00:00 50.77 kg/m2 Comm on [facility] oximetry 2022-05-18 13:00:00 96 % Commo n [facility] respiratory rate 2022-05-18 13:00:00 18 /min [facility] blood pressure systolic 2022-05-18 13:00:00 136 mm[Hg] [facility] blood pressure diastolic 2022-05-18 13:00:00 69 mm[Hg] [facility] height 2022-05-18 13:00:00 60 [in_i] Commo n [facility] weight 2022-05-18 13:00:00 260 [lb_av] Comm on [facility] temperature 2022-05-18 13:00:00 98 [degF] Comm on [facility] bmi 2022-05-18 13:00:00 50.77 kg/m2 Comm on [facility] oximetry 2022-05-18 13:00:00 96 % Commo n [facility] respiratory rate 2022-05-18 13:00:00 18 /min [facility] blood pressure systolic 2022-05-18 13:00:00 136 mm[Hg] [facility] blood pressure diastolic 2022-05-18 13:00:00 69 mm[Hg] [facility] height 2022-02-14 13:40:00 60 [in_i] Commo n [facility] weight 2022-02-14 13:40:00 256.2 [lb_av] Co mmon [facility] temperature 2022-02-14 13:40:00 97.7 [degF] Com [facility] bmi 2022-02-14 13:40:00 50.03 kg/m2 Comm on [facility] oximetry 2022-02-14 13:40:00 95 % Commo n [facility] respiratory rate 2022-02-14 13:40:00 16 /min [facility] blood pressure systolic 2022-02-14 13:40:00 133 mm[Hg] [facility] blood pressure diastolic 2022-02-14 13:40:00 60 mm[Hg] [facility] height 2021-11-15 10:00:00 60 [in_i] Commo n [facility] weight 2021-11-15 10:00:00 256 [lb_av] Comm on [facility] temperature 2021-11-15 10:00:00 97.7 [degF] Com [facility] bmi 2021-11-15 10:00:00 49.99 kg/m2 Comm on [facility] oximetry 2021-11-15 10:00:00 95 % Commo n [facility] respiratory rate 2021-11-15 10:00:00 18 /min [facility] blood pressure systolic 2021-11-15 10:00:00 128 mm[Hg] [facility] blood pressure diastolic 2021-11-15 10:00:00 72 mm[Hg] [facility] Heart rate 2021-08-26 16:50:00 72 /min [facility] Respiratory rate 2021-08-26 16:50:00 14 /min [facility] Oxygen saturation in Arterial blood by Pulse oximetry 2021-08-26 16:50:00 96 /min [facility] Systolic blood pressure 2021-08-26 16:48:00 115 mm[Hg] [facility] Diastolic blood pressure 2021-08-26 16:48:00 57 mm[Hg] [facility] Body temperature 2021-08-26 16:14:00 36.22 [facility] Body height 2021-08-25 13:13:00 152.4 cm [facility] Body weight 2021-08-25 13:13:00 113.4 kg [facility] BMI 2021-08-25 13:13:00 48.83 kg/m2 [facility] Heart rate 2021-08-26 16:41:00 73 /min [facility] Respiratory rate 2021-08-26 16:41:00 10 /min [facility] Oxygen saturation in Arterial blood by Pulse oximetry 2021-08-26 16:41:00 96 /min [facility] Systolic blood pressure 2021-08-26 16:39:00 115 mm[Hg] [facility] Diastolic blood pressure 2021-08-26 16:39:00 57 mm[Hg] [facility] Body temperature 2021-08-26 16:14:00 36.22 [facility] Body height 2021-08-25 13:13:00 152.4 cm [facility] Body weight 2021-08-25 13:13:00 113.4 kg [facility] BMI 2021-08-25 13:13:00 48.83 kg/m2 [facility] height 2021-08-16 11:00:00 60 [in_i] Commo n [facility] weight 2021-08-16 11:00:00 258.4 [lb_av] Co mmon [facility] temperature 2021-08-16 11:00:00 97.7 [degF] Com mon [facility] bmi 2021-08-16 11:00:00 50.46 kg/m2 Comm on [facility] oximetry 2021-08-16 11:00:00 95 % Commo n [facility] respiratory rate 2021-08-16 11:00:00 18 /min [facility] blood pressure systolic 2021-08-16 11:00:00 138 mm[Hg] [facility] blood pressure diastolic 2021-08-16 11:00:00 72 mm[Hg] [facility] height 2021-05-17 13:40:00 60 [in_i] Commo n [facility] weight 2021-05-17 13:40:00 259 [lb_av] Comm on [facility] temperature 2021-05-17 13:40:00 97.5 [degF] Com mon [facility] bmi 2021-05-17 13:40:00 50.58 kg/m2 Comm on [facility] oximetry 2021-05-17 13:40:00 95 % Commo n [facility] respiratory rate 2021-05-17 13:40:00 17 /min [facility] blood pressure systolic 2021-05-17 13:40:00 130 mm[Hg] [facility] blood pressure diastolic 2021-05-17 13:40:00 68 mm[Hg] [facility] height 2021-04-18 11:00:00 60 [in_i] Commo n [facility] weight 2021-04-18 11:00:00 259.2 [lb_av] Co mmon [facility] temperature 2021-04-18 11:00:00 97.2 [degF] Com mon [facility] bmi 2021-04-18 11:00:00 50.62 kg/m2 Comm on [facility] oximetry 2021-04-18 11:00:00 96 % Commo n [facility] respiratory rate 2021-04-18 11:00:00 18 /min [facility] blood pressure systolic 2021-04-18 11:00:00 120 mm[Hg] [facility] blood pressure diastolic 2021-04-18 11:00:00 70 mm[Hg] [facility] Systolic blood pressure 2020-12-31 18:50:00 106 mm[Hg] [facility] Diastolic blood pressure 2020-12-31 18:50:00 57 mm[Hg] [facility] Heart rate 2020-12-31 18:50:00 71 /min [facility] Respiratory rate 2020-12-31 18:50:00 24 /min [facility] Oxygen saturation in Arterial blood by Pulse oximetry 2020-12-31 18:50:00 94 /min [facility] Body height 2020-12-31 15:00:00 152.4 cm [facility] Body weight 2020-12-31 15:00:00 113.399 kg [facility] BMI 2020-12-31 15:00:00 48.82 kg/m2 [facility] Body temperature 2020-12-31 14:50:00 36.67 [facility] Systolic blood pressure 2020-12-31 18:50:00 106 mm[Hg] [facility] Diastolic blood pressure 2020-12-31 18:50:00 57 mm[Hg] [facility] Heart rate 2020-12-31 18:50:00 71 /min [facility] Respiratory rate 2020-12-31 18:50:00 24 /min [facility] Oxygen saturation in Arterial blood by Pulse oximetry 2020-12-31 18:50:00 94 /min [facility] Body height 2020-12-31 15:00:00 152.4 cm [facility] Body weight 2020-12-31 15:00:00 113.399 kg [facility] BMI 2020-12-31 15:00:00 48.82 kg/m2 [facility] Body temperature 2020-12-31 14:50:00 36.67 [facility] Procedures Procedure Date / Time Performed Performing Clinician Source Posterior Repair of Vagina 2023-11-22 00:00:[address] [facility] [address], abdomen + pelvis, w/wo contrast 2023-11-20 00:00:00 [facility] Removal of Toenail 2022-01-11 00:00:00 [facility] EXCISION BONE FOOT 2021-08-26 14:35:00 Hilda Springer [facility] HAMMERTOE CORRECTION 2021-08-26 14:35:00 Hilda Springer [facility] TOENAIL EXCISION 2021-08-26 14:35:00 Hilda Springer [facility] POCT GLUCOSE (AUTOMATED) 2021-08-26 13:53:00 Yulissa Springer [facility] POCT GLUCOSE (AUTOMATED) 2021-08-26 13:53:00 Yulissa Springer [facility] DAY SURGERY - ADC 2021-08-26 06:01:00 Doctor Mana ssigned, [facility] CONSENT/REFUSAL FOR DIAGNOSIS AND TREATMENT 2021-08-25 13:59:35 Doctor Unassigned, [facility] CONSENT/REFUSAL FOR DIAGNOSIS AND TREATMENT 2021-08-25 13:59:35 Doctor Unassigned, [facility] ASSIGNMENT OF BENEFITS 2021-08-25 13:58:44 Docto r Unassigned, [facility] ASSIGNMENT OF BENEFITS 2021-08-25 13:58:44 Docto r Unassigned, [facility] EXTERNAL PROVIDER RECORDS 2021-08-24 06:01:00 Do ctor Unassigned, [facility] EXTERNAL PROVIDER RECORDS 2021-08-24 06:01:00 Do ctor Unassigned, [facility] POCT GLUCOSE(AGE >30DAYS) 2021-08-19 13:53:00 Cristel Faith [facility] POCT GLUCOSE(AGE >30DAYS) 2021-08-19 13:53:00 Cristel Faith [facility] PHYSICIAN ORDERS 2021-08-02 06:01:00 Doctor Unas signed, [facility] HAMMERTOE CORRECTION 2020-12-31 17:00:00 Hilda Springer [facility] EXCISION BONE FOOT 2020-12-31 17:00:00 Hilda Springer [facility] POCT GLUCOSE(AGE >30DAYS) 2020-12-31 14:59:00 Addison Dove [facility] POCT GLUCOSE(AGE >30DAYS) 2020-12-31 14:59:00 Addison Dove [facility] POCT GLUCOSE (AUTOMATED) 2020-12-31 14:58:00 Yulissa Springer [facility] POCT GLUCOSE (AUTOMATED) 2020-12-31 14:58:00 Yulissa Springer [facility] DAY SURGERY - ADC 2020-12-31 05:01:00 Doctor Mana ssigned, [facility] PATIENT QUESTIONNAIRE 2020-12-31 05:01:00 Doctor Unassigned, [facility] CONSENT/REFUSAL FOR DIAGNOSIS AND TREATMENT 2020-12-30 20:00:02 Doctor Unassigned, [facility] CONSENT/REFUSAL FOR DIAGNOSIS AND TREATMENT 2020-12-30 20:00:02 Doctor Unassigned, [facility] ASSIGNMENT OF BENEFITS 2020-12-30 19:59:44 Docto r Unassigned, [facility] ASSIGNMENT OF BENEFITS 2020-12-30 19:59:44 Docto r Unassigned, [facility] NOTICE OF BILLING PRACTICES FOR MEDICARE PATIENTS 2020-12-30 19:56:38 Doctor Unassigned, [facility] NOTICE OF BILLING PRACTICES FOR MEDICARE PATIENTS 2020-12-30 19:56:38 Doctor Unassigned, [facility]inger [facility] PATIENT FINANCIAL POLICY 2020-12-30 19:56:11 Doctor Unassigned, [facility] PATIENT FINANCIAL POLICY 2020-12-30 19:56:11 Doctor Unassigned, [facility] NO SHOW OR MISSED APPOINTMENT POLICY ACKNOWLEDGEMENT 2020-12-30 19:55:50 Doctor Unassigned, [facility] NO SHOW OR MISSED APPOINTMENT POLICY ACKNOWLEDGEMENT 2020-12-30 19:55:50 Doctor Unassigned, [facility] NOTICE OF PRIVACY PRACTICES 2020-12-30 19:55:23 Doctor Unassigned, [facility] NOTICE OF PRIVACY PRACTICES 2020-12-30 19:55:23 Doctor Unassigned, [facility] CONSENT/REFUSAL FOR DIAGNOSIS AND TREATMENT 2020-12-30 19:55:05 Doctor Unassigned, [facility] CONSENT/REFUSAL FOR DIAGNOSIS AND TREATMENT 2020-12-30 19:55:05 Doctor Unassigned, [facility] ASSIGNMENT OF BENEFITS 2020-12-30 19:54:46 Docto r Unassigned, [facility] ASSIGNMENT OF BENEFITS 2020-12-30 19:54:46 Docto r Unassigned, [facility] DSU PRE-OP 2020-12-30 05:01:00 Doctor Unass igned, [facility] DSU PRE-OP 2020-12-30 05:01:00 Doctor Unass igned, [facility] Total Hysterectomy 2013-07-30 00:00:00 [facility] Inguinal Hernia 2011-07-30 00:00:00 [facility] Start Date/Time End Date/Time Encounter Type Admission Type Attending [facility] Care Facility Care Department Encounter ID Source 2024-04-22 11:10:01 Outpatient Sammi Cartagena [facility] [id number] [place] [facility] 2024-04-14 09:34:00 Outpatient Sammi Cartagena [facility] [id number] [facility] 2024-03-14 11:28:00 Outpatient [facility] [id number] [facility] 2023-01-03 09:55:00 Outpatient Sammi [facility] [id number] [facility] 2022-11-22 14:35:00 Outpatient CartagenaDharmesh moodyi [facility] [id number] [facility] 2022-09-15 10:36:01 Outpatient MelisaNiyah payanhna [facility] [id number] [facility] 2022-05-16 14:17:01 Outpatient Javier Bian[facility] [id number] [facility] 2022-02-14 11:51:00 Outpatient Javier Bianchi [facility] [id number] [facility] [facility] 2022-02-10 08:39:01 Outpatient Javier Bianchi STLMLC STLMLC [id number] [facility] 2021-11-15 11:27:01 Outpatient Javier Bianchi STLMLC STLMLC [id number] [facility] 2021-08-24 14:34:42 Outpatient Javier Bianchi STLMLC STLMLC [id number] [facility] 2021-08-24 14:30:49 Outpatient Javier Bianchi STLMLC STLMLC [id number] [facility] 2021-08-24 14:01:51 Outpatient Javier Bianchi STLMLC STLMLC [id number] [facility] 2021-08-24 13:49:51 Outpatient Javier Bianchi STLMLC STLMLC [id number] [facility] 2021-08-24 13:48:19 Outpatient Javier Bianchi STLMLC STLMLC [id number] [facility] 2021-08-24 13:47:24 Outpatient Javier Bianchi STLMLC STLMLC [id number] [facility] 2021-08-24 13:33:37 Outpatient Javier Bianchi STLMLC STLMLC [id number] [facility] 2021-08-24 12:58:52 Outpatient Bianchi, Na STLMLC STLMLC [id number] [facility] 2021-08-24 12:47:33 Outpatient Arias Na STLMLC STLMLC [id number] [facility] 2021-08-24 12:27:17 Outpatient Arias Na STLMLC STLMLC [id number] [facility] 2021-08-24 12:17:56 Outpatient Bianchi, Na STLMLC STLMLC [id number] [facility] 2021-08-24 12:17:29 Outpatient Bianchi, Na STLMLC STLMLC [id number] [facility] 2021-08-24 11:51:24 Outpatient Bianchi, Na STLMLC STLMLC [id number] [facility] 2021-08-24 11:49:01 Outpatient Bianchi, Na STLMLC STLMLC [id number] [facility] 2021-08-24 11:41:06 Outpatient Bianchi, Na STLMLC STLMLC [id number] [facility] 2021-08-24 11:28:47 Outpatient Bianchi, Na STLMLC STLMLC [id number] [facility] 2021-08-24 11:18:56 Outpatient Bianchi, Na STLMLC STLMLC [id number] [facility] 2021-08-24 11:18:24 Outpatient Bianchi, Na STLMLC STLMLC [id number] [facility] 2021-08-24 11:17:26 Outpatient Bianchi, Na STLMLC STLMLC [id number] [facility] 2021-08-24 11:04:54 Outpatient Bianchi, Na STLMLC STLMLC [id number] [facility] 2021-08-24 10:57:37 Outpatient Bianchi, Na STLMLC STLMLC [id number] [facility] 2021-05-29 23:01:12 Outpatient HILDA WARNER [facility] [id number] [facility] 2024-04-25 00:00:00 2024-04-25 00:00:00 (TEL) STLMLC STLMLC [id number] [facility] 2024-04-16 00:00:00 2024-04-16 00:00:00 OFFICE VISIT ESTAB PT LEVEL 4 STLMLC STLC [id number] [facility] 2024-03-28 00:00:00 2024-03-28 00:00:00 (TEL) STLMLC STLMLC [id number] [facility] 2024-03-19 00:00:00 2024-03-19 00:00:00 Sara Deleon MD: [address], [place] [address] , Ph. [facility] - GC_GCBZW_Rita quintanilla Yang* [id number] [facility] 2024-03-18 00:00:00 2024-03-18 00:00:00 OFFICE VISIT ESTAB PT LEVEL 4 [facility] [id number] [facility] 2024-01-04 00:00:00 2024-01-04 00:00:00 Sara Deleon MD: [address], [place] [address] , Ph. [facility] GC_GCBZW_Rita quintanilla Yang* [id number] [facility] 2023-12-19 00:00:00 2023-12-19 00:00:00 (TEL) STLC STLC [id number] [facility] 2023-12-17 00:00:00 2023-12-17 00:00:00 OFFICE VISIT ESTAB PT LEVEL 4 STLC STLC [id number] [facility] 2023-11-29 00:00:00 2023-11-29 00:00:00 STANLEY Perdomo: [address], [place] [address] , Ph. [facility] - GC_GCBZW_[place]* [id number] [facility] 2023-11-26 00:00:00 2023-11-26 00:00:00 Gcbzw Ma Schedule: [address], [place] [id number] , Ph. [facility] - GC_GCBZW_Rita S[place]* [id number] [facility] 2023-11-19 00:00:00 2023-11-19 00:00:00 GERARDO BelloP: [address], [place] [id number] , Ph. [facility] - GC_GCBZW_Rita socorro S[place]* [id number] [facility] 2023-11-15 00:00:00 2023-11-15 00:00:00 GERARDO BelloP: [address], [place] [address] , Ph. [facility] - GC_GCBZW_Rita S[place]* [id number] [facility] 2023-11-15 00:00:00 2023-11-15 00:00:00 (TEL) STLMLC STLMLC [id number] [facility] 2023-11-13 00:00:00 2023-11-13 00:00:[address] PA: [address], [place] [id number] , Ph. [facility] - GC_GCBZW_Rita Soria* [id number] [facility] 2023-11-05 00:00:00 2023-11-05 00:00:00 Outpatient GC_GCBZW_Ka diyala_S [facility] [id number] [facility] 2023-11-02 00:00:00 2023-11-02 00:00:00 Outpatient GC_GCBZW_Ka diyala_S [facility] [id number] [facility] 2023-11-01 00:00:00 2023-11-01 00:00:00 STANLEY Perdomo: [address], [place] [id number] , Ph. GC_GCBZW_Ka diyala_S [facility] - GC_GCBZW_Rita socorro S[place]* [id number] [facility] 2023-10-25 00:00:00 2023-10-25 00:00:00 Outpatient GC_GCBZW_Ka diyala_S [facility] PRIV [id number] [facility] 2023-10-19 00:00:00 2023-10-19 00:00:00 Outpatient GC_GCBZW_Ka diyala_S [facility] [id number] [facility] 2023-10-18 00:00:00 2023-10-18 00:00:00 STANLEY Bello: [address], [place] [id number] , Ph. GC_GCBZW_Ka diyala_S [facility] - GC_GCBZW_Rita Soria* [id number] [facility] 2023-10-18 00:00:00 2023-10-18 00:00:00 STANLEY Bello: [address], [place] [address] , Ph. [facility] - GC_GCBZW_Rita Soria* [id number] [facility] 2023-10-04 00:00:00 2023-10-04 00:00:00 STANLEY Bello: [address], [place] [id number] , Ph. GC_GCBZW_Ka diyala_S [facility] - GC_GCBZW_Rita socorro Soria* [id number] [facility] 2023-10-04 00:00:00 2023-10-04 00:00:00 STANLEY Bello: [address], [place] [address] , Ph. [facility] - GC_GCBZW_Rita Soria* [id number] [facility] 2023-09-27 00:00:00 2023-09-27 00:00:00 Outpatient GC_GCBZW_Ka diyala_S PRIV PRIV [id number] [facility] 2023-09-27 00:00:00 2023-09-27 00:00:00 STANLEY Bello: [address], [place] [address] , Ph. [facility] - GC_GCBZW_Rita Soria* [id number] [facility] 2023-09-24 00:00:00 2023-09-24 00:00:00 Outpatient GC_GCBZW_Ka diyala_S PRIV PRIV [id number] [facility] 2023-09-19 00:00:00 2023-09-19 00:00:00 Outpatient GC_GCBZW_Ka diyala_S PRIV PRIV [id number] [facility] 2023-09-19 00:00:00 2023-09-19 00:00:00 Sara Deleon MD: [address], [place] [address] , Ph. [facility] - GC_GCBZW_Rita Soria* [id number] [facility] 2023-09-16 00:00:00 2023-09-16 00:00:00 Outpatient GC_GCBZW_Ka diyala_S PRIV PRIV [id number] [facility] 2023-09-13 00:00:00 2023-09-13 00:00:00 Outpatient GC_GCBZW_Ka diyala_S PRIV PRIV [id number] [facility] 2023-09-12 00:00:00 2023-09-12 00:00:00 SUB ANNUAL [facility] WELLNESS VISIT [facility] [id number] [facility] 2023-09-12 00:00:00 2023-09-12 00:00:00 OFFICE VISIT ESTAB PT LEVEL 4 [facility] [id number] [facility] 2023-09-06 00:00:00 2023-09-06 00:00:00 Outpatient GC_GCBZW_Ka diyala_S [facility] [id number] [facility] 2023-09-06 00:00:00 2023-09-06 00:00:00 STANLEY Bello: [address], [place] [address] , Ph. [facility] GC_GCBZW_Rita socorro [place]* [id number] [facility] 2023-08-30 00:00:00 2023-08-30 00:00:00 Outpatient GC_GCBZW_Ka diyala_S [facility] [id number] [facility] 2023-08-30 00:00:00 2023-08-30 00:00:00 Sara Deleon MD: [address], [place] [address] , Ph. [facility] - GC_GCBZW_Rita quintanilla Yang* [id number] [facility] 2023-08-24 12:40:00 2023-08-24 12:40:00 Outpatient Amber Esqueda [facility] [id number] 94 [facility] 2023-08-23 00:00:00 2023-08-23 00:00:00 Outpatient GC_GCBZW_Ka diyala_S [facility] [id number] [facility] 2023-08-23 00:00:00 2023-08-23 00:00:00 Sara Deleon MD: [address], [place] [address] , Ph. [facility] GC_GCBZW_Rita socorro S[place]* [id number] [facility] 2023-08-16 00:00:00 2023-08-16 00:00:00 Outpatient GC_GCBZW_Ka diyala_S PRIV PRIV [id number] [facility] 2023-08-14 00:00:00 2023-08-14 00:00:00 OFFICE VISIT ESTAB PT LEVEL 3 [facility] [id number] [facility] 2023-08-14 00:00:00 2023-08-14 00:00:00 (TEL) [facility] [id number] [facility] 2023-08-10 00:00:00 2023-08-10 00:00:00 Outpatient GC_GCBZW_Ka diyala_S PRIV PRIV [id number] [facility] 2023-08-09 00:00:00 2023-08-09 00:00:00 Outpatient GC_GCBZW_Ka diyala_S PRIV PRIV [id number] [facility] 2023-08-07 00:00:00 2023-08-07 00:00:00 Outpatient GC_GCBZW_Ka diyala_S PRIV PRIV [id number] [facility] 2023-08-06 00:00:00 2023-08-06 00:00:00 Outpatient GC_GCBZW_Ka diyala_S PRIV PRIV [id number] [facility] 2023-08-02 00:00:00 2023-08-02 00:00:00 Outpatient GC_GCBZW_Ka diyala_S PRIV PRIV [id number] [facility] 2023-08-01 00:00:00 2023-08-01 00:00:00 OFFICE VISIT ESTAB PT LEVEL 4 [facility] [id number] [facility] 2023-07-25 00:00:00 2023-07-25 00:00:00 Outpatient GC_GCBZW_Ka diyala_S PRIV PRIV [id number] [facility] 2023-07-09 00:00:00 2023-07-09 00:00:00 (HOSP F/U) Hospital Follow Up STLMLC STLMLC [id number] [facility] 2023-07-02 00:00:00 2023-07-02 00:00:00 (TEL) STLMLC STLMLC [id number] [facility] 2023-06-28 00:00:00 2023-06-28 00:00:00 (TEL) STLMLC STLMLC [id number] [facility] 2023-06-27 00:00:00 2023-06-27 00:00:00 Outpatient GC_GCBZW_Ka diyala_S PRIV PRIV [id number] [facility] 2023-06-25 00:00:00 2023-06-25 00:00:00 (TEL) STLMLC STLC [id number] [facility] 2023-06-12 00:00:00 2023-06-12 00:00:00 Outpatient GC_GCBZW_Ka diyala_S PRIV PRIV [id number] [facility] 2023-06-08 00:00:00 2023-06-08 00:00:00 Outpatient GC_GCBZW_Ka diyala_S PRIV PRIV [id number] [facility] 2023-06-08 00:00:00 2023-06-08 00:00:00 OFFICE VISIT ESTAB PT LEVEL 4 STLMLC STLC [id number] [facility] 2023-06-08 00:00:00 2023-06-08 00:00:00 (TEL) STLMLC STLC [id number] [facility] 2023-05-22 00:00:00 2023-05-22 00:00:00 Outpatient GC_GCBZW_Ka diyala_S PRIV PRIV [id number] [facility] 2023-05-10 10:08:00 2023-05-10 10:08:00 Outpatient Torsten Bartlett [facility] [id number] [facility] 2023-04-06 00:00:00 2023-04-06 00:00:00 (TEL) STLMLC STLMLC [id number] [facility] 2023-04-05 00:00:00 2023-04-05 00:00:00 Outpatient GC_GCBZW_Ka diyala_S PRIV PRIV [id number] [facility] 2023-04-05 00:00:00 2023-04-05 00:00:00 Outpatient GC_GCBZW_Ka diyala_S PRIV PRIV [id number] [facility] 2023-03-26 00:00:00 2023-03-26 00:00:00 (TEL) STLMLC STLMLC [id number] [facility] 2023-03-23 00:00:00 2023-03-23 00:00:00 Outpatient GC_GCBZW_Ka diyala_S PRIV PRIV [id number] [facility] 2023-03-09 00:00:00 2023-03-09 00:00:00 OFFICE VISIT ESTAB PT LEVEL 4 STLMLC STLMLC [id number] [facility] 2023-02-27 00:00:00 2023-02-27 00:00:00 Outpatient GC_GCBZW_Ka diyala_S PRIV PRIV [id number] [facility] 2023-02-23 00:00:00 2023-02-23 00:00:00 Outpatient GC_GCBZW_Ka diyala_S PRIV PRIV [id number] [facility] 2023-01-31 00:00:00 2023-01-31 00:00:00 SUB ANNUAL MCR WELLNESS VISIT STLMLC STLMLC [id number] [facility] 2023-01-31 00:00:00 2023-01-31 00:00:00 OFFICE VISIT ESTAB PT LEVEL 4 STLMLC STLMLC [id number] [facility] 2023-01-11 00:00:00 2023-01-11 00:00:00 (TEL) STLMLC STLMLC [id number] [facility] 2023-01-03 00:00:00 2023-01-03 00:00:00 (TEL) STLMLC STLMLC [id number] [facility] 2022-11-22 00:00:00 2022-11-22 00:00:00 (TEL) STLMLC STLMLC [id number] [facility] 2022-09-11 00:00:00 2022-09-11 00:00:00 (TEL) STLMLC STLMLC [id number] [facility] 2022-05-24 00:00:00 2022-05-24 00:00:00 (TEL) STLMLC STLMLC [id number] [facility] 2022-05-23 00:00:00 2022-05-23 00:00:00 (TEL) STLMLC STLMLC [id number] [facility] 2022-05-18 00:00:00 2022-05-18 00:00:00 SUB ANNUAL [facility] WELLNESS VISIT STLMLC STLMLC [id number] [facility] 2022-05-18 00:00:00 2022-05-18 00:00:00 OFFICE VISIT EST PT LEVEL 3 STLMLC STLMLC [id number] [facility] 2022-05-01 00:00:00 2022-05-01 00:00:00 (TEL) STLMLC STLMLC [id number] [facility] 2022-02-14 00:00:00 2022-02-14 00:00:00 OFFICE VISIT ESTAB PT LEVEL 4 STLMLC STLMLC [id number] [facility] 2022-01-26 00:00:00 2022-01-26 00:00:00 (TEL) STLMLC STLMLC [id number] [facility] 2022-01-23 00:00:00 2022-01-23 00:00:00 (TEL) STLMLC STLMLC [id number] [facility] 2022-01-09 00:00:00 2022-01-09 00:00:00 (TEL) STLMLC STLMLC [id number] [facility] 2022-01-09 00:00:00 2022-01-09 00:00:00 OL DIG E/M SVC 11-20 MIN STLMLC STLMLC [id number] [facility] 2021-12-15 00:00:00 2021-12-15 00:00:00 (TEL) STLMLC STLMLC [id number] [facility] 2021-12-15 00:00:00 2021-12-15 00:00:00 OL DIG E/M SVC 11-20 MIN STLMLC STLMLC [id number] [facility] 2021-12-05 00:00:00 2021-12-05 00:00:00 (TEL) STLMLC STLMLC [id number] [facility] 2021-11-15 00:00:00 2021-11-15 00:00:00 OFFICE VISIT ESTAB PT LEVEL 4 STLMLC STLMLC [id number] [facility] 2021-08-26 07:33:00 2021-08-26 11:13:00 Outpatient R HILDA SPRINGER [facility] [id number] [facility] 2021-08-26 07:33:00 2021-08-26 11:13:00 Hospital Encounter Hilda Springer [facility] 1.2.840.114 350.1.13.10 4.2.7.2.686 [id number] [facility] 2021-08-26 08:30:00 2021-08-26 10:41:00 Surgery Hilda Springer [facility] 1.2.840.114 350.1.13.10 4.2.7.2.686 [id number] [facility] 2021-08-25 08:30:00 2021-08-25 08:45:00 Consulting Engineer Visit Pob, Adc Lab Main Hilda Springer [facility] PROFESSIO [facility] 1.2.840.114 350.1.13.10 4.2.7.2.686 [id number] [facility] 2021-08-25 08:30:00 2021-08-25 08:30:00 Outpatient R HILDA SPRINGER [facility] [id number] [facility] 2021-08-25 08:15:00 2021-08-25 08:30:00 Laboratory Only Only, Adc Test Hilda Springer [facility] 1..840.114 350.1.13.10 4.2.7.2.686 [id number] [facility] 2021-08-16 00:00:00 2021-08-16 00:00:00 OFFICE VISIT ESTAB PT LEVEL 2 STLMLC STLMLC [id number] [facility] 2021-08-11 00:00:00 2021-08-11 00:00:00 (TEL) STLMLC STLMLC [id number] [facility] 2021-08-11 00:00:00 2021-08-11 00:00:00 OFFICE VISIT EST PT LEVEL 3 STLMLC STLMLC [id number] [facility] 2021-08-09 00:00:00 2021-08-09 00:00:00 (TEL) STLMLC STLMLC [id number] [facility] 2021-08-09 00:00:00 2021-08-09 00:00:00 (TEL) STLMLC STLMLC [id number] [facility] 2021-08-02 00:00:00 2021-08-02 00:00:00 Orders Only Doctor Unassigned, Winger [facility] 1..840.114 350.1.13.10 4.2.7.2.686 [id number] [facility] 2021-05-30 00:00:00 2021-05-30 00:00:00 (TEL) STLMLC STLMLC [id number] [facility] 2021-05-17 00:00:00 2021-05-17 00:00:00 OFFICE VISIT ESTAB PT LEVEL 4 STLMLC STLMLC [id number] [facility] 2021-04-18 00:00:00 2021-04-18 00:00:00 SUB ANNUAL [facility] WELLNESS VISIT STLMLC STLMLC [id number] [facility] 2021-04-11 00:00:00 2021-04-11 00:00:00 OL DIG E/M SVC 11-20 MIN STLMLC STLMLC [id number] [facility] 2021-03-02 00:00:00 2021-03-02 00:00:00 OL DIG E/M SVC 11-20 MIN STLMLC STLMLC [id number] [facility] 2021-02-09 00:00:00 2021-02-09 00:00:00 Outpatient STLMLC STLMLC [id number] [facility] 2020-12-31 09:35:00 2020-12-31 14:17:00 Hospital Encounter Hilda Springer [facility] 1.2.840.114 350.1.13.10 4.2.7.2.686 [id number] [facility] 2020-12-31 12:04:00 2020-12-31 13:50:00 Surgery Hilda Springer [facility] [place] 1.2.840.114 350.1.13.10 4.2.7.2.686 [id number] [facility] 2020-12-30 15:15:00 2020-12-30 15:15:00 Outpatient R HILDA SPRINGER [facility] [id number] [facility] 2020-12-30 14:58:40 2020-12-30 15:13:40 Consulting Engineer Visit Pob, Adc Lab Main Hilda Springer [facility] 1.2.840.114 350.1.13.10 4.2.7.2.686 [id number] [facility] 2020-12-30 14:57:45 2020-12-30 15:12:45 Laboratory Only Only, Adc Test [facility]ilda [facility] 1.2.840.114 350.1.13.10 4.2.7.2.686 [id number] [facility] 2020-11-23 00:00:00 2020-11-23 00:00:00 Outpatient STLMLC STLMLC [id number] [facility] 2020-11-22 00:00:00 2020-11-22 00:00:00 Outpatient STLMLC STLMLC [id number] [facility] 2020-11-08 00:00:00 2020-11-08 00:00:00 Outpatient STLMLC STLMLC [id number] [facility] 2020-11-01 00:00:00 2020-11-01 00:00:00 Outpatient STLMLC STLMLC [id number] [facility] 2020-10-28 00:00:00 2020-10-28 00:00:00 Outpatient STLMLC STLMLC [id number] [facility] 2020-10-20 00:00:00 2020-10-20 00:00:00 Outpatient STLMLC STLMLC [id number] [facility] 2020-09-01 00:00:00 2020-09-01 00:00:00 Outpatient STLMLC STLMLC [id number] [facility] 2020-08-09 00:00:00 2020-08-09 00:00:00 Outpatient STLMLC STLMLC [id number] [facility] 2020-08-03 00:00:00 2020-08-03 00:00:00 Outpatient STLMLC STLMLC [id number] [facility] 2020-07-27 00:00:00 2020-07-27 00:00:00 Outpatient STLMLC STLMLC [id number] [facility] 2020-07-19 00:00:00 2020-07-19 00:00:00 Outpatient STLMLC STLMLC [id number] [facility] 2020-05-25 00:00:00 2020-05-25 00:00:00 Outpatient STLMLC STLMLC [id number] [facility] 2020-05-03 00:00:00 2020-05-03 00:00:00 Outpatient STLMLC STLMLC [id number] [facility] 2020-03-24 11:40:00 2020-03-24 11:40:[address] [facility] [id number] [facility] 2020-03-23 14:43:00 2020-03-23 14:43:[address] [facility] [id number] [facility] 2020-01-28 11:00:00 2020-01-28 11:00:[address] [facility] [id number] [facility] 2020-01-20 14:25:00 2020-01-20 14:25:[address] [facility] [id number] [facility] 2019-11-19 10:15:00 2019-11-19 10:15:[address] [facility] [address] [facility] [id number] [facility] 2019-11-19 09:08:00 2019-11-19 09:08:00 [facility] [id number] [facility] 2019-11-13 16:00:00 2019-11-13 16:00:[address] [facility] [facility] [id number] [facility] 2019-11-13 11:48:00 2019-11-13 11:48:[address] [facility] [facility] [id number] [facility] 2019-10-15 09:00:00 2019-10-15 09:00:[address] [facility] [facility] [id number] [facility] 2019-09-04 13:40:00 2019-09-04 13:40:[address] [facility] [facility] [id number] [facility] 2019-08-05 14:57:00 2019-08-05 14:57:[address] [facility] [facility] [id number] [facility] 2019-08-01 15:54:00 2019-08-01 15:54:[address] [facility] [facility] [id number] [facility] 2019-07-31 14:40:00 2019-07-31 14:40:[address] [facility] [facility] [id number] [facility] 2019-06-24 10:51:00 2019-06-24 10:51:[address] [facility] [facility] [id number] [facility] 2019-06-19 11:20:00 2019-06-19 11:20:[address] [facility] [facility] [id number] [facility] 2019-06-02 15:21:00 2019-06-02 15:21:[address] [facility] [facility] [id number] [facility] 2019-05-26 17:07:00 2019-05-26 17:07:[address] [facility] [facility] [id number] [facility] 2019-03-18 09:50:00 2019-03-18 09:50:[address] [facility] [facility] [id number] [facility] 2019-03-11 09:40:00 2019-03-11 09:40:00 Outpatient [facility] [id number] [facility] 2019-02-19 15:41:00 2019-02-19 15:41:00 Outpatient [facility] [id number] [facility] 2019-02-17 16:51:00 2019-02-17 16:51:00 Outpatient [facility] [id number] [facility] 2019-01-20 14:40:00 2019-01-20 14:40:00 Outpatient [facility] [id number] [facility] Results Test Description Test Time Test Comments Results Result Co mments Source CREATININE W ESTIMATED [id number] 13:29:00* Test Item Value Reference Range Interpretation Comme nts BEDSIDE CREATININE (test code = CREATBED) 0.8 MG/DL 0.6-1.3 N Performed by cer tified box printing machine operator [facility] CtrPerformed by certified box printing machine operator at [facility] GLOMERULAR FILTRATION RATE POC (test code = GFRBED) 80 ML/MIN Performed b y certified box printing machine operator [facility] Rate is a calculated parameterbased on serum Creatinine, patient age and sex. GFR valuesless than 60 mL/min/1.73 square meters are indicative ofChronic Kidney Disease. Values less than 15 mL/min/1.73square meters indicate Kidney failure. The calculation forGFR is based on the CKD-EPI (2020) calculation. This formulais race indifferent and is the recommended formula for GFRby the National Kidney Foundation for Adults.The GFR will not calculate if the sex is unknown or if thepatient's age is <18 years.Previously reported result: 80 ML/MINEdited by: JULY on 08/24/23:591717 1329: GFRBED previously reported as: 80 ML/MIN CBC W/AUTO [id number] 00:00:00* Test Item Value Reference Range Interpretation Comme nts NUCLEATED RBCS (test code = 90777-6) 0.0 /100 WBC'S See_Comment [Automated messa ge] The system which generated this result transmitted reference range: 0.0 /100 WBC'S. The reference range was not used to interpret this result as normal/abnormal. ABSOLUTE EOSINOPHILS (test code = 78788-1) 0.11 K/UL See_Comment [Automated messa ge] The system which generated this result transmitted reference range: 0.00-0.50 K/UL. The reference range was not used to interpret this result as normal/abnormal. ABSOLUTE LYMPHOCYTES (test code = 72064-8) 2.01 K/UL See_Comment [Automated messa ge] The system which generated this result transmitted reference range: 1.00-4.00 K/UL. The reference range was not used to interpret this result as normal/abnormal. ABSOLUTE MONOCYTES (test code = 84191-4) 0.36 K/UL See_Comment [Automated messa ge] The system which generated this result transmitted reference range: 0.20-1.00 K/UL. The reference range was not used to interpret this result as normal/abnormal. ABSOLUTE NEUTROPHILS (test code = 95311-2) 5.67 K/UL See_Comment [Automated messa ge] The system which generated this result transmitted reference range: 1.50-7.50 K/UL. The reference range was not used to interpret this result as normal/abnormal. BASOPHILS (test code = 97471-1) 0.6 % EOSINOPHILS (test code = 13070-3) 1.3 % HEMATOCRIT (test code = 88505-3) 44.6 % See_Comment [Automated messa ge] The [...] result as normal/abnormal. LYMPHOCYTES (test code = 13867-8) 24.5 % MCH (test code = 78959-9) 24.9 PG See_Comment L [Automated messa ge] The system which generated this result transmitted reference range: 25.0-33.0 PG. The reference range was not used to interpret this result as normal/abnormal. MCHC (test code = 51759-6) 31.4 G/DL See_Comment [Automated messa ge] The system which generated this result transmitted reference range: 31.0-36.0 G/DL. The reference range was not used to interpret this result as normal/abnormal. MCV (test code = 31719-1) 79.2 fL See_Comment L [Automated messa ge] The system which generated this result transmitted reference range: 80.0-99.0 fL. The reference range was not used to interpret this result as normal/abnormal. MONOCYTES (test code = 98736-1) 4.4 % NEUTROPHILS (test code = 14667-0) 69.1 % PLATELET COUNT (test code = 11131-9) 277 K/UL See_Comment [Automated messa ge] The system which generated this result transmitted reference range: 130-400 K/UL. The reference range was not used to interpret this result as normal/abnormal. RBC (test code = 69182-3) 5.63 M/UL See_Comment H [Automated messa ge] The system which generated this result transmitted reference range: 3.80-5.40 M/UL. The reference range was not used to interpret this result as normal/abnormal. RDW (test code = 01094-4) 14.3 % See_Comment [Automated messa ge] The system which generated this result transmitted reference range: 11.5-15.0 %. The reference range was not used to interpret this result as normal/abnormal. WBC (test code = 81204-2) 8.2 K/UL See_Comment [Automated messa ge] The system which generated this result transmitted reference range: 3.5-11.0 K/UL. The reference range was not used to interpret this result as normal/abnormal. [facility] [id number] 10:55:00 [facility] 1955 Sex: F Name: PETER HERRERA : 1955 Age/S: 67 / F [address] Unit #: [id number]: [place] [id number] Phys: Torsten James MD Acct: [id number] Dis Date: Status: REG CLI PHONE #: [phone] Exam Date: 05/10/20231046 FAX #: Reason: MICROSCOPIC HEMATURIA EXAMS: CPT: [id number] US RETROPERITONEAL COM [id number] LOCATION: [facility] EXAM: - US RETROPERITONEAL COM HISTORY: Microscopic hemat uria. TECHNIQUE: Sonographic imaging of the bilateral kidney [...] Torsten James MD Technologist: [place] [employer] Date/Time: 05/10/2023 (9696) t.[email or web address] PAGE 1 Signed Report Name: PETER HERRERA : 1955 Age/S: 67 / F [id number] Unit #: [id number] Loc: [place] [address] Phys: Torsten James MD Acct: [id number] Dis Date: Status: REG CLI PHONE #: [phone] Exam Date: 05/10/2023 104 FAX #: Reason: MICROSCOPIC HEMATURIA EXAMS: CPT: [id number] [facility] [id number] (Continued) Orig Print D/T: S: 05/10/2023 (1058) Probe: PAGE 2 [facility]igned [facility] W[facility]AUTO [id number] 00:00:00* Test Item Value Reference Range Interpretation Comme nts NUCLEATED RBCS (test code = 15210-6) 0.0 /100 WBC'S See_Comment [Automated messa ge] The system which generated this result transmitted reference range: 0.0 /100 WBC'S. The reference range was not used to interpret this result as normal/abnormal. ABSOLUTE EOSINOPHILS (test code = 61958-8) 0.16 K/UL See_Comment [Automated messa ge] The system which generated this result transmitted reference range: 0.00-0.50 K/UL. The reference range was not used to interpret this result as normal/abnormal. ABSOLUTE LYMPHOCYTES (test code = 92660-1) 1.87 K/UL See_Comment [Automated messa ge] The system which generated this result transmitted reference range: 1.00-4.00 K/UL. The reference range was not used to interpret this result as normal/abnormal. ABSOLUTE MONOCYTES (test code = 77749-3) 0.42 K/UL See_Comment [Automated messa ge] The system which generated this result transmitted reference range: 0.20-1.00 K/UL. The reference range was not used to interpret this result as normal/abnormal. ABSOLUTE NEUTROPHILS (test code = 64096-8) 5.86 K/UL See_Comment [Automated messa ge] The system which generated this result transmitted reference range: 1.50-7.50 K/UL. The reference range was not used to interpret this result as normal/abnormal. BASOPHILS (test code = 29669-0) 0.7 % EOSINOPHILS (test code = 00234-9) 1.9 % HEMATOCRIT (test code = 29239-3) 45.0 % See_Comment [Automated messa ge] The [...] result as normal/abnormal. LYMPHOCYTES (test code = 38798-3) 22.3 % MCH (test code = 13091-9) 25.4 PG See_Comment [Automated messa ge] The system which generated this result transmitted reference range: 25.0-33.0 PG. The reference range was not used to interpret this result as normal/abnormal. MCHC (test code = 37513-7) 31.8 G/DL See_Comment [Automated messa ge] The system which generated this result transmitted reference range: 31.0-36.0 G/DL. The reference range was not used to interpret this result as normal/abnormal. MCV (test code = 59314-8) 79.8 fL See_Comment L [Automated messa ge] The system which generated this result transmitted reference range: 80.0-99.0 fL. The reference range was not used to interpret this result as normal/abnormal. MONOCYTES (test code = 84673-3) 5.0 % NEUTROPHILS (test code = 58065-9) 69.9 % PLATELET COUNT (test code = 37933-4) 272 K/UL See_Comment [Automated messa ge] The system which generated this result transmitted reference range: 130-400 K/UL. The reference range was not used to interpret this result as normal/abnormal. RBC (test code = 47708-6) 5.64 M/UL See_Comment H [Automated messa ge] The system which generated this result transmitted reference range: 3.80-5.40 M/UL. The reference range was not used to interpret this result as normal/abnormal. RDW (test code = 70684-6) 16.5 % See_Comment H [Automated messa ge] The system which generated this result transmitted reference range: 11.5-15.0 %. The reference range was not used to interpret this result as normal/abnormal. WBC (test code = 65333-6) 8.4 K/UL See_Comment [Automated messa ge] The system which generated this result transmitted reference range: 3.5-11.0 K/UL. The reference range was not used to interpret this result as normal/abnormal. HEMOGLOBIN [id number] 00:00:00* Test Item Value Reference Range Interpretation Comme nts A1C (test code = 4548-4) 8.8 POCT GLUCOSE (AUTOMATED)2021-08-26 14:01:21* Test Item Value Reference Range Interpretation Comme nts POCT GLU (test code = 2352632368) 135 mg/dL 70-110 H Lab Interpretation (test cod e = 40375-5) Abnormal [facility] GLUCOSE (AUTOMATED)2021-08-26 14:01:21* Test Item Value Reference Range Interpretation Comme nts POCT GLU (test code = 0676372649) 135 mg/dL 70-110 H Lab Interpretation (test cod e = 23798-8) Abnormal [facility] [id number] 13:53:00* Test Item Value Reference Range Interpretation Comme nts POCT Glu (age>30days) (test code = 3342) 135 mg/dL 70-110 A Lab Interpretation (test cod e = 51728-2) Abnormal [facility] [id number] 13:53:00* Test Item Value Reference Range Interpretation Comme nts POCT Glu (age>30days) (test code = 3342) 135 mg/dL 70-110 A Lab Interpretation (test cod e = 44046-8) Abnormal [facility] GLUCOSE (AUTOMATED)2020-12-31 15:02:03* Test Item Value Reference Range Interpretation Comme nts POCT GLU (test code = 8107220807) 157 mg/dL 70-110 H Lab Interpretation (test cod e = 75974-0) Abnormal [facility] GLUCOSE (AUTOMATED)2020-12-31 15:02:03* Test Item Value Reference Range Interpretation Comme nts POCT GLU (test code = 6293183969) 157 mg/dL 70-110 H Lab Interpretation (test cod e = 59877-8) Abnormal [facility] [id number] 14:59:00* Test Item Value Reference Range Interpretation Comme nts POCT Glu (age>30days) (test code = 3342) 157 mg/dL 70-110 A Lab Interpretation (test cod e = 87714-7) Abnormal [facility] [id number] 14:59:00* Test Item Value Reference Range Interpretation Comme nts POCT Glu (age>30days) (test code = 3342) 157 mg/dL 70-110 A Lab Interpretation (test cod e = 15157-0) [facility] ALDO B[facility] W/CAD3D SCR ALDO BILAT W/CAD ColonoscopyColonoscopyPOC, COVID 19 Antigen + Flu by SofiaPOC, COVID 19 Antigen + Flu by Cee
--- NOTE | 2024-05-06 11:16 | RAD REPORT ---
EXAM: CT brain without contrast HISTORY: Dizziness COMPARISON: None TECHNIQUE: Multiple contiguous axial images were obtained and a CT of the brain without contrast. Sagittal and coronal reformats were performed. Automated exposure control, adjustment of the mA and/or kV according to patient size, and/or itera tive reconstruction. Unless otherwise specified, incidental findings do not require dedicated imaging follow-u FINDINGS: An intracranial bleed is not seen Ventricles are normal caliber No extra-axial fluid collection noted No significant hypodensity within the brain No fluid within the visualized sinuses or mastoids noted. Mucous retention cyst right maxillary sinus IMPRESSION: No acute intracranial abnormality noted. If the patient's symptoms persist MRI of the brain would be recommended.
--- NOTE | 2024-05-06 11:17 | RAD REPORT ---
Procedure: Chest Single View History: Hypertension and dizziness Comparison: 2021 Findings: The lungs appear clear of acute infiltrate. No significant pleural effusion noted. The heart is mildly to moderately enlarged. IMPRESSION: No acute abnormality is displayed.
[2024-05-06 11:52] LABS: Absolute Basophils 0.1 K/uL (0-0.5); Absolute Eosinophils 0.1 K/uL (0-0.5); Absolute Lymphocytes (CBC) 1.7 K/uL (0.7-4.9); Absolute Monocytes 0.3 K/uL (0.1-1.3); Absolute Neutrophil 7.2 K/uL (1.8-8.0); Basophils % 1.2 % (0-1.3); Eosinophils % 1.1 % (0-4.4); Hematocrit 43.6 % (36.0-45.0); Hemoglobin 13.8 g/dL (12.0-15.0); Lymphocytes % 17.7 % (15.3-44.8); MCH 24.6 pg (27.0-35.0); MCHC 31.7 g/dL (32.0-36.0); MCV 77.6 fL (80-100); MPV 7.7 fL (7.6-11.3); Monocytes % 3.2 % (3.3-12.3); Neutrophils % 76.8 % (41.7-73.7); Nucleated Red Blood Cells % 0.1 % (0-0); Platelets 245 thou/uL (152-406); RBC Red Blood Cell Count 5.61 M/uL (3.86-4.86); Red Cell Distribution Width 16.8 % (12.1-15.2)
[2024-05-06 11:55] LABS: PT Prothrombin Time 11.9 SECONDS (9.4-12.5); Protime INR 1.06
[2024-05-06 11:56] LABS: Sqamous Epithelial <5 /HPF (None Seen); Urine Bacteria <20 /HPF (<20); Urine Bilirubin NEGATIVE (Negative); Urine Blood Trace (Negative); Urine Clarity Turbid (Clear); Urine Color Colorless (Yellow); Urine Crystals Unidentified Few /HPF (None Seen); Urine Culture Reflex Order NOT NEEDED; Urine Glucose NEGATIVE (Negative); Urine Ketones NEGATIVE (Negative); Urine Micro Reflex YN NO BILL MICROSCOPIC; Urine Mucus Slight /HPF (None Seen); Urine Nitrite NEGATIVE (Negative); Urine Protein NEGATIVE (Negative); Urine RBC <5 /HPF (None Seen); Urine Urobilinogen Normal (Normal); Urine WBC <5 /HPF (<5); Urine pH 5.5 (5.0-7.0)
[2024-05-06] MEDS ORDERED: MECLIZINE HCL 12.5 MG TAB ONE (12:09)
[2024-05-06 12:15] LABS: Albumin 3.1 g/dL (3.4-5.0); Albumin/Globulin Ratio 0.8 (1.1-1.8); Anion Gap 8.9 mEq/L (5.0-15.0); Bilirubin Direct 0.2 mg/dL (0-0.2); Bilirubin Indirect, Calculated 0.7 mg/dL (0.2-0.8); Bilirubin Total 0.9 mg/dL (0.2-1.0); Magnesium 1.9 mg/dL (1.6-2.4); Potassium 3.9 mEq/L (3.5-5.1); Protein, Total 7.1 g/dL (6.4-8.2); Troponin High Sensitivity 8.4 pg/mL (<58.9)
--- NOTE | 2024-05-06 14:18 | ER ---
Nurse's Notes [facility] Name: Bee Herrera Age: 68 yrs Sex: Female : 1955 Arrival Date: 05/06/2024 Time: 10:36 Bed 6 Private MD: Diagnosis: Vertigo, incidental finding left bundle branch block Presentation: 05/06 10:54 Chief complaint: Patient states: Dizziness in the morning when waking and when laying ss down for bed x 1 week. Coronavirus screen: Client denies travel out of the [place] in the last 14 days. Ebola Screen: Patient denies exposure to infectious person. Patient denies travel to an Ebola-affected area in the 21 days before illness onset. Initial Sepsis Screen: Does the patient meet any 2 criteria? No. Patient's initial sepsis screen is negative. Does the patient have a suspected source of infection? No. Patient's initial sepsis screen is negative. Risk Assessment: Do you want to hurt yourself or someone else? Patient reports no desire to harm self or others. Onset of symptoms was April 29, 2024. 10:54 Method Of Arrival: Ambulatory ss 10:54 Acuity: MARIBEL 3 ss Historical: - Allergies: 10:56 No Known Allergies; ss - Home Meds: 10:56 atorvastatin oral [Active]; losartan potassium (bulk) [Active]; Metformin Oral [Active];ss - PMHx: 10:56 diabetes mellitus; Hypertensive disorder; ss 11:01 neuropathy; ss - Immunization history:: Client reports receiving the 2nd dose of the Covid vaccine. - Infectious Disease History:: Denies. - Social history:: Smoking status: Patient denies any tobacco usage or history of. Screenin:03 Abuse screen: Denies threats or abuse. Denies injuries from another. Nutritional ss screening: No deficits noted. Tuberculosis screening: Never had TB. Assessment: 10:55 General: Appears in no apparent distress. comfortable, Behavior is calm, cooperative. ss Pain: Denies pain. Neuro: Level of Consciousness is awake, alert, obeys commands, Oriented to person, place, time, situation. Neuro: Reports Intermittent dizziness x 1 week. Worse in the morning when waking up and at night when laying down. Respiratory: Airway is patent Respiratory effort is even, unlabored, Respiratory pattern is regular, symmetrical. GI: Patient currently denies diarrhea, nausea, vomiting. Derm: Skin is pink, warm \T\ dry. normal. Musculoskeletal: Circulation, motion, and sensation intact. Range of motion: intact in all extremities, Swelling absent. 11:02 Reassessment: Pt to CT now VIA stretcher. ss 11:14 Reassessment: back from CT. Has no complaints at this time. ss 11:58 Reassessment: Patient appears in no apparent distress at this time. Patient and/or ss family updated on plan of care and expected duration. Pain level reassessed. Patient is alert, oriented x 3, equal unlabored respirations, skin warm/dry/pink. Patient denies pain at this time. 14:36 Reassessment: Patient appears in no apparent distress at this time. Patient and/or iw family updated on plan of care and expected duration. Pain level reassessed. Patient is alert, oriented x 3, equal unlabored respirations, skin warm/dry/pink. Patient denies pain at this time. Patient states feeling better. Patient states symptoms have improved. Vital Signs: 10:54 BP 169 / 64; Pulse 78; Resp 17; Temp 98.3(O); Pulse Ox 99% on R/A; Weight 108.86 kg; ss Height 5 ft. 0 in. ; Pain 0/10; 11:56 BP 131 / 58; Pulse 73; Resp 16; Temp 98(TE); Pulse Ox 97% ; Pain 0/10; ss 14:04 BP 176 / 74; Pulse 65; Resp 16; Pulse Ox 99% on R/A; Pain 0/10; ss 14:36 BP 136 / 62; Pulse 60; Resp 20; Pulse Ox 97% on R/A; Pain 0/10; iw 10:54 Body Mass Index 46.87 (108.86 kg, 152.4 cm) ss 10:54 Pain Scale: Adult ss 11:56 Pain Scale: Adult ss 14:04 Pain Scale: Adult ss 14:36 Pain Scale: Adult iw ED Course: 10:40 Patient arrived in ED. mg5 10:41 Damien Stern MD is Attending Physician. sp3 10:56 Triage completed. ss 11:01 Arm band placed on right wrist. ss 11:03 Patient has correct armband on for positive identification. ss 11:09 XRAY Chest (1 view) In Process Unspecified. EDMS 11:10 CT Head Brain wo Cont In Process Unspecified. EDMS 11:48 Catarina Mckeon, RN is Primary Nurse. 11:49 Basic Metabolic Panel Sent. 11:49 CBC with Diff Sent. 11:49 LFT's Sent. ss 11:49 Magnesium Sent. ss 11:49 NT PRO-BNP Sent. ss 11:49 PT-INR Sent. ss 11:49 Troponin HS Sent. 11:49 UAM Sent. 11:49 Inserted saline lock: 20 gauge in right antecubital area, using aseptic technique. ss Blood collected. Flushed with 10 mL NS. 14:36 No provider procedures requiring assistance completed. IV discontinued, intact, iw bleeding controlled, No redness/swelling at site. Pressure dressing applied. Administered Medications: 12:11 Drug: Meclizine PO 25 mg PO once Route: PO; Medication: 10:55 VIS not applicable for this client. Outcome: 14:17 Discharge ordered by . sp3 14:44 Discharged to home ambulatory, with family, 14:44 Condition: good 14:44 Discharge instructions given to patient, family, Instructed on discharge instructions, follow up and referral plans. medication usage, Demonstrated understanding of instructions, follow-up care, medications, Prescriptions given X 1, 14:44 Patient left the ED. Signatures: Dispatcher [employer] Katherin Cruz, SUSY JAIN Catarina Mckeon, RN RN Damien Ramos MD MD sp3 Neo Maria Teresa mg5
--- NOTE | 2024-05-06 14:18 | EDPHYS ---
Physician Documentation [facility] Name: Bee Herrera Age: 68 yrs Sex: Female : 1955 Arrival Date: 05/06/2024 Time: 10:36 Bed 6 Private MD: ED Physician Damien Stern HPI: 05/06 12:11 This 68 yrs old Female presents to ER via Ambulatory with complaints of sp3 Dizziness. 12:11 68-year-old female with history of diabetes and hypertension presents to the ED with sp3 chief complaint vertigo symptoms for the last 2 to 3 days. She has had a URI as well with mucus drainage. She states that the episodes hit after she lays down on the pillow and then moves her head or tries to stand up. Symptoms last for a while and then dissipate on their own. She denies significant headache, neck pain, fever, chest pain, shortness of breath, motor deficit, sensory deficit, or any other signs or symptoms on ROS at this time.. Historical: - Allergies: 10:56 No Known Allergies; ss - Home Meds: 10:56 atorvastatin oral [Active]; losartan potassium (bulk) [Active]; Metformin Oral [Active];ss - PMHx: 10:56 diabetes mellitus; Hypertensive disorder; ss 11:01 neuropathy; ss - Immunization history:: Client reports receiving the 2nd dose of the Covid vaccine. - Infectious Disease History:: Denies. - Social history:: Smoking status: Patient denies any tobacco usage or history of. ROS: 12:15 Constitutional: Negative for fever, chills, and weight loss, Eyes: Negative for injury, sp3 pain, redness, and discharge, Neck: Negative for injury, pain, and swelling, Cardiovascular: Negative for chest pain, palpitations, and edema, Respiratory: Negative for shortness of breath, cough, wheezing, and pleuritic chest pain, Abdomen/GI: Negative for abdominal pain, nausea, vomiting, diarrhea, and constipation, Back: Negative for injury and pain, MS/Extremity: Negative for injury and deformity, Skin: Negative for injury, rash, and discoloration, Psych: Negative for depression, anxiety, suicide ideation, homicidal ideation, and hallucinations, Allergy/Immunology: Negative for hives, rash, and allergies, Endocrine: Negative for neck swelling, polydipsia, polyuria, polyphagia, and marked weight changes, Hematologic/Lymphatic: Negative for swollen nodes, abnormal bleeding, and unusual bruising, 12:15 All other systems are negative, Exam: 12:15 Constitutional: This is a well developed, well nourished patient who is awake, alert, sp3 and in no acute distress. Head/Face: Normocephalic, atraumatic. Eyes: Pupils equal round and reactive to light, extra-ocular motions intact. Lids and lashes normal. Conjunctiva and sclera are non-icteric and not injected. Cornea within normal limits. Periorbital areas with no swelling, redness, or edema. ENT: Nares patent. No nasal discharge, no septal abnormalities noted. External auditory canals are clear. Oropharynx with no redness, swelling, or masses, exudates, or evidence of obstruction, uvula midline. Mucous membranes moist. Neck: Trachea midline, no thyromegaly or masses palpated, and no cervical lymphadenopathy. Supple, full range of motion without nuchal rigidity, or vertebral point tenderness. No Meningismus. Chest/axilla: Normal chest wall appearance and motion. Nontender with no deformity. No lesions are appreciated. Cardiovascular: Regular rate and rhythm with a normal S1 and S2. No gallops, murmurs, or rubs. Normal PMI, no JVD. No pulse deficits. Respiratory: Lungs have equal breath sounds bilaterally, clear to auscultation and percussion. No rales, rhonchi or wheezes noted. No increased work of breathing, no retractions or nasal flaring. Abdomen/GI: Soft, non-tender, with normal bowel sounds. No distension or tympany. No guarding or rebound. No evidence of tenderness throughout. Back: No spinal tenderness. No costovertebral tenderness. Full range of motion. Skin: Warm, dry with normal turgor. Normal color with no rashes, no lesions, and no evidence of cellulitis. MS/ Extremity: Pulses equal, no cyanosis. Neurovascular intact. Full, normal range of motion. Neuro: Awake and alert, GCS 15, oriented to person, place, time, and situation. Cranial nerves II-XII grossly intact. Motor strength 5/5 in all extremities. Sensory grossly intact. Cerebellar exam normal. Normal gait. Psych: Awake, alert, with orientation to person, place and time. Behavior, mood, and affect are within normal limits. 12:15 ECG was reviewed by the Attending Physician. EKG demonstrates left bundle branch block with ventricular rate of 74 bpm and a normal sinus rhythm. This is different from prior EKG dated 06/28/2023 for bundle branch block was absent. Vital Signs: 10:54 BP 169 / 64; Pulse 78; Resp 17; Temp 98.3(O); Pulse Ox 99% on R/A; Weight 108.86 kg; ss Height 5 ft. 0 in. ; Pain 0/10; 11:56 BP 131 / 58; Pulse 73; Resp 16; Temp 98(TE); Pulse Ox 97% ; Pain 0/10; ss 14:04 BP 176 / 74; Pulse 65; Resp 16; Pulse Ox 99% on R/A; Pain 0/10; ss 14:36 BP 136 / 62; Pulse 60; Resp 20; Pulse Ox 97% on R/A; Pain 0/10; iw 10:54 Body Mass Index 46.87 (108.86 kg, 152.4 cm) ss 10:54 Pain Scale: Adult ss 11:56 Pain Scale: Adult ss 14:04 Pain Scale: Adult ss 14:36 Pain Scale: Adult iw MDM: 10:44 Patient medically screened. sp3 12:17 Data reviewed: vital signs, nurses notes. ED course: 5-year-old female with PMH above sp3 now with vertigo symptoms nonsustained. Differential diagnosis includes peripheral vertigo, central vertigo, other intracranial process, ACS, electrolyte abnormality, among others. Patient does have a URI which supports peripheral vertigo and inner ear pathology. CT scan of the head, laboratory values including troponin and EKG are pending. Disposition pending workup and patient course. I am not highly suspicious of ACS even though patient's left bundle is possibly new. Meclizine 25 mg given as well.. 14:17 ED course: Patient significantly improved with meclizine. Second troponin negative. I sp3 do not believe the left bundle branch block found today is contributing to her current episode and is likely older than the immediate past. Will follow-up with cardiology on that regard. We will discharge patient home on oral meclizine.. 05/06 10:57 Order name: Basic Metabolic Panel; Complete Time: 12:19 sp3 05/06 10:57 Order name: CBC with Diff; Complete Time: 12:19 sp3 05/06 10:57 Order name: LFT's; Complete Time: 12:19 sp3 05/06 10:57 Order name: Magnesium; Complete Time: 12:19 sp3 05/06 10:57 Order name: NT PRO-BNP; Complete Time: 12:19 sp3 05/06 10:57 Order name: PT-INR; Complete Time: 12:19 sp3 05/06 10:57 Order name: Troponin HS; Complete Time: 12:19 sp3 05/06 10:57 Order name: UAM; Complete Time: 12:19 sp3 05/06 12:22 Order name: Troponin High Sensitivity: 2 hours after first; Complete Time: 14:16 sp3 05/06 10:57 Order name: XRAY Chest (1 view); Complete Time: 11:20 sp3 05/06 10:57 Order name: CT Head Brain wo Cont; Complete Time: 11:20 sp3 05/06 10:57 Order name: Cardiac monitoring; Complete Time: 11:48 sp3 05/06 10:57 Order name: EKG - Nurse/Tech; Complete Time: 11:48 sp3 05/06 10:57 Order name: IV Saline Lock; Complete Time: 11:48 sp3 05/06 10:57 Order name: Labs collected and sent; Complete Time: 11:48 sp3 05/06 10:57 Order name: O2 Per Protocol; Complete Time: 11:48 sp3 05/06 10:57 Order name: O2 Sat Monitoring; Complete Time: 11:48 sp3 Administered Medications: 12:11 Drug: Meclizine PO 25 mg PO once Route: PO; ss Disposition Summary: 05/06/24 14:17 Discharge Ordered Notes: Location: Home sp3 Condition: Stable sp3 Diagnosis - Vertigo, incidental finding left bundle branch block sp3 Followup: sp3 - With: Private Physician - When: Upon discharge from the Emergency Department - Reason: Continuance of care Discharge Instructions: - Discharge Summary Sheet sp3 - Vertigo sp3 Forms: - Medication Reconciliation Form sp3 - Antibiotic Education sp3 - Prescription Opioid Use sp3 - Patient Portal Instructions sp3 - Leadership Thank You Letter sp3 Prescriptions: - Meclizine 25 mg Oral Tablet - take 1 tablet ORAL route every 8 hours As needed; 30 tablet; Refills: 0, sp3 Product Selection Permitted Signatures: Dispatcher [employer] EDMS Catarina Mckeon, SUSY RN ss Damien Stern MD MD sp3 Corrections: (The following items were deleted from the chart) 10:57 10:57 BASIC METABOLIC PANEL+C.LAB.BRZ ordered. EDMS EDMS 10:57 10:57 CBC+H.LAB.BRZ ordered. EDMS EDMS 10:57 10:57 HEPATIC FUNCTION+C.LAB.BRZ ordered. EDMS EDMS 10:57 10:57 MAGNESIUM+C.LAB.BRZ ordered. EDMS EDMS 10:57 10:57 PROBNP+C.LAB.BRZ ordered. EDMS EDMS 10:57 10:57 PROTIME (+INR)+COAG.LAB.BRZ ordered. EDMS EDMS 10:57 10:57 Troponin High Sensitivity+C.LAB.BRZ ordered. EDMS EDMS 10:58 10:57 Chest Single View+RAD.RAD.BRZ ordered. EDMS EDMS 10:58 10:58 Head Brain Wo Cont+CT.RAD.BRZ ordered. EDMS EDMS 10:58 10:58 Urinalysis W/Microscopic+U.LAB.BRZ ordered. EDMS EDMS
[2024-05-06 15:20] VITALS: TEMP 98.6
[2024-05-06 15:21] VITALS: BP 149/87; O2SAT 98
--- NOTE | 2024-05-08 17:00 | EKG ---
Test Date: 2024-05-06 Test Time: 11:31:52 Fine Arts Teacher: KEE MEASUREMENT RESULTS: Intervals: Rate: 74 WI: 196 QRSD: 148 QT: 432 QTc: 479 [place]: P: 41 WI: 196 QRS: -23 T: 115 INTERPRETIVE STATEMENTS: Normal sinus rhythm Left bundle branch block Abnormal ECG Compared to ECG 06/28/2023 13:24:47 Left bundle-branch block now present Electronically Signed On 05-08-24 16:52:13 CDT by Ramon Rice
== END 2024-05-06 14:44 | disposition home or self-care (01) ==
LOC: ER 10:36
DX: R42 Dizziness and giddiness (principal); I44.7 Left bundle-branch block, unspecified; I10 Essential (primary) hypertension; E11.9 Type 2 diabetes mellitus without complications
CPT/HCPCS: 93005; 85025; 81001; 80048; 36415; 83735; 85610; 80076; 84484 ×2; 83880; 70450; 71045; 99284; J8597